=== PATIENT | female | born 1990 | race Caucasian/White ===

== ENCOUNTER 2017-05-22 18:56 | Emergency (ER) | payer MEDICAID ==
[2017-05-22 19:24] VITALS: BP 103/71
--- NOTE | 2017-05-22 20:06 | ER Document Report ---
HPI - HPI Pain Level: 5 Notes: Patient is a 26-year-old female who presents the ED complaining of right upper quadrant pain and pelvic pain 3 months with intermittent increases in her pain. Patient states that her pain is generally constant described as sharp. Patient is not sure if food worsens her symptoms. Patient states that she is still eating and drinking without any difficulties. Patient states that she has increased pelvic pain with intercourse as well without any vaginal discharge or bleeding. Her last menstrual period was at the end of April and was regular for her. Patient also admits to urinary frequency with voiding smaller amounts. No burning or hematuria. Patient states that she does have a history of ovarian cysts. Surgical history significant for 2 C-sections. Patient denies any drug allergies. Has a past medical history otherwise significant for epilepsy. Patient is seen regularly by a neurologist and her PCM is [facility]. Patient states that she has been seen by the women's clinic in the past for her 2 children as well. Patient denies any abortions or miscarriages. Denies any headache, fever, URI, sore throat, chest pain, palpitations, syncope, cough, shortness of breath, wheeze, dyspnea, nausea/ vomiting/diarrhea, back pain, loss of control of bowel or bladder, numbness/ tingling, saddle anesthesia, muscle paralysis/weakness, or rash. - ROS Notes: REVIEW OF SYSTEMS: CONSTITUTIONAL : Denies fever, chills, or sweats. Denies recent illness. EENT: Denies eye, ear, throat, or mouth pain or symptoms. Denies nasal or sinus congestion or discharge. Denies throat, tongue, or mouth swelling or difficulty swallowing. CARDIOVASCULAR: Denies chest pain. Denies palpitations or racing or irregular heart beat. Denies ankle edema. RESPIRATORY: Denies cough, cold, or chest congestion. Denies shortness of breath, difficulty breathing, or wheezing. GASTROINTESTINAL: see hpi GENITOURINARY: see hpi FEMALE GENITOURINARY: see hpi MUSCULOSKELETAL: Denies back or neck pain or stiffness. Denies joint pain or swelling. SKIN: Denies rash, lesions or sores. NEUROLOGICAL: Denies confusion or altered mental status. Denies passing out or loss of consciousness. Denies dizziness or lightheadedness. Denies headache. Denies weakness or paralysis or loss of use of either side. Denies problems with gait or speech. PSYCHIATRIC: Denies anxiety or stress. Denies depression, suicidal ideation, or homicidal ideation. ALL OTHER SYSTEMS REVIEWED AND NEGATIVE. Dictation was performed using [employer] voice recognition software - REPRODUCTIVE Reproductive: DENIES: : - DERM Skin Color: Normal, [employer] Past Medical History - Social History Smoking Status: Unknown if Ever Smoked Family History: Reviewed & Not Pertinent Neurological Medical History: Reports: Hx Migraine, Hx Seizures - SZ PRECAUTIONS IN PLACE Renal/ Medical History: Denies: Hx Peritoneal Dialysis Past Surgical History: Reports: Hx Section. Denies: Hx Hysterectomy - Immunizations Hx Diphtheria, Pertussis, Tetanus Vaccination: No - contraindicated-seizures Vertical Provider Document - CONSTITUTIONAL Agree With Documented VS: Yes Notes: PHYSICAL EXAMINATION: GENERAL: Well-appearing, well-nourished and in no acute distress. EYES: Pupils equal round and reactive to light, extraocular movements intact, conjunctiva are normal. ENT: Nares patent, oropharynx clear without exudates. Moist mucous membranes. No tonsillar hypertrophy or erythema. No sinus tenderness. NECK: Normal range of motion, supple without lymphadenopathy LUNGS: Breath sounds clear to auscultation bilaterally and equal. No wheezes rales or rhonchi. HEART: Regular rate and rhythm without murmurs ABDOMEN: Soft, nondistended abdomen. No guarding, no rebound. No masses appreciated. Normal bowel sounds present. CVA tenderness negative bilaterally. + tenderness to the lower pelvic area b/l and to the RUQ. Female : No inguinal adenopathy. External genitalia without erythema, lesions , or masses. Vaginal mucosa pink with white d/c in canal. Cervix parous, pink , and without discharge. Uterus is smooth. + left mild adnexal tenderness. Musculoskeletal: LE's b/l: FROM to passive/active. Strength 5+/5. Extremities: No cyanosis/clubbing/edema b/l. Peripheral pulses 2+. Capillary refill less than 3 seconds. NEUROLOGICAL: Cranial nerves grossly intact. Normal speech, normal gait. Normal sensory, motor exams PSYCH: Normal mood, normal affect. SKIN: Warm, Dry, normal turgor, no rashes or lesions noted. - INFECTION CONTROL TRAVEL OUTSIDE OF THE [place] IN LAST 30 DAYS: No - RESPIRATORY O2 Sat by Pulse Oximetry: 99 Course - Re-evaluation Re-evalutation: 05/22/17 23:04 Patient is an afebrile, well-hydrated, 26-year-old female who presents the ED with a left ovarian cyst and bacterial vaginosis based on H&P today. Vitals are stable. PE otherwise unremarkable at this time. Patient is tolerating p.o. intake. CBC, CMP, lipase were unremarkable. Urinalysis and urine were unremarkable. Galo/chlam neg. Right upper quadrant ultrasound was unremarkable. Transvaginal ultrasound revealed the ovarian cyst. Pelvic exam found a bacterial vaginosis. 1L NS, Toradol 30 mg given IV today along with Zofran 4 mg. I will send her home with a prescription for Flagyl and Zofran to take as directed. Advised recheck with the women's clinic/[facility]. Recheck with your PCM this week as well. Return to the ED with any worsening/ concerning symptoms otherwise as reviewed in discharge. Patient is in agreement. Low suspicion/risk for acute appendicitis, bowel obstruction, acute cholecystitis, acute cholangitis, perforated diverticulitis, incarcerated hernia , pancreatitis, perforated ulcer, peritonitis, sepsis, pelvic inflammatory disease, ectopic , tubo-ovarian abscess, ovarian torsion, or other systemic emergent condition at this time. Patient is aware that her condition can change from initial presentation and she needs to monitor symptoms closely and seek medical attention if any acute changes. - Vital Signs Vital signs: Temp Pulse Resp BP Pulse Ox 97.8 F 79 16 103/71 99 05/22/17 19:24 05/22/17 19:24 05/22/17 19:24 05/22/17 19:24 05/22/17 19:24 - Laboratory Result Diagrams: 05/22/17 19:56 05/22/17 19:56 Procedures - Pelvic Exam Pelvic exam Time completed: 21:00 - approx Cultures obtained: No Wet prep obtained: Yes Herpes culture obtained: No Bimanual exam performed: Yes - neg Witnessed by: female pct Discharge - Discharge Clinical Impression: Bacterial vaginosis Ovarian cyst Qualifiers: Laterality: left Qualified Code(s): N83.202 - Unspecified ovarian cyst, left side Condition: Stable Disposition: HOME, SELF-CARE Instructions: Abdominal Pain ([facility]), Observation for Appendicitis ([facility]), Vaginosis, Bacterial ([facility]), Ovarian Cyst ([facility]), Metronidazole ([facility]), Antinausea Medication ([facility]) Additional Instructions: Maintain adequate fluid and food intake Take medications as directed/needed Monitor symptoms for any acute changes Tylenol/ibuprofen as needed Warm and cool packs may help Recheck with the women's clinic/[facility] this week Recheck with your PCM this week as well Return to the ED with any worsening symptoms and/or development of fever, headache, chest pain, palpitations, syncope, shortness of breath, trouble breathing, worsening abdominal pain, n/v/d, blood in stool/urine, or any other worsening symptoms that are concerning to you. Prescriptions: Metronidazole [Flagyl] 500 mg PO BID #14 tablet Ondansetron [Zofran Odt 4 mg Tablet] 1 - 2 tab PO Q4H PRN #15 tab.rapdis PRN Reason: For Nausea/Vomiting Referrals: JOSE DAVID WHITE MD [Primary Care Provider] - Follow up as needed [facility]Provider Group] - 05/24/17
[2017-05-22] MEDS ORDERED: ONDANSETRON HCL INJ/PF 4 MG/2 ML SDV IV ONE (20:08)
[2017-05-22 20:10] LABS: ABSOLUTE EOSINOPHILS # (AUTO) 0.1 10^3/uL (0.0-0.6); ABSOLUTE LYMPHOCYTES (AUTO) 3.3 10^3/uL (0.5-4.7); ABSOLUTE MONOCYTES (AUTO) 0.4 10^3/uL (0.1-1.4); ABSOLUTE NEUT (AUTO) 3.4 10^3/uL (1.7-8.2); BASOPHILS % (AUTO) 0.6 % (0-2); EOSINOPHILS % (AUTO) 1.3 % (0-6); HEMATOCRIT 37.8 % (36.0-47.0); HEMOGLOBIN 12.7 g/dL (12.0-15.5); HGB HCT DIFFERENCE 0.3; LYMPHOCYTES % (AUTO) 45.8 % (13-45); MEAN CORPUSCULAR HEMOGLOBIN 30.9 pg (27.0-33.4); MEAN CORPUSCULAR HGB CONC 33.7 g/dL (32.0-36.0); MEAN CORPUSCULAR VOLUME 92 fl (80-97); MONOCYTES % (AUTO) 5.6 % (3-13); RED BLOOD COUNT 4.13 10^6/uL (3.72-5.28); RED CELL DISTRIBUTION WIDTH 13.8 % (11.5-14.0); SEGMENTED NEUTROPHILS % (AUTO) 46.7 % (42-78); WHITE BLOOD COUNT 7.2 10^3/uL (4.0-10.5)
[2017-05-22 20:12] LABS: APPEARANCE,URINE CLEAR; BILIRUBIN,URINE NEGATIVE (NEGATIVE); GLUCOSE, URINE NEGATIVE (NEGATIVE); KETONES,URINE NEGATIVE (NEGATIVE); LEUKOCYTE ESTERASE,URINE NEGATIVE (NEGATIVE); NITRITE,URINE NEGATIVE (NEGATIVE); PROTEIN,URINE NEGATIVE (NEGATIVE); URINE SPECIFIC GRAVITY 1.003; UROBILINOGEN,URINE NEGATIVE mg/dL (<2.0)
[2017-05-22 20:20] LABS: ALANINE AMINOTRANSFERASE 18 U/L (9-52); ALBUMIN 4.7 g/dL (3.5-5.0); ALKALINE PHOSPHATASE 46 U/L (38-126); ANION GAP 10 (5-19); ASPARTATE AMINO TRANSFERASE 17 U/L (14-36); BILIRUBIN,DIRECT 0.4 mg/dL (0.0-0.4); BILIRUBIN,TOTAL 0.5 mg/dL (0.2-1.3); BLOOD UREA NITROGEN 9 mg/dL (7-20); CALCIUM 9.8 mg/dL (8.4-10.2); CARBON DIOXIDE 29 mmol/L (22-30); CHLORIDE 98 mmol/L (98-107); GLUCOSE 79 mg/dL (75-110); LIPASE 112.2 U/L (23-300); POTASSIUM 4.1 mmol/L (3.6-5.0); SODIUM 137.2 mmol/L (137-145); TOTAL PROTEIN 7.9 g/dL (6.3-8.2)
--- NOTE | 2017-05-22 22:33 | RADIOLOGY REPORT (SQ) ---
EXAM DESCRIPTION: U/S NON OB PEL TV W/DOPPLER COMPLETED DATE/TIME: 05/22/2017 10:24 pm REASON FOR STUDY: RUQ and b/l Lower quadrant COMPARISON: None. TECHNIQUE: Dynamic and static grayscale images acquired of the pelvis via transvaginal approach and recorded on PACS. Additional selected color Doppler and spectral images recorded. LIMITATIONS: None. FINDINGS: UTERUS: Contour normal. No mass. ENDOMETRIAL STRIPE: No focal or generalized thickening. No masses. CERVIX: No nabothian cysts. RIGHT OVARY: No abnormal masses. RIGHT OVARY DOPPLER: Normal arterial vascular flow without evidence for torsion. LEFT OVARY: Small left ovarian cyst is identified measuring 3.0 x 1.8 x 1.8 cm LEFT OVARY DOPPLER: Normal arterial vascular flow without evidence for torsion. FREE FLUID: None noted. OTHER: No other significant finding. MEASUREMENTS: UTERUS: 11.0 x 4.5 x 6.0 cm ENDOMETRIAL STRIPE: 4.9 mm RIGHT OVARY: 3.2 x 2.8 x 1.7 cm LEFT OVARY: 2.1 x 4.2 x 2.4 cm IMPRESSION: Small left ovarian cyst. No other significant findings TECHNICAL DOCUMENTATION: JOB ID: [id number]- All Rights Reserved
--- NOTE | 2017-05-22 22:34 | RADIOLOGY REPORT (SQ) ---
EXAM DESCRIPTION: U/S ABDOMEN LTD W/DOPPLER COMPLETED DATE/TIME: 05/22/2017 10:24 pm REASON FOR STUDY: RUQ and b/l Lower quadrant COMPARISON: None. TECHNIQUE: Dynamic and static grayscale images acquired of the abdomen and recorded on PACS. Additio nal selected color Doppler and spectral images recorded. LIMITATIONS: None. FINDINGS: PANCREAS: No masses. No peripancreatic edema or fluid collections. LIVER: Echotexture is coarse with increased echogenicity consistent with fatty infiltration. LIVER VASCULATURE: Normal directional flow of the main portal vein and hepatic veins. GALLBLADDER: No stones. Normal wall thickness. No pericholecystic fluid. ULTRASOUND-DETECTED MORALES'S SIGN: Negative. INTRAHEPATIC DUCTS AND COMMON DUCT: CBD and intrahepatic ducts normal caliber. No filling defects. INFERIOR VENA CAVA: Normal flow. AORTA: No aneurysm. RIGHT KIDNEY: Normal size. Normal echogenicity. No solid or suspicious masses. No hydronephrosis. No calcifications. PERITONEAL AND RIGHT PLEURAL SPACE: No ascites or effusions. OTHER: No other significant finding. IMPRESSION: FATTY INFILTRATION OF THE LIVER. OTHERWISE NORMAL RIGHT UPPER QUADRANT ULTRASOUND. TECHNICAL DOCUMENTATION: JOB ID: [id number] [employer]- All Rights Reserved
[2017-05-22 22:37] LABS: CHLAM PCR NOT DETECTED (NOT DETECT)
[2017-05-22] MEDS ORDERED: KETOROLAC TROMETHAMINE INJ/PF 30 MG/1 ML SDV IV ONE (23:01)
[2017-05-23] MEDS ORDERED: IBUPROFEN 600 MG TABLET PO ONE (00:53)
[2017-05-23] MEDS ORDERED: ACETAMINOPHEN 325 MG TABLET PO ONE (00:53)
== END 2017-05-23 01:45 | disposition home or self-care (01) ==
LOC: ER 18:56
DX: N76.0 Acute vaginitis (principal); B96.89 Other specified bacterial agents as the cause of diseases classified elsewhere; N83.202 Unspecified ovarian cyst, left side; R10.11 Right upper quadrant pain; R10.2 Pelvic and perineal pain; R35.0 Frequency of micturition
CPT/HCPCS: 99284; 96374; 96375; 36415; 87210; 83690; 85025; 81025; 80053; 81001; 87491; 87591; 76705; 76830; 93976; J1885; J2405

== ENCOUNTER 2018-05-05 21:23 | Emergency (ER) | payer MEDICAID ==
[2018-05-05] MEDS ORDERED: LIDOCAINE 1%/EPINEPHRINE INJ 20 ML VIAL INJ ONE (22:48)
--- NOTE | 2018-05-05 23:05 | ER Document Report ---
ED General - General Chief Complaint: Skin Problem Stated Complaint: LEG PAIN Time Seen by Provider: 05/05/18 22:45 Notes: Patient is a 27-year-old female presents with complaint of abscess on her right thigh. She says she has never had abscesses before. Patient has multiple track garcia over her body as well as some bruising consistent with possible skin popping. Patient says that she is a former IV drug user but no longer uses IV drugs. She says all her track garcia are from a while ago. She denies any fevers. No vomiting. No diarrhea. No other complaints at this time. TRAVEL OUTSIDE OF THE [place] IN LAST 30 DAYS: No - Related Data Allergies/Adverse Reactions: No Known Allergies Allergy (Verified 08/07/13 19:24) Past Medical History - Social History Smoking Status: Unknown if Ever Smoked Frequency of alcohol use: None Lives with: Other - former heroin Family History: Reviewed & Not Pertinent Neurological Medical History: Reports: Hx Migraine, Hx Seizures - SZ PRECAUTIONS IN PLACE Renal/ Medical History: Denies: Hx Peritoneal Dialysis Past Surgical History: Reports: Hx Section. Denies: Hx Hysterectomy - Immunizations Hx Diphtheria, Pertussis, Tetanus Vaccination: No - contraindicated-seizures Review of Systems - Review of Systems Notes: My Normal Review Basic REVIEW OF SYSTEMS: CONSTITUTIONAL : Denies fever, chills, or sweats. Denies recent illness. GASTROINTESTINAL: Denies abdominal pain. Denies nausea, vomiting, or diarrhea. GENITOURINARY: Denies difficulty urinating, painful urination, burning, frequency, or blood in urine. MUSCULOSKELETAL: Denies neck or back pain or joint pain or swelling. SKIN: Abscess over right anterior thigh. NEUROLOGICAL: Denies sensory or motor loss. ALL OTHER SYSTEMS REVIEWED AND NEGATIVE. Physical Exam - Vital signs Vitals: Temp Pulse Resp BP Pulse Ox 98.3 F 97 16 128/81 H 100 05/05/18 21:38 05/05/18 21:38 05/05/18 21:38 05/05/18 21:38 05/05/18 21:38 - Notes Notes: General Appearance: Well nourished, alert, cooperative, no acute distress, no obvious discomfort. Vitals: reviewed, See vital signs table. Head: no swelling or tenderness to the head Eyes: PERRL, EOMI, Conjuctiva clear Extremities: strength 5/5 in all extremities, good pulses in all extremities, patient has a similar abscess as well as a 2 similar abscess. The right-sided shoulder on anterior thigh. Approximately 4 cm of surrounding erythema. Patient has multiple bruises on her extremities as well as track garcia consistent with IV drug abuse. Skin: warm, dry, appropriate color, no rash Neuro: speech clear, oriented x 3, normal affect, responds appropriately to questions. Course - Re-evaluation Re-evalutation: 05/06/18 00:09 Both abscesses were incised and drained and packed with iodoform gauze. I talked to patient length being that she does have some track garcia. Her and her boyfriend both said are old. 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 Patient and boyfriend both continue adamantly denies any IV drug abuse. I do not see any fresh track garcia therefore I think that she is most likely telemetry. I do not see any bruising on the thigh around the area where the abscesses. She never asked for any type of opiate pain medications. I gave the patient dose doxycycline. I informed her to keep the dressing on for 24 hours. After that to remove and place new dressing on. Packing to be removed in 48 hours. I strongly encouraged her return to ER immediately if she has fevers, spreading redness or swelling, or she feels that she is worsening in any way. Patient agrees with plan will be discharged home. Dictation of this chart was performed using voice recognition software; therefore, there may be some unintended grammatical errors. - Vital Signs Vital signs: Temp Pulse Resp BP Pulse Ox 98.2 F 91 16 108/66 100 05/05/18 23:52 05/05/18 23:52 05/05/18 23:52 05/05/18 23:52 05/05/18 23:52 Procedures - Incision and Drainage Right Thigh Type: Multiple Anesthetic type: 1% Lidocaine w/epi Blade size: 11 I&D procedure: Shurclens applied Incision Method: Incision made by scalpel Amount/type of drainage: 4mls of purulent drainage Notes: 08/04/18 00:07 Both abscesses were anesthetized with lidocaine with epi. They both incised. Purulent drainage was expressed from both abscesses. Loculations were broken up with the tweezers. Both abscesses were flushed with saline and then packed with iodoform gauze and covered with nonstick Xeroform dressings. Patient tolerated procedure well. No complications. Discharge - Discharge Clinical Impression: Abscess Condition: Good Disposition: HOME, SELF-CARE Additional Instructions: ABSCESS: You have an abscess (boil). This a pus-forming infection, usually due to staph. Some boils may be left to drain on their own, but most require lancing. From the time the tender lump first appears, it may be three or four days before the abscess is ready to brayden. Local heat and rest help at this stage of treatment. An antibiotic may prevent spread of the infection. Once the abscess is opened, packing may be placed into it. This is done so pus is not sealed inside by premature closure of the cavity. The packing will be removed at your follow-up visit or you may be advised to remove it yourself at home. Sometimes this packing must be replaced a few times during healing. The wound will heal with surprisingly little scar. Depending on the size and location of an abscess, healing can take one to four weeks. You may shower and wash the area around the incision site two or three times a day. Antibiotics may be prescribed, but are usually not necessary after an abscess has been drained. If you develop fever, chills, worsening pain, or increasing swelling in the area, call the doctor or return immediately. POST INCISION AND DRAINAGE: You have had an incision made to allow drainage of an abscess. The incision must remain open so that pus and debris can drain from the wound. If the abscess cavity is large, packing is placed. This keeps the tissues from collapsing and trapping pus inside, while the body shrinks the cavity. The packing may need to be replaced every day or two. The physician will instruct you on the packing. Keep a bulky dressing over the area. Replace it if it becomes saturated with blood or pus. Do not disturb the packing (if present). You may shower and cleanse the area with gentle soap and warm water two or three times a day. Local warmth may be soothing, and may promote faster healing. Return if you develop high fever or chills, or if you note spreading redness, increasing swelling, or increasing tenderness. DOXYCYCLINE: Doxycycline (Vibramycin, Doryx) is an antibiotic of the tetracycline family. This type of drug is useful for infections of the respiratory tract and genital tract, and is sometimes used for intestinal infections. Unlike most tetracyclines, doxycycline can be taken with food. It is longer acting, and (usually) less prone to side effects than regular tetracycline. Tetracycline antibiotics can stain immature teeth and SHOULD NOT BE TAKEN BY CHILDREN, NURSING MOTHERS, OR WOMEN. Tetracyclines can make you more prone to sunburn. Abdominal cramping, nausea, and diarrhea are occasional side effects. Women may experience vaginal yeast infections. Call the doctor at once if you develop hives, itching, shortness of breath , or lightheadedness. FOLLOW-UP CARE: Most simple abscesses will not require a follow up visit. If you had packing placed in the abscess, remove it as instructed by the physician. If you have been referred to a physician for follow-up care, call the physicians office for an appointment as you were instructed or within the next two days. If you experience worsening or a significant change in your symptoms, return to the Emergency Department at any time for re-evaluation. Please remove the dressing after [address] a new dressing. Remove the packing after 48 hours. Return to the ER for packing removal if you feel in any way uncomfortable doing this at home. Please return to the ER immediately if you have spreading redness, fevers, increasing swelling, or feel that you infection is worsening in any way. Doxycycline will make your skin more sensitive to the sun so please make sure you keep your skin covered or wear sunscreen whenever out in the sun. Prescriptions: Doxycycline Hyclate 100 mg PO BID #14 capsule Forms: Return to Work Referrals: JOSE DAVID WHITE MD [NO LOCAL MD] - Follow up in 3-5 days
[2018-05-05 23:53] VITALS: BP 108/66
[2018-05-05] MEDS ORDERED: DOXYCYCLINE HYCLATE 100 MG TABLET PO ONE (23:57)
== END 2018-05-06 00:03 | disposition home or self-care (01) ==
LOC: ER 21:23
PROC: 0H9HXZZ Drainage of Right Upper Leg Skin, External Approach (ICD-10-PCS; principal; 2018-05-05)
DX: L02.415 Cutaneous abscess of right lower limb (principal)
CPT/HCPCS: 99283; 10061; A6266; J3490 ×2

== ENCOUNTER 2018-06-29 21:50 | Inpatient (IN) | payer MEDICAID ==
--- NOTE | 2018-06-29 22:35 | ER Document Report ---
ED Medical Screen (RME) - General Chief Complaint: Abscess Stated Complaint: SKIN INFECTION Time Seen by Provider: 06/29/18 22:33 Mode of Arrival: Ambulatory Information source: Patient Notes: Patient is a 28-year-old female who presents to the emergency department with complaint of "boil". Patient reports while she was injecting meth she missed of the vein in both her left thigh as well as her left lateral neck. Exam: Erythematous area with induration located to left lateral neck Erythematous area with induration noted to left thigh I have greeted and performed a rapid initial assessment of this patient. A comprehensive ED assessment and evaluation of the patient, analysis of test results and completion of the medical decision making process will be conducted by additional ED providers. Dictation of this chart was performed using voice recognition software; therefore, there may be some unintended grammatical errors. TRAVEL OUTSIDE OF THE [place] IN LAST 30 DAYS: No - Related Data Allergies/Adverse Reactions: No Known Allergies Allergy (Verified 08/07/13 19:24) Past Medical History Neurological Medical History: Reports: Hx Migraine, Hx Seizures - SZ PRECAUTIONS IN PLACE Renal/ Medical History: Denies: Hx Peritoneal Dialysis Past Surgical History: Reports: Hx Section. Denies: Hx Hysterectomy - Immunizations Hx Diphtheria, Pertussis, Tetanus Vaccination: No - contraindicated-seizures Physical Exam - Vital signs Vitals: Temp Pulse Resp BP Pulse Ox 99.4 F 116 H 18 124/78 100 06/29/18 21:59 06/29/18 21:59 06/29/18 21:59 06/29/18 21:59 06/29/18 21:59 Course - Vital Signs Vital signs: Temp Pulse Resp BP Pulse Ox 99.4 F 116 H 18 124/78 100 06/29/18 21:59 06/29/18 21:59 06/29/18 21:59 06/29/18 21:59 06/29/18 21:59
--- NOTE | 2018-06-29 23:27 | ER Document Report ---
ED General - General Chief Complaint: Abscess Stated Complaint: SKIN INFECTION Time Seen by Provider: 06/29/18 22:33 Mode of Arrival: Ambulatory Notes: 28-year-old female, active injection drug use with meth presents with right- sided neck pain and swelling, for 1 day, worsening, moderate. No trouble swallowing or breathing. Pain is worse with moving the neck. She attempted to inject meth into her neck pain 2 days ago, or about 1 day prior to the pain, and missed. Also has an injection site on her leg she is worried about. She denies fevers and chills. Denies prior blood-borne infections. Uses clean needles. TRAVEL OUTSIDE OF THE [place] IN LAST 30 DAYS: No - Related Data Allergies/Adverse Reactions: No Known Allergies Allergy (Verified 08/07/13 19:24) Past Medical History - General Information source: Patient - Social History Smoking Status: Current Every Day Smoker Drug Abuse: Methamphetamine Family History: Reviewed & Not Pertinent Neurological Medical History: Reports: Hx Migraine, Hx Seizures - SZ PRECAUTIONS IN PLACE Renal/ Medical History: Denies: Hx Peritoneal Dialysis Past Surgical History: Reports: Hx Section. Denies: Hx Hysterectomy - Immunizations Hx Diphtheria, Pertussis, Tetanus Vaccination: No - contraindicated-seizures Review of Systems - Review of Systems Notes: REVIEW OF SYSTEMS GEN: Denies fever, chills, weight loss ENT: Denies sore throat, nasal discharge, ear pain EYES: Denies blurry vision, eye pain, discharge CV: Denies chest pain, palpitations, edema RESP: Denies cough, shortness of breath, wheezing GI: Denies abdominal pain, nausea, vomiting, diarrhea MSK: Denies joint pain/swelling, edema, SKIN: Swelling and redness of neck and leg LYMPH: Denies swollen glands/lymph nodes NEURO: Denies headache, focal weakness or numbness, dizziness PSYCH: Denies depression, suicidal or homicidal ideation PHYSICAL EXAMINATION General: No acute distress, well-nourished Head: Atraumatic, normocephalic ENT: Mouth normal, oropharynx moist, no exudates or tonsillar enlargement Eyes: Conjunctiva normal, pupils equal, lids normal Neck: No JVD, supple, no guarding. 2 x 2 centimeter area of erythema and tenderness without fluctuance or crepitus, mobile, shallow cutaneous tissues of the proximal right neck just above the clavicle CVS: Normal rate, regular rhythm, no murmurs Resp: No resp distress, equal and normal breath sounds bilaterally GI: Nondistended, soft, no tenderness to palpation, no rebound or guarding Ext: No deformities, no edema, normal range of motion in upper and lower ext Back: No CVA or midline TTP Skin: There is an area approximately 30 x 25 cm on the right inner thigh surrounding a necrotic fluctuant region is highly suggestive of abscess and cellulitis Lymphatic: No lymphadeopathy noted Neuro: Awake, alert. Face symmetric. GCS 15. Physical Exam - Vital signs Vitals: Temp Pulse Resp BP Pulse Ox 99.4 F 116 H 18 124/78 100 06/29/18 21:59 06/29/18 21:59 06/29/18 21:59 06/29/18 21:59 06/29/18 21:59 Course - Re-evaluation Re-evalutation: 06/29/18 23:42 Patient presents with 2 injection drug use related s to his consultations: Small area of cellulitis and superficial thrombus vulvitis in the right neck which I do not believe extends into the internal jugular vein or carotid artery based on history and exam. Also do not believe that this reflects a deep space or spreading neck infection requiring imaging at this point. Her head and neck exam is otherwise normal she can range her neck normally is speaking normally. Also she has a large cellulitis on the right anterior thigh associated with evolving abscess. Both of these can be treated with IV antibiotics. We will get blood cultures and labs. Unit require imaging at this point. 06/30/18 00:13 Ultrasound does not show deep space infection of the neck. There is a superficial thrombus phlebitis present in the right neck. This stays above the fascia with minimal surrounding cellulitis on ultrasound. Right leg shows cellulitis with small abscess cavity. This will be drained. White count elevated. Antibiotics were given. Tetanus is updated. Given Ativan for anxiety and seizures order nighttime Depakote. Discussed with Mateus Fields for admission. - Vital Signs Vital signs: Temp Pulse Resp BP Pulse Ox 99.4 F 116 H 18 124/78 100 06/29/18 21:59 06/29/18 21:59 06/29/18 21:59 06/29/18 21:59 06/29/18 21:59 - Laboratory Result Diagrams: 06/29/18 23:40 06/29/18 23:40 Laboratory results interpreted by me: 06/29/18 06/29/18 23:40 23:40 WBC 13.5 H Hgb 10.4 L Hct 31.8 L MCV 72 L MCH 23.3 L RDW 15.5 H Absolute Neutrophils 10.3 H Sodium 135.5 L Chloride 94 L Glucose 70 L Procedures - Incision and Drainage Right Proximal Leg Time completed: 00:50 Type: Complex, Single Anesthetic type: 1% Lidocaine w/epi mL's of anesthetic: 5 Blade size: 11 I&D procedure: Betadine prep applied, Sterile dressing applied, Other - Cut segment of 4 x 4 gauze Incision Method: Incision made by scalpel Amount/type of drainage: 3 cc pus and blood Notes: 06/30/18 00:59 Loculations broken up with hemostats - Ultrasound/Bedside Ultrasound/Bedside Time completed: 22:45 Ultrasound: Other - Soft tissue ultrasound right leg. Cellulitis with abscess presents. Discharge - Discharge Clinical Impression: Cellulitis and abscess of right lower extremity Condition: Fair Disposition: ADMITTED INPATIENT Admitting Provider: Hospitalist Unit Admitted: Telemetry
[2018-06-29] MEDS ORDERED: NORMAL SALINE 1000 ML 1,000 ML IV ONE (23:41)
[2018-06-29] MEDS ORDERED: VANCOMYCIN HCL INJ 1000 MG VIAL IV ONE (23:41)
[2018-06-29] MEDS ORDERED: LORAZEPAM INJ 2 MG/1 ML VIAL IV ONE (23:41)
[2018-06-29] MEDS ORDERED: LIDOCAINE 1%/EPINEPHRINE INJ 20 ML VIAL INJ ONE (23:54)
[2018-06-29 23:55] LABS: ABSOLUTE MONOCYTES (AUTO) 1.1 10^3/uL (0.1-1.4); ABSOLUTE NEUT (AUTO) 10.3 10^3/uL (1.7-8.2); BASOPHILS % (AUTO) 0.3 % (0-2); EOSINOPHILS % (AUTO) 0.3 % (0-6); HEMATOCRIT 31.8 % (36.0-47.0); HEMOGLOBIN 10.4 g/dL (12.0-15.5); LYMPHOCYTES % (AUTO) 15.1 % (13-45); MEAN CORPUSCULAR HEMOGLOBIN 23.3 pg (27.0-33.4); MEAN CORPUSCULAR HGB CONC 32.6 g/dL (32.0-36.0); MEAN CORPUSCULAR VOLUME 72 fl (80-97); MONOCYTES % (AUTO) 8.1 % (3-13); PLATELET COUNT 395 10^3/uL (150-450); RED BLOOD COUNT 4.45 10^6/uL (3.72-5.28); RED CELL DISTRIBUTION WIDTH 15.5 % (11.5-14.0); SEGMENTED NEUTROPHILS % (AUTO) 76.2 % (42-78); TOTAL CELLS COUNTED % (AUTO) 100 %; WHITE BLOOD COUNT 13.5 10^3/uL (4.0-10.5)
[2018-06-30 00:08] LABS: ANION GAP 12 (5-19); BLOOD UREA NITROGEN 9 mg/dL (7-20); CALCIUM 9.5 mg/dL (8.4-10.2); CARBON DIOXIDE 30 mmol/L (22-30); CHLORIDE 94 mmol/L (98-107); GLUCOSE 70 mg/dL (75-110); POTASSIUM 4.1 mmol/L (3.6-5.0); SODIUM 135.5 mmol/L (137-145)
[2018-06-30] MEDS ORDERED: DIVALPROEX SODIUM 250 MG TAB.SR.24H PO ONE ×2 (00:14→01:00)
[2018-06-30] MEDS ORDERED: MAG HYDROX/AL HYDROX/SIMETH SUSP 30 ML UDCUP PO PRN (00:16)
[2018-06-30] MEDS ORDERED: HYDRALAZINE HCL INJ/PF 20 MG/1 ML SDV IV PRN (00:16)
[2018-06-30] MEDS ORDERED: ACETAMINOPHEN 325 MG TABLET PO PRN (00:16)
[2018-06-30] MEDS ORDERED: KETOROLAC TROMETHAMINE INJ/PF 30 MG/1 ML SDV IV PRN (00:16)
[2018-06-30] MEDS ORDERED: MAGNESIUM HYDROXIDE SUSP 30 ML UDCUP PO PRN (00:16)
[2018-06-30 00:30] LABS: ABSOLUTE RETICS # 0.049 10^6/uL (0.028-0.122)
[2018-06-30] MEDS ORDERED: NORMAL SALINE 1000 ML 1,000 ML IV SCH ×2 (00:30→08:30)
[2018-06-30 00:46] LABS: URINE BARBITURATES SCREEN NEGATIVE; URINE BENZODIAZEPINES SCREEN NEGATIVE; URINE COCAINE SCREEN NEGATIVE; URINE MARIJUANA (THC) SCREEN NEGATIVE; URINE METHADONE SCREEN NEGATIVE; URINE PHENCYCLIDINE SCREEN NEGATIVE
[2018-06-30] MEDS ORDERED: OXYCODONE-ACETAMINOPHEN 5-325 MG TABLET PO ONE (00:46)
[2018-06-30] MEDS ORDERED: TRAZODONE HCL 50 MG TABLET PO ONE (01:00)
[2018-06-30 01:48] LABS: IRON(TIBC) < 10.1 ug/dL (37-170)
[2018-06-30] MEDS ORDERED: NORMAL SALINE 1000 ML 1,000 ML IV ONE (05:27)
[2018-06-30] MEDS ORDERED: VANCOMYCIN HCL 0 MG in DEXTROSE 5%-WATER 250 ML IV NR (05:30)
--- NOTE | 2018-06-30 05:39 | PDOC H&P ---
History of Present Illness Admission Date/PCP: 06/30/18 00:16 Patient complains of: Right neck pain History of Present Illness: KINA GOMEZ is a 28 year old female with past medical history of seizure disorder and tobacco. She presents with 48 hours of 1 cm swelling and pain to her anterior right neck and 2.5 cm abscess of the anterior aspect of the right thigh. Patient admits methamphetamine IV drug abuse. Denies fever, palpitations, difficulty with speech or breathing. In the emergency room ultrasound reveals a localized swelling to the neck and thigh receiving I&D by emergency department provider. She denies recent antibiotics, placed on IV vancomycin and was referred to the hospitalist for admission. Past Medical History Neurological Medical History: Reports: Migraine, Seizures - SZ PRECAUTIONS IN PLACE Psychiatric Medical History: Reports: Substance Abuse, Tobacco Dependency Past Surgical History Past Surgical History: Reports: Section Denies: Hysterectomy Social History Information Source: Patient Smoking Status: Current Some Day Smoker Last Time Smoked: 06/29/2018 Hx Recreational Drug Use: Yes Drugs: Other - Advance Directive Resuscitation Status: Full Code Family History Family History: Hypertension Parental Family History Reviewed: Yes Children Family History Reviewed: Yes Sibling(s) Family History Reviewed.: Yes Medication/Allergy Home Medications: Butalb/Acetaminophen/Caffeine [Fioricet (50-325-40 mg) Tablet] 1 tab PO BID PRN 08/07/13 Divalproex Sodium [Depakote] 250 mg PO TID 08/07/13 Oxycodone HCl/Acetaminophen [Percocet 5-325 mg Tablet] 1 tab PO TID PRN Promethazine HCl [Phenergan 25 mg Tablet] 25 mg PO TID PRN 08/07/13 Fluconazole [Diflucan] 150 mg PO ONCE PRN #1 tablet 08/08/13 Ondansetron [Zofran Odt 4 mg Tablet] 1 - 2 tab PO Q4H #10 tab.rapdis 08/08/13 Oxycodone HCl/Acetaminophen [Percocet 5-325 mg Tablet] 1 - 2 tab PO ASDIR PRN # 15 tablet 08/08/13 Metronidazole [Flagyl] 500 mg PO BID #14 tablet 05/22/17 Ondansetron [Zofran Odt 4 mg Tablet] 1 - 2 tab PO Q4H PRN #15 tab.rapdis Doxycycline Hyclate 100 mg PO BID #14 capsule 05/05/18 Allergies/Adverse Reactions: No Known Allergies Allergy (Verified 08/07/13 19:24) Review of Systems Constitutional: ABSENT: chills, fever(s), headache(s), weight gain, weight loss Eyes: ABSENT: visual disturbances Ears: ABSENT: hearing changes Cardiovascular: ABSENT: chest pain, dyspnea on exertion, edema, orthropnea, palpitations Respiratory: ABSENT: cough, hemoptysis Gastrointestinal: ABSENT: abdominal pain, constipation, diarrhea, hematemesis, hematochezia, nausea, vomiting Genitourinary: ABSENT: dysuria, hematuria Musculoskeletal: ABSENT: joint swelling Integumentary: ABSENT: rash, wounds Neurological: ABSENT: abnormal gait, abnormal speech, confusion, dizziness, focal weakness, syncope Psychiatric: ABSENT: anxiety, depression, homidical ideation, suicidal ideation Endocrine: ABSENT: cold intolerance, heat intolerance, polydipsia, polyuria Hematologic/Lymphatic: ABSENT: easy bleeding, easy bruising Physical Exam Vital Signs: Temp Pulse Resp BP Pulse Ox 101.2 F H 121 H 17 93/57 L 98 06/30/18 04:32 06/30/18 04:44 06/30/18 04:32 06/30/18 04:32 06/30/18 04:32 Intake & Output 06/28/18 06/29/18 06/30/18 11:59 11:59 11:59 Weight 55.7 kg General appearance: PRESENT: cooperative, disheveled, mild distress, thin Head exam: PRESENT: atraumatic, normocephalic Eye exam: PRESENT: conjunctiva pink, EOMI, PERRLA. ABSENT: scleral icterus Ear exam: PRESENT: normal external ear exam Mouth exam: PRESENT: moist, tongue midline Teeth exam: PRESENT: poor dentation Throat exam: ABSENT: post pharyngeal erythema, tonsillar erythema Neck exam: PRESENT: full ROM, tenderness. ABSENT: JVD, lymphadenopathy, thyromegaly, tracheal deviation Adult Head Front/Back Image: 1 - 1 cm indurated swelling without drainage Respiratory exam: PRESENT: clear to auscultation willie. ABSENT: rales, rhonchi, wheezes Cardiovascular exam: PRESENT: RRR. ABSENT: diastolic murmur, gallop, rubs, systolic murmur Pulses: PRESENT: normal dorsalis pedis pul Vascular exam: PRESENT: normal capillary refill GI/Abdominal exam: PRESENT: normal bowel sounds, soft. ABSENT: distended, guarding, mass, organolmegaly, rebound, tenderness Rectal exam: PRESENT: deferred Extremities exam: PRESENT: full ROM, tenderness. ABSENT: calf tenderness, clubbing, pedal edema Musculoskeletal exam: PRESENT: tenderness - 2 cm abscess with purulent drainage anterior right thigh Neurological exam: PRESENT: alert, awake, oriented to person, oriented to place , oriented to time, oriented to situation, CN II-XII grossly intact. ABSENT: motor sensory deficit Psychiatric exam: PRESENT: appropriate affect, normal mood. ABSENT: homicidal ideation, suicidal ideation Skin exam: PRESENT: dry, intact, warm. ABSENT: cyanosis, rash Assessment & Plan - Diagnosis (1) IV drug abuse Is this a current diagnosis for this admission?: Yes Plan: Follow-up blood culture. Low threshold for echocardiogram and evaluation of endocarditis. (2) Neck abscess Is this a current diagnosis for this admission?: Yes Plan: Low threshold for soft tissue neck CT if not significantly improved. Follow-up culture continue IV vancomycin and Rocephin (3) Cellulitis and abscess of right lower extremity Is this a current diagnosis for this admission?: Yes Plan: Cellulitis Will obtain blood and wound culture repeat CBC, continue empiric antibiotic coverage for community-acquired MRSA and symptomatic management. Consider surgical consultation if not significantly improved with follow-up evaluation. - Time Time Spent: 50 to 70 Minutes
[2018-06-30] MEDS: HEPARIN SOD (PORCINE) 5,000 UNIT/ML 1 ML SYRINGE SUBCUT SCH ×2 (05:41→14:30)
[2018-06-30] MEDS ORDERED: CEFTRIAXONE 1 GM/D5W RTU 1 GM/50 ML RTUPB IV ONE (06:00)
[2018-06-30] MEDS: NORMAL SALINE 1000 ML 1,000 ML IV PRN ×2 (08:59→14:32)
[2018-06-30] MEDS: DIVALPROEX SODIUM 250 MG TAB.SR.24H PO SCH ×2 (09:02→14:30)
[2018-06-30] MEDS: DOCUSATE SODIUM 100 MG CAPSULE PO SCH ×2 (09:02→09:11)
[2018-06-30] MEDS ORDERED: VANCOMYCIN HCL 1,000 MG in DEXTROSE 5%-WATER 250 ML IV SCH (10:00)
[2018-06-30] MEDS ORDERED: CEFTRIAXONE SODIUM 1,000 MG in DEXTROSE 5%-WATER 50 ML IV SCH (10:00)
[2018-06-30] MEDS ORDERED: HYDROCODONE/ACETAMINOPHEN 5-325 MG TABLET PO PRN (15:07)
[2018-06-30] MEDS ORDERED: NORMAL SALINE 1000 ML 1,000 ML IV PRN (15:08)
[2018-06-30 16:52] VITALS: BP 97/56
[2018-06-30] MEDS ORDERED: TRAZODONE HCL 50 MG TABLET PO SCH (22:00)
[2018-07-01] MEDS ORDERED: CEFTRIAXONE 1 GM/D5W RTU 1 GM/50 ML RTUPB IV SCH (08:00)
--- NOTE | 2018-07-04 17:00 | PDOC DISCHARGE SUMMARY ---
General - Admit/Disc Date/PCP Admission Date/Primary Care Provider: 06/30/18 00:16 Discharge Date: 06/30/18 - Discharge Diagnosis (1) Cellulitis and abscess of right lower extremity Is this a current diagnosis for this admission?: Yes Summary: The patient underwent I&D of the abscess to her Right thigh by the Emergency Department provider. She was admitted to the medical floor and empirically placed on IV Rocephin and Vancomycin. A surgical consultation was ordered. Prior to evaluation by the Surgeon, the patient eloped. Blood cultures remain negative at 4 days. (2) Neck abscess Is this a current diagnosis for this admission?: Yes Summary: Bedside ultrasound by the Emergency Department provider revealed a superficial thrombus phlebitis. The patient was admitted to the medical floor, placed on empiric antibiotics, and Surgical consultation was requested. The patient eloped prior to Surgical evaluation. (3) IV drug abuse Is this a current diagnosis for this admission?: Yes Summary: The patient endorsed IV drug use. UDS was positive for opiates and amphetamines. Fortunately, blood cultures remain negative at 4 days. - Additional Information Resuscitation Status: Full Code Home Medications: No Home Medications 06/30/18 History of Present Illness History of Present Illness: Per H&P by Dr. Fields: KINA GOMEZ is a 28 year old female with past medical history of seizure disorder and tobacco. She presents with 48 hours of 1 cm swelling and pain to her anterior right neck and 2.5 cm abscess of the anterior aspect of the right thigh. Patient admits methamphetamine IV drug abuse. Denies fever, palpitations, difficulty with speech or breathing. In the emergency room ultrasound reveals a localized swelling to the neck and thigh receiving I&D by emergency department provider. She denies recent antibiotics, placed on IV vancomycin and was referred to the hospitalist for admission. Hospital Course Hospital Course: The patient was seen and admitted by the Mechanical System Technician. The patient was admitted to the medical floor. She was empirically placed on IV Rocephine and Vancomycin. A surgical consultation was requested and the patient was placed in npo status pending Surgery's evaluation. Nursing called in the afternoon to report that the patient had eloped (patient, significant other, and all belongings were gone). They were concerned that the patient left with IV intact. Nursing was asked to notify the Nursing Laboratory Engineer and to call the patient and request that she return so that the IV could be removed. Pt eloped AGAINST MEDICAL ADVISE. Physical Exam Vital Signs: Temp Pulse Resp BP Pulse Ox 98.1 F 82 12 97/56 L 100 06/30/18 14:43 06/30/18 14:43 06/30/18 14:43 06/30/18 14:43 06/30/18 14:43 Additional comments: Physical exam was not personally completed. The patient eloped within the first 24 hours, and prior to my seeing the patient; please reference the H&P for physical exam. Qualifiers - * PATIENT BEING DISCHARGED WITH ANY OF THE FOLLOWING DIAGNOSIS: No Plan Discharge Plan: The patient eloped AGAINST MEDICAL ADVICE. Time Spent: Less than 30 Minutes
== END 2018-06-30 16:35 | disposition left against medical advice (07) | DRG 580 ==
LOC: ER 21:50 → EH 06-30 00:16 → 4S 06-30 01:30
PROVIDERS: ADMIT Internal Medicine; ATTEND Internal Medicine
PROC: 0J9N0ZZ Drainage of Right Lower Leg Subcutaneous Tissue and Fascia, Open Approach (ICD-10-PCS; principal; 2018-06-30)
DX: L03.115 Cellulitis of right lower limb (principal); L02.11 Cutaneous abscess of neck; L02.415 Cutaneous abscess of right lower limb; F11.10 Opioid abuse, uncomplicated; I80.8 Phlebitis and thrombophlebitis of other sites; G40.909 Epilepsy, unspecified, not intractable, without status epilepticus; F17.200 Nicotine dependence, unspecified, uncomplicated; G43.909 Migraine, unspecified, not intractable, without status migrainosus; Z82.49 Family history of ischemic heart disease and other diseases of the circulatory system
CPT/HCPCS: 36415; 80048; 80307; 82607; 82728; 82746; 83540; 83550; 85025; 85045; 87040; 96374; 99285; J0696; J1644; J1885; J2060; J3370; J3490; J7060

== ENCOUNTER 2018-08-29 19:03 | Emergency (ER) | payer MEDICAID ==
--- NOTE | 2018-08-29 22:23 | ER Document Report ---
ED Medical Screen (RME) - General Chief Complaint: Leg Pain Stated Complaint: LEG PAIN Time Seen by Provider: 08/29/18 22:15 Mode of Arrival: Wheelchair Information source: Patient Notes: 28-year-old female presented to ED for complaint of abscesses to the left leg x2 very large and painful. She states she has had them for about 3-4 days ago. She states she saw a doctor in [place] 2 days ago and they started on Septra. She noticed to have gotten much worse over the last couple days. These abscesses started from drug relapse where she injected herself with meth. Patient is alert and oriented afebrile rest respirations regular and unlabored at this time. I have greeted and performed a rapid initial assessment of this patient. A comprehensive ED assessment and evaluation of the patient, analysis of test results and completion of medical decision making process will be conducted by an additional ED providers. TRAVEL OUTSIDE OF THE [place] IN LAST 30 DAYS: No - Related Data Allergies/Adverse Reactions: No Known Allergies Allergy (Verified 08/07/13 19:24) Past Medical History - Social History Drug Abuse: Methamphetamine Neurological Medical History: Reports: Hx Migraine, Hx Seizures - SZ PRECAUTIONS IN PLACE Renal/ Medical History: Denies: Hx Peritoneal Dialysis Past Surgical History: Reports: Hx Section. Denies: Hx Hysterectomy - Immunizations Hx Diphtheria, Pertussis, Tetanus Vaccination: No - contraindicated-seizures Physical Exam - Vital signs Vitals: Temp Pulse Resp BP Pulse Ox 98.5 F 114 H 16 123/75 96 08/29/18 19:24 08/29/18 19:24 08/29/18 19:24 08/29/18 19:24 08/29/18 19:24 Course - Vital Signs Vital signs: Temp Pulse Resp BP Pulse Ox 98.5 F 114 H 16 123/75 96 08/29/18 19:24 08/29/18 19:24 08/29/18 19:24 08/29/18 19:24 08/29/18 19:24
[2018-08-29 23:24] LABS: APPEARANCE,URINE SLIGHTLY-CLOUDY; BILIRUBIN,URINE NEGATIVE (NEGATIVE); COLOR,URINE YELLOW; GLUCOSE, URINE NEGATIVE (NEGATIVE); KETONES,URINE NEGATIVE (NEGATIVE); LEUKOCYTE ESTERASE,URINE TRACE (NEGATIVE); NITRITE,URINE NEGATIVE (NEGATIVE); PROTEIN,URINE NEGATIVE (NEGATIVE); URINE SPECIFIC GRAVITY 1.012; UROBILINOGEN,URINE NEGATIVE mg/dL (<2.0)
[2018-08-29] MEDS ORDERED: VANCOMYCIN HCL INJ 1000 MG VIAL IV ONE (23:31)
[2018-08-29] MEDS ORDERED: HYDROMORPHONE HCL INJ/PF 2 MG/ML AMPULE IV ONE (23:31)
[2018-08-29] MEDS ORDERED: CEFTRIAXONE INJ 1000 MG VIAL IV ONE (23:31)
--- NOTE | 2018-08-29 23:35 | ER Document Report ---
ED General - General Chief Complaint: Leg Pain Stated Complaint: LEG PAIN Time Seen by Provider: 08/29/18 22:15 Mode of Arrival: Wheelchair Notes: Patient is a 28 old female presents with complaint of abscesses on her leg. She is got one on her left thigh and one on her left lower leg. She says this occurred after she skin popped and injected meth. She said she had a relapse and she has long history of drug addiction. She went to a hospital in [place] 2 days ago. Placed on Bactrim. She is now developed abscesses that are very painful and therefore is come to the ER. Only past medical history is seizures for which she is on Depakote. She admits that she does not always take her Depakote. She denies any seizures today. No medical allergies. No fevers. No other complaints at this time. TRAVEL OUTSIDE OF THE [place] IN LAST 30 DAYS: No - Related Data Allergies/Adverse Reactions: No Known Allergies Allergy (Verified 08/07/13 19:24) Past Medical History - General Information source: Patient - Social History Smoking Status: Current Every Day Smoker Frequency of alcohol use: None Drug Abuse: Methamphetamine Family History: Hypertension Patient has suicidal ideation: No Patient has homicidal ideation: No Neurological Medical History: Reports: Hx Migraine, Hx Seizures - SZ PRECAUTIONS IN PLACE Renal/ Medical History: Denies: Hx Peritoneal Dialysis Past Surgical History: Reports: Hx Section. Denies: Hx Hysterectomy - Immunizations Hx Diphtheria, Pertussis, Tetanus Vaccination: No - contraindicated-seizures Review of Systems - Review of Systems Notes: My Normal Review Basic REVIEW OF SYSTEMS: CONSTITUTIONAL : Denies fever, chills, or sweats. Left leg Infection MUSCULOSKELETAL: Abscesses to left lower leg. SKIN: abscess and cellulitis of left lower leg. NEUROLOGICAL: Denies sensory or motor loss. ALL OTHER SYSTEMS REVIEWED AND NEGATIVE. Physical Exam - Vital signs Vitals: Temp Pulse Resp BP Pulse Ox 98.5 F 114 H 16 123/75 96 08/29/18 19:24 08/29/18 19:24 08/29/18 19:24 08/29/18 19:24 08/29/18 19:24 - Notes Notes: General Appearance: Well nourished, alert, cooperative, no acute distress, moderate obvious discomfort. On exam Vitals: reviewed, See vital signs table. Eyes: PERRL, EOMI, Conjuctiva clear Extremities: Good pulses in distal left extremity. Patient has a approximately 4 similar abscess over left lower leg with localized cellulitis. Patient then has a approximately 4 cm abscess over the left thigh. Has approximately additional 3 cm of surrounding cellulitis. Skin: warm, dry, appropriate color, no rash Neuro: speech clear, oriented x 3, normal affect, responds appropriately to questions. Course - Re-evaluation Re-evalutation: 08/30/18 03:19 Patient continues to be resting comfortably. She is now sleeping because during the abscess I&D patient had severe pain anxiety and was hyperventilating and hard to keep still. I gave her 2 mg of Ativan IM with the first abscess. She continued to be hard to keep still and therefore give her 3 mg of Ativan IM with the second abscess which helped her relax. She is now relaxing resting. We will continue keeping a monitor and watch her. Once patient is awake and alert and feeling better than we will discharge her home. I did not do an actual sedation of the patient as we can I get IV access and if I was to give IM ketamine the patient likely would not tolerate this will become more agitated being that she was so anxious with the procedure in the beginning. Once patient is more awake and alert and ambulate without difficulty she will be discharged home. Patient is not on any supplemental oxygen. Oxygen saturation has remained normal. He is currently 97% on room air. 08/30/18 06:03 Patient still sleeping soundly. We will continue with the patient rest until she is awake and alert and able to be discharged home. - Vital Signs Vital signs: Temp Pulse Resp BP Pulse Ox 98.1 F 79 17 115/85 99 08/30/18 20:09 08/30/18 20:09 08/30/18 20:09 08/30/18 20:09 08/30/18 20:09 - Laboratory Result Diagrams: 08/29/18 23:39 08/29/18 23:39 Laboratory results interpreted by me: 08/29/18 08/29/18 08/29/18 23:03 23:39 23:39 WBC 15.3 H Hgb 9.9 L Hct 30.1 L MCV 69 L MCH 22.7 L RDW 16.5 H Absolute Neutrophils 11.7 H Sodium 134.0 L Chloride 96 L Alkaline Phosphatase 131 H Total Protein 8.9 H Ur Leukocyte Esterase TRACE H Procedures - Incision and Drainage Left Leg Type: Simple Anesthetic type: 1% Lidocaine w/epi mL's of anesthetic: 2 Blade size: 11 I&D procedure: Betadine prep applied Incision Method: Incision made by scalpel Amount/type of drainage: 8mls of purulent drainage Notes: 08/30/18 03:22 After abscess is incised and drained I place iodoform packing in the wound. Patient given 2mg of Ativan IM during procedure for anxiolysis. Xeroform gauze placed over wound with clean dressing. 08/30/18 03:25 left thigh Type: Simple Blade size: 11 I&D procedure: Betadine prep applied Incision Method: Incision made by scalpel Amount/type of drainage: 5mls of purulent drainage Notes: 08/30/18 03:24 Patient given 3mg of Ativan IM for anxiolysis. wound packed with iodoform packing after incision and drainage. Xeroform gauze placed over wound with clean dressing. Discharge - Discharge Clinical Impression: Abscess Condition: Good Disposition: HOME, SELF-CARE Instructions: Oral Narcotic Medication ([facility]) Additional Instructions: Please return to the ER in 2 days for reevaluation of your abscesses and packing removal. Continue to take the Bactrim as well as the Doxycyline. please avoid any recreation drug use and all self injecting of any substance. Continued self injecting will lead to worsening infection, loss of limb, and possibly loss of life.Please return to the ER immediately if you develop fevers , spreading redness, or feel that you are worsening in any way. Prescriptions: Doxycycline Hyclate 100 mg PO BID #14 capsule
[2018-08-29 23:37] LABS: URINE BARBITURATES SCREEN NEGATIVE; URINE BENZODIAZEPINES SCREEN NEGATIVE; URINE COCAINE SCREEN NEGATIVE; URINE METHADONE SCREEN NEGATIVE; URINE PHENCYCLIDINE SCREEN NEGATIVE
[2018-08-30 00:02] LABS: ABSOLUTE BASOPHILS # (AUTO) 0.1 10^3/uL (0.0-0.2); ABSOLUTE EOSINOPHILS # (AUTO) 0.1 10^3/uL (0.0-0.6); ABSOLUTE LYMPHOCYTES (AUTO) 2.5 10^3/uL (0.5-4.7); ABSOLUTE NEUT (AUTO) 11.7 10^3/uL (1.7-8.2); BASOPHILS % (AUTO) 0.6 % (0-2); EOSINOPHILS % (AUTO) 0.4 % (0-6); HEMATOCRIT 30.1 % (36.0-47.0); HEMOGLOBIN 9.9 g/dL (12.0-15.5); LYMPHOCYTES % (AUTO) 16.2 % (13-45); MEAN CORPUSCULAR HEMOGLOBIN 22.7 pg (27.0-33.4); MEAN CORPUSCULAR HGB CONC 32.8 g/dL (32.0-36.0); MEAN CORPUSCULAR VOLUME 69 fl (80-97); MONOCYTES % (AUTO) 6.3 % (3-13); PLATELET COUNT 443 10^3/uL (150-450); RED BLOOD COUNT 4.36 10^6/uL (3.72-5.28); RED CELL DISTRIBUTION WIDTH 16.5 % (11.5-14.0); SEGMENTED NEUTROPHILS % (AUTO) 76.5 % (42-78); TOTAL CELLS COUNTED % (AUTO) 100 %; WHITE BLOOD COUNT 15.3 10^3/uL (4.0-10.5)
[2018-08-30 00:08] LABS: ALANINE AMINOTRANSFERASE 17 U/L (9-52); ALBUMIN 4.5 g/dL (3.5-5.0); ALKALINE PHOSPHATASE 131 U/L (38-126); ANION GAP 16 (5-19); ASPARTATE AMINO TRANSFERASE 27 U/L (14-36); BILIRUBIN,DIRECT 0.3 mg/dL (0.0-0.4); BILIRUBIN,TOTAL 0.6 mg/dL (0.2-1.3); BLOOD UREA NITROGEN 10 mg/dL (7-20); CALCIUM 9.8 mg/dL (8.4-10.2); CARBON DIOXIDE 22 mmol/L (22-30); CHLORIDE 96 mmol/L (98-107); GLUCOSE 91 mg/dL (75-110); POTASSIUM 4.4 mmol/L (3.6-5.0); TOTAL PROTEIN 8.9 g/dL (6.3-8.2)
[2018-08-30 00:17] LABS: URINE MARIJUANA (THC) SCREEN UNCONFIRMED POSITIVE
[2018-08-30] MEDS ORDERED: HYDROMORPHONE HCL INJ/PF 2 MG/ML AMPULE IM ONE (00:25)
[2018-08-30] MEDS ORDERED: LIDOCAINE 1% INJ-PF (10 MG/ML) 30 ML SDV INFIL ONE (00:25)
[2018-08-30] MEDS ORDERED: CEFTRIAXONE INJ 1000 MG VIAL IM ONE (00:25)
[2018-08-30] MEDS ORDERED: DOXYCYCLINE HYCLATE 100 MG TABLET PO ONE (00:28)
[2018-08-30] MEDS ORDERED: LIDOCAINE 1%/EPINEPHRINE INJ 20 ML VIAL ONE (01:21)
[2018-08-30] MEDS ORDERED: LORAZEPAM INJ 2 MG/1 ML VIAL ONE ×2 (01:29→01:39)
[2018-08-30] MEDS ORDERED: LORAZEPAM INJ 2 MG/1 ML VIAL IM ONE ×2 (01:50→02:33)
[2018-08-30] MEDS ORDERED: HYDROCODONE/ACETAMINOPHEN 5-325 MG (6 TAB/ER DISP) PO PRN (02:33)
[2018-08-30] MEDS ORDERED: LIDOCAINE 1%/EPINEPHRINE INJ 20 ML VIAL INJ ONE (02:35)
--- NOTE | 2018-08-30 02:45 | RADIOLOGY REPORT (SQ) ---
EXAM DESCRIPTION: XR FEMUR 2 VIEWS COMPLETED DATE/TME: 08/29/2018 23:31 CLINICAL HISTORY: 28 years, Female, foreign body COMPARISON: None. NUMBER OF VIEWS: 2 TECHNIQUE: 2 views left femur LIMITATIONS: None. FINDINGS: Negative for fracture or dislocation. No soft tissue gas. Joint spaces are preserved IMPRESSION: Negative exam copyright 2010 [employer]- All Rights Reserved
--- NOTE | 2018-08-30 02:46 | RADIOLOGY REPORT (SQ) ---
EXAM DESCRIPTION: XR TIBIA FIBULA 2 VIEWS COMPLETED DATE/TME: 08/29/2018 23:32 CLINICAL HISTORY: 28 years, Female, foreign body COMPARISON: None. NUMBER OF VIEWS: 2 TECHNIQUE: 2 view left tibia fibula LIMITATIONS: None. FINDINGS: Negative for fracture or dislocation. No soft tissue gas. Joint spaces are preserved IMPRESSION: Negative exam copyright 2010 [employer]- All Rights Reserved
[2018-08-30 20:10] VITALS: BP 115/85
== END 2018-08-30 20:10 | disposition home or self-care (01) ==
LOC: ER 19:03
DX: L02.416 Cutaneous abscess of left lower limb (principal); M79.605 Pain in left leg; F17.200 Nicotine dependence, unspecified, uncomplicated
CPT/HCPCS: 99284; 96372; 96374; 36415; 87040; 87070; 87205; 85025; 87075; 87077; 80053; 81001; 80307; 73552; 73590; 10060; A6266; J3490 ×3; J1170; J2060; J0696

== ENCOUNTER 2018-11-29 22:53 | Emergency (ER) | payer OTHER, MEDICAID ==
[2018-11-29 23:07] VITALS: BP 112/83
--- NOTE | 2018-11-30 00:23 | ER Document Report ---
ED General - General Chief Complaint: Other Stated Complaint: WITHDRAWAL SYMPTOMS Time Seen by Provider: 11/30/18 00:09 Notes: Patient is a 28-year-old female that comes to the emergency department for chief complaint of possible opiate withdrawals. Patient uses heroin, states that last use was earlier today, she denies any current symptoms. She states she is possibly with a positive home test, she would be approximately 4 weeks gestation based on her last menstrual cycle, she has had 2 prior pregnancies. She denies abdominal pain, vaginal bleeding, nausea, vomiting, shakes, sweats, or any other symptoms. Patient does report a history of seizures and she states she electively stopped her Depakote. Patient is here with [facility] law enforcement and was arrested earlier in the day. Sent here by triage nurse per law enforcement. TRAVEL OUTSIDE OF THE [place] IN LAST 30 DAYS: No - Related Data Allergies/Adverse Reactions: No Known Allergies Allergy (Verified 08/07/13 19:24) Past Medical History - General Information source: Patient - Social History Smoking Status: Never Smoker Frequency of alcohol use: Occasional Drug Abuse: Heroin Lives with: Other - incarcerated Family History: Hypertension Neurological Medical History: Reports: Hx Migraine, Hx Seizures - SZ PRECAUTIONS IN PLACE Renal/ Medical History: Denies: Hx Peritoneal Dialysis Past Surgical History: Reports: Hx Section. Denies: Hx Hysterectomy - Immunizations Hx Diphtheria, Pertussis, Tetanus Vaccination: No - contraindicated-seizures Review of Systems - Review of Systems Constitutional: No symptoms reported EENT: No symptoms reported Cardiovascular: No symptoms reported Respiratory: No symptoms reported Gastrointestinal: No symptoms reported Genitourinary: No symptoms reported Female Genitourinary: No symptoms reported Musculoskeletal: No symptoms reported Skin: No symptoms reported Hematologic/Lymphatic: No symptoms reported Neurological/Psychological: No symptoms reported Physical Exam - Vital signs Vitals: Temp Pulse Resp BP Pulse Ox 98.4 F 87 14 112/83 100 11/29/18 23:05 11/29/18 23:05 11/29/18 23:05 11/29/18 23:05 11/29/18 23:05 - Notes Notes: GENERAL: Sleeping but easily aroused and then becomes very awake and conversational. HEAD: Normocephalic, atraumatic. EYES: Pupils equal, round, and reactive to light. Extraocular movements intact. ENT: Oral mucosa moist, tongue midline. Oropharynx unremarkable. Airway patent. Nares patent, no nasal septal hematoma, TM's intact. NECK: Full range of motion. Supple. Trachea midline. LUNGS: Clear to auscultation bilaterally, no wheezes, rales, or rhonchi. No respiratory distress. HEART: Regular rate and rhythm. No murmur ABDOMEN: Soft, non-tender. Non-distended. Bowel sounds present in all 4 quadrants. GENITOURINARY: Deferred EXTREMITIES: Moves all 4 extremities spontaneously. No edema, normal radial and dorsalis pedis pulses bilaterally. No cyanosis. BACK: no cervical, thoracic, lumbar midline tenderness. No saddle anesthesia, normal distal neurovascular exam. NEUROLOGICAL: Alert and oriented x3. Normal speech. [cranial nerves II through XII grossly intact]. PSYCH: Normal affect, normal mood. Pleasant. SKIN: Warm, dry, normal turgor. Old healed wounds and track garcia, no erythema, induration, fluctuance, abnormal heat suggesting current skin infection. Course - Re-evaluation Re-evalutation: Patient sleeping and easily aroused. Physical examination is unremarkable other than chronic scarring and healing skin areas with no current signs of infection. Unremarkable vital vital signs without tachycardia, hypertension. Patient is not diaphoretic or shaky. She denies nausea at this time. Patient does report to me that she was in [facility] previously and she did have opiate withdrawals which she did just toughen through. I did discuss different treatment options for potential withdrawal symptoms including gabapentin, clonidine, nausea medication. Patient is , this was confirmed, clonidine and gabapentin are not recommended in . I did offer nausea medication, she accepted. Discussed with Dr. Atwood. No additional r ecommendations at this time. Patient will be discharged back to incarceration status with return precautions which I did discuss with patient. Patient states understanding and agreement with plan. - Vital Signs Vital signs: Temp Pulse Resp BP Pulse Ox 98.4 F 87 14 112/83 100 11/29/18 23:05 11/29/18 23:05 11/29/18 23:05 11/29/18 23:05 11/29/18 23:05 - Laboratory Laboratory results interpreted by me: 11/30/18 00:42 Urine HCG, Qual POSITIVE H Discharge - Discharge Clinical Impression: Opiate dependence Qualifiers: Substance use status: uncomplicated Qualified Code(s): F11.20 - Opioid dependence, uncomplicated Qualifiers: Weeks of gestation: less than 8 weeks Qualified Code(s): Z3A.01 - Less than 8 weeks gestation of Condition: Stable Disposition: HOME, SELF-CARE Additional Instructions: You are . You have been provided with Reglan to take if needed for nausea/vomiting, you can take Tylenol and diphenhydramine for symptoms of withdrawal if these develop. No signs of withdrawal at this time. Return to the emergency department for any concerning symptoms including uncontrolled vomiting, fever, severe abdominal pain, vaginal bleeding, or any other concerning or worsening symptoms. Prescriptions: Metoclopramide HCl [Reglan] 5 mg PO ASDIR PRN #30 tablet PRN Reason:
== END 2018-11-30 02:05 | disposition home or self-care (01) ==
LOC: ER 22:53
DX: O99.321 Drug use complicating pregnancy, first trimester (principal); F11.20 Opioid dependence, uncomplicated; Z3A.01 Less than 8 weeks gestation of pregnancy
CPT/HCPCS: 81025; 99284

== ENCOUNTER 2019-10-26 09:16 | Emergency (ER) | payer MEDICAID ==
--- NOTE | 2019-10-26 09:43 | ER Document Report ---
ED General - General Chief Complaint: Possible Overdose Stated Complaint: POSSIBLE SEPSIS Time Seen by Provider: 10/26/19 09:40 Notes: 29-year-old woman history of a seizure disorder and noncompliance with medications. Presents this morning with a history of having used heroin and found poorly responsive. Was not clear whether the patient has had a seizure or whether the symptoms are related to her IV drug abuse. In the emergency departm ent shortly after arrival the patient had a episode of tonic-clonic seizure-like activity. I was called to the room and arrived and found the patient to be post ictal with a exaggerated respiratory effort and no tonic-clonic activity. TRAVEL OUTSIDE OF THE [place] IN LAST 30 DAYS: No - Related Data Allergies/Adverse Reactions: No Known Allergies Allergy (Verified 10/26/19 12:08) Past Medical History - Social History Smoking Status: Current Every Day Smoker Family History: Hypertension Patient has suicidal ideation: No Patient has homicidal ideation: No Neurological Medical History: Reports: Hx Migraine, Hx Seizures - SZ PRECAUTIONS IN PLACE Renal/ Medical History: Denies: Hx Peritoneal Dialysis Past Surgical History: Reports: Hx Section. Denies: Hx Hysterectomy - Immunizations Hx Diphtheria, Pertussis, Tetanus Vaccination: No - contraindicated-seizures Review of Systems - Review of Systems Notes: Constitutional: Negative for fever. HENT: Negative for sore throat. Eyes: Negative for visual changes. Cardiovascular: Negative for chest pain. Respiratory: Negative for shortness of breath. Gastrointestinal: Negative for abdominal pain, vomiting or diarrhea. Genitourinary: Negative for dysuria. Musculoskeletal: Negative for back pain. Skin: Negative for rash. Neurological: + Seizure 10 point ROS negative except as marked above and in HPI. Fold offers offers Physical Exam - Vital signs Vitals: Pulse Ox 99 10/26/19 09:18 - Notes Notes: PHYSICAL EXAMINATION: Physical Exam: General: Well-nourished well-developed woman in no acute distress HEENT: NC/AT, pupils equal round and reactive to light, MM moist,nares clear, Neck: supple, no adenopathy, no masses. Lungs: clear, no wheezing, no rales no rhonchi CVS: Regular rate and rhythm no murmur gallop or rub Abdomen: Soft active nontender, no masses, no hepatosplenomegaly Ext: No edema clubbing or cyanosis. Neuro: Alert and responsive, moving all 4 extremities on command, cranial nerves intact. Skin: Multiple needle tracks on both upper and lower extremities as well as the anterior neck + left anterior distal thigh with a 4 cm circular area of induration and erythema, site of a drug injection approximately 2 days ago. PSYCH: Normal mood, normal affect. Course - Re-evaluation Re-evalutation: 10/26/19 15:26 29-year-old woman known history of seizure disorder and noncompliance with medications. Apparently she has not taken Depakote for many months. She has been using heroin and has injected as recently as this morning. She endorses a no when asked whether she would like to detox and apparently has no desire to take seizure medications. 10/26/19 15:35 Patient is given Depakote ER 500 mg in the emergency department and a prescription is written for Depakote 500 mg daily. She is encouraged to follow- up with her primary care doctor. - Vital Signs Vital signs: Temp Pulse Resp BP Pulse Ox 10 L 110/56 L 100 10/26/19 12:01 10/26/19 12:00 10/26/19 12:01 - Laboratory Result Diagrams: 10/26/19 10:30 10/26/19 10:30 Laboratory results interpreted by me: 10/26/19 10/26/19 10/26/19 10:30 10:30 12:00 WBC 12.3 H Hgb 10.9 L Hct 35.9 L MCH 24.3 L MCHC 30.3 L RDW 15.4 H Lymph % (Auto) 12.5 L Absolute Neuts (auto) 10.0 H Seg Neutrophils % 81.0 H Carbon Dioxide 10 L* Anion Gap 26 H Glucose 116 H AST 74 H Creatine Kinase 229 H Total Protein 8.5 H Urine Blood SMALL H Urine Nitrite POSITIVE H - EKG Interpretation by Sd EKG shows normal: Sinus rhythm - Rate 68, no acute ST or T wave abnormalities noted. Discharge - Discharge Clinical Impression: Seizure, Seizure disorder, IV drug user, Heroin use, Cellulitis of left thigh Condition: Good Disposition: HOME, SELF-CARE Instructions: Seizure, Known Epileptic ([facility]), Cellulitis ([facility]) Additional Instructions: Today you had a seizure. It is very important that you do take the Depakote extended release as prescribed. Follow-up with your primary care doctor or neurologist. Please return to the ED immediately if you have multiple seizures close together, develop a severe headache, weakness, numbness, difficulty speaking, have a seizure in which you do not return to normal within 1 hour of the seizure, or have any other symptoms that are concerning to you. Area of cellulitis on the left thigh, use a warm compress to the area, take the antibiotics as prescribed follow-up with your primary care doctor or return to [facility] emergency department for further evaluation if you have concerns or other difficulties. Prescriptions: Sulfamethoxazole/Trimethoprim [Bactrim Ds Tablet] 1 tab PO BID #28 tablet Divalproex Sodium [Depakote ER 500 mg Tab.sr] 500 mg PO Q12 #30 tab.sr.24h
[2019-10-26] MEDS ORDERED: LORAZEPAM INJ 2 MG/1 ML VIAL IM ONE (10:00)
[2019-10-26 10:57] LABS: ABSOLUTE LYMPHOCYTES (AUTO) 1.5 10^3/uL (0.5-4.7); ABSOLUTE MONOCYTES (AUTO) 0.7 10^3/uL (0.1-1.4); BASOPHILS % (AUTO) 0.4 % (0-2); EOSINOPHILS % (AUTO) 0.1 % (0-6); HEMATOCRIT 35.9 % (36.0-47.0); HEMOGLOBIN 10.9 g/dL (12.0-15.5); LYMPHOCYTES % (AUTO) 12.5 % (13-45); MEAN CORPUSCULAR HEMOGLOBIN 24.3 pg (27.0-33.4); MEAN CORPUSCULAR HGB CONC 30.3 g/dL (32.0-36.0); MEAN CORPUSCULAR VOLUME 80 fl (80-97); PLATELET COUNT 365 10^3/uL (150-450); RED BLOOD COUNT 4.48 10^6/uL (3.72-5.28); RED CELL DISTRIBUTION WIDTH 15.4 % (11.5-14.0); TOTAL CELLS COUNTED % (AUTO) 100 %; WHITE BLOOD COUNT 12.3 10^3/uL (4.0-10.5)
[2019-10-26 11:16] LABS: ALBUMIN 4.6 g/dL (3.5-5.0); ALKALINE PHOSPHATASE 121 U/L (38-126); ASPARTATE AMINO TRANSFERASE 74 U/L (14-36); BILIRUBIN,DIRECT 0.4 mg/dL (0.0-0.4); BILIRUBIN,TOTAL 0.5 mg/dL (0.2-1.3); BLOOD UREA NITROGEN 12 mg/dL (7-20); CALCIUM 9.5 mg/dL (8.4-10.2); CREATINE KINASE 229 U/L (30-135); GLUCOSE 116 mg/dL (75-110); POTASSIUM 4.3 mmol/L (3.6-5.0); TOTAL PROTEIN 8.5 g/dL (6.3-8.2)
--- NOTE | 2019-10-26 11:19 | EKG REPORT ---
SEVERITY:- NORMAL ECG - SINUS RHYTHM : Confirmed by: Gregor Olvera MD 26-Oct-2019 11:18:09
[2019-10-26 11:34] LABS: CHLORIDE 102 mmol/L (98-107)
[2019-10-26 11:42] LABS: ANION GAP 26 (5-19)
[2019-10-26 11:43] LABS: CARBON DIOXIDE 10 mmol/L (22-30)
[2019-10-26 12:27] LABS: APPEARANCE,URINE SLIGHTLY-CLOUDY; BILIRUBIN,URINE NEGATIVE (NEGATIVE); COLOR,URINE YELLOW; GLUCOSE, URINE NEGATIVE (NEGATIVE); KETONES,URINE NEGATIVE (NEGATIVE); LEUKOCYTE ESTERASE,URINE NEGATIVE (NEGATIVE); NITRITE,URINE POSITIVE (NEGATIVE); PROTEIN,URINE NEGATIVE (NEGATIVE); URINE SPECIFIC GRAVITY 1.012; UROBILINOGEN,URINE NEGATIVE mg/dL (<2.0)
[2019-10-26 12:39] LABS: URINE BARBITURATES SCREEN NEGATIVE; URINE BENZODIAZEPINES SCREEN NEGATIVE; URINE COCAINE SCREEN NEGATIVE; URINE MARIJUANA (THC) SCREEN NEGATIVE; URINE METHADONE SCREEN NEGATIVE; URINE PHENCYCLIDINE SCREEN NEGATIVE
[2019-10-26] MEDS ORDERED: DIVALPROEX SODIUM 500 MG TAB.SR.24H PO ONE (15:31)
[2019-10-26] MEDS ORDERED: SULFAMETHOXAZOLE/TRIMETHOPRIM 800-160 MG TABLET PO ONE (16:15)
[2019-10-26 16:42] VITALS: BP 115/69
== END 2019-10-26 19:52 | disposition home or self-care (01) ==
LOC: ER 09:16
DX: G40.909 Epilepsy, unspecified, not intractable, without status epilepticus (principal); F11.10 Opioid abuse, uncomplicated; L03.116 Cellulitis of left lower limb; Z91.14 Patient's other noncompliance with medication regimen; F17.200 Nicotine dependence, unspecified, uncomplicated
CPT/HCPCS: 93005; 99285; 96372; 36415; 82962; 82550; 85025; 80053; 81001; 80307; 93010; J2060; J3490 ×2

== ENCOUNTER 2019-10-29 20:13 | Emergency (ER) | payer MEDICAID ==
[2019-10-29] MEDS ORDERED: LIDOCAINE 1% INJ-PF (10 MG/ML) 30 ML SDV INJ ONE (22:46)
[2019-10-29] MEDS ORDERED: VANCOMYCIN HCL INJ 1000 MG VIAL IV ONE (22:48)
--- NOTE | 2019-10-29 22:50 | ER Document Report ---
ED Medical Screen (RME) - General Chief Complaint: Abscess Stated Complaint: LEFT LEG INJURY Time Seen by Provider: 10/29/19 22:43 TRAVEL OUTSIDE OF THE [place] IN LAST 30 DAYS: No - HPI Notes: 10/29/19 22:48 29-year-old female to the emergency department with complaints of swelling, redness, pain to the left leg just above the knee joint for the past 3 to 4 days. She has been using IV drugs and injecting into the site. She denies any fevers or chills. She states it hurts when she extends the knee but she can fully move the knee. She states that it started to drain some clear fluid but nothing else. She states this never happened to her before. I performed a brief medical screening exam on patient determined she will need further evaluation and management by main side provider. I have placed initial orders to help expedite her care. - Related Data Allergies/Adverse Reactions: No Known Allergies Allergy (Verified 10/26/19 12:08) Past Medical History - Social History Frequency of alcohol use: None Drug Abuse: Other Neurological Medical History: Reports: Hx Migraine, Hx Seizures - SZ PRECAUTIONS IN PLACE Renal/ Medical History: Denies: Hx Peritoneal Dialysis Past Surgical History: Reports: Hx Section. Denies: Hx Hysterectomy - Immunizations Hx Diphtheria, Pertussis, Tetanus Vaccination: No - contraindicated-seizures Physical Exam - Vital signs Vitals: Temp Pulse Resp BP Pulse Ox 98.4 F 97 16 127/85 H 100 10/29/19 20:31 10/29/19 20:31 10/29/19 20:31 10/29/19 20:31 10/29/19 20:31 Course - Vital Signs Vital signs: Temp Pulse Resp BP Pulse Ox 98.4 F 97 16 127/85 H 100 10/29/19 20:31 10/29/19 20:31 10/29/19 20:31 10/29/19 20:31 10/29/19 20:31
[2019-10-29 23:49] LABS: ALBUMIN 4.4 g/dL (3.5-5.0); ALKALINE PHOSPHATASE 122 U/L (38-126); ANION GAP 13 (5-19); ASPARTATE AMINO TRANSFERASE 53 U/L (14-36); BILIRUBIN,DIRECT 0.3 mg/dL (0.0-0.4); BILIRUBIN,TOTAL 0.4 mg/dL (0.2-1.3); BLOOD UREA NITROGEN 9 mg/dL (7-20); CARBON DIOXIDE 27 mmol/L (22-30); CHLORIDE 99 mmol/L (98-107); GLUCOSE 105 mg/dL (75-110); POTASSIUM 4.4 mmol/L (3.6-5.0); TOTAL PROTEIN 8.6 g/dL (6.3-8.2)
[2019-10-30 00:56] LABS: ABSOLUTE BASOPHILS # (AUTO) 0.1 10^3/uL (0.0-0.2); ABSOLUTE EOSINOPHILS # (AUTO) 0.1 10^3/uL (0.0-0.6); ABSOLUTE LYMPHOCYTES (AUTO) 2.5 10^3/uL (0.5-4.7); ABSOLUTE NEUT (AUTO) 8.8 10^3/uL (1.7-8.2); BASOPHILS % (AUTO) 0.4 % (0-2); EOSINOPHILS % (AUTO) 0.9 % (0-6); HEMATOCRIT 34.1 % (36.0-47.0); HEMOGLOBIN 11.1 g/dL (12.0-15.5); LYMPHOCYTES % (AUTO) 19.9 % (13-45); MEAN CORPUSCULAR HEMOGLOBIN 23.9 pg (27.0-33.4); MEAN CORPUSCULAR HGB CONC 32.5 g/dL (32.0-36.0); MONOCYTES % (AUTO) 8.4 % (3-13); PLATELET COUNT 378 10^3/uL (150-450); RED BLOOD COUNT 4.64 10^6/uL (3.72-5.28); RED CELL DISTRIBUTION WIDTH 15.3 % (11.5-14.0); SEGMENTED NEUTROPHILS % (AUTO) 70.4 % (42-78); TOTAL CELLS COUNTED % (AUTO) 100 %; WHITE BLOOD COUNT 12.5 10^3/uL (4.0-10.5)
[2019-10-30 01:08] LABS: MEAN CORPUSCULAR VOLUME 74 fl (80-97)
[2019-10-30] MEDS ORDERED: LIDOCAINE 4% TRANSPARENT DRESSING 5 GM KIT TP ONE (01:21)
[2019-10-30] MEDS ORDERED: CEFTRIAXONE INJ 1000 MG VIAL IM ONE (01:29)
[2019-10-30] MEDS ORDERED: CLINDAMYCIN PHOSPHATE INJ 300 MG/2 ML SDV IM ONE (01:30)
--- NOTE | 2019-10-30 02:46 | ER Document Report ---
ED Skin Rash/Insect Bite/Abscs - General Chief Complaint: Abscess Stated Complaint: LEFT LEG PAIN Time Seen by Provider: 10/29/19 22:43 Mode of Arrival: Ambulatory Information source: Patient Notes: Patient is an IV drug abuser and she was injecting her left thigh leg with IV methamphetamine. States she missed the vein and extravasated injection into soft tissue. A few days later she notes swelling erythema swelling pain and an abscess formation above the knee on the left thigh TRAVEL OUTSIDE OF THE [place] IN LAST 30 DAYS: No - HPI Patient complains to provider of: Tender/swollen area Onset: Other - A few days ago Onset/Duration: Gradual Severity: Severe Skin Character: Abscess, Drainage, Erythema, Swelling, Tenderness Skin Temperature: Warm Other exposure: Other - Patient cause abscess formation in her left thigh due to IV drug use and accidentally extravasating the injection into her soft tissue. Exacerbated by: Movement, Walking Relieved by: Other - No relief measures known Similar symptoms previously: Yes Recently seen / treated by doctor: No - Related Data Allergies/Adverse Reactions: No Known Allergies Allergy (Verified 10/26/19 12:08) Past Medical History - General Information source: Patient - Social History Smoking Status: Current Every Day Smoker Frequency of alcohol use: None Drug Abuse: Heroin, Methamphetamine Lives with: Family Family History: Hypertension Patient has suicidal ideation: No Patient has homicidal ideation: No EENT Medical History: Reports: Other - Wears reading glasses Neurological Medical History: Reports: Hx Migraine, Hx Seizures - SZ PRECAUTIONS IN PLACE Renal/ Medical History: Denies: Hx Peritoneal Dialysis Skin Medical History: Reports Hx Cellulitis Past Surgical History: Reports: Hx Section. Denies: Hx Hysterectomy - Immunizations Hx Diphtheria, Pertussis, Tetanus Vaccination: No - contraindicated-seizures Review of Systems - Review of Systems Constitutional: Chills EENT: No symptoms reported Cardiovascular: No symptoms reported Respiratory: No symptoms reported Gastrointestinal: No symptoms reported Genitourinary: No symptoms reported Female Genitourinary: No symptoms reported Musculoskeletal: No symptoms reported Skin: Other - Cellulitis and abscess Hematologic/Lymphatic: No symptoms reported Neurological/Psychological: Seizure -: Yes All other systems reviewed and negative Physical Exam - Vital signs Vitals: Temp Pulse Resp BP Pulse Ox 98.4 F 97 16 127/85 H 100 10/29/19 20:31 10/29/19 20:31 10/29/19 20:31 10/29/19 20:31 10/29/19 20:31 Interpretation: Normal - Skin Skin Temperature: Warm Skin Moisture: Dry Skin Color: Normal Notes: Left lower thigh anterior with an abscess 8 x 7 cm around red and swollen with drainage sinus tracts of yellow pus. Malodorous. Course - Vital Signs Vital signs: Temp Pulse Resp BP Pulse Ox 98.4 F 97 16 127/85 H 100 10/29/19 20:31 10/29/19 20:31 10/29/19 20:31 10/29/19 20:31 10/29/19 20:31 - Laboratory Result Diagrams: 10/30/19 00:42 10/29/19 23:17 Laboratory results interpreted by me: 10/29/19 10/29/19 10/30/19 23:17 23:17 00:42 WBC 12.5 H Hgb 11.1 L Hct 34.1 L MCV 74 L D MCH 23.9 L RDW 15.3 H Absolute Neuts (auto) 8.8 H Lactic Acid 2.2 H AST 53 H Total Protein 8.6 H Procedures - Incision and Drainage Left Thigh Type: Complex, Single Anesthetic type: 1% Lidocaine mL's of anesthetic: 10 Blade size: 11 I&D procedure: Betadine prep applied, Iodoform packing placed Incision Method: Incision made by scalpel Amount/type of drainage: 35 ml of purulent drainage Notes: 10/30/19 02:52 Irrigated wound site with 40 mL's of saline. Then packed wound with half-inch iodoform gauze. Then taped in place. Dressing applied 10/30/19 02:53 Patient tolerated procedure well. Discharge - Discharge Clinical Impression: Abscess, Cellulitis, Intravenous drug abuse Condition: Stable Disposition: HOME, SELF-CARE Instructions: Post Incision and Drainage, Abscess ([facility]), Trimethoprim-Sulfa ([facility]) Additional Instructions: Narcotic Abuse You have been given a prescription for pain control. This medication is a narcotic. It's best taken with food, as nausea can result if taken on an empty stomach. Don't operate machinery or drive within six hours of taking this medication. Do not combine this medicine with alcohol, or with any medication which can cause sedation (such as cold tablets or sleeping pills) unless you get permission from the physician. Narcotics tend to cause constipation. If possible, drink plenty of fluids and eat a diet high in fiber and fruits. Please be aware that prescription narcotics also have the potential for abuse. People become addicted to these medications because of the general sense of wellbeing that they induce. This feeling along with a significant reduction in tension, anxiety, and aggression provides a stimulating seductive quality to these drugs. Once your pain is under control, we encourage you to discard your unused narcotics.Cellulitis You have an infection of your skin and underlying soft tissues called cellulitis. This is due to bacteria, which can enter through any break in the skin, or even through an irritated hair follicle. Untreated, cellulitis will usually worsen. Antibiotics are required. Usually, warm packs or warm soaks, and elevation of the infected area are recommended. You should start getting better within 24 to 36 hours. Most infections respond quickly to the right medication. Follow-up care is important, however, to check for abscess (boil) formation, unsuspected foreign body, or resistant infection. If you develop fever, chills, or if the area of infection is becoming rapidly more swollen or painful, call the doctor at once. Abscess You have an abscess (boil). This a pus-forming infection, usually due to staph. Some boils may be left to drain on their own, but most require lancing. From the time the tender lump first appears, it may be three or four days before the abscess is ready to brayden. Local heat and rest help at this stage of treatment. An antibiotic may prevent spread of the infection. Once the abscess is opened, packing may be placed into it. This is done so pus is not sealed inside by premature closure of the cavity. The packing will be removed at your follow-up visit or you may be advised to remove it yourself at home. Sometimes this packing must be replaced a few times during healing. The wound will heal with surprisingly little scar. Depending on the size and location of an abscess, healing can take one to four weeks. You may shower and wash the area around the incision site two or three times a day. Antibiotics may be prescribed, but are usually not necessary after an abscess has been drained. If you develop fever, chilling, worsening pain, or increasing swelling in the area, call the doctor or return immediately. Packing removal in 2 days. Prescriptions: Sulfamethoxazole/Trimethoprim [Bactrim Ds Tablet] 2 tab PO BID #28 tablet Clindamycin HCl 300 mg PO TID #30 capsule Ibuprofen [Ibu] 600 mg PO TID PRN 10 Days #30 tablet PRN Reason: pain
[2019-10-30 03:06] VITALS: BP 132/81
== END 2019-10-30 03:05 | disposition home or self-care (01) ==
LOC: ER 20:13
DX: L02.416 Cutaneous abscess of left lower limb (principal); L03.116 Cellulitis of left lower limb; F15.10 Other stimulant abuse, uncomplicated; R68.83 Chills (without fever); F17.200 Nicotine dependence, unspecified, uncomplicated
CPT/HCPCS: 99283; 96372; 36415; 87040; 87070; 87205; 83605; 87075; 85025; 87077; 80053; 10061; A6266; J3490 ×3; J0696

== ENCOUNTER 2019-11-04 05:41 | Emergency (ER) | payer MEDICAID ==
[2019-11-04 06:14] VITALS: BP 153/79
== END 2019-11-04 07:00 | disposition left against medical advice (07) ==
LOC: ER 05:41
DX: Z53.21 Procedure and treatment not carried out due to patient leaving prior to being seen by health care provider (principal)

== ENCOUNTER 2020-02-21 06:43 | Inpatient (IN) | payer MEDICAID ==
[2020-02-21] MEDS ORDERED: NORMAL SALINE 1000 ML 1,000 ML IV ONE (08:00)
[2020-02-21] MEDS ORDERED: KETOROLAC TROMETHAMINE INJ/PF 30 MG/1 ML SDV IV ONE ×2 (08:00→12:07)
[2020-02-21] MEDS ORDERED: ONDANSETRON HCL INJ/PF 4 MG/2 ML SDV IV ONE (08:01)
--- NOTE | 2020-02-21 08:34 | ER Document Report ---
Entered by ROBERTA BRUNSON SCRIBE 02/21/20 0757 Acting as scribe for:EFREN CAIN MD ED GI/ - General Chief Complaint: Abdominal Pain Stated Complaint: VOMITING,FEVER Time Seen by Provider: 02/21/20 07:31 Mode of Arrival: Ambulatory Information source: Patient Notes: This 29 year old female with a long history of IV drug abuse presents to the emergency department today with complaints of right lower quadrant abdominal pain. Patient states that she usually injects into a vein in her right lower quadrant and two days ago she "missed the vein" and has had pain ever since. Patient complains of associated nausea, vomiting, cough, pain with breathing, and a headache as well. Patient mentions that her last normal menstrual period as on 01/03. Patient states she normally is regular so this is not normal. Patient states she does not think she is because she "hasn't had sex recently". Patient has been on subutex for quite some time and when reviewing the external pharamacy database it appears that the last time the patient filled a prescription for subutex was 12/04/19. The patient reports that she has continued to fill prescriptions for subutex despite the database not showing it. TRAVEL OUTSIDE OF THE [place] IN LAST 30 DAYS: No - Related Data Allergies/Adverse Reactions: No Known Allergies Allergy (Verified 10/26/19 12:08) Past Medical History - General Information source: Patient - Social History Smoking Status: Current Every Day Smoker Cigarette use (# per day): Yes - 1/2 ppd Chew tobacco use (# tins/day): No Frequency of alcohol use: None Drug Abuse: Methamphetamine - IV Lives with: Family Family History: Reviewed & Not Pertinent, Hypertension Patient has homicidal ideation: No Neurological Medical History: Reports: Hx Migraine, Hx Seizures - SZ PRECAUTIONS IN PLACE Skin Medical History: Reports Hx Cellulitis Past Surgical History: Reports: Hx Section - Immunizations Hx Diphtheria, Pertussis, Tetanus Vaccination: No - contraindicated-seizures Review of Systems - Review of Systems Constitutional: No symptoms reported EENT: No symptoms reported Cardiovascular: No symptoms reported Respiratory: See HPI, Cough, Hurts to breathe Gastrointestinal: See HPI, Abdominal pain, Nausea, Vomiting Genitourinary: No symptoms reported Female Genitourinary: Last menstrual period - 01/03 Musculoskeletal: No symptoms reported Skin: No symptoms reported Hematologic/Lymphatic: No symptoms reported Neurological/Psychological: See HPI, Headaches -: Yes All other systems reviewed and negative Physical Exam - Vital signs Vitals: Temp 98.8 F 02/21/20 06:43 Interpretation: Tachycardic, Febrile - Notes Notes: Physical Exam: General: Alert, appears uncomfortable. HEENT: Normocephalic. Atraumatic. PERRL. Extraocular movements intact. Oropharynx clear. Neck: Supple. Non-tender. Respiratory: No respiratory distress. Clear and equal breath sounds bilaterally. Cardiovascular: Regular rate and rhythm. Abdominal: Right lower quadrant tenderness to palpation, tenderness over McBurney's point. Hypoactive bowel sounds. No distension. Back: No gross abnormalities. Extremities: Moves all four extremities. Upper extremities: Normal inspection. Normal ROM. Lower extremities: Normal inspection. No edema. Normal ROM. Neurological: Normal cognition. AAOx4. Normal speech. Psychological: Normal affect. Normal Mood. Skin: Hot to the touch. There are multiple scarred over areas on hands and ACs bilaterally consistent with history of IV drug abuse. There are small scabbed areas over several parts of the body including the perineal and suprapubic regions. None of these areas appear to be abscessed. - Genitourinary External exam: Normal Speculum exam: Normal, Cervix closed, Vaginal discharge - White vaginal discharge. No cervical irritations or erosions. Vaginal bleeding: None Bimanuel exam: Normal Course - Re-evaluation Re-evalutation: 02/21/20 12:[address] scan was not helpful, I went back and reevaluated the patient. At this time she is complaining about the pain on her right lower abdomen going all the way up under the ribs and into the chest. I did a pelvic exam which did not seem to show a source for her discomfort or fever. Repeating the abdominal exam she is now very tender in the right upper quadrant, continues to be nontender over the area of the methamphetamine injections, and is not tender over the ribs. She reports that the right upper quadrant area is more painful when she breathes in. 02/21/20 14:23 Repeat vital signs shows the patient now has a temperature 100.9, pulse of 114. The CT scan suggests a minimal infiltrate on the right posterior diaphragm. Physical exam shows the patient to be very tender in the right upper quadrant and some in the right lower quadrant. Pelvic exam shows no bimanual tenderness and no cervical erosions or irritation or friability. Wet prep suggest a bacterial vaginosis. The patient does have a leukocytosis with a shift. Gallbladder ultrasound showed a small amount of sludge but no pericholecystic fluid, no gallbladder wall thickening, and no Phelan sign. The differential should include endocarditis due to her IV drug abuse, and right basilar infiltrate. I cannot explain the abdominal pain she is experiencing unless she pulled some muscles when she was vomiting. - Vital Signs Vital signs: Temp Pulse Resp BP Pulse Ox 100.9 F H 114 H 20 100/56 L 99 02/21/20 13:32 02/21/20 13:32 02/21/20 13:32 02/21/20 13:32 02/21/20 13:32 - Laboratory Result Diagrams: 02/21/20 08:46 02/21/20 08:46 Laboratory results interpreted by me: 02/21/20 02/21/20 02/21/20 08:46 08:46 08:46 WBC 16.2 H Hgb 10.8 L Hct 32.7 L MCV 70 L MCH 23.2 L RDW 16.7 H Seg Neuts % (Manual) 91 H Band Neutrophils % 2 L Lymphocytes % (Manual) 3 L Abs Neuts (Manual) 15.1 H VBG pH Sodium 131.8 L Chloride 92 L Glucose 118 H Alkaline Phosphatase 166 H Creatine Kinase 27 L Total Protein 8.4 H Lipase Urine Protein 30 H Urine Blood SMALL H 02/21/20 02/21/20 08:46 08:46 WBC Hgb Hct MCV MCH RDW Seg Neuts % (Manual) Band Neutrophils % Lymphocytes % (Manual) Abs Neuts (Manual) VBG pH 7.43 H Sodium Chloride Glucose Alkaline Phosphatase Creatine Kinase Total Protein Lipase 22.0 L Urine Protein Urine Blood - Diagnostic Test Radiology reviewed: Image reviewed, Reports reviewed - CT scan of the abdomen pelvis with IV and oral contrast does not show acute findings in the abdomen or pelvis. There is a faint indistinct airspace disease in the right lower lobe which may be due to infection or inflammation. Gallbladder ultrasound shows minimal sludge in the gallbladder otherwise normal right upper quadrant abdominal ultrasound. - Consults Delma Demarco NP Time consulted: 14:18 Consulted provider: will come to ER Discharge - Discharge Clinical Impression: Right upper quadrant abdominal pain, Methamphetamine abuse, IV drug abuse, Tachycardia, Bacterial vaginitis Pneumonia Qualifiers: Pneumonia type: due to unspecified organism Laterality: right Lung location: lower lobe of lung Qualified Code(s): J18.9 - Pneumonia, unspecified organism Fever Qualifiers: Fever type: unspecified Qualified Code(s): R50.9 - Fever, unspecified Leukocytosis Qualifiers: Leukocytosis type: bandemia Qualified Code(s): D72.825 - Bandemia Opioid dependence Qualifiers: Substance use status: uncomplicated Qualified Code(s): F11.20 - Opioid dependence, uncomplicated Condition: Stable Disposition: ADMITTED INPATIENT Admitting Provider: Isha (Hospitalist) - Delma Demarco writing admitting orders Unit Admitted: Telemetry I personally performed the services described in the documentation, reviewed and edited the documentation which was dictated to the scribe in my presence, and it accurately records my words and actions.
[2020-02-21 09:10] LABS: VENOUS BLOOD BASE EXCESS 2.6 mmol/L; VENOUS BLOOD HCO3 27.3 mmol/L (20-32); VENOUS BLOOD PCO2 42.4 mmHg (35-63); VENOUS BLOOD PH 7.43 (7.30-7.42)
[2020-02-21 09:12] LABS: APPEARANCE,URINE SLIGHTLY-CLOUDY; BILIRUBIN,URINE NEGATIVE (NEGATIVE); COLOR,URINE YELLOW; GLUCOSE, URINE NEGATIVE (NEGATIVE); KETONES,URINE NEGATIVE (NEGATIVE); LEUKOCYTE ESTERASE,URINE NEGATIVE (NEGATIVE); NITRITE,URINE NEGATIVE (NEGATIVE); PROTEIN,URINE 30 mg/dL (NEGATIVE); URINE SPECIFIC GRAVITY 1.012; UROBILINOGEN,URINE NEGATIVE mg/dL (<2.0)
[2020-02-21 09:20] LABS: HEMATOCRIT 32.7 % (36.0-47.0); HEMOGLOBIN 10.8 g/dL (12.0-15.5); MEAN CORPUSCULAR HEMOGLOBIN 23.2 pg (27.0-33.4); MEAN CORPUSCULAR VOLUME 70 fl (80-97); PLATELET COUNT 311 10^3/uL (150-450); RED BLOOD COUNT 4.64 10^6/uL (3.72-5.28); RED CELL DISTRIBUTION WIDTH 16.7 % (11.5-14.0); WHITE BLOOD COUNT 16.2 10^3/uL (4.0-10.5)
[2020-02-21 09:28] LABS: URINE BARBITURATES SCREEN NEGATIVE; URINE BENZODIAZEPINES SCREEN NEGATIVE; URINE COCAINE SCREEN NEGATIVE; URINE MARIJUANA (THC) SCREEN NEGATIVE; URINE METHADONE SCREEN NEGATIVE; URINE PHENCYCLIDINE SCREEN NEGATIVE
[2020-02-21 09:30] LABS: URINE AMPHETAMINES SCREEN UNCONFIRMED POSITIVE
[2020-02-21 09:34] LABS: ALBUMIN 4.1 g/dL (3.5-5.0); ALKALINE PHOSPHATASE 166 U/L (38-126); ANION GAP 14 (5-19); ASPARTATE AMINO TRANSFERASE 24 U/L (14-36); BILIRUBIN,DIRECT 0.4 mg/dL (0.0-0.4); BILIRUBIN,TOTAL 1.2 mg/dL (0.2-1.3); BLOOD UREA NITROGEN 14 mg/dL (7-20); CALCIUM 9.6 mg/dL (8.4-10.2); CARBON DIOXIDE 26 mmol/L (22-30); CHLORIDE 92 mmol/L (98-107); CREATINE KINASE 27 U/L (30-135); GLUCOSE 118 mg/dL (75-110); POTASSIUM 4.2 mmol/L (3.6-5.0); TOTAL PROTEIN 8.4 g/dL (6.3-8.2)
[2020-02-21 09:43] LABS: ABSOLUTE LYMPHOCYTES# (MANUAL) 0.5 10^3/uL (0.5-4.7); ABSOLUTE MONOCYTES # (MANUAL) 0.6 10^3/uL (0.1-1.4); ANISOCYTOSIS 1+; BAND NEUTROPHILS % (MANUAL) 2 % (3-5); BASOPHILS % (MANUAL) 0 % (0-2); EOSINOPHILS % (MANUAL) 0 % (0-6); HYPOCHROMASIA SLIGHT; LYMPHOCYTES % (MANUAL) 3 % (13-45); MONOCYTES % (MANUAL) 4 % (3-13); POLYCHROMASIA SLIGHT; SEGMENTED NEUTROPHILS % (MAN) 91 % (42-78); TOTAL CELLS COUNTED 100
[2020-02-21 09:44] LABS: PLATELET CLUMPS PRESENT; PLATELET COMMENT ADEQUATE; TEAR DROP CELLS SLIGHT
--- NOTE | 2020-02-21 11:20 | RADIOLOGY REPORT (SQ) ---
EXAM DESCRIPTION: CT ABD/PELVIS WITH IV ORAL IMAGES COMPLETED DATE/TIME: 02/21/2020 11:04 am REASON FOR STUDY: RLQ abd pain COMPARISON: 08/08/2013. TECHNIQUE: CT scan of the abdomen and pelvis performed using helical scanning technique with dynamic intravenous contrast injection. No oral contrast. Images reviewed with lung, soft tissue, and bone windows. Reconstructed coronal and sagittal MPR images reviewed. Delayed images for evaluation of the urinary system also acquired. All images stored on PACS. All CT scanners at this facility use dose modulation, iterative reconstruction, and/or weight based d osing when appropriate to reduce radiation dose to as low as reasonably achievable (ALARA). [facility]: Dose Right [facility]: CareDose [facility]: Dose Right [facility]: Teradose 4D [facility]: GetO2 CONTRAST TYPE AND DOSE: contrast/concentration: Isovue 350.00 mg/ml; Total Contrast Delivered: 70.0 ml; Total Saline Delivered: 65.0 ml RENAL FUNCTION: BUN 14 creatinine 0.79. RADIATION DOSE: CT Rad equipment meets quality standard of care and radiation dose reduction techniq ues were employed. CTDIvol: 7.9 - 8.9 mGy. DLP: 948 mGy-cm.. LIMITATIONS: None. FINDINGS: LOWER CHEST: There are a few faint indistinct parenchymal densities in the right lower lob e. LIVER: Normal size. No masses. No dilated ducts. SPLEEN: Normal size. No focal lesions. PANCREAS: No masses. No significant calcifications. No adjacent inflammation or peripancreatic fluid collections. Pancreatic duct not dilated. GALLBLADDER: No identified stones by CT criteria. No inflammatory changes to suggest cholecystitis. ADRENAL GLANDS: No significant masses or asymmetry. RIGHT KIDNEY AND URETER: No solid masses. No significant calcifications. No hydronephrosis or hyd roureter. LEFT KIDNEY AND URETER: No solid masses. No significant calcifications. No hydronephrosis or hydr oureter. AORTA AND VESSELS: No aneurysm. No dissection. Renal arteries, SMA, celiac without stenosis. RETROPERITONEUM: No retroperitoneal adenopathy, hemorrhage or masses. BOWEL AND PERITONEAL CAVITY: No masses or inflammatory changes. No free fluid or peritoneal masses. APPENDIX: Normal. Incidentally noted is the orientation of the appendix which extends from the cecum in a cephalad direction and the tip of the appendix is in the right upper quadrant adjacent to the l iver and gallbladder. PELVIS: No mass. No free fluid. Normal bladder. ABDOMINAL WALL: No masses. No hernias. BONES: No significant or acute findings. OTHER: No other significant finding. IMPRESSION: 1. NO SIGNIFICANT OR ACUTE FINDING IN THE ABDOMEN OR PELVIS ON CT SCAN WITH IV CONTRAST. NORMAL APPE NDIX. 2. FAINT INDISTINCT AIRSPACE DISEASE IN THE RIGHT LOWER LOBE, NONSPECIFIC, WHICH MAY BE DUE TO INFECT ION OR INFLAMMATION. TECHNICAL DOCUMENTATION: JOB ID: [id number] Quality ID # [id number]: Final reports with documentation of one or more dose reduction techniques (e.g., Au tomated exposure control, adjustment of the mA and/or kV according to patient size, use of iterative reconstruction technique) 2010 [employer]- All Rights Reserved Reading location - IP/workstation name: [email or web address]
[2020-02-21] MEDS ORDERED: CEFTRIAXONE 1 GM/D5W RTU 1 GM/50 ML RTUPB IV ONE (11:41)
[2020-02-21] MEDS ORDERED: FENTANYL CITRATE INJ/PF 100 MCG/2 ML AMPUL IV ONE ×2 (11:42→12:07)
[2020-02-21 12:15] LABS: BACTERIA (WET MOUNT) 4+ BACTERIA SEEN; EPITHELIALS (WET MOUNT) 3+ EPITHELIALS SEEN; RBCS (WET MOUNT) NO RBCS SEEN; T.VAGINALIS (WET MOUNT) NO TRICHOMONAS SEEN; WBCS (WET MOUNT) 3+ WBCS SEEN; YEAST (WET MOUNT) NO YEAST SEEN
--- NOTE | 2020-02-21 13:02 | RADIOLOGY REPORT (SQ) ---
EXAM DESCRIPTION: U/S ABDOMEN LIMITED W/O DOP IMAGES COMPLETED DATE/TIME: 02/21/2020 12:48 pm REASON FOR STUDY: RUQ abd pain COMPARISON: None. TECHNIQUE: Dynamic and static grayscale images acquired of the abdomen and recorded on PACS. Additio nal selected color Doppler and spectral images recorded. LIMITATIONS: None. FINDINGS: PANCREAS: No masses. Visualized pancreatic duct normal caliber. LIVER: No masses. Echotexture normal. LIVER VASCULATURE: Normal directional flow of the main portal vein and hepatic veins. GALLBLADDER: No stones. Possible minimal sludge. Normal wall thickness. No pericholecystic fluid. ULTRASOUND-DETECTED MORALES'S SIGN: Negative. INTRAHEPATIC DUCTS AND COMMON DUCT: CBD and intrahepatic ducts normal caliber. No filling defects. INFERIOR VENA CAVA: Normal flow. AORTA: No aneurysm. RIGHT KIDNEY: Normal size. Normal echogenicity. No solid or suspicious masses. No hydronephrosis. No calcifications. PERITONEAL AND RIGHT PLEURAL SPACE: No ascites or effusions. OTHER: No other significant findings. IMPRESSION: POSSIBLE MINIMAL SLUDGE IN THE GALLBLADDER. OTHERWISE NORMAL RIGHT UPPER QUADRANT ULTRA SOUND. TECHNICAL DOCUMENTATION: JOB ID: [id number] 2010 [employer]- All Rights Reserved Reading location - IP/workstation name: [email or web address]
[2020-02-21 13:44] LABS: CHLAM PCR NOT DETECTED (NOT DETECT)
[2020-02-21] MEDS ORDERED: DEXTROSE 5%-LACTATED RINGERS 1,000 ML IV ONE (14:28)
--- NOTE | 2020-02-21 14:32 | RADIOLOGY REPORT (SQ) ---
EXAM DESCRIPTION: CHEST SINGLE VIEW IMAGES COMPLETED DATE/TIME: 02/21/2020 2:20 pm REASON FOR STUDY: Fever,leukocytosis,R basilar infiltrate on abd CT COMPARISON: CT abdomen and pelvis done earlier in the day Chest x-ray dated 04/11/2013. EXAM PARAMETERS: NUMBER OF VIEWS: One view. TECHNIQUE: Single frontal radiographic view of the chest acquired. RADIATION DOSE: NA LIMITATIONS: None. FINDINGS: LUNGS AND PLEURA: No opacities, masses or pneumothorax. No pleural effusion. MEDIASTINUM AND HILAR STRUCTURES: No masses. Contour normal. HEART AND VASCULAR STRUCTURES: Heart normal in size. Normal vasculature. BONES: No acute findings. HARDWARE: None in the chest. OTHER: No other significant finding. IMPRESSION: NO ACUTE RADIOGRAPHIC FINDING IN THE CHEST. THE FAINT DENSITIES IN THE RIGHT LUNG BASE SEEN ON CT ARE NOT APPARENT ON THE X-RAY. TECHNICAL DOCUMENTATION: JOB ID: [id number] 2010 [employer]- All Rights Reserved Reading location - IP/workstation name: [email or web address]
[2020-02-21] MEDS ORDERED: MAGNESIUM HYDROXIDE SUSP 30 ML UDCUP PO PRN (15:02)
[2020-02-21] MEDS ORDERED: MAG HYDROX/AL HYDROX/SIMETH SUSP 30 ML UDCUP PO PRN (15:02)
[2020-02-21] MEDS ORDERED: ONDANSETRON HCL INJ/PF 4 MG/2 ML SDV IV PRN (15:02)
[2020-02-21] MEDS ORDERED: PROMETHAZINE HCL INJ 25 MG/1 ML VIAL IV PRN (15:02)
[2020-02-21] MEDS ORDERED: HYDROCODONE/ACETAMINOPHEN 5-325 MG TABLET PO PRN (15:10)
[2020-02-21] MEDS ORDERED: VANCOMYCIN HCL 0 MG in DEXTROSE 5%-WATER 250 ML IV NR (15:45)
--- NOTE | 2020-02-21 15:48 | PDOC H&P ---
History of Present Illness Admission Date/PCP: 02/21/20 14:43 Patient complains of: generalized pain, fever History of Present Illness: KINA GOMEZ is a 29 year old female with a past medical history of polysubstance IV drug abuse and tobacco abuse with continuous use who presents to the emergency department with a complaint of generalized pain, subjective f ever, nausea and vomiting. She reports abdominal discomfort began 2 days ago; primary to the right lower quadrant, and has gradually migrated upwards. She now has right upper quadrant pain "right under my ribs" that is worsened with movements, deep breath, cough. Pain is worsened with palpation; palpation to the right lower quadrant cause referred right upper quadrant discomfort. She does admit to IV amphetamine use 2 days ago. Reports that she abruptly stopped Suboxone 2 weeks ago; does not know what her daily dose was. Evaluation in the emergency department revealedf ever (100.9) tachycardia (HR 125), hypotension (100/56) leukocytosis (WBC is 16.2, 91 segs, 2 bands), baseline anemia (hgb 10.8), hyponatremia( Na 131), mildly elevated alk phos (166), negative troponin, negative lipase, negative serum hCG, negative urinalysis, negative COVID. CRP elevated to 376. CXR unremarkable. RUQ U/s shows galbladder sludge, otherwise nml. ABD/Pelvic CT indistinct airspace disease to right lower lobe, but no acute findings to the abdomen or pelvis. She is provided IV fluid boluses, IV Rocephin, and referred to the hospital service for admission management of the above-stated complaints and findings. Past Medical History Cardiac Medical History: Reports: None Pulmonary Medical History: Reports: None EENT Medical History: Reports: None Neurological Medical History: Reports: Migraine, Seizures Endocrine Medical History: Reports: None Renal/ Medical History: Reports: None Malignancy Medical History: Reports: None GI Medical History: Reports: None Musculoskeltal Medical History: Reports: None Skin Medical History: Reports: None Psychiatric Medical History: Reports: Substance Abuse, Tobacco Dependency Traumatic Medical History: Reports: None Hematology: Reports: Anemia Infectious Medical History: Reports: None Past Surgical History Past Surgical History: Reports: Section Denies: Hysterectomy Social History Information Source: Patient Lives with: Family Smoking Status: Current Every Day Smoker Cigarettes Packs Per Day: 0.5 Electronic Cigarette use?: No Frequency of Alcohol Use: None Hx Recreational Drug Use: Yes Drugs: Other - amphetamines - Advance Directive Resuscitation Status: Full Code Surrogate healthcare decision maker:: The patient's mother, January. Family History Family History: Reviewed & Not Pertinent, Hypertension Parental Family History Reviewed: Yes Children Family History Reviewed: Yes Sibling(s) Family History Reviewed.: Yes Medication/Allergy Home Medications: Doxycycline Hyclate 100 mg PO BID #14 capsule 08/30/18 Metoclopramide HCl [Reglan] 5 mg PO ASDIR PRN #30 tablet 11/30/18 Divalproex Sodium [Depakote ER 500 mg Tab.sr] 500 mg PO Q12 #30 tab.sr.24h 10/26/19 Sulfamethoxazole/Trimethoprim [Bactrim Ds Tablet] 1 tab PO BID #28 tablet 10/26/19 Sulfamethoxazole/Trimethoprim [Bactrim Ds Tablet] 2 tab PO BID #28 tablet 10/26/19 Clindamycin HCl 300 mg PO TID #30 capsule 10/30/19 Ibuprofen [Ibu] 600 mg PO TID PRN 10 Days #30 tablet 10/30/19 Sulfamethoxazole/Trimethoprim [Bactrim Ds Tablet] 2 tab PO BID #28 tablet 10/30/19 Allergies/Adverse Reactions: No Known Allergies Allergy (Verified 10/26/19 12:08) Review of Systems Constitutional: PRESENT: anorexia, chills, fatigue, fever(s). ABSENT: headache (s), weight gain, weight loss Eyes: ABSENT: visual disturbances Ears: ABSENT: hearing changes Cardiovascular: PRESENT: chest pain. ABSENT: dyspnea on exertion, edema, orthropnea, palpitations Respiratory: ABSENT: cough, hemoptysis Gastrointestinal: PRESENT: abdominal pain, nausea, vomiting. ABSENT: constipation, diarrhea, hematemesis, hematochezia Genitourinary: ABSENT: dysuria, hematuria Musculoskeletal: ABSENT: joint swelling Integumentary: ABSENT: rash, wounds Neurological: ABSENT: abnormal gait, abnormal speech, confusion, dizziness, focal weakness, syncope Psychiatric: ABSENT: anxiety, depression, homidical ideation, suicidal ideation Endocrine: ABSENT: cold intolerance, heat intolerance, polydipsia, polyuria Hematologic/Lymphatic: ABSENT: easy bleeding, easy bruising Physical Exam Vital Signs: Temp Pulse Resp BP Pulse Ox 100.9 F H 114 H 20 100/56 L 99 02/21/20 13:32 02/21/20 13:32 02/21/20 13:32 02/21/20 13:32 02/21/20 13:32 Intake & Output 02/20/20 02/21/20 02/22/20 06:59 06:59 06:59 Intake Total 1050 Balance 1050 Weight 61.235 kg General appearance: PRESENT: disheveled, mild distress, thin, well-developed Head exam: PRESENT: atraumatic, normocephalic Eye exam: PRESENT: conjunctiva pink, EOMI, PERRLA. ABSENT: scleral icterus Ear exam: PRESENT: normal external ear exam Mouth exam: PRESENT: dry mucosa, tongue midline Teeth exam: PRESENT: dental caries, poor dentation Neck exam: ABSENT: carotid bruit, JVD, lymphadenopathy, thyromegaly Respiratory exam: PRESENT: clear to auscultation willie, decreased breath sounds - bibasilar; poor inspiratory effort, symmetrical, unlabored. ABSENT: rales, rhonchi, wheezes Cardiovascular exam: PRESENT: RRR, +S1, +S2, tachycardia. ABSENT: diastolic murmur, rubs, systolic murmur Pulses: PRESENT: normal dorsalis pedis pul Vascular exam: PRESENT: normal capillary refill GI/Abdominal exam: PRESENT: normal bowel sounds, soft, tenderness - RLQ/RUQ. ABSENT: distended, guarding, mass, organolmegaly, rebound Rectal exam: PRESENT: deferred Extremities exam: PRESENT: full ROM. ABSENT: calf tenderness, clubbing, pedal edema Neurological exam: PRESENT: alert, awake, oriented to person, oriented to place, oriented to time, oriented to situation, CN II-XII grossly intact. ABSENT: motor sensory deficit Psychiatric exam: PRESENT: appropriate affect, normal mood. ABSENT: homicidal ideation, suicidal ideation Skin exam: PRESENT: dry, intact, warm. ABSENT: cyanosis, rash Results Laboratory Results: 02/21/20 08:46 02/21/20 08:46 02/21/20 02/21/20 02/21/20 08:46 08:46 08:46 WBC 16.2 H RBC 4.64 Hgb 10.8 L Hct 32.7 L MCV 70 L MCH 23.2 L MCHC 33.0 RDW 16.7 H Plt Count 311 Seg Neutrophils % Not Reportable VBG pH VBG pCO2 VBG HCO3 VBG Base Excess Sodium 131.8 L Potassium 4.2 Chloride 92 L Carbon Dioxide 26 Anion Gap 14 BUN 14 Creatinine 0.79 Est GFR ( Amer) > 60 Glucose 118 H Calcium 9.6 Magnesium 1.9 Total Bilirubin 1.2 AST 24 Alkaline Phosphatase 166 H C-Reactive Protein Total Protein 8.4 H Albumin 4.1 Lipase Serum HCG, Qual NEGATIVE Urine Color Urine Appearance Urine pH Ur Specific [place] Urine Protein Urine Glucose (UA) Urine Ketones Urine Blood Urine Nitrite Ur Leukocyte Esterase Urine WBC (Auto) Urine RBC (Auto) 02/21/20 02/21/20 02/21/20 08:46 08:46 08:46 WBC RBC Hgb Hct MCV MCH MCHC RDW Plt Count Seg Neutrophils % VBG pH 7.43 H VBG pCO2 42.4 VBG HCO3 27.3 VBG Base Excess 2.6 Sodium Potassium Chloride Carbon Dioxide Anion Gap BUN Creatinine Est GFR ( Amer) Glucose Calcium Magnesium Total Bilirubin AST Alkaline Phosphatase C-Reactive Protein Total Protein Albumin Lipase 22.0 L Serum HCG, Qual Urine Color YELLOW Urine Appearance SLIGHTLY-CLOUDY Urine pH 5.0 Ur Specific [place] 1.012 Urine Protein 30 H Urine Glucose (UA) NEGATIVE Urine Ketones NEGATIVE Urine Blood SMALL H Urine Nitrite NEGATIVE Ur Leukocyte Esterase NEGATIVE Urine WBC (Auto) 9 Urine RBC (Auto) 1 02/21/20 08:46 WBC RBC Hgb Hct MCV MCH MCHC RDW Plt Count Seg Neutrophils % VBG pH VBG pCO2 VBG HCO3 VBG Base Excess Sodium Potassium Chloride Carbon Dioxide Anion Gap BUN Creatinine Est GFR ( Amer) Glucose Calcium Magnesium Total Bilirubin AST Alkaline Phosphatase C-Reactive Protein 376.6 H Total Protein Albumin Lipase Serum HCG, Qual Urine Color Urine Appearance Urine pH Ur Specific [place] Urine Protein Urine Glucose (UA) Urine Ketones Urine Blood Urine Nitrite Ur Leukocyte Esterase Urine WBC (Auto) Urine RBC (Auto) 02/21/20 02/21/20 08:46 08:46 Creatine Kinase 27 L Troponin I < 0.012 Impressions: Abdomen/Pelvis CT 02/21/20 08:01 IMPRESSION: 1. NO SIGNIFICANT OR ACUTE FINDING IN THE ABDOMEN OR PELVIS ON CT SCAN WITH IV CONTRAST. NORMAL APPENDIX. 2. FAINT INDISTINCT AIRSPACE DISEASE IN THE RIGHT LOWER LOBE, NONSPECIFIC, WHICH MAY BE DUE TO INFECTION OR INFLAMMATION. Abdomen Ultrasound 02/21/20 12:07 IMPRESSION: POSSIBLE MINIMAL SLUDGE IN THE GALLBLADDER. OTHERWISE NORMAL RIGHT UPPER QUADRANT ULTRASOUND. Chest X-Ray 02/21/20 13:21 IMPRESSION: NO ACUTE RADIOGRAPHIC FINDING IN THE CHEST. THE FAINT DENSITIES IN THE RIGHT LUNG BASE SEEN ON CT ARE NOT APPARENT ON THE X-RAY. Assessment and Plan - Diagnosis (1) SIRS (systemic inflammatory response syndrome) Is this a current diagnosis for this admission?: Yes Plan: Unclear etiology. Concern for endocarditis with septic emboli. Patient presents with fever, tachycardia, leukocytosis, and elevated CRP. Urinalysis negative. Abdominal imagining questions RLL atypical consolidation; otherwise benign exams. CXR negative. Blood and Urine cultures pending. Lactic aid and d-dimer pending. Patient is admitted to the medical floor on continuous cardiac telemetry. Will empirically treat with IV vancomycin and Zosyn; adjust antibiotics as cultures result. We will obtain contrasted chest CT tomorrow; cannot have exam done today as she is already received IV contrast during her abdominal scan. We will obtain echocardiogram. Will provide generous IV fluids. Supplemental oxygen as needed maintain saturations greater than 89%. As needed nebulizer treatments. Antiemetics and analgesics as needed. Incentive spirometer to bedside. (2) Fever Qualifiers: Fever type: unspecified Qualified Code(s): R50.9 - Fever, unspecified Is this a current diagnosis for this admission?: Yes Plan: Evaluation and management as above. Antipyretics as needed. (3) Leukocytosis Qualifiers: Leukocytosis type: unspecified Qualified Code(s): D72.829 - Elevated white blood cell count, unspecified Is this a current diagnosis for this admission?: Yes Plan: Leukocytosis 16.8 Cultures and antibiotics as above. Follow-up CBC. (4) Right upper quadrant abdominal pain Is this a current diagnosis for this admission?: Yes Plan: Unclear etiology. UDS shows minimal sludge in the gallbladder and otherwise normal exam. CT ABD/Pelvis notable for RLL lung consolidation, normal abd/pelvis. Analgesics and antiemetics as needed. Remaining evaluation as above. (5) IV drug abuse Is this a current diagnosis for this admission?: Yes Plan: Patient admits to recent amphetamine use. UDS positive for Opiates and amphetamines. Urine was collected prior to receiving narcotic medications by the ED nurse/provider. Supportive care. Discharge planning consulted. - Time Time Spent with patient: 35 or more minutes Medications reviewed and adjusted accordingly: Yes Anticipated discharge: Home - Inpatient Certification Based on my medical assessment, after consideration of the patient's comorbidities, presenting symptoms, or acuity I expect that the services needed warrant INPATIENT care.: Yes I certify that my determination is in accordance with my understanding of Medicare's requirements for reasonable and necessary INPATIENT services [42 CFR 412.3e].: Yes Medical Necessity: Need For IV Fluids, Need For Continuous Telemetry Monitoring, Need for IV Antibiotics, Risk of Diagnosis Which Will Require Inpatient Eval/Care/Monitoring
[2020-02-21] MEDS: HYDROCODONE/ACETAMINOPHEN 5-325 MG TABLET PO PRN ×2 (15:51→19:58)
[2020-02-21] MEDS ORDERED: AZITHROMYCIN 500 MG in DEXTROSE 5%-WATER 250 ML IV SCH (18:00)
[2020-02-21] MEDS: NORMAL SALINE 1000 ML 1,000 ML IV PRN (18:21)
[2020-02-21] MEDS: PIPERACILLIN SODIUM/TAZOBACTAM 3.375 GM in NORMAL SALINE 100 ML IV SCH (18:21)
[2020-02-21] MEDS: KETOROLAC TROMETHAMINE INJ/PF 30 MG/1 ML SDV IV PRN (18:38)
--- NOTE | 2020-02-21 20:54 | EKG REPORT ---
SEVERITY:- OTHERWISE NORMAL ECG - SINUS TACHYCARDIA : Confirmed by: Chantell Chávez MD 21-Feb-2020 20:53:38
[2020-02-21] MEDS: HEPARIN SOD (PORCINE) 5,000 UNIT/ML 1 ML VIAL SUBCUT SCH (22:29)
[2020-02-21] MEDS: FAMOTIDINE 20 MG TABLET PO SCH (22:30)
[2020-02-21] MEDS: VANCOMYCIN HCL 750 MG in DEXTROSE 5%-WATER 250 ML IV SCH (22:30)
[2020-02-22] MEDS: PIPERACILLIN SODIUM/TAZOBACTAM 3.375 GM in NORMAL SALINE 100 ML IV SCH ×3 (00:05→11:52)
[2020-02-22] MEDS: HYDROCODONE/ACETAMINOPHEN 5-325 MG TABLET PO PRN ×3 (01:31→09:48)
[2020-02-22] MEDS: HEPARIN SOD (PORCINE) 5,000 UNIT/ML 1 ML VIAL SUBCUT SCH ×2 (05:47→14:00)
[2020-02-22] MEDS: NORMAL SALINE 1000 ML 1,000 ML IV PRN ×2 (05:51→20:15)
[2020-02-22 08:00] LABS: ALKALINE PHOSPHATASE 152 U/L (38-126); ANION GAP 14 (5-19); ASPARTATE AMINO TRANSFERASE 20 U/L (14-36); BILIRUBIN,DIRECT 0.6 mg/dL (0.0-0.4); BILIRUBIN,TOTAL 1.1 mg/dL (0.2-1.3); BLOOD UREA NITROGEN 16 mg/dL (7-20); CALCIUM 8.3 mg/dL (8.4-10.2); CARBON DIOXIDE 20 mmol/L (22-30); CHLORIDE 98 mmol/L (98-107); GLUCOSE 101 mg/dL (75-110); POTASSIUM 3.5 mmol/L (3.6-5.0); TOTAL PROTEIN 6.3 g/dL (6.3-8.2)
[2020-02-22 08:01] LABS: ABSOLUTE LYMPHOCYTES (AUTO) 0.7 10^3/uL (0.5-4.7); ABSOLUTE MONOCYTES (AUTO) 0.6 10^3/uL (0.1-1.4); ABSOLUTE NEUT (AUTO) 11.5 10^3/uL (1.7-8.2); BASOPHILS % (AUTO) 0.2 % (0-2); EOSINOPHILS % (AUTO) 0.2 % (0-6); HEMATOCRIT 26.6 % (36.0-47.0); HEMOGLOBIN 8.8 g/dL (12.0-15.5); LYMPHOCYTES % (AUTO) 5.2 % (13-45); MEAN CORPUSCULAR HEMOGLOBIN 22.8 pg (27.0-33.4); MEAN CORPUSCULAR VOLUME 69 fl (80-97); MONOCYTES % (AUTO) 4.6 % (3-13); PLATELET COUNT 269 10^3/uL (150-450); RED BLOOD COUNT 3.86 10^6/uL (3.72-5.28); RED CELL DISTRIBUTION WIDTH 16.6 % (11.5-14.0); SEGMENTED NEUTROPHILS % (AUTO) 89.8 % (42-78); TOTAL CELLS COUNTED % (AUTO) 100 %; WHITE BLOOD COUNT 12.8 10^3/uL (4.0-10.5)
[2020-02-22] MEDS: DOCUSATE SODIUM 100 MG CAPSULE PO SCH (09:48)
[2020-02-22] MEDS: FAMOTIDINE 20 MG TABLET PO SCH ×2 (09:48→22:10)
[2020-02-22] MEDS: VANCOMYCIN HCL 750 MG in DEXTROSE 5%-WATER 250 ML IV SCH (09:49)
[2020-02-22] MEDS ORDERED: CEFTRIAXONE 1 GM/D5W RTU 1 GM/50 ML RTUPB IV SCH (12:00)
[2020-02-22] MEDS: KETOROLAC TROMETHAMINE INJ/PF 30 MG/1 ML SDV IV PRN (13:13)
[2020-02-22] MEDS: OXYCODONE-ACETAMINOPHEN 5-325 MG TABLET PO PRN ×2 (13:58→20:16)
--- NOTE | 2020-02-22 17:18 | RADIOLOGY REPORT (SQ) ---
EXAM DESCRIPTION: CTA CHEST IMAGES COMPLETED DATE/TIME: 02/22/2020 4:54 pm REASON FOR STUDY: Bacteremia, IVDU, ?septic emboli COMPARISON: None. TECHNIQUE: CT scan of the chest performed using helical scanning technique with dynamic intravenous contrast injection. Images reviewed with lung, soft tissue and bone windows. Reconstructed coronal and sagittal MPR images reviewed. Additional 3 dimensional post-processing performed to develop Maximal Intensity Projection images (AL P). All images stored on PACS. All CT scanners at this facility use dose modulation, iterative reconstruction, and/or weight based d osing when appropriate to reduce radiation dose to as low as reasonably achievable (ALARA). [facility]: Dose Right [facility]: CareDose [facility]: Dose Right [facility]: Teradose 4D [facility]: [employer] CONTRAST TYPE AND DOSE: contrast/concentration: Isovue 350.00 mg/ml; Total Contrast Delivered: 50.0 ml; Total Saline Delivered: 76.0 ml Contrast bolus adequate for pulmonary arteries and aorta. RENAL FUNCTION: BUN 16 creatinine 0.63 RADIATION DOSE: CT Rad equipment meets quality standard of care and radiation dose reduction techniq ues were employed. CTDIvol: 13.2 - 14.3 mGy. DLP: 521 mGy-cm. . LIMITATIONS: None. FINDINGS: LUNGS AND PLEURA: There is ground-glass opacification in the right base. There is the korin earance of a cavitary nodule measuring 35 mm in the right base. This may just represent airspace par tially enclosed by consolidation or atelectasis. AORTA AND GREAT VESSELS: No aneurysm. No dissection. HEART: No pericardial effusion. No significant coronary artery calcifications. PULMONARY ARTERIES: Limited emboli in the right lower lobe pulmonary arteries. HILAR AND MEDIASTINAL STRUCTURES: Mild right hilar adenopathy. Mild subcarinal adenopathy. HARDWARE: None in the chest. UPPER ABDOMEN: No significant findings. Limited exam. THYROID AND OTHER SOFT TISSUES: No masses. No adenopathy. BONES: No acute or significant finding. 3D MIPS: Confirm above findings. OTHER: No other significant finding. IMPRESSION: 1. Right lower lobe pulmonary emboli. 2. Possible small right pulmonary infarct in the right base posteriorly. 3. Ground-glass opacification in the right base may represent chronic interstitial changes or atypic al infectious/inflammatory process. 4. Mild adenopathy. COMMENT: Quality ID # [id number]: Final reports with documentation of one or more dose reduction techniques (e.g., Automated exposure control, adjustment of the mA and/or kV according to patient size, use of iterative reconstruction technique) TECHNICAL DOCUMENTATION: JOB ID: [id number] 2010 [email or web address]- All Rights Reserved Reading location - IP/workstation name: [email or web address]
[2020-02-22] MEDS: CEFTRIAXONE 2 GM/D5W RTU 2 GM/50 ML RTUPB IV SCH (17:30)
[2020-02-22] MEDS ORDERED: ZOLPIDEM TARTRATE 5 MG TABLET PO PRN (17:37)
--- NOTE | 2020-02-22 17:57 | PDOC PROGRESS REPORT ---
Subjective Progress Note for:: 02/22/20 Subjective:: KINA GOMEZ is a 29 year old female with a past medical history of polysubstance IV drug abuse and tobacco abuse with continuous use who was admitted 02/21/20 for SIRS and found to have pulmonary embolus with likely right- sided septic emboli. Concerning for endocarditis. Patient was seen on morning rounds. She was found resting in bed, comfortably, on room air. She reports that she is feeling much better today and asks to advance her diet. She denies further abdominal discomfort, nausea or vomiting. She does report right lateral and posterior chest wall pain with inspiration and movement. She does note that her pain is decreased from yesterday, although, states that it remains uncontrolled and asks to have her medications adjusted. She further denies fever, chills, headache, dizziness, dyspnea, cough. No other questions or concerns at this time. No concerns per nursing. Reason For Visit: SIRS Physical Exam Vital Signs: Temp Pulse Resp BP Pulse Ox 98.8 F 82 20 91/51 L 97 02/22/20 17:03 02/22/20 17:03 02/22/20 17:03 02/22/20 17:03 02/22/20 17:03 Intake & Output 02/21/20 02/22/20 02/23/20 06:59 06:59 06:59 Intake Total 2500 450 Balance 2500 450 Weight 61.235 kg 57.2 kg General appearance: PRESENT: no acute distress, cooperative, disheveled, well- developed, well-nourished Head exam: PRESENT: atraumatic, normocephalic Eye exam: PRESENT: conjunctiva pink, EOMI, PERRLA. ABSENT: scleral icterus Mouth exam: PRESENT: moist, tongue midline Teeth exam: PRESENT: dental caries, poor dentation Respiratory exam: PRESENT: clear to auscultation willie, decreased breath sounds - Bibasilar, symmetrical, unlabored. ABSENT: rales, rhonchi, wheezes Cardiovascular exam: PRESENT: RRR, +S1, +S2. ABSENT: diastolic murmur, rubs, systolic murmur Pulses: PRESENT: normal dorsalis pedis pul Vascular exam: PRESENT: normal capillary refill GI/Abdominal exam: PRESENT: normal bowel sounds, soft. ABSENT: distended, guarding, mass, organolmegaly, rebound, tenderness Rectal exam: PRESENT: deferred Extremities exam: PRESENT: full ROM. ABSENT: calf tenderness, clubbing, pedal edema Musculoskeletal exam: PRESENT: ambulatory Neurological exam: PRESENT: alert, awake, oriented to person, oriented to place, oriented to time, oriented to situation, CN II-XII grossly intact. ABSENT: motor sensory deficit Psychiatric exam: PRESENT: appropriate affect, normal mood. ABSENT: homicidal ideation, suicidal ideation Skin exam: PRESENT: dry, intact, warm. ABSENT: cyanosis, rash Results Laboratory Results: 02/22/20 07:33 02/22/20 07:33 02/21/20 02/22/20 02/22/20 18:31 07:33 07:33 WBC 12.8 H RBC 3.86 Hgb 8.8 L Hct 26.6 L MCV 69 L MCH 22.8 L MCHC 33.0 RDW 16.6 H Plt Count 269 Seg Neutrophils % 89.8 H Sodium 131.8 L Potassium 3.5 L Chloride 98 Carbon Dioxide 20 L Anion Gap 14 BUN 16 Creatinine 0.63 Est GFR ( Amer) > 60 Glucose 101 Lactic Acid 2.4 H Calcium 8.3 L Total Bilirubin 1.1 AST 20 Alkaline Phosphatase 152 H Total Protein 6.3 Albumin 3.0 L 02/22/20 09:29 WBC RBC Hgb Hct MCV MCH MCHC RDW Plt Count Seg Neutrophils % Sodium Potassium Chloride Carbon Dioxide Anion Gap BUN Creatinine Est GFR ( Amer) Glucose Lactic Acid 0.9 Calcium Total Bilirubin AST Alkaline Phosphatase Total Protein Albumin 02/21/20 08:46 Blood Blood Culture (PCR) - Final Strep Pyogenes (Grp A) 02/21/20 11:33 Blood Blood Culture (PCR) - Final Strep Pyogenes (Grp A) 02/21/20 02/21/20 02/21/20 08:46 08:46 18:31 Creatine Kinase 27 L Troponin I < 0.012 < 0.012 02/22/20 00:35 Creatine Kinase Troponin I < 0.012 Impressions: Abdomen/Pelvis CT 02/21/20 08:01 IMPRESSION: 1. NO SIGNIFICANT OR ACUTE FINDING IN THE ABDOMEN OR PELVIS ON CT SCAN WITH IV CONTRAST. NORMAL APPENDIX. 2. FAINT INDISTINCT AIRSPACE DISEASE IN THE RIGHT LOWER LOBE, NONSPECIFIC, WHICH MAY BE DUE TO INFECTION OR INFLAMMATION. Abdomen Ultrasound 02/21/20 12:07 IMPRESSION: POSSIBLE MINIMAL SLUDGE IN THE GALLBLADDER. OTHERWISE NORMAL RIGHT UPPER QUADRANT ULTRASOUND. Chest X-Ray 02/21/20 13:21 IMPRESSION: NO ACUTE RADIOGRAPHIC FINDING IN THE CHEST. THE FAINT DENSITIES IN THE RIGHT LUNG BASE SEEN ON CT ARE NOT APPARENT ON THE X-RAY. Chest/Abdomen CTA 02/22/20 00:00 IMPRESSION: 1. Right lower lobe pulmonary emboli. 2. Possible small right pulmonary infarct in the right base posteriorly. 3. Ground-glass opacification in the right base may represent chronic interstitial changes or atypical infectious/inflammatory process. 4. Mild adenopathy. Assessment and Plan - Diagnosis (1) Bacteremia Is this a current diagnosis for this admission?: Yes Plan: Blood cultures show strep pyogenes (Group A) Urine cultures show gram-negative rods. Repeat blood cultures (02/22/2020) pending. Lactic aid improved and d-dimer elevated Patient is admitted to the medical floor on continuous cardiac telemetry. She was empirically started on IV vancomycin and Zosyn; adjusted to IV Ceftriaxone 2 gm daily per ID recommendations. Continue gentle IV fluids. Infectious Disease consulted. (2) Pulmonary embolus and infarction Is this a current diagnosis for this admission?: Yes Plan: Start on heparin drip. Supplemental oxygen as needed maintain saturations greater than 89%. As needed nebulizer treatments. Antiemetics and analgesics as needed. Incentive spirometer to bedside. (3) Endocarditis Qualifiers: Endocarditis type: infective Infective endocarditis organism: bacterial Qualified Code(s): I33.0 - Acute and subacute infective endocarditis Is this a current diagnosis for this admission?: Yes Plan: Strong suspicion for infected endocarditis secondary to IV drug use, bacteremia, pulmonary embolus with infarct, and septic emboli. Echocardiogram pending. Cultures and antibiotics as above. (4) Septic embolism Is this a current diagnosis for this admission?: Yes Plan: Noted on CTA Chest. Cultures and antibiotics as above. (5) SIRS (systemic inflammatory response syndrome) Is this a current diagnosis for this admission?: Yes Plan: Secondary to pulmonary embolus, and likely septic emboli related to endocarditis. Patient presented with fever, tachycardia, leukocytosis, and elevated CRP. Urinalysis negative. Abdominal imagining questions RLL atypical consolidation; otherwise benign exams. CXR negative. CT demonstrates right lower lobe pulmonary emboli, possible small right pulmonary infarct to the right base posteriorly, groundglass opacification in the right base representing chronic interstitial change or atypical infectious/inflammatory process, mild adenopathy. Evaluation and management as above. (6) Fever Qualifiers: Fever type: unspecified Qualified Code(s): R50.9 - Fever, unspecified Is this a current diagnosis for this admission?: Yes Plan: Evaluation and management as above. Antipyretics as needed. (7) Leukocytosis Qualifiers: Leukocytosis type: unspecified Qualified Code(s): D72.829 - Elevated white blood cell count, unspecified Is this a current diagnosis for this admission?: Yes Plan: Leukocytosis 16.8 Cultures and antibiotics as above. Follow-up CBC. (8) Right upper quadrant abdominal pain Is this a current diagnosis for this admission?: Yes Plan: Resolved. UDS shows minimal sludge in the gallbladder and otherwise normal exam. CT ABD/Pelvis notable for RLL lung consolidation, normal abd/pelvis. Analgesics and antiemetics as needed. Advance to regular diet; tolerating well. Remaining evaluation as above. (9) IV drug abuse Is this a current diagnosis for this admission?: Yes Plan: Patient admits to recent amphetamine use. UDS positive for Opiates and amphetamines. Urine was collected prior to receiving narcotic medications by the ED nurse/provider. Supportive care. Discharge planning consulted. - Time Time Spent with patient: 25-34 minutes Medications reviewed and adjusted accordingly: Yes - Inpatient Certification Based on my medical assessment, after consideration of the patient's comorbidities, presenting symptoms, or acuity I expect that the services needed warrant INPATIENT care.: Yes I certify that my determination is in accordance with my understanding of Medicare's requirements for reasonable and necessary INPATIENT services [42 CFR 412.3e].: Yes Medical Necessity: Need For IV Fluids, Need For Continuous Telemetry Monitoring, Need for IV Antibiotics
--- NOTE | 2020-02-22 18:18 | Progress Note ---
Provider Note Provider Note: [facility] ID Telephone Advice Consultation: Chart reviewed. Patient is a 29-year-old woman with active IVDU who presented to the hospital with RUQ abdominal pain and fever. She was evaluated in the ED and found septic with fever, tachycardia, leukocytosis, hypotension. Her blood cultures are positive for GAS both sets. She had a CT scan of abdomen and pelvis that was suspicious for RLL airspace disease. US of the RUQ not impressive for GB pathology to explain her pain. She had a CTA of chest that demonstrated right lower lobe septic emboli and groundglass opacities. She has been started on vancomycin and zosyn. Urine culture with a GNR but she was asymptomatic, not complaining of dysuria and CT scan not suggestive of urinary tract infectious process/changes. ID consulted for recommendations. PMH: IVDU PSH: Allergies: No Known Allergies Allergy (Verified 10/26/19 12:08) Medications: No Home Medications 02/21/20 Vital Signs: Temp Pulse Resp BP Pulse Ox 98.8 F 82 20 91/51 L 97 02/22/20 17:03 02/22/20 17:03 02/22/20 17:03 02/22/20 17:03 02/22/20 17:03 Intake & Output 02/21/20 02/22/20 02/23/20 06:59 06:59 06:59 Intake Total 2500 450 Balance 2500 450 Weight 61.235 kg 57.2 kg Weight/Height Weight 57.2 kg Height 5 ft 2 in Laboratories: 02/22/20 07:33 02/22/20 07:33 MCV 69 fl (80-97) L 02/22/20 07:33 MCH 22.8 pg (27.0-33.4) L 02/22/20 07:33 MCHC 33.0 g/dL (32.0-36.0) 02/22/20 07:33 RDW 16.6 % (11.5-14.0) H 02/22/20 07:33 Seg Neutrophils % 89.8 % (42-78) H 02/22/20 07:33 VBG pH 7.43 (7.30-7.42) H 02/21/20 08:46 VBG pCO2 42.4 mmHg (35-63) 02/21/20 08:46 VBG HCO3 27.3 mmol/L (20-32) 02/21/20 08:46 VBG Base Excess 2.6 mmol/L 02/21/20 08:46 Chloride 98 mmol/L (98-107) 02/22/20 07:33 Carbon Dioxide 20 mmol/L (22-30) L 02/22/20 07:33 Anion Gap 14 (5-19) 02/22/20 07:33 Est GFR ( Amer) > 60 (>60) 02/22/20 07:33 Glucose 101 mg/dL (75-110) 02/22/20 07:33 Lactic Acid 0.9 mmol/L (0.7-2.1) 02/22/20 09:29 Calcium 8.3 mg/dL (8.4-10.2) L 02/22/20 07:33 Magnesium 1.9 mg/dL (1.6-2.3) 02/21/20 08:46 Total Bilirubin 1.1 mg/dL (0.2-1.3) 02/22/20 07:33 AST 20 U/L (14-36) 02/22/20 07:33 Alkaline Phosphatase 152 U/L (38-126) H 02/22/20 07:33 C-Reactive Protein 376.6 mg/L (<10.0) H 02/21/20 08:46 Total Protein 6.3 g/dL (6.3-8.2) 02/22/20 07:33 Albumin 3.0 g/dL (3.5-5.0) L 02/22/20 07:33 Lipase 22.0 U/L (23-300) L 02/21/20 08:46 Serum HCG, Qual NEGATIVE (NEGATIVE) 02/21/20 08:46 Urine Color YELLOW 02/21/20 08:46 Urine Appearance SLIGHTLY-CLOUDY 02/21/20 08:46 Urine pH 5.0 (5.0-9.0) 02/21/20 08:46 Ur Specific [place] 1.012 02/21/20 08:46 Urine Protein 30 mg/dL (NEGATIVE) H 02/21/20 08:46 Urine Glucose (UA) NEGATIVE mg/dL (NEGATIVE) 02/21/20 08:46 Urine Ketones NEGATIVE mg/dL (NEGATIVE) 02/21/20 08:46 Urine Blood SMALL (NEGATIVE) H 02/21/20 08:46 Urine Nitrite NEGATIVE (NEGATIVE) 02/21/20 08:46 Ur Leukocyte Esterase NEGATIVE (NEGATIVE) 02/21/20 08:46 Urine WBC (Auto) 9 /HPF 02/21/20 08:46 Urine RBC (Auto) 1 /HPF 02/21/20 08:46 02/21/20 08:46 Blood Blood Culture (PCR) - Final Strep Pyogenes (Grp A) 02/21/20 11:33 Blood Blood Culture (PCR) - Final Strep Pyogenes (Grp A) 02/21/20 02/21/20 02/21/20 08:46 08:46 18:31 Creatine Kinase 27 L Troponin I < 0.012 < 0.012 02/22/20 00:35 Creatine Kinase Troponin I < 0.012 Microbiology: Blood cultures: 02/20 GAS 02/21 In process Urine culture: 02/20 GNR Radiology: Abdomen/Pelvis CT 02/21/20 08:01 IMPRESSION: 1. NO SIGNIFICANT OR ACUTE FINDING IN THE ABDOMEN OR PELVIS ON CT SCAN WITH IV CONTRAST. NORMAL APPENDIX. 2. FAINT INDISTINCT AIRSPACE DISEASE IN THE RIGHT LOWER LOBE, NONSPECIFIC, WHICH MAY BE DUE TO INFECTION OR INFLAMMATION. Abdomen Ultrasound 02/21/20 12:07 IMPRESSION: POSSIBLE MINIMAL SLUDGE IN THE GALLBLADDER. OTHERWISE NORMAL RIGHT UPPER QUADRANT ULTRASOUND. Chest X-Ray 02/21/20 13:21 IMPRESSION: NO ACUTE RADIOGRAPHIC FINDING IN THE CHEST. THE FAINT DENSITIES IN THE RIGHT LUNG BASE SEEN ON CT ARE NOT APPARENT ON THE X-RAY. Chest/Abdomen CTA 02/22/20 00:00 IMPRESSION: 1. Right lower lobe pulmonary emboli. 2. Possible small right pulmonary infarct in the right base posteriorly. 3. Ground-glass opacification in the right base may represent chronic inte rstitial changes or atypical infectious/inflammatory process. 4. Mild adenopathy. Assessment and Recommendations: Patient evaluated due to GAS bacteremia with septic pulmonary emboli in the setting of active intravenous drug use. There are no skin changes to suggest a necrotizing skin infection, but this was likely introduced trough drug injection. There is evidence of septic pulmonary emboli, therefore there is high suspicion for endocarditis. TTE was done, awaiting report. Ceftriaxone 2g IV daily is adequate. She will likely need 4-6 weeks of IV antibiotics. New blood cultures are in process. Assess for any potential metastatic infection. Please call if updates or questions. Gypsy Vences MD [facility], [facility] ID [phone]
[2020-02-22] MEDS: HYDROMORPHONE HCL INJ/PF 2 MG/ML AMPULE SUBCUT PRN ×2 (18:23→22:09)
[2020-02-22] MEDS: HEPARIN SOD (PORCINE) 1,000 UNIT/ML 10 ML VIAL IV ONE ×2 (18:35→18:57)
[2020-02-22] MEDS: HEPARIN SODIUM,PORCINE/D5W 25,000 UNIT/250 ML RTUINJ IV PRN (19:00)
[2020-02-22 19:14] LABS: ABSOLUTE BASOPHILS # (AUTO) 0.1 10^3/uL (0.0-0.2); ABSOLUTE EOSINOPHILS # (AUTO) 0.1 10^3/uL (0.0-0.6); ABSOLUTE LYMPHOCYTES (AUTO) 1.1 10^3/uL (0.5-4.7); ABSOLUTE MONOCYTES (AUTO) 0.8 10^3/uL (0.1-1.4); ABSOLUTE NEUT (AUTO) 8.9 10^3/uL (1.7-8.2); BASOPHILS % (AUTO) 0.6 % (0-2); EOSINOPHILS % (AUTO) 0.8 % (0-6); HEMATOCRIT 25.2 % (36.0-47.0); HEMOGLOBIN 8.3 g/dL (12.0-15.5); LYMPHOCYTES % (AUTO) 10.4 % (13-45); MEAN CORPUSCULAR HEMOGLOBIN 22.8 pg (27.0-33.4); MEAN CORPUSCULAR HGB CONC 32.9 g/dL (32.0-36.0); MEAN CORPUSCULAR VOLUME 70 fl (80-97); PLATELET COUNT 268 10^3/uL (150-450); RED BLOOD COUNT 3.63 10^6/uL (3.72-5.28); RED CELL DISTRIBUTION WIDTH 16.9 % (11.5-14.0); SEGMENTED NEUTROPHILS % (AUTO) 81.2 % (42-78); TOTAL CELLS COUNTED % (AUTO) 100 %
[2020-02-22 19:23] LABS: INTERNATIONAL RATION (INR) 1.16; PROTHROMBIN TIME 14.9 SEC (11.4-15.4)
--- NOTE | 2020-02-22 20:18 | XCELERA REPORT ---
[address] [address] Transthoracic Echocardiogram Report Name: KINA GOMEZ Age: 29 yrs Gender: Female : 1990 Patient Status: Inpatient Patient Location: [address] [place] [address] Study Date: 02/21/2020 05:24 PM Height: 62 in Weight: 135 lb BSA: 1.6 m2 Procedure: A complete two-dimensional transthoracic echocardiogram was performed (2D, M-mode, spectral and color flow Doppler). The study was technically adequate with some images being suboptimal in quality. Reason For Study: SIRS, IVDU, ?Endocarditis Ordering Physician: JANIA COPE Performed By: Gaviota Heath Interpretation Summary Difficult study for interpretation with suboptimal views. The patient is tachycardic during the study. The left ventricle is grossly normal size. The left ventricle is hyperdynamic. The Ejection Fraction estimate is 55-60%. Doppler measurements suggest normal left ventricular diastolic function. The left ventricular wall motion is normal. There is no thrombus. Trace MR. Valvular structures were poorly visualized therefore no accurate assessent for the presence of valvular vegetations can be made. Consider transesophageal echocardiography if clinically indicated particularly if positive blood cultures with orgaminsms known to cause endocarditis and no know source of infection is identified, persistent fevers not responding to antibiotics, neruological changes consistent with embolic events and/or clinical deterioration. MMode/2D Measurements & Calculations RVDd: 3.3 cm LVIDd: 4.3 cm FS: 40.1 % Ao root diam: 2.5 cm IVSd: 0.89 cm LVIDs: 2.6 cm EDV(Teich): 84.6 ml Ao root area: 4.8 cm2 LVPWd: 1.0 cm ESV(Teich): 24.5 ml LA dimension: 2.4 cm EF(Teich): 71.1 % Doppler Measurements & Calculations MV E max nicole: MV P1/2t max nicole: Ao V2 max: LV V1 max P.3 cm/sec 109.2 cm/sec 161.1 cm/sec 7.5 mmHg MV A max nicole: MV P1/2t: 66.1 msec Ao max PG: LV V1 max: 62.7 cm/sec MVA(P1/2t): 3.3 cm2 10.4 mmHg 137.2 cm/sec MV E/A: 1.5 MV dec slope: 483.6 cm/sec2 MV dec time: 0.26 sec PA V2 max: MV P1/2t-pr_phl: 87.4 cm/sec 66.1 msec PA max P.1 mmHg Left Ventricle The left ventricle is grossly normal size. The patient is tachycardic during the study. The left ventricle is hyperdynamic. The Ejection Fraction estimate is 55-60%. Doppler measurements suggest normal left ventricular diastolic function. The left ventricular wall motion is normal. There is no thrombus. Right Ventricle The right ventricle is normal in size, thickness and function. The right ventricular systolic function is normal. Atria The right atrium is normal. The left atrial size is normal. The interatrial septum is intact with no evidence for an atrial septal defect. Mitral Valve The mitral valve is not well visualized. There is no evidence of mitral valve prolapse. Cannot accurately assess for vegetations given the patient's tachycardia and poor visualization of the valve. There is no mitral valve stenosis. There is a trace amount of mitral regurgitation. Aortic Valve The aortic valve is not well visualized secondary to technical limitations. Cannot accurately assess for vegetations given the patient's tachycardia and poor visualization of the valve. There is no aortic valve stenosis. No aortic regurgitation is present. Tricuspid Valve The tricuspid valve is not well visualized, but is grossly normal. There is no tricuspid valve prolapse. Cannot accurately assess for vegetations given the patient's tachycardia and poor visualization of the valve. There is no tricuspid stenosis. No tricuspid regurgitation. Pulmonic Valve The pulmonic valve is not well seen, but is grossly normal. Cannot accurately assess for vegetations given the patient's tachycardia and poor visualization of the valve. There is no pulmonic valvular stenosis. There is no pulmonic valvular regurgitation. Great Vessels The inferior vena cava appeared normal. Effusions There is no pericardial effusion. There is no pleural effusion. : JANIA COPE Antonio
[2020-02-22] MEDS ORDERED: ENOXAPARIN SODIUM INJ 60 MG/0.6 ML DISP.SYRIN SUBCUT SCH (22:00)
[2020-02-23] MEDS: OXYCODONE-ACETAMINOPHEN 5-325 MG TABLET PO PRN ×3 (00:13→20:06)
[2020-02-23] MEDS: HEPARIN SODIUM,PORCINE/D5W 25,000 UNIT/250 ML RTUINJ IV PRN ×3 (01:00→16:33)
[2020-02-23] MEDS: HEPARIN SOD (PORCINE) 1,000 UNIT/ML 10 ML VIAL IV PRN ×2 (02:35→07:41)
[2020-02-23] MEDS: HYDROMORPHONE HCL INJ/PF 2 MG/ML AMPULE SUBCUT PRN ×2 (02:36→07:42)
[2020-02-23] MEDS: NORMAL SALINE 1000 ML 1,000 ML IV PRN ×2 (04:18→16:31)
[2020-02-23 04:24] LABS: APPEARANCE,URINE CLEAR; BILIRUBIN,URINE NEGATIVE (NEGATIVE); COLOR,URINE YELLOW; GLUCOSE, URINE NEGATIVE (NEGATIVE); KETONES,URINE NEGATIVE (NEGATIVE); LEUKOCYTE ESTERASE,URINE NEGATIVE (NEGATIVE); NITRITE,URINE NEGATIVE (NEGATIVE); PROTEIN,URINE NEGATIVE (NEGATIVE)
[2020-02-23] MEDS ORDERED: HALOPERIDOL LACTATE INJ 5 MG/1 ML VIAL ONE (05:03)
[2020-02-23] MEDS ORDERED: HALOPERIDOL LACTATE INJ 5 MG/1 ML VIAL IV ONE (05:15)
[2020-02-23 07:06] LABS: HEMATOCRIT 25.2 % (36.0-47.0); HEMOGLOBIN 8.2 g/dL (12.0-15.5); MEAN CORPUSCULAR HEMOGLOBIN 22.7 pg (27.0-33.4); MEAN CORPUSCULAR HGB CONC 32.7 g/dL (32.0-36.0); MEAN CORPUSCULAR VOLUME 70 fl (80-97); PLATELET COUNT 296 10^3/uL (150-450); RED BLOOD COUNT 3.62 10^6/uL (3.72-5.28); RED CELL DISTRIBUTION WIDTH 16.5 % (11.5-14.0); WHITE BLOOD COUNT 9.8 10^3/uL (4.0-10.5)
[2020-02-23 07:26] LABS: ANION GAP 9 (5-19); BLOOD UREA NITROGEN 12 mg/dL (7-20); CALCIUM 7.9 mg/dL (8.4-10.2); CARBON DIOXIDE 21 mmol/L (22-30); CHLORIDE 100 mmol/L (98-107); GLUCOSE 101 mg/dL (75-110); POTASSIUM 3.3 mmol/L (3.6-5.0)
[2020-02-23] MEDS: HYDROMORPHONE HCL INJ/PF 2 MG/ML AMPULE IV PRN ×4 (10:38→22:35)
[2020-02-23] MEDS: DOCUSATE SODIUM 100 MG CAPSULE PO SCH (10:38)
[2020-02-23] MEDS: LIDOCAINE 5% (700 MG) TRANSDERMAL ADH..PATCH TP SCH (10:38)
[2020-02-23] MEDS: FAMOTIDINE 20 MG TABLET PO SCH ×2 (10:38→22:35)
[2020-02-23] MEDS: ACETAMINOPHEN 325 MG TABLET PO PRN (11:17)
--- NOTE | 2020-02-23 15:17 | PDOC PROGRESS REPORT ---
Subjective Progress Note for:: 02/23/20 Subjective:: KINA GOMEZ is a 29 year old female with a past medical history of polysubstance IV drug abuse and tobacco abuse with continuous use who was admitted 02/21/20 for SIRS and found to have pulmonary embolus with likely right- sided septic emboli. Concerning for endocarditis. Patient was seen on morning rounds. She was found resting in bed, on room air. She reports continued right lateral and posterior chest wall pain with inspiration and movement. She states that it remains uncontrolled and asks to have her medications adjusted. States she was unable to sleep due to pain. She is tearful and appears to be in discomfort. She further denies headache, dizziness, dyspnea, cough, abd pain, nausea and vomiting. No other questions or concerns at this time. No concerns per nursing. Reason For Visit: SIRS Physical Exam Vital Signs: Temp Pulse Resp BP Pulse Ox 98.5 F 97 17 106/65 95 02/23/20 12:43 02/23/20 11:14 02/23/20 11:14 02/23/20 11:14 02/23/20 11:14 Intake & Output 02/22/20 02/23/20 02/24/20 06:59 06:59 06:59 Intake Total 2500 2962 194 Balance 2500 2962 194 Weight 57.2 kg 57.5 kg General appearance: PRESENT: no acute distress, cooperative, disheveled, mild distress - from pain, well-developed, well-nourished Head exam: PRESENT: atraumatic, normocephalic Eye exam: PRESENT: conjunctiva pink, EOMI, PERRLA. ABSENT: scleral icterus Mouth exam: PRESENT: moist, tongue midline Teeth exam: PRESENT: dental caries, poor dentation Respiratory exam: PRESENT: clear to auscultation willie, decreased breath sounds - Bibasilar; likely related to shallow respirations, symmetrical, unlabored. ABSENT: rales, rhonchi, wheezes Cardiovascular exam: PRESENT: RRR. ABSENT: diastolic murmur, rubs, systolic murmur Pulses: PRESENT: normal dorsalis pedis pul Vascular exam: PRESENT: normal capillary refill GI/Abdominal exam: PRESENT: normal bowel sounds, soft. ABSENT: distended, guarding, mass, organolmegaly, rebound, tenderness Rectal exam: PRESENT: deferred Extremities exam: PRESENT: full ROM. ABSENT: calf tenderness, clubbing, pedal edema Musculoskeletal exam: PRESENT: ambulatory Neurological exam: PRESENT: alert, awake, oriented to person, oriented to place, oriented to time, oriented to situation, CN II-XII grossly intact. ABSENT: motor sensory deficit Psychiatric exam: PRESENT: anxious, appropriate affect, normal mood. ABSENT: homicidal ideation, suicidal ideation Skin exam: PRESENT: dry, intact, warm. ABSENT: cyanosis, rash Results Laboratory Results: 02/23/20 06:55 02/23/20 06:55 02/22/20 02/23/20 02/23/20 19:03 02:47 06:55 WBC 11.0 H 9.8 RBC 3.63 L 3.62 L Hgb 8.3 L 8.2 L Hct 25.2 L 25.2 L MCV 70 L 70 L MCH 22.8 L 22.7 L MCHC 32.9 32.7 RDW 16.9 H 16.5 H Plt Count 268 296 Seg Neutrophils % 81.2 H Sodium Potassium Chloride Carbon Dioxide Anion Gap BUN Creatinine Est GFR ( Amer) Glucose Calcium Urine Color YELLOW Urine Appearance CLEAR Urine pH 6.0 Ur Specific [place] 1.010 Urine Protein NEGATIVE Urine Glucose (UA) NEGATIVE Urine Ketones NEGATIVE Urine Blood NEGATIVE Urine Nitrite NEGATIVE Ur Leukocyte Esterase NEGATIVE Urine WBC (Auto) 2 Urine RBC (Auto) 0 02/23/20 06:55 WBC RBC Hgb Hct MCV MCH MCHC RDW Plt Count Seg Neutrophils % Sodium 130.0 L Potassium 3.3 L Chloride 100 Carbon Dioxide 21 L Anion Gap 9 BUN 12 Creatinine 0.58 Est GFR ( Amer) > 60 Glucose 101 Calcium 7.9 L Urine Color Urine Appearance Urine pH Ur Specific [place] Urine Protein Urine Glucose (UA) Urine Ketones Urine Blood Urine Nitrite Ur Leukocyte Esterase Urine WBC (Auto) Urine RBC (Auto) 02/21/20 08:46 Blood Blood Culture (PCR) - Final Strep Pyogenes (Grp A) 02/21/20 11:33 Blood Blood Culture (PCR) - Final Strep Pyogenes (Grp A) 02/21/20 08:46 Clean Catch Midstream Urine Culture - Final Escherichia Coli 02/21/20 02/21/20 02/21/20 08:46 08:46 18:31 Creatine Kinase 27 L Troponin I < 0.012 < 0.012 02/22/20 00:35 Creatine Kinase Troponin I < 0.012 Impressions: Abdomen/Pelvis CT 02/21/20 08:01 IMPRESSION: 1. NO SIGNIFICANT OR ACUTE FINDING IN THE ABDOMEN OR PELVIS ON CT SCAN WITH IV CONTRAST. NORMAL APPENDIX. 2. FAINT INDISTINCT AIRSPACE DISEASE IN THE RIGHT LOWER LOBE, NONSPECIFIC, WHICH MAY BE DUE TO INFECTION OR INFLAMMATION. Abdomen Ultrasound 02/21/20 12:07 IMPRESSION: POSSIBLE MINIMAL SLUDGE IN THE GALLBLADDER. OTHERWISE NORMAL RIGHT UPPER QUADRANT ULTRASOUND. Chest X-Ray 02/21/20 13:21 IMPRESSION: NO ACUTE RADIOGRAPHIC FINDING IN THE CHEST. THE FAINT DENSITIES IN THE RIGHT LUNG BASE SEEN ON CT ARE NOT APPARENT ON THE X-RAY. Chest/Abdomen CTA 02/22/20 00:00 IMPRESSION: 1. Right lower lobe pulmonary emboli. 2. Possible small right pulmonary infarct in the right base posteriorly. 3. Ground-glass opacification in the right base may represent chronic interstitial changes or atypical infectious/inflammatory process. 4. Mild adenopathy. Assessment and Plan - Diagnosis (1) Bacteremia Is this a current diagnosis for this admission?: Yes Plan: Blood cultures show strep pyogenes (Group A) Urine cultures show e. coli Repeat blood cultures (02/22/2020) NGTD Lactic aid improved and d-dimer elevated Patient is admitted to the medical floor on continuous cardiac telemetry. She was empirically started on IV vancomycin and Zosyn; adjusted to IV Ceftriaxone 2 gm daily per ID recommendations. IV Rocephin day #2 Continue gentle IV fluids. Infectious Disease consulted. (2) Pulmonary embolus and infarction Is this a current diagnosis for this admission?: Yes Plan: Continue on heparin drip. Supplemental oxygen as needed maintain saturations greater than 89%. As needed nebulizer treatments. Antiemetics and analgesics as needed. Incentive spirometer to bedside. (3) Endocarditis Qualifiers: Endocarditis type: infective Infective endocarditis organism: bacterial Qualified Code(s): I33.0 - Acute and subacute infective endocarditis Is this a current diagnosis for this admission?: Yes Plan: Strong suspicion for infected endocarditis secondary to IV drug use, bacteremia, pulmonary embolus with infarct, and septic emboli. Echocardiogram was poor quality study. Have requested RYAN Cultures and antibiotics as above. (4) Septic embolism Is this a current diagnosis for this admission?: Yes Plan: Noted on CTA Chest. Cultures and antibiotics as above. (5) SIRS (systemic inflammatory response syndrome) Is this a current diagnosis for this admission?: Yes Plan: Secondary to pulmonary embolus, and likely septic emboli related to endocarditis. Patient presented with fever, tachycardia, leukocytosis, and elevated CRP. Urinalysis negative. Abdominal imagining questions RLL atypical consolidation; otherwise benign exams. CXR negative. CT demonstrates right lower lobe pulmonary emboli, possible small right pu lmonary infarct to the right base posteriorly, groundglass opacification in the right base representing chronic interstitial change or atypical infectious/inflammatory process, mild adenopathy. Evaluation and management as above. (6) Fever Qualifiers: Fever type: unspecified Qualified Code(s): R50.9 - Fever, unspecified Is this a current diagnosis for this admission?: Yes Plan: Tmax 102/24 hrs Evaluation and management as above. Antipyretics as needed. (7) Leukocytosis Qualifiers: Leukocytosis type: unspecified Qualified Code(s): D72.829 - Elevated white blood cell count, unspecified Is this a current diagnosis for this admission?: Yes Plan: Leukocytosis 16.2-> 12.8-> 11-> 9.8 Cultures and antibiotics as above. Follow-up CBC. (8) Right upper quadrant abdominal pain Is this a current diagnosis for this admission?: Yes Plan: Resolved. UDS shows minimal sludge in the gallbladder and otherwise normal exam. CT ABD/Pelvis notable for RLL lung consolidation, normal abd/pelvis. Analgesics and antiemetics as needed. Advance to regular diet; tolerating well. Remaining evaluation as above. (9) IV drug abuse Is this a current diagnosis for this admission?: Yes Plan: Patient admits to recent amphetamine use. UDS positive for Opiates and amphetamines. Urine was collected prior to receiving narcotic medications by the ED nurse/provider. Supportive care. Discharge planning consulted. - Time Time Spent with patient: 35 or more minutes Medications reviewed and adjusted accordingly: Yes
[2020-02-23] MEDS: CEFTRIAXONE 2 GM/D5W RTU 2 GM/50 ML RTUPB IV SCH (18:46)
[2020-02-24] MEDS: OXYCODONE-ACETAMINOPHEN 5-325 MG TABLET PO PRN ×6 (00:09→21:30)
[2020-02-24] MEDS: HYDROMORPHONE HCL INJ/PF 2 MG/ML AMPULE IV PRN ×7 (02:15→23:57)
[2020-02-24 05:47] LABS: HEMATOCRIT 24.1 % (36.0-47.0); MEAN CORPUSCULAR HGB CONC 33.4 g/dL (32.0-36.0); MEAN CORPUSCULAR VOLUME 69 fl (80-97); RED CELL DISTRIBUTION WIDTH 17.3 % (11.5-14.0); WHITE BLOOD COUNT 8.7 10^3/uL (4.0-10.5)
[2020-02-24 06:17] LABS: PLATELET COUNT 313 10^3/uL (150-450)
[2020-02-24 06:24] LABS: ANION GAP 9 (5-19); BLOOD UREA NITROGEN 6 mg/dL (7-20); CALCIUM 8.2 mg/dL (8.4-10.2); CARBON DIOXIDE 24 mmol/L (22-30); CHLORIDE 102 mmol/L (98-107); GLUCOSE 104 mg/dL (75-110); POTASSIUM 3.1 mmol/L (3.6-5.0)
[2020-02-24] MEDS: HEPARIN SOD (PORCINE) 1,000 UNIT/ML 10 ML VIAL IV PRN (06:24)
[2020-02-24] MEDS: NORMAL SALINE 1000 ML 1,000 ML IV PRN ×2 (06:25→19:57)
[2020-02-24] MEDS: HEPARIN SODIUM,PORCINE/D5W 25,000 UNIT/250 ML RTUINJ IV PRN ×2 (06:26→08:27)
[2020-02-24] MEDS ORDERED: POTASSIUM CHLORIDE 10 MEQ TABLET.ER PO ONE (08:30)
[2020-02-24] MEDS: DOCUSATE SODIUM 100 MG CAPSULE PO SCH (10:05)
[2020-02-24] MEDS: FAMOTIDINE 20 MG TABLET PO SCH ×2 (10:06→21:28)
[2020-02-24] MEDS: LIDOCAINE 5% (700 MG) TRANSDERMAL ADH..PATCH TP SCH (10:08)
--- NOTE | 2020-02-24 14:07 | PDOC PROGRESS REPORT ---
Subjective Progress Note for:: 02/24/20 Subjective:: KINA GOMEZ is a 29 year old female with a past medical history of polysubstance IV drug abuse and tobacco abuse with continuous use who was admitted 02/21/20 for SIRS and found to have pulmonary embolus with likely right- sided septic emboli. Concerning for endocarditis. Patient was seen on morning rounds. She was found resting in bed, on room air. She reports continued right lateral and posterior chest wall pain with inspiration and movement. She states that pain is improved today; however, does call me back later to ask for more frequent dilaudid. She further denies headache, dizziness, dyspnea, cough, abd pain, nausea and vomiting. No other questions or concerns at this time. No concerns per nursing. Reason For Visit: SIRS Physical Exam Vital Signs: Temp Pulse Resp BP Pulse Ox 98.6 F 80 16 104/61 98 02/24/20 11:17 02/24/20 11:17 02/24/20 11:17 02/24/20 11:17 02/24/20 11:17 Intake & Output 02/23/20 02/24/20 02/25/20 06:59 06:59 06:59 Intake Total 2962 4687 125 Balance 2962 4687 125 Weight 57.5 kg 62.8 kg General appearance: PRESENT: no acute distress, cooperative, well-developed, w ell-nourished Head exam: PRESENT: atraumatic, normocephalic Eye exam: PRESENT: conjunctiva pink, EOMI, PERRLA. ABSENT: scleral icterus Mouth exam: PRESENT: moist, tongue midline Respiratory exam: PRESENT: rhonchi - right lower laurent, symmetrical, unlabored. ABSENT: rales, wheezes Cardiovascular exam: PRESENT: RRR. ABSENT: diastolic murmur, rubs, systolic murmur Pulses: PRESENT: normal dorsalis pedis pul Vascular exam: PRESENT: normal capillary refill Extremities exam: PRESENT: full ROM. ABSENT: calf tenderness, clubbing, pedal edema Neurological exam: PRESENT: alert, awake, oriented to person, oriented to place, oriented to time, oriented to situation, CN II-XII grossly intact. ABSENT: motor sensory deficit Psychiatric exam: PRESENT: appropriate affect, normal mood. ABSENT: homicidal ideation, suicidal ideation Skin exam: PRESENT: dry, intact, warm, other - scatter small wounds/abrasions and excoriation. ABSENT: cyanosis, rash Results Laboratory Results: 02/24/20 04:49 02/24/20 04:49 02/24/20 02/24/20 04:49 04:49 WBC 8.7 RBC 3.50 L Hgb 8.0 L Hct 24.1 L MCV 69 L MCH 23.0 L MCHC 33.4 RDW 17.3 H Plt Count 313 Sodium 135.3 L Potassium 3.1 L Chloride 102 Carbon Dioxide 24 Anion Gap 9 BUN 6 L Creatinine 0.49 L Est GFR ( Amer) > 60 Glucose 104 Calcium 8.2 L 02/21/20 08:46 Blood Blood Culture (PCR) - Final Strep Pyogenes (Grp A) 02/21/20 08:46 Blood Blood Culture - Final Group A Beta Streptococcus 02/21/20 11:33 Blood Blood Culture (PCR) - Final Strep Pyogenes (Grp A) 02/21/20 11:33 Blood Blood Culture - Final Group A Beta Streptococcus 02/21/20 02/21/20 02/21/20 08:46 08:46 18:31 Creatine Kinase 27 L Troponin I < 0.012 < 0.012 02/22/20 00:35 Creatine Kinase Troponin I < 0.012 Impressions: Abdomen/Pelvis CT 02/21/20 08:01 IMPRESSION: 1. NO SIGNIFICANT OR ACUTE FINDING IN THE ABDOMEN OR PELVIS ON CT SCAN WITH IV CONTRAST. NORMAL APPENDIX. 2. FAINT INDISTINCT AIRSPACE DISEASE IN THE RIGHT LOWER LOBE, NONSPECIFIC, WHICH MAY BE DUE TO INFECTION OR INFLAMMATION. Abdomen Ultrasound 02/21/20 12:07 IMPRESSION: POSSIBLE MINIMAL SLUDGE IN THE GALLBLADDER. OTHERWISE NORMAL RIGHT UPPER QUADRANT ULTRASOUND. Chest X-Ray 02/21/20 13:21 IMPRESSION: NO ACUTE RADIOGRAPHIC FINDING IN THE CHEST. THE FAINT DENSITIES IN THE RIGHT LUNG BASE SEEN ON CT ARE NOT APPARENT ON THE X-RAY. Chest/Abdomen CTA 02/22/20 00:00 IMPRESSION: 1. Right lower lobe pulmonary emboli. 2. Possible small right pulmonary infarct in the right base posteriorly. 3. Ground-glass opacification in the right base may represent chronic interstitial changes or atypical infectious/inflammatory process. 4. Mild adenopathy. Assessment and Plan - Diagnosis (1) Bacteremia Is this a current diagnosis for this admission?: Yes Plan: Blood cultures show strep pyogenes (Group A) Urine cultures show e. coli Repeat blood cultures (02/22/2020) NGTD Lactic aid improved and d-dimer elevated Patient is admitted to the medical floor on continuous cardiac telemetry. She was empirically started on IV vancomycin and Zosyn; adjusted to IV Ceftriaxone 2 gm daily per ID recommendations. IV Rocephin Day #3 Continue gentle IV fluids. Infectious Disease consulted. (2) Pulmonary embolus and infarction Is this a current diagnosis for this admission?: Yes Plan: Continue on heparin drip. Supplemental oxygen as needed maintain saturations greater than 89%. As needed nebulizer treatments. Antiemetics and analgesics as needed. Incentive spirometer to bedside. (3) Endocarditis Qualifiers: Endocarditis type: infective Infective endocarditis organism: bacterial Qualified Code(s): I33.0 - Acute and subacute infective endocarditis Is this a current diagnosis for this admission?: Yes Plan: Strong suspicion for infected endocarditis secondary to IV drug use, bacteremia, pulmonary embolus with infarct, and septic emboli. Echocardiogram was poor quality study. Have requested RYAN Cultures and antibiotics as above. (4) Septic embolism Is this a current diagnosis for this admission?: Yes Plan: Noted on CTA Chest. Cultures and antibiotics as above. (5) SIRS (systemic inflammatory response syndrome) Is this a current diagnosis for this admission?: Yes Plan: Secondary to pulmonary embolus, and likely septic emboli related to endocarditis. Patient presented with fever, tachycardia, leukocytosis, and elevated CRP. Urinalysis negative. Abdominal imagining questions RLL atypical consolidation; otherwise benign exams. CXR negative. CT demonstrates right lower lobe pulmonary emboli, possible small right pulmonary infarct to the right base posteriorly, groundglass opacification in the right base representing chronic interstitial change or atypical infectious/inflammatory process, mild adenopathy. Evaluation and management as above. (6) Fever Qualifiers: Fever type: unspecified Qualified Code(s): R50.9 - Fever, unspecified Is this a current diagnosis for this admission?: Yes Plan: Tmax 102.9/24 hrs Evaluation and management as above. Antipyretics as needed. (7) Leukocytosis Qualifiers: Leukocytosis type: unspecified Qualified Code(s): D72.829 - Elevated white blood cell count, unspecified Is this a current diagnosis for this admission?: Yes Plan: Leukocytosis 16.2-> 12.8-> 11-> 9.8 Cultures and antibiotics as above. Follow-up CBC. (8) Right upper quadrant abdominal pain Is this a current diagnosis for this admission?: Yes Plan: Resolved. UDS shows minimal sludge in the gallbladder and otherwise normal exam. CT ABD/Pelvis notable for RLL lung consolidation, normal abd/pelvis. Analgesics and antiemetics as needed. Advance to regular diet; tolerating well. Remaining evaluation as above. (9) IV drug abuse Is this a current diagnosis for this admission?: Yes Plan: Patient admits to recent amphetamine use. UDS positive for Opiates and amphetamines. Urine was collected prior to receiving narcotic medications by the ED nurse/provider. Supportive care. Discharge planning consulted. - Time Time Spent with patient: 25-34 minutes Medications reviewed and adjusted accordingly: Yes
[2020-02-24] MEDS: CEFTRIAXONE 2 GM/D5W RTU 2 GM/50 ML RTUPB IV SCH (17:12)
[2020-02-25] MEDS: HEPARIN SODIUM,PORCINE/D5W 25,000 UNIT/250 ML RTUINJ IV PRN ×2 (01:00→17:10)
[2020-02-25] MEDS: OXYCODONE-ACETAMINOPHEN 5-325 MG TABLET PO PRN ×4 (01:39→18:48)
[2020-02-25] MEDS: HYDROMORPHONE HCL INJ/PF 2 MG/ML AMPULE IV PRN ×5 (03:57→21:31)
[2020-02-25 07:45] LABS: ANION GAP 8 (5-19); BLOOD UREA NITROGEN 3 mg/dL (7-20); CALCIUM 8.2 mg/dL (8.4-10.2); CARBON DIOXIDE 24 mmol/L (22-30); CHLORIDE 100 mmol/L (98-107); GLUCOSE 94 mg/dL (75-110); POTASSIUM 3.4 mmol/L (3.6-5.0)
[2020-02-25] MEDS: LIDOCAINE 5% (700 MG) TRANSDERMAL ADH..PATCH TP SCH (09:35)
[2020-02-25] MEDS: FAMOTIDINE 20 MG TABLET PO SCH ×2 (09:36→21:30)
[2020-02-25] MEDS: DOCUSATE SODIUM 100 MG CAPSULE PO SCH (09:36)
[2020-02-25 14:58] LABS: APPEARANCE,URINE CLEAR; BILIRUBIN,URINE NEGATIVE (NEGATIVE); COLOR,URINE STRAW; GLUCOSE, URINE NEGATIVE (NEGATIVE); KETONES,URINE NEGATIVE (NEGATIVE); LEUKOCYTE ESTERASE,URINE NEGATIVE (NEGATIVE); NITRITE,URINE NEGATIVE (NEGATIVE); PROTEIN,URINE NEGATIVE (NEGATIVE); URINE SPECIFIC GRAVITY 1.003; UROBILINOGEN,URINE NEGATIVE mg/dL (<2.0)
--- NOTE | 2020-02-25 16:16 | PDOC PROGRESS REPORT ---
Subjective Progress Note for:: 02/25/20 Subjective:: KINA GOMEZ is a 29 year old female with a past medical history of polysubstance IV drug abuse and tobacco abuse with continuous use who was admitted 02/21/20 for SIRS and found to have pulmonary embolus with likely right- sided septic emboli. Concerning for endocarditis. Patient was seen on morning rounds. She was found resting in bed, on room air. She reports continued right lateral and posterior chest wall pain with inspiration and movement. She states that pain is improved today. She is concerned about possible abscesses to her right thigh where she routinely injects; notes two tender areas erythema and edema. Reports difficulty sleeping; asks for sleep aid. She further denies headache, dizziness, dyspnea, cough, abd pain, nausea and vomiting. No other questions or concerns at this time. No concerns per nursing. Reason For Visit: SIRS Physical Exam Vital Signs: Temp Pulse Resp BP Pulse Ox 98.4 F 73 16 104/69 99 02/25/20 11:41 02/25/20 14:00 02/25/20 11:41 02/25/20 11:41 02/25/20 11:41 Intake & Output 02/24/20 02/25/20 02/26/20 06:59 06:59 06:59 Intake Total 4687 4134 674 Balance 4687 4134 674 Weight 62.8 kg 64.1 kg General appearance: PRESENT: no acute distress, cooperative, well-developed, well-nourished Head exam: PRESENT: atraumatic, normocephalic Eye exam: PRESENT: conjunctiva pink, EOMI, PERRLA. ABSENT: scleral icterus Mouth exam: PRESENT: moist, tongue midline Teeth exam: PRESENT: dental caries, poor dentation Respiratory exam: PRESENT: clear to auscultation willie, symmetrical, unlabored. ABSENT: rales, rhonchi, wheezes Cardiovascular exam: PRESENT: RRR, +S1, +S2. ABSENT: diastolic murmur, rubs, systolic murmur Pulses: PRESENT: normal dorsalis pedis pul Vascular exam: PRESENT: normal capillary refill Rectal exam: PRESENT: deferred Extremities exam: PRESENT: full ROM. ABSENT: calf tenderness, clubbing, pedal edema Musculoskeletal exam: PRESENT: ambulatory Neurological exam: PRESENT: alert, awake, oriented to person, oriented to place, oriented to time, oriented to situation, CN II-XII grossly intact. ABSENT: motor sensory deficit Psychiatric exam: PRESENT: appropriate affect, normal mood. ABSENT: homicidal ideation, suicidal ideation Skin exam: PRESENT: dry, warm, other - scatter small wounds/abrasions and excoriation. Two areas of erythema w/ hard induration to right medial thigh.. ABSENT: cyanosis, rash Results Laboratory Results: 02/24/20 04:49 02/25/20 07:13 02/25/20 02/25/20 07:13 14:30 Sodium 132.3 L Potassium 3.4 L Chloride 100 Carbon Dioxide 24 Anion Gap 8 BUN 3 L Creatinine 0.45 L Est GFR ( Amer) > 60 Glucose 94 Calcium 8.2 L Urine Color STRAW Urine Appearance CLEAR Urine pH 8.0 Ur Specific [place] 1.003 Urine Protein NEGATIVE Urine Glucose (UA) NEGATIVE Urine Ketones NEGATIVE Urine Blood NEGATIVE Urine Nitrite NEGATIVE Ur Leukocyte Esterase NEGATIVE Urine WBC (Auto) 0 Urine RBC (Auto) 0 02/21/20 02/21/20 02/21/20 08:46 08:46 18:31 Creatine Kinase 27 L Troponin I < 0.012 < 0.012 02/22/20 00:35 Creatine Kinase Troponin I < 0.012 Impressions: Abdomen/Pelvis CT 02/21/20 08:01 IMPRESSION: 1. NO SIGNIFICANT OR ACUTE FINDING IN THE ABDOMEN OR PELVIS ON CT SCAN WITH IV CONTRAST. NORMAL APPENDIX. 2. FAINT INDISTINCT AIRSPACE DISEASE IN THE RIGHT LOWER LOBE, NONSPECIFIC, WHICH MAY BE DUE TO INFECTION OR INFLAMMATION. Abdomen Ultrasound 02/21/20 12:07 IMPRESSION: POSSIBLE MINIMAL SLUDGE IN THE GALLBLADDER. OTHERWISE NORMAL RIGHT UPPER QUADRANT ULTRASOUND. Chest X-Ray 02/21/20 13:21 IMPRESSION: NO ACUTE RADIOGRAPHIC FINDING IN THE CHEST. THE FAINT DENSITIES IN THE RIGHT LUNG BASE SEEN ON CT ARE NOT APPARENT ON THE X-RAY. Chest/Abdomen CTA 02/22/20 00:00 IMPRESSION: 1. Right lower lobe pulmonary emboli. 2. Possible small right pulmonary infarct in the right base posteriorly. 3. Ground-glass opacification in the right base may represent chronic interstitial changes or atypical infectious/inflammatory process. 4. Mild adenopathy. Assessment and Plan - Diagnosis (1) Bacteremia Is this a current diagnosis for this admission?: Yes Plan: Blood cultures show strep pyogenes (Group A) Urine cultures show e. coli Repeat blood cultures (02/22/2020) NGTD Lactic aid improved and d-dimer elevated PICC ordered. Patient is admitted to the medical floor on continuous cardiac telemetry. She was empirically started on IV vancomycin and Zosyn; adjusted to IV Ceftriaxone 2 gm daily per ID recommendations. IV Rocephin Day #4 Infectious Disease consulted. (2) Pulmonary embolus and infarction Is this a current diagnosis for this admission?: Yes Plan: Continue on heparin drip until PICC placed; may consider transitioning to oral DOAC at that time. Supplemental oxygen as needed maintain saturations greater than 89%. As needed nebulizer treatments. Antiemetics and analgesics as needed. Incentive spirometer to bedside. (3) Endocarditis Qualifiers: Endocarditis type: infective Infective endocarditis organism: bacterial Qualified Code(s): I33.0 - Acute and subacute infective endocarditis Is this a current diagnosis for this admission?: Yes Plan: Strong suspicion for infected endocarditis secondary to IV drug use, bacteremia, pulmonary embolus with infarct, and septic emboli. Echocardiogram was poor quality study. Have requested RYAN Cultures and antibiotics as above. (4) Septic embolism Is this a current diagnosis for this admission?: Yes Plan: Noted on CTA Chest. Cultures and antibiotics as above. (5) SIRS (systemic inflammatory response syndrome) Is this a current diagnosis for this admission?: Yes Plan: Secondary to pulmonary embolus, and likely septic emboli related to endocarditis. Patient presented with fever, tachycardia, leukocytosis, and elevated CRP. Urinalysis negative. Abdominal imagining questions RLL atypical consolidation; otherwise benign exams. CXR negative. CT demonstrates right lower lobe pulmonary emboli, possible small right pulmon virgilio infarct to the right base posteriorly, groundglass opacification in the right base representing chronic interstitial change or atypical infectious/inflammatory process, mild adenopathy. Evaluation and management as above. (6) Fever Qualifiers: Fever type: unspecified Qualified Code(s): R50.9 - Fever, unspecified Is this a current diagnosis for this admission?: Yes Plan: Tmax 102.9/24 hrs Evaluation and management as above. Antipyretics as needed. (7) Leukocytosis Qualifiers: Leukocytosis type: unspecified Qualified Code(s): D72.829 - Elevated white blood cell count, unspecified Is this a current diagnosis for this admission?: Yes Plan: Leukocytosis 16.2-> 12.8-> 11-> 9.8 Cultures and antibiotics as above. Follow-up CBC. (8) Right upper quadrant abdominal pain Is this a current diagnosis for this admission?: Yes Plan: Resolved. UDS shows minimal sludge in the gallbladder and otherwise normal exam. CT ABD/Pelvis notable for RLL lung consolidation, normal abd/pelvis. Analgesics and antiemetics as needed. Advance to regular diet; tolerating well. Remaining evaluation as above. (9) IV drug abuse Is this a current diagnosis for this admission?: Yes Plan: Patient admits to recent amphetamine use. UDS positive for Opiates and amphetamines. Urine was collected prior to receiving narcotic medications by the ED nurse/provider. Supportive care. Discharge planning consulted. - Time Time Spent with patient: 25-34 minutes Medications reviewed and adjusted accordingly: Yes
[2020-02-25] MEDS: CEFTRIAXONE 2 GM/D5W RTU 2 GM/50 ML RTUPB IV SCH (17:11)
--- NOTE | 2020-02-25 19:26 | RADIOLOGY REPORT (SQ) ---
EXAM DESCRIPTION: U/S EXTREMITY NONVASCULAR LTD IMAGES COMPLETED DATE/TIME: 02/25/2020 6:56 pm REASON FOR STUDY: Rt medial thigh; abscess formation? COMPARISON: None. TECHNIQUE: Dynamic and static grayscale images acquired of the localized site of clinical concern an d recorded on PACS. Additional selected color Doppler and spectral images recorded. SITE OF CONCERN: Medial right thigh LIMITATIONS: None. FINDINGS: No abscess is seen in the area of concern. Soft tissue edema is noted. Thrombus is prese nt in the greater saphenous vein from above the knee to the saphenous femoral junction. IMPRESSION: No abscess. There is thrombus in the saphenous vein to the saphenous femoral junction. TECHNICAL DOCUMENTATION: JOB ID: [id number] 2010 [employer]- All Rights Reserved Reading location - IP/workstation name: [email or web address]
[2020-02-25] MEDS: MELATONIN 3 MG TABLET PO SCH (21:30)
[2020-02-26] MEDS: HYDROMORPHONE HCL INJ/PF 2 MG/ML AMPULE IV PRN ×3 (02:12→11:03)
[2020-02-26] MEDS: OXYCODONE-ACETAMINOPHEN 5-325 MG TABLET PO PRN ×5 (04:48→16:42)
[2020-02-26 06:38] LABS: HEMATOCRIT 21.8 % (36.0-47.0); MEAN CORPUSCULAR HEMOGLOBIN 23.1 pg (27.0-33.4); MEAN CORPUSCULAR VOLUME 68 fl (80-97); PLATELET COUNT 406 10^3/uL (150-450); RED CELL DISTRIBUTION WIDTH 17.1 % (11.5-14.0); WHITE BLOOD COUNT 9.6 10^3/uL (4.0-10.5)
[2020-02-26 06:42] LABS: HEMOGLOBIN 7.4 g/dL (12.0-15.5)
[2020-02-26] MEDS: HEPARIN SODIUM,PORCINE/D5W 25,000 UNIT/250 ML RTUINJ IV PRN (08:18)
[2020-02-26 08:49] LABS: ANION GAP 7 (5-19); BLOOD UREA NITROGEN 3 mg/dL (7-20); CALCIUM 8.3 mg/dL (8.4-10.2); CARBON DIOXIDE 28 mmol/L (22-30); CHLORIDE 100 mmol/L (98-107); GLUCOSE 98 mg/dL (75-110); POTASSIUM 3.6 mmol/L (3.6-5.0)
[2020-02-26] MEDS: DOCUSATE SODIUM 100 MG CAPSULE PO SCH (09:06)
[2020-02-26] MEDS: FAMOTIDINE 20 MG TABLET PO SCH ×2 (09:06→21:14)
[2020-02-26] MEDS: LIDOCAINE 5% (700 MG) TRANSDERMAL ADH..PATCH TP SCH (09:06)
--- NOTE | 2020-02-26 11:34 | PDOC PROGRESS REPORT ---
Subjective Progress Note for:: 02/26/20 Reason For Visit: SIRS 02/26/2020 Admitted on 02/21/2020 for bacteremia, PE, endocarditis, IV drug use, septic emboli, SIRS, fever, leukocytosis, abdominal pain Physical Exam Vital Signs: Temp Pulse Resp BP Pulse Ox 98.6 F 58 L 16 99/64 L 96 02/26/20 08:26 02/26/20 08:26 02/26/20 08:26 02/26/20 08:26 02/26/20 08:26 Intake & Output 02/25/20 02/26/20 02/27/20 06:59 06:59 06:59 Intake Total 4134 974 234 Output Total 450 Balance 4134 524 234 Weight 64.1 kg 62.5 kg General appearance: PRESENT: no acute distress Respiratory exam: PRESENT: clear to auscultation willie. ABSENT: rales, rhonchi, wheezes Cardiovascular exam: PRESENT: RRR. ABSENT: diastolic murmur, rubs, systolic murmur Neurological exam: PRESENT: alert, awake, oriented to person, oriented to place, oriented to time, oriented to situation, CN II-XII grossly intact. ABSENT: motor sensory deficit Psychiatric exam: PRESENT: anxious Results Laboratory Results: 02/26/20 06:04 02/26/20 07:29 02/25/20 02/26/20 02/26/20 14:30 06:04 06:04 WBC 9.6 RBC 3.20 L Hgb 7.4 L Hct 21.8 L MCV 68 L MCH 23.1 L MCHC 34.0 RDW 17.1 H Plt Count 406 Sodium Cancelled Potassium Cancelled Chloride Cancelled Carbon Dioxide Cancelled Anion Gap Cancelled BUN Cancelled Creatinine Cancelled Est GFR ( Amer) Cancelled Est GFR (Non-Af Amer) Cancelled Glucose Cancelled Calcium Cancelled Urine Color STRAW Urine Appearance CLEAR Urine pH 8.0 Ur Specific [place] 1.003 Urine Protein NEGATIVE Urine Glucose (UA) NEGATIVE Urine Ketones NEGATIVE Urine Blood NEGATIVE Urine Nitrite NEGATIVE Ur Leukocyte Esterase NEGATIVE Urine WBC (Auto) 0 Urine RBC (Auto) 0 02/26/20 07:29 WBC RBC Hgb Hct MCV MCH MCHC RDW Plt Count Sodium 135.3 L Potassium 3.6 Chloride 100 Carbon Dioxide 28 Anion Gap 7 BUN 3 L Creatinine 0.46 L Est GFR ( Amer) > 60 Est GFR (Non-Af Amer) Glucose 98 Calcium 8.3 L Urine Color Urine Appearance Urine pH Ur Specific [place] Urine Protein Urine Glucose (UA) Urine Ketones Urine Blood Urine Nitrite Ur Leukocyte Esterase Urine WBC (Auto) Urine RBC (Auto) 02/21/20 02/21/20 02/21/20 08:46 08:46 18:31 Creatine Kinase 27 L Troponin I < 0.012 < 0.012 02/22/20 00:35 Creatine Kinase Troponin I < 0.012 Impressions: Abdomen/Pelvis CT 02/21/20 08:01 IMPRESSION: 1. NO SIGNIFICANT OR ACUTE FINDING IN THE ABDOMEN OR PELVIS ON CT SCAN WITH IV CONTRAST. NORMAL APPENDIX. 2. FAINT INDISTINCT AIRSPACE DISEASE IN THE RIGHT LOWER LOBE, NONSPECIFIC, WHICH MAY BE DUE TO INFECTION OR INFLAMMATION. Abdomen Ultrasound 02/21/20 12:07 IMPRESSION: POSSIBLE MINIMAL SLUDGE IN THE GALLBLADDER. OTHERWISE NORMAL RIGHT UPPER QUADRANT ULTRASOUND. Chest X-Ray 02/21/20 13:21 IMPRESSION: NO ACUTE RADIOGRAPHIC FINDING IN THE CHEST. THE FAINT DENSITIES IN THE RIGHT LUNG BASE SEEN ON CT ARE NOT APPARENT ON THE X-RAY. Chest/Abdomen CTA 02/22/20 00:00 IMPRESSION: 1. Right lower lobe pulmonary emboli. 2. Possible small right pulmonary infarct in the right base posteriorly. 3. Ground-glass opacification in the right base may represent chronic interstitial changes or atypical infectious/inflammatory process. 4. Mild adenopathy. Extremity Ultrasound 02/25/20 00:00 IMPRESSION: No abscess. There is thrombus in the saphenous vein to the saphenous femoral junction. Assessment and Plan - Diagnosis (1) Endocarditis Qualifiers: Endocarditis type: infective Infective endocarditis organism: bacterial Chronicity: acute Qualified Code(s): I33.0 - Acute and subacute infective endocarditis Is this a current diagnosis for this admission?: Yes (2) Fever Qualifiers: Fever type: unspecified Qualified Code(s): R50.9 - Fever, unspecified Is this a current diagnosis for this admission?: Yes (3) IV drug abuse Is this a current diagnosis for this admission?: Yes (4) Leukocytosis Qualifiers: Leukocytosis type: unspecified Qualified Code(s): D72.829 - Elevated white blood cell count, unspecified Is this a current diagnosis for this admission?: Yes (5) Methamphetamine abuse Is this a current diagnosis for this admission?: Yes (6) Opioid dependence Qualifiers: Substance use status: uncomplicated Qualified Code(s): F11.20 - Opioid dependence, uncomplicated Is this a current diagnosis for this admission?: Yes (7) Pulmonary embolus and infarction Is this a current diagnosis for this admission?: Yes (8) Right upper quadrant abdominal pain Is this a current diagnosis for this admission?: Yes (9) SIRS (systemic inflammatory response syndrome) Is this a current diagnosis for this admission?: Yes (10) Septic embolism Is this a current diagnosis for this admission?: Yes - Plan Summary Summary: 02/26/2020 Patient was admitted on 02/21/2024 generalized pain fever nausea and vomiting. There is a question of right lower lobe atypical consolidation patient is currently on IV Rocephin 2 g for the next 4 to 6 weeks per recommendations of infectious disease. Patient is also on IV heparin. She will need a PICC line placed Patient has a positive urine culture growing E. coli blood culture growing strep group A. She also had 3+ bacteria in the vaginal swab Vital signs are stable temperature 98.6 , patient's last fever was 3 days ago 102.9 since then has been afebrile Blood pressure 99/64 O2 sat 96% on room air. White count when she came in was 16,200 today is 9.6 ,hemoglobin is drifted down from 10.8 down to 7.4 PTT is 78 electrolytes are okay With a nurse present today I talked to the patient about discontinuing her IV Dilaudid. she tells me that she has had multiple years worth of illegal drugs including heroin and Percocet. Told her since she is going to be here for the next 4 to 6 weeks with PICC line that I would not prescribe Dilaudid. I have no problem giving Percocet every 4 hours as needed I am also going to add a muscle relaxant and a medicine for anxiety/depression. Patient has had a echocardiogram which was a poor quality study and a RYAN has been requested Admission patient's PCR COVID was negative Hopefully patient will be able to have her pain controlled by the above recommendations if she fails then I will consult pain management. - Time Time Spent with patient: 25-34 minutes
[2020-02-26] MEDS: BUSPIRONE HCL 10 MG TABLET PO SCH ×2 (12:10→21:14)
[2020-02-26] MEDS: METHOCARBAMOL 750 MG TABLET PO PRN ×2 (12:10→18:37)
--- NOTE | 2020-02-26 15:14 | RADIOLOGY REPORT (SQ) ---
EXAM DESCRIPTION: PICC INSERTION IMAGES COMPLETED DATE/TIME: 02/26/2020 2:15 pm REASON FOR STUDY: long term care administrator abx; difficulty PIV/phlebotomy COMPARISON: None. FLUOROSCOPY TIME: 5 seconds of fluoroscopy was used. 1 images saved to PACS. TECHNIQUE: Fluoroscopic and ultrasound guided PICC placement. LIMITATIONS: None. PROCEDURE: After written consent and assessment were obtained, the patient was brought into the fluo roscopy room and placed supine on the table. Ultrasound evaluation of potential access sites were per formed. After successfully identifying a patent right basilic vein, the right arm was prepped and petra ped in a sterile fashion along with the ultrasound probe. The entry site was anesthetized with 1% lid ocaine. A 21 gauge 7 cm needle was advanced through the skin and into the basilic vein under live ult rasound guidance. An ultrasound image was saved to PACS confirming access site. A .018 guide wire w as then inserted through the needle and into the venous system. The needle was then removed and an 11 blade scalpel was used to make a 1cm skin incision. A 5 fr peel-away sheath was advanced over the w armen and into the venous system. A measurement was then made using the existing wire and live fluorosc opic guidance. The wire was then removed and trimmed. The PICC was advanced through the peel-away she ath and into the venous system. The peel-away sheath was removed and the catheter was adhered to the patients arm with a stat lock. The catheter was then aspirated and flushed and a sterile bandage was placed over the access site. A fluoroscopic spot image was saved to PACS confirming the catheter tip within the superior vena cava. IMPRESSION: SUCCESSFUL PLACEMENT OF A 5 FR DUAL LUMEN 32 CM PICC IN THE RIGHT BASILIC VEIN. COMMENT: Patient medication list reviewed: Yes- Quality ID# [id number]:Eligible professional attests to doc umenting in the medical record they obtained, updated, or reviewed the patient's current medications. . Quality ID 145: Final reports for procedures using fluoroscopy that document radiation exposure caitlin sd, or exposure time and number of fluorographic images (if radiation exposure indices are not avail able) Quality ID #76: The patient was prepped and draped using maximum sterile barrier technique including cap, mask, sterile gown, sterile gloves, a large sterile sheet, hand hygiene, and 2% Chlorhexidine fo r cutaneous antisepsis. When ultrasound is used, sterile ultrasound techniques are followed requiring sterile gel and sterile probes. TECHNICAL DOCUMENTATION: JOB ID: [id number] 2010 [employer]- All Rights Reserved rev-02/17 Reading location - IP/workstation name: [id number]
[2020-02-26] MEDS: CEFTRIAXONE 2 GM/D5W RTU 2 GM/50 ML RTUPB IV SCH (17:00)
[2020-02-26] MEDS ORDERED: HYDROMORPHONE HCL INJ/PF 2 MG/ML AMPULE IV PRN (17:40)
[2020-02-26] MEDS: ACETAMINOPHEN 325 MG TABLET PO PRN (18:37)
[2020-02-26] MEDS: MELATONIN 3 MG TABLET PO SCH (21:14)
[2020-02-26] MEDS: NORMAL SALINE 10 ML SDV (SCHEDULED) IV SCH (21:16)
[2020-02-27] MEDS: OXYCODONE-ACETAMINOPHEN 5-325 MG TABLET PO PRN ×5 (00:51→22:59)
[2020-02-27] MEDS: HEPARIN SODIUM,PORCINE/D5W 25,000 UNIT/250 ML RTUINJ IV PRN ×2 (00:56→15:30)
[2020-02-27] MEDS: NORMAL SALINE 10 ML SDV (AFTER EACH USE) IV PRN (05:08)
[2020-02-27 05:32] LABS: APPEARANCE,URINE CLEAR; BILIRUBIN,URINE NEGATIVE (NEGATIVE); COLOR,URINE YELLOW; GLUCOSE, URINE NEGATIVE (NEGATIVE); KETONES,URINE NEGATIVE (NEGATIVE); LEUKOCYTE ESTERASE,URINE NEGATIVE (NEGATIVE); NITRITE,URINE NEGATIVE (NEGATIVE); PROTEIN,URINE NEGATIVE (NEGATIVE); URINE SPECIFIC GRAVITY 1.008; UROBILINOGEN,URINE NEGATIVE mg/dL (<2.0)
[2020-02-27] MEDS: HEPARIN SOD (PORCINE) 1,000 UNIT/ML 10 ML VIAL IV PRN (06:56)
[2020-02-27] MEDS: FAMOTIDINE 20 MG TABLET PO SCH ×2 (09:31→22:58)
[2020-02-27] MEDS: BUSPIRONE HCL 10 MG TABLET PO SCH ×2 (09:31→22:58)
[2020-02-27] MEDS: DOCUSATE SODIUM 100 MG CAPSULE PO SCH (09:31)
[2020-02-27] MEDS: NORMAL SALINE 10 ML SDV (SCHEDULED) IV SCH ×2 (09:32→23:00)
[2020-02-27] MEDS: LIDOCAINE 5% (700 MG) TRANSDERMAL ADH..PATCH TP SCH (09:33)
--- NOTE | 2020-02-27 14:42 | PDOC PROGRESS REPORT ---
Subjective Progress Note for:: 02/27/20 Reason For Visit: SIRS 02/27/2020 bacteremia, pulmonary embolism, endocarditis, IV drug use, septic emboli, Sirs, fever, leukocytosis, abdominal pain Physical Exam Vital Signs: Temp Pulse Resp BP Pulse Ox 98.7 F 72 17 107/73 99 02/27/20 11:22 02/27/20 11:22 02/27/20 11:22 02/27/20 11:22 02/27/20 11:22 Intake & Output 02/26/20 02/27/20 02/28/20 06:59 06:59 06:59 Intake Total 974 2195 214 Output Total 450 Balance 524 2195 214 Weight 62.5 kg 62.4 kg General appearance: PRESENT: other - Patient is agitated and upset with me for discussing her illegal drug use and tolerance of narcotics Patient states that the pain medication is not working Respiratory exam: PRESENT: clear to auscultation willie. ABSENT: rales, rhonchi, wheezes Cardiovascular exam: PRESENT: RRR. ABSENT: diastolic murmur, rubs, systolic murmur Neurological exam: PRESENT: alert, awake, oriented to person, oriented to place, oriented to time, oriented to situation, CN II-XII grossly intact. ABSENT: motor sensory deficit Psychiatric exam: PRESENT: agitated Results Laboratory Results: 02/26/20 06:04 02/26/20 07:29 02/27/20 05:05 Urine Color YELLOW Urine Appearance CLEAR Urine pH 8.0 Ur Specific [place] 1.008 Urine Protein NEGATIVE Urine Glucose (UA) NEGATIVE Urine Ketones NEGATIVE Urine Blood NEGATIVE Urine Nitrite NEGATIVE Ur Leukocyte Esterase NEGATIVE Urine WBC (Auto) 1 02/22/20 10:41 Blood Blood Culture - Final NO GROWTH IN 5 DAYS 02/22/20 09:29 Blood Blood Culture - Final NO GROWTH IN 5 DAYS 02/21/20 02/21/20 02/21/20 08:46 08:46 18:31 Creatine Kinase 27 L Troponin I < 0.012 < 0.012 02/22/20 00:35 Creatine Kinase Troponin I < 0.012 Impressions: Abdomen/Pelvis CT 02/21/20 08:01 IMPRESSION: 1. NO SIGNIFICANT OR ACUTE FINDING IN THE ABDOMEN OR PELVIS ON CT SCAN WITH IV CONTRAST. NORMAL APPENDIX. 2. FAINT INDISTINCT AIRSPACE DISEASE IN THE RIGHT LOWER LOBE, NONSPECIFIC, WHICH MAY BE DUE TO INFECTION OR INFLAMMATION. Abdomen Ultrasound 02/21/20 12:07 IMPRESSION: POSSIBLE MINIMAL SLUDGE IN THE GALLBLADDER. OTHERWISE NORMAL RIGHT UPPER QUADRANT ULTRASOUND. Chest X-Ray 02/21/20 13:21 IMPRESSION: NO ACUTE RADIOGRAPHIC FINDING IN THE CHEST. THE FAINT DENSITIES IN THE RIGHT LUNG BASE SEEN ON CT ARE NOT APPARENT ON THE X-RAY. Chest/Abdomen CTA 02/22/20 00:00 IMPRESSION: 1. Right lower lobe pulmonary emboli. 2. Possible small right pulmonary infarct in the right base posteriorly. 3. Ground-glass opacification in the right base may represent chronic interstitial changes or atypical infectious/inflammatory process. 4. Mild adenopathy. Extremity Ultrasound 02/25/20 00:00 IMPRESSION: No abscess. There is thrombus in the saphenous vein to the saphenous femoral junction. PICC Line Insertion 02/26/20 00:00 IMPRESSION: SUCCESSFUL PLACEMENT OF A 5 FR DUAL LUMEN 32 CM PICC IN THE RIGHT BASILIC VEIN. Assessment and Plan - Diagnosis (1) Endocarditis Qualifiers: Endocarditis type: infective Infective endocarditis organism: bacterial Chronicity: acute Qualified Code(s): I33.0 - Acute and subacute infective endocarditis Is this a current diagnosis for this admission?: Yes (2) Fever Qualifiers: Fever type: unspecified Qualified Code(s): R50.9 - Fever, unspecified Is this a current diagnosis for this admission?: Yes (3) IV drug abuse Is this a current diagnosis for this admission?: Yes (4) Leukocytosis Qualifiers: Leukocytosis type: unspecified Qualified Code(s): D72.829 - Elevated white blood cell count, unspecified Is this a current diagnosis for this admission?: Yes (5) Methamphetamine abuse Is this a current diagnosis for this admission?: Yes (6) Opioid dependence Qualifiers: Substance use status: uncomplicated Qualified Code(s): F11.20 - Opioid dependence, uncomplicated Is this a current diagnosis for this admission?: Yes (7) Pulmonary embolus and infarction Is this a current diagnosis for this admission?: Yes (8) Right upper quadrant abdominal pain Is this a current diagnosis for this admission?: Yes (9) SIRS (systemic inflammatory response syndrome) Is this a current diagnosis for this admission?: Yes (10) Septic embolism Is this a current diagnosis for this admission?: Yes - Plan Summary Summary: 02/26/2020 Patient was admitted on 02/21/2024 generalized pain fever nausea and vomiting. There is a question of right lower lobe atypical consolidation patient is currently on IV Rocephin 2 g for the next 4 to 6 weeks per recommendations of infectious disease. Patient is also on IV heparin. She will need a PICC line placed Patient has a positive urine culture growing E. coli blood culture growing strep group A. She also had 3+ bacteria in the vaginal swab Vital signs are stable temperature 98.6 , patient's last fever was 3 days ago 102.9 since then has been afebrile Blood pressure 99/64 O2 sat 96% on room air. White count when she came in was 16,200 today is 9.6 ,hemoglobin is drifted down from 10.8 down to 7.4 PTT is 78 electrolytes are okay With a nurse present today I talked to the patient about discontinuing her IV Dilaudid. she tells me that she has had multiple years worth of illegal drugs including heroin and Percocet. Told her since she is going to be here for the next 4 to 6 weeks with PICC line that I would not prescribe Dilaudid. I have no problem giving Percocet every 4 hours as needed I am also going to add a muscle relaxant and a medicine for anxiety/depression. Patient has had a echocardiogram which was a poor quality study and a RYAN has been requested Admission patient's PCR COVID was negative Hopefully patient will be able to have her pain controlled by the above recommendations if she fails then I will consult pain management. 02/27/2020 Patient's current nurse and I have discussed the situation in great detail Temperature 97.2 pulse 71 blood pressure 104/73 O2 sat 100% on room air CBC is normal electrolytes are normal urinalysis is negative PTT is down to 40, Cultures are growing out group A strep urine cultures are positive for E. coli. Most recent blood cultures in the last 96 hours were all negative Security has informed nursing staff that patient has been trying to "smuggle" illegal substances into the hospital to satisfy her drug abuse Security has actually seen text messages of the patient asking friends to bring in drugs to her. Also there is some question as to whether or not there is an active investigation by the local police concerning illegal substances. I spoke to the mother and she is concerned that the patient is going to violate her parole. Patient is upset with me saying that I am being judgmental concerning her pain and that she would like another provider. I informed patient that I am the only provider that will be taking care of her during her hospitalization while I am on schedule. I have informed patient that she can sign out AMA although I did not advise that medically. Patient tells me that for many years she was taking a Percocet 15 mg 150 tablets daily she is also been on IV heroin in the past. I am more than happy and wi lling to treat her pain, treat her anxiety, however I have also told her that I am confident I will not be able to satisfy her pain relief completely. I am going to consult pain management for an outside opinion and their recommendations concerning management of her pain. Rocephin day 5, patient will need a total of 6 weeks of IV antibiotics - Time Time Spent with patient: 35 or more minutes
[2020-02-27] MEDS: CEFTRIAXONE 2 GM/D5W RTU 2 GM/50 ML RTUPB IV SCH (17:11)
--- NOTE | 2020-02-27 20:16 | PDOC CONSULTATION ---
Consultation Consult Date: 02/27/20 Attending physician:: AMANDA DIETRICH JR Provider Consulted: SATURNINO WOOD - Dr. Tonja Houston Supervising Consult reason:: Pain Management History of Present Illness Admission Date/PCP: 02/21/20 14:43 History of Present Illness: KINA GOMEZ is a 29 year old female Past Medical History Cardiac Medical History: Reports: None Pulmonary Medical History: Reports: None EENT Medical History: Reports: None Neurological Medical History: Reports: Migraine, Seizures Endocrine Medical History: Reports: None Renal/ Medical History: Reports: None Malignancy Medical History: Reports: None GI Medical History: Reports: None Musculoskeltal Medical History: Reports: None Skin Medical History: Reports: None Psychiatric Medical History: Reports: Substance Abuse, Tobacco Dependency Traumatic Medical History: Reports: None Hematology: Reports: Anemia Infectious Medical History: Reports: None Past Surgical History Past Surgical History: Reports: Section Denies: Hysterectomy Social History Lives with: Family Smoking Status: Current Every Day Smoker Cigarettes Packs Per Day: 0.5 Electronic Cigarette use?: No Frequency of Alcohol Use: None Hx Recreational Drug Use: Yes Drugs: Methadone - Advance Directive Resuscitation Status: Full Code Family History Family History: Reviewed & Not Pertinent, Hypertension Medication/Allergy Home Medications: No Home Medications 02/21/20 Allergies/Adverse Reactions: No Known Allergies Allergy (Verified 10/26/19 12:08) Review of Systems Gastrointestinal: PRESENT: abdominal pain Physical Exam Vital Signs: Temp Pulse Resp BP Pulse Ox 98.9 F 73 16 113/68 100 02/27/20 15:37 02/27/20 15:37 02/27/20 15:37 02/27/20 15:37 02/27/20 15:37 Intake & Output 02/26/20 02/27/20 02/28/20 06:59 06:59 06:59 Intake Total 974 2195 1597 Output Total 450 Balance 524 2195 1597 Weight 62.5 kg 62.4 kg Results Laboratory Results: 02/26/20 06:04 02/26/20 07:29 02/27/20 05:05 Urine Color YELLOW Urine Appearance CLEAR Urine pH 8.0 Ur Specific [place] 1.008 Urine Protein NEGATIVE Urine Glucose (UA) NEGATIVE Urine Ketones NEGATIVE Urine Blood NEGATIVE Urine Nitrite NEGATIVE Ur Leukocyte Esterase NEGATIVE Urine WBC (Auto) 1 02/22/20 10:41 Blood Blood Culture - Final NO GROWTH IN 5 DAYS 02/22/20 09:29 Blood Blood Culture - Final NO GROWTH IN 5 DAYS 02/21/20 02/21/20 02/21/20 08:46 08:46 18:31 Creatine Kinase 27 L Troponin I < 0.012 < 0.012 02/22/20 00:35 Creatine Kinase Troponin I < 0.012 Impressions: Abdomen/Pelvis CT 02/21/20 08:01 IMPRESSION: 1. NO SIGNIFICANT OR ACUTE FINDING IN THE ABDOMEN OR PELVIS ON CT SCAN WITH IV CONTRAST. NORMAL APPENDIX. 2. FAINT INDISTINCT AIRSPACE DISEASE IN THE RIGHT LOWER LOBE, NONSPECIFIC, WHICH MAY BE DUE TO INFECTION OR INFLAMMATION. Abdomen Ultrasound 02/21/20 12:07 IMPRESSION: POSSIBLE MINIMAL SLUDGE IN THE GALLBLADDER. OTHERWISE NORMAL RIGHT UPPER QUADRANT ULTRASOUND. Chest X-Ray 02/21/20 13:21 IMPRESSION: NO ACUTE RADIOGRAPHIC FINDING IN THE CHEST. THE FAINT DENSITIES IN THE RIGHT LUNG BASE SEEN ON CT ARE NOT APPARENT ON THE X-RAY. Chest/Abdomen CTA 02/22/20 00:00 IMPRESSION: 1. Right lower lobe pulmonary emboli. 2. Possible small right pulmonary infarct in the right base posteriorly. 3. Ground-glass opacification in the right base may represent chronic interstitial changes or atypical infectious/inflammatory process. 4. Mild adenopathy. Extremity Ultrasound 02/25/20 00:00 IMPRESSION: No abscess. There is thrombus in the saphenous vein to the saphenous femoral junction. PICC Line Insertion 02/26/20 00:00 IMPRESSION: SUCCESSFUL PLACEMENT OF A 5 FR DUAL LUMEN 32 CM PICC IN THE RIGHT BASILIC VEIN. Assessment & Plan - Diagnosis (1) Right upper quadrant abdominal pain Is this a current diagnosis for this admission?: Yes Plan: Begin Buprenorphine 8mg SL TID for pain. Discontinue IV Dilaudid as well as wean from Percocet as laid out in pain management consult. - Time Time Spent: 30 to 50 Minutes Anticipated discharge: Home Within: Other - 4 to 6 weeks - Inpatient Certification Based on my medical assessment, after consideration of the patient's comorbidities, presenting symptoms, or acuity I expect that the services needed warrant INPATIENT care.: Yes I certify that my determination is in accordance with my understanding of Medicare's requirements for reasonable and necessary INPATIENT services [42 CFR 412.3e].: Yes Medical Necessity: Need for Pain Control - Plan Summary Plan Summary: Reviewed and discussed case with Dr. Tonja Houston and DAVE Mcdonough
[2020-02-27] MEDS: BUPRENORPHINE HCL 2 MG SUBLINGUAL TABLET SL SCH (20:39)
[2020-02-27] MEDS: MELATONIN 3 MG TABLET PO SCH (22:58)
[2020-02-28] MEDS: HEPARIN SODIUM,PORCINE/D5W 25,000 UNIT/250 ML RTUINJ IV PRN ×2 (04:50→19:04)
[2020-02-28] MEDS: OXYCODONE-ACETAMINOPHEN 5-325 MG TABLET PO PRN ×2 (05:27→18:48)
[2020-02-28] MEDS: FAMOTIDINE 20 MG TABLET PO SCH ×2 (09:00→21:10)
[2020-02-28] MEDS: LIDOCAINE 5% (700 MG) TRANSDERMAL ADH..PATCH TP SCH (09:00)
[2020-02-28] MEDS: DOCUSATE SODIUM 100 MG CAPSULE PO SCH (09:00)
[2020-02-28] MEDS: BUSPIRONE HCL 10 MG TABLET PO SCH ×2 (09:00→21:10)
[2020-02-28] MEDS: BUPRENORPHINE HCL 2 MG SUBLINGUAL TABLET SL SCH ×3 (09:00→17:35)
[2020-02-28] MEDS: NORMAL SALINE 10 ML SDV (SCHEDULED) IV SCH ×2 (09:01→21:10)
--- NOTE | 2020-02-28 13:07 | PDOC PROGRESS REPORT ---
Subjective Progress Note for:: 02/28/20 Reason For Visit: SIRS 02/28/2020 IV drug use, bacteremia, PE, endocarditis, septic emboli, Sirs, fever, leukocytosis, abdominal pain Physical Exam Vital Signs: Temp Pulse Resp BP Pulse Ox 98.7 F 71 16 106/73 100 02/28/20 11:13 02/28/20 11:13 02/28/20 11:13 02/28/20 11:13 02/28/20 11:13 Intake & Output 02/27/20 02/28/20 02/29/20 06:59 06:59 06:59 Intake Total 2195 3508 120 Balance 2195 3508 120 Weight 62.4 kg 59.8 kg General appearance: PRESENT: mild distress Respiratory exam: PRESENT: clear to auscultation willie. ABSENT: rales, rhonchi, wheezes Cardiovascular exam: PRESENT: RRR. ABSENT: diastolic murmur, rubs, systolic murmur Extremities exam: PRESENT: tenderness, other - Thrombus formation from the right knee to the right inguinal region over the saphenous vein No redness no warmth to touch no significant edema Neurological exam: PRESENT: alert, awake, oriented to person, oriented to place, oriented to time, oriented to situation, CN II-XII grossly intact. ABSENT: motor sensory deficit Psychiatric exam: PRESENT: depressed Results Laboratory Results: 02/26/20 06:04 02/26/20 07:29 02/22/20 10:41 Blood Blood Culture - Final NO GROWTH IN 5 DAYS 02/22/20 09:29 Blood Blood Culture - Final NO GROWTH IN 5 DAYS 02/21/20 02/21/20 02/21/20 08:46 08:46 18:31 Creatine Kinase 27 L Troponin I < 0.012 < 0.012 02/22/20 00:35 Creatine Kinase Troponin I < 0.012 Impressions: Abdomen/Pelvis CT 02/21/20 08:01 IMPRESSION: 1. NO SIGNIFICANT OR ACUTE FINDING IN THE ABDOMEN OR PELVIS ON CT SCAN WITH IV CONTRAST. NORMAL APPENDIX. 2. FAINT INDISTINCT AIRSPACE DISEASE IN THE RIGHT LOWER LOBE, NONSPECIFIC, WHICH MAY BE DUE TO INFECTION OR INFLAMMATION. Abdomen Ultrasound 02/21/20 12:07 IMPRESSION: POSSIBLE MINIMAL SLUDGE IN THE GALLBLADDER. OTHERWISE NORMAL RIGHT UPPER QUADRANT ULTRASOUND. Chest X-Ray 02/21/20 13:21 IMPRESSION: NO ACUTE RADIOGRAPHIC FINDING IN THE CHEST. THE FAINT DENSITIES IN THE RIGHT LUNG BASE SEEN ON CT ARE NOT APPARENT ON THE X-RAY. Chest/Abdomen CTA 02/22/20 00:00 IMPRESSION: 1. Right lower lobe pulmonary emboli. 2. Possible small right pulmonary infarct in the right base posteriorly. 3. Ground-glass opacification in the right base may represent chronic interstitial changes or atypical infectious/inflammatory process. 4. Mild adenopathy. Extremity Ultrasound 02/25/20 00:00 IMPRESSION: No abscess. There is thrombus in the saphenous vein to the saphenous femoral junction. PICC Line Insertion 02/26/20 00:00 IMPRESSION: SUCCESSFUL PLACEMENT OF A 5 FR DUAL LUMEN 32 CM PICC IN THE RIGHT BASILIC VEIN. Assessment and Plan - Diagnosis (1) Endocarditis Qualifiers: Endocarditis type: infective Infective endocarditis organism: bacterial Chronicity: acute Qualified Code(s): I33.0 - Acute and subacute infective endocarditis Is this a current diagnosis for this admission?: Yes (2) Fever Qualifiers: Fever type: unspecified Qualified Code(s): R50.9 - Fever, unspecified Is this a current diagnosis for this admission?: Yes (3) IV drug abuse Is this a current diagnosis for this admission?: Yes (4) Leukocytosis Qualifiers: Leukocytosis type: unspecified Qualified Code(s): D72.829 - Elevated white blood cell count, unspecified Is this a current diagnosis for this admission?: Yes (5) Methamphetamine abuse Is this a current diagnosis for this admission?: Yes (6) Opioid dependence Qualifiers: Substance use status: uncomplicated Qualified Code(s): F11.20 - Opioid dependence, uncomplicated Is this a current diagnosis for this admission?: Yes (7) Pulmonary embolus and infarction Is this a current diagnosis for this admission?: Yes (8) Right upper quadrant abdominal pain Is this a current diagnosis for this admission?: Yes (9) SIRS (systemic inflammatory response syndrome) Is this a current diagnosis for this admission?: Yes (10) Septic embolism Is this a current diagnosis for this admission?: Yes - Plan Summary Summary: 02/26/2020 Patient was admitted on 02/21/2024 generalized pain fever nausea and vomiting. There is a question of right lower lobe atypical consolidation patient is currently on IV Rocephin 2 g for the next 4 to 6 weeks per recommendations of infectious disease. Patient is also on IV heparin. She will need a PICC line placed Patient has a positive urine culture growing E. coli blood culture growing strep group A. She also had 3+ bacteria in the vaginal swab Vital signs are stable temperature 98.6 , patient's last fever was 3 days ago 102.9 since then has been afebrile Blood pressure 99/64 O2 sat 96% on room air. White count when she came in was 16,200 today is 9.6 ,hemoglobin is drifted down from 10.8 down to 7.4 PTT is 78 electrolytes are okay With a nurse present today I talked to the patient about discontinuing her IV Di laudid. she tells me that she has had multiple years worth of illegal drugs including heroin and Percocet. Told her since she is going to be here for the next 4 to 6 weeks with PICC line that I would not prescribe Dilaudid. I have no problem giving Percocet every 4 hours as needed I am also going to add a muscle relaxant and a medicine for anxiety/depression. Patient has had a echocardiogram which was a poor quality study and a RYAN has been requested Admission patient's PCR COVID was negative Hopefully patient will be able to have her pain controlled by the above recommendations if she fails then I will consult pain management. 02/27/2020 Patient's current nurse and I have discussed the situation in great detail Temperature 97.2 pulse 71 blood pressure 104/73 O2 sat 100% on room air CBC is normal electrolytes are normal urinalysis is negative PTT is down to 40, Cultures are growing out group A strep urine cultures are positive for E. coli. Most recent blood cultures in the last 96 hours were all negative Security has informed nursing staff that patient has been trying to "smuggle" illegal substances into the hospital to satisfy her drug abuse Security has actually seen text messages of the patient asking friends to bring in drugs to her. Also there is some question as to whether or not there is an active investigation by the local police concerning illegal substances. I spoke to the mother and she is concerned that the patient is going to violate her parole. Patient is upset with me saying that I am being judgmental concerning her pain and that she would like another provider. I informed patient that I am the only provider that will be taking care of her during her hospitalization while I am on schedule. I have informed patient that she can sign out AMA although I did not advise that medically. Patient tells me that for many years she was taking a Percocet 15 mg 150 tablets daily she is also been on IV heroin in the past. I am more than happy and will ing to treat her pain, treat her anxiety, however I have also told her that I am confident I will not be able to satisfy her pain relief completely. I am going to consult pain management for an outside opinion and their recommendations concerning management of her pain. Rocephin day 5, patient will need a total of 6 weeks of IV antibiotics 02/28/2020 Appreciate pain management suggestions and will follow concerning medications Pressure 98 6 and later 98 7 pulse is 71 blood pressure 103/67 O2 sat 98 to 100% on room air Labs appear grossly stable, PTT is back up into the 80s and 90s Currently on IV Rocephin and both blood and urine appear to be sensitive to this. Day #7. We will try to get at least 4 weeks of IV antibiotics however 6 would be better We will order physical therapy to see patient and help ambulate and try to condition patient. sHe is up and out of bed to the bathroom. Continue to search items brought from outside for illegal drugs. Nursing and I have discussed patient care .
--- NOTE | 2020-02-28 16:06 | Progress Note ---
Provider Note Provider Note: 02/28/2020 1600 hrs. Today I was notified by patient's nurse that the hospital has made a decision to not allow this patient to have any outside deliveries of any type. I discussed this with risk-management and they were aware of this decision and in agreement.
[2020-02-28] MEDS: CEFTRIAXONE 2 GM/D5W RTU 2 GM/50 ML RTUPB IV SCH (17:35)
[2020-02-28] MEDS: BUTALB/ACETAMINOPHEN/CAFFEINE 1 TAB EACH PO PRN (19:32)
[2020-02-28] MEDS: MELATONIN 3 MG TABLET PO SCH (21:10)
[2020-02-29] MEDS: ACETAMINOPHEN 325 MG TABLET PO PRN (02:52)
[2020-02-29] MEDS: METHOCARBAMOL 750 MG TABLET PO PRN ×2 (02:52→18:12)
[2020-02-29 03:18] LABS: APPEARANCE,URINE CLEAR; BILIRUBIN,URINE NEGATIVE (NEGATIVE); COLOR,URINE YELLOW; GLUCOSE, URINE NEGATIVE (NEGATIVE); KETONES,URINE NEGATIVE (NEGATIVE); LEUKOCYTE ESTERASE,URINE NEGATIVE (NEGATIVE); NITRITE,URINE NEGATIVE (NEGATIVE); PROTEIN,URINE NEGATIVE (NEGATIVE); URINE SPECIFIC GRAVITY 1.009; UROBILINOGEN,URINE NEGATIVE mg/dL (<2.0)
[2020-02-29] MEDS: ALBUTEROL SULFATE 0.083% NEB 2.5 MG/3 ML AMPUL NEB PRN ×2 (04:17→18:52)
[2020-02-29] MEDS: OXYCODONE-ACETAMINOPHEN 5-325 MG TABLET PO PRN ×2 (05:56→18:12)
[2020-02-29 06:04] LABS: HEMATOCRIT 23.5 % (36.0-47.0); MEAN CORPUSCULAR HGB CONC 32.8 g/dL (32.0-36.0); MEAN CORPUSCULAR VOLUME 70 fl (80-97); PLATELET COUNT 482 10^3/uL (150-450); RED BLOOD COUNT 3.36 10^6/uL (3.72-5.28); RED CELL DISTRIBUTION WIDTH 17.2 % (11.5-14.0); WHITE BLOOD COUNT 10.1 10^3/uL (4.0-10.5)
[2020-02-29 06:24] LABS: ANION GAP 9 (5-19); BLOOD UREA NITROGEN 5 mg/dL (7-20); CALCIUM 8.8 mg/dL (8.4-10.2); CARBON DIOXIDE 24 mmol/L (22-30); CHLORIDE 100 mmol/L (98-107); GLUCOSE 101 mg/dL (75-110); POTASSIUM 4.5 mmol/L (3.6-5.0)
[2020-02-29 06:25] LABS: ABSOLUTE LYMPHOCYTES# (MANUAL) 2.6 10^3/uL (0.5-4.7); ABSOLUTE MONOCYTES # (MANUAL) 0.3 10^3/uL (0.1-1.4); BAND NEUTROPHILS % (MANUAL) 3 % (3-5); BASOPHILS % (MANUAL) 0 % (0-2); EOSINOPHILS % (MANUAL) 1 % (0-6); LYMPHOCYTES % (MANUAL) 26 % (13-45); METAMYELOCYTES % (MANUAL) 1 % (0-1); MONOCYTES % (MANUAL) 3 % (3-13); SEGMENTED NEUTROPHILS % (MAN) 66 % (42-78); TOTAL CELLS COUNTED 100
[2020-02-29 06:27] LABS: ANISOCYTOSIS 2+; PLATELET COMMENT INCREASED; POLYCHROMASIA 1+; TOXIC GRANULATION 1+
[2020-02-29 06:29] LABS: HEMOGLOBIN 7.7 g/dL (12.0-15.5)
[2020-02-29 06:35] LABS: C-REACTIVE PROTEIN 137.2 mg/L (<10.0)
[2020-02-29 07:15] LABS: ERYTHROCYTE SEDIMENTATION RATE 112 mm/hr (0-20)
--- NOTE | 2020-02-29 09:19 | PDOC PROGRESS REPORT ---
Subjective Progress Note for:: 02/29/20 Reason For Visit: SIRS 02/29/2020 Bacteremia, IV drug use, pulmonary embolism, endocarditis, septic emboli, SIRS, fever, leukocytosis, abdominal pain Physical Exam Vital Signs: Temp Pulse Resp BP Pulse Ox 97.9 F 72 12 111/69 97 02/29/20 08:00 02/29/20 08:00 02/29/20 08:00 02/29/20 08:00 02/29/20 08:00 Intake & Output 02/28/20 02/29/20 03/01/20 06:59 06:59 06:59 Intake Total 3508 1613 Output Total 500 Balance 3508 1113 Weight 59.8 kg 61.3 kg General appearance: PRESENT: no acute distress Respiratory exam: PRESENT: clear to auscultation wlilie. ABSENT: rales, rhonchi, wheezes Cardiovascular exam: PRESENT: RRR. ABSENT: diastolic murmur, rubs, systolic murmur Neurological exam: PRESENT: alert, awake, oriented to person, oriented to place, oriented to time, oriented to situation, CN II-XII grossly intact. ABSENT: motor sensory deficit Psychiatric exam: PRESENT: agitated, anxious, unusual affect Results Laboratory Results: 02/29/20 04:59 02/29/20 04:59 02/29/20 02/29/20 02/29/20 02:54 04:59 04:59 WBC 10.1 RBC 3.36 L Hgb 7.7 L Hct 23.5 L MCV 70 L MCH 23.0 L MCHC 32.8 RDW 17.2 H Plt Count 482 H Seg Neutrophils % Not Reportable Sodium 133.4 L Potassium 4.5 Chloride 100 Carbon Dioxide 24 Anion Gap 9 BUN 5 L Creatinine 0.49 L Est GFR ( Amer) > 60 Glucose 101 Calcium 8.8 C-Reactive Protein 137.2 H Urine Color YELLOW Urine Appearance CLEAR Urine pH 7.0 Ur Specific [place] 1.009 Urine Protein NEGATIVE Urine Glucose (UA) NEGATIVE Urine Ketones NEGATIVE Urine Blood NEGATIVE Urine Nitrite NEGATIVE Ur Leukocyte Esterase NEGATIVE Urine WBC (Auto) 1 Urine RBC (Auto) 0 02/21/20 02/21/20 02/21/20 08:46 08:46 18:31 Creatine Kinase 27 L Troponin I < 0.012 < 0.012 02/22/20 00:35 Creatine Kinase Troponin I < 0.012 Impressions: Abdomen/Pelvis CT 02/21/20 08:01 IMPRESSION: 1. NO SIGNIFICANT OR ACUTE FINDING IN THE ABDOMEN OR PELVIS ON CT SCAN WITH IV CONTRAST. NORMAL APPENDIX. 2. FAINT INDISTINCT AIRSPACE DISEASE IN THE RIGHT LOWER LOBE, NONSPECIFIC, WHICH MAY BE DUE TO INFECTION OR INFLAMMATION. Abdomen Ultrasound 02/21/20 12:07 IMPRESSION: POSSIBLE MINIMAL SLUDGE IN THE GALLBLADDER. OTHERWISE NORMAL RIGHT UPPER QUADRANT ULTRASOUND. Chest X-Ray 02/21/20 13:21 IMPRESSION: NO ACUTE RADIOGRAPHIC FINDING IN THE CHEST. THE FAINT DENSITIES IN THE RIGHT LUNG BASE SEEN ON CT ARE NOT APPARENT ON THE X-RAY. Chest/Abdomen CTA 02/22/20 00:00 IMPRESSION: 1. Right lower lobe pulmonary emboli. 2. Possible small right pulmonary infarct in the right base posteriorly. 3. Ground-glass opacification in the right base may represent chronic interstitial changes or atypical infectious/inflammatory process. 4. Mild adenopathy. Extremity Ultrasound 02/25/20 00:00 IMPRESSION: No abscess. There is thrombus in the saphenous vein to the saphenous femoral junction. PICC Line Insertion 02/26/20 00:00 IMPRESSION: SUCCESSFUL PLACEMENT OF A 5 FR DUAL LUMEN 32 CM PICC IN THE RIGHT BASILIC VEIN. Assessment and Plan - Diagnosis (1) Endocarditis Qualifiers: Endocarditis type: infective Infective endocarditis organism: bacterial Chronicity: acute Qualified Code(s): I33.0 - Acute and subacute infective endocarditis Is this a current diagnosis for this admission?: Yes (2) Fever Qualifiers: Fever type: unspecified Qualified Code(s): R50.9 - Fever, unspecified Is this a current diagnosis for this admission?: Yes (3) IV drug abuse Is this a current diagnosis for this admission?: Yes (4) Leukocytosis Qualifiers: Leukocytosis type: unspecified Qualified Code(s): D72.829 - Elevated white blood cell count, unspecified Is this a current diagnosis for this admission?: Yes (5) Methamphetamine abuse Is this a current diagnosis for this admission?: Yes (6) Opioid dependence Qualifiers: Substance use status: uncomplicated Qualified Code(s): F11.20 - Opioid dependence, uncomplicated Is this a current diagnosis for this admission?: Yes (7) Pulmonary embolus and infarction Is this a current diagnosis for this admission?: Yes (8) Right upper quadrant abdominal pain Is this a current diagnosis for this admission?: Yes (9) SIRS (systemic inflammatory response syndrome) Is this a current diagnosis for this admission?: Yes (10) Septic embolism Is this a current diagnosis for this admission?: Yes - Plan Summary Summary: 02/26/2020 Patient was admitted on 02/21/2024 generalized pain fever nausea and vomiting. There is a question of right lower lobe atypical consolidation patient is cur rently on IV Rocephin 2 g for the next 4 to 6 weeks per recommendations of infectious disease. Patient is also on IV heparin. She will need a PICC line placed Patient has a positive urine culture growing E. coli blood culture growing strep group A. She also had 3+ bacteria in the vaginal swab Vital signs are stable temperature 98.6 , patient's last fever was 3 days ago 102.9 since then has been afebrile Blood pressure 99/64 O2 sat 96% on room air. White count when she came in was 16,200 today is 9.6 ,hemoglobin is drifted down from 10.8 down to 7.4 PTT is 78 electrolytes are okay With a nurse present today I talked to the patient about discontinuing her IV Dilaudid. she tells me that she has had multiple years worth of illegal drugs including heroin and Percocet. Told her since she is going to be here for the next 4 to 6 weeks with PICC line that I would not prescribe Dilaudid. I have no problem giving Percocet every 4 hours as needed I am also going to add a muscle relaxant and a medicine for anxiety/depression. Patient has had a echocardiogram which was a poor quality study and a RYAN has been requested Admission patient's PCR COVID was negative Hopefully patient will be able to have her pain controlled by the above recommendations if she fails then I will consult pain management. 02/27/2020 Patient's current nurse and I have discussed the situation in great detail Temperature 97.2 pulse 71 blood pressure 104/73 O2 sat 100% on room air CBC is normal electrolytes are normal urinalysis is negative PTT is down to 40, Cultures are growing out group A strep urine cultures are positive for E. coli. Most recent blood cultures in the last 96 hours were all negative Security has informed nursing staff that patient has been trying to "smuggle" illegal substances into the hospital to satisfy her drug abuse Security has actually seen text messages of the patient asking friends to bring in drugs to her. Also there is some question as to whether or not there is an a ctive investigation by the local police concerning illegal substances. I spoke to the mother and she is concerned that the patient is going to violate her parole. Patient is upset with me saying that I am being judgmental concerning her pain and that she would like another provider. I informed patient that I am the only provider that will be taking care of her during her hospitalization while I am on schedule. I have informed patient that she can sign out AMA although I did not advise that medically. Patient tells me that for many years she was taking a Percocet 15 mg 150 tablets daily she is also been on IV heroin in the past. I am more than happy and willing to treat her pain, treat her anxiety, however I have also told her that I am confident I will not be able to satisfy her pain relief completely. I am going to consult pain management for an outside opinion and their recomme ndations concerning management of her pain. Rocephin day 5, patient will need a total of 6 weeks of IV antibiotics 02/28/2020 Appreciate pain management suggestions and will follow concerning medications Pressure 98 6 and later 98 7 pulse is 71 blood pressure 103/67 O2 sat 98 to 100% on room air Labs appear grossly stable, PTT is back up into the 80s and 90s Currently on IV Rocephin and both blood and urine appear to be sensitive to this. Day #7. We will try to get at least 4 weeks of IV antibiotics however 6 would be better We will order physical therapy to see patient and help ambulate and try to condition patient. sHe is up and out of bed to the bathroom. Continue to search items brought from outside for illegal drugs. Nursing and I have discussed patient care 02/29/2020 Prior to my visit this morning the nursing jewel supervisor had been in the room to answer the patient's questions concerning no outside deliveries The patient's nurse and I went into the room to discuss this further as well as evaluate her Patient does not understand why she cannot have outside deliveries. She states she is willing to have her IM search before there brought into her she says that "she is hungry" and desires food to be brought to her. Patient was told that we will contact the advocacy nurse who will discuss the situation with her. Patient was told that this decision was made by administration because they were aware of certain text messages that she had sent to other individuals to bring in illegal substances to her. Patient denied doing this. Temperature 98.7 pulse 76-89 blood pressure 110/50 oxygen saturation 97% on room air White blood cell count 10,100 CRP on admission was 376 today is down to 137 sed rate today is 112 Most recent set of blood cultures were negative that were drawn on the . I am repeating blood cultures today Day 8 of IV Rocephin. EOT 04/04/2020 . - Time Time Spent with patient: 35 or more minutes
--- NOTE | 2020-02-29 09:49 | Progress Note ---
Provider Note Provider Note: [facility] ID Telephone Advice Follow Up: Chart reviewed for follow up. Patient is a 29-year-old woman with active IVDU who presented to the hospital with RUQ abdominal pain and fever. She was evaluated in the ED and found septic with fever, tachycardia, leukocytosis, hypotension. Her blood cultures are positive for GAS both sets. She had a CT scan of abdomen and pelvis that was suspicious for RLL airspace disease. US of the RUQ not impressive for GB pathology to explain her pain. She had a CTA of chest that demonstrated right lower lobe septic emboli and groundglass opacities. She had a TTE that was of poor quality, no vegetations seen. She continued with pain in her right thigh, an US confirmed a thrombus in the saphenous vein. There have been concerns about obtaining illegal drugs while in the hospital. Her urine culture grew E coli, but she was asymptomatic. ALlergies: No Known Allergies Allergy (Verified 10/26/19 12:08) Medications: No Home Medications 02/21/20 Vital Signs: Temp Pulse Resp BP Pulse Ox 97.9 F 72 12 111/69 97 02/29/20 08:00 02/29/20 08:00 02/29/20 08:00 02/29/20 08:00 02/29/20 08:00 Intake & Output 02/28/20 02/29/20 03/01/20 06:59 06:59 06:59 Intake Total 3508 1613 Output Total 500 Balance 3508 1113 Weight 59.8 kg 61.3 kg Weight/Height Weight 61.3 kg Height 5 ft 2 in Laboratories: 02/29/20 04:59 02/29/20 04:59 MCV 70 fl (80-97) L 02/29/20 04:59 MCH 23.0 pg (27.0-33.4) L 02/29/20 04:59 MCHC 32.8 g/dL (32.0-36.0) 02/29/20 04:59 RDW 17.2 % (11.5-14.0) H 02/29/20 04:59 Seg Neutrophils % Not Reportable 02/29/20 04:59 VBG pH 7.43 (7.30-7.42) H 02/21/20 08:46 VBG pCO2 42.4 mmHg (35-63) 02/21/20 08:46 VBG HCO3 27.3 mmol/L (20-32) 02/21/20 08:46 VBG Base Excess 2.6 mmol/L 02/21/20 08:46 Chloride 100 mmol/L (98-107) 02/29/20 04:59 Carbon Dioxide 24 mmol/L (22-30) 02/29/20 04:59 Anion Gap 9 (5-19) 02/29/20 04:59 Est GFR ( Amer) > 60 (>60) 02/29/20 04:59 Est GFR (Non-Af Amer) Cancelled 02/26/20 06:04 Glucose 101 mg/dL (75-110) 02/29/20 04:59 Lactic Acid 0.9 mmol/L (0.7-2.1) 02/22/20 09:29 Calcium 8.8 mg/dL (8.4-10.2) 02/29/20 04:59 Magnesium 1.9 mg/dL (1.6-2.3) 02/21/20 08:46 Total Bilirubin 1.1 mg/dL (0.2-1.3) 02/22/20 07:33 AST 20 U/L (14-36) 02/22/20 07:33 Alkaline Phosphatase 152 U/L (38-126) H 02/22/20 07:33 C-Reactive Protein 137.2 mg/L (<10.0) H 02/29/20 04:59 Total Protein 6.3 g/dL (6.3-8.2) 02/22/20 07:33 Albumin 3.0 g/dL (3.5-5.0) L 02/22/20 07:33 Lipase 22.0 U/L (23-300) L 02/21/20 08:46 Serum HCG, Qual NEGATIVE (NEGATIVE) 02/21/20 08:46 Urine Color YELLOW 02/29/20 02:54 Urine Appearance CLEAR 02/29/20 02:54 Urine pH 7.0 (5.0-9.0) 02/29/20 02:54 Ur Specific [place] 1.009 02/29/20 02:54 Urine Protein NEGATIVE mg/dL (NEGATIVE) 02/29/20 02:54 Urine Glucose (UA) NEGATIVE mg/dL (NEGATIVE) 02/29/20 02:54 Urine Ketones NEGATIVE mg/dL (NEGATIVE) 02/29/20 02:54 Urine Blood NEGATIVE (NEGATIVE) 02/29/20 02:54 Urine Nitrite NEGATIVE (NEGATIVE) 02/29/20 02:54 Ur Leukocyte Esterase NEGATIVE (NEGATIVE) 02/29/20 02:54 Urine WBC (Auto) 1 /HPF 02/29/20 02:54 Urine RBC (Auto) 0 /HPF 02/29/20 02:54 02/21/20 02/21/20 02/21/20 08:46 08:46 18:31 Creatine Kinase 27 L Troponin I < 0.012 < 0.012 02/22/20 00:35 Creatine Kinase Troponin I < 0.012 Microbiology: Blood cultures: 02/20 GAS 02/21 Negative Urine culture: 02/20 E coli Radiology: Abdomen/Pelvis CT 02/21/20 08:01 IMPRESSION: 1. NO SIGNIFICANT OR ACUTE FINDING IN THE ABDOMEN OR PELVIS ON CT SCAN WITH IV CONTRAST. NORMAL APPENDIX. 2. FAINT INDISTINCT AIRSPACE DISEASE IN THE RIGHT LOWER LOBE, NONSPECIFIC, WHICH MAY BE DUE TO INFECTION OR INFLAMMATION. Abdomen Ultrasound 02/21/20 12:07 IMPRESSION: POSSIBLE MINIMAL SLUDGE IN THE GALLBLADDER. OTHERWISE NORMAL RIGHT UPPER QUADRANT ULTRASOUND. Chest X-Ray 02/21/20 13:21 IMPRESSION: NO ACUTE RADIOGRAPHIC FINDING IN THE CHEST. THE FAINT DENSITIES IN THE RIGHT LUNG BASE SEEN ON CT ARE NOT APPARENT ON THE X-RAY. Chest/Abdomen CTA 02/22/20 00:00 IMPRESSION: 1. Right lower lobe pulmonary emboli. 2. Possible small right pulmonary infarct in the right base posteriorly. 3. Ground-glass opacification in the right base may represent chronic int erstitial changes or atypical infectious/inflammatory process. 4. Mild adenopathy. Extremity Ultrasound 02/25/20 00:00 IMPRESSION: No abscess. There is thrombus in the saphenous vein to the saphenous femoral junction. PICC Line Insertion 02/26/20 00:00 IMPRESSION: SUCCESSFUL PLACEMENT OF A 5 FR DUAL LUMEN 32 CM PICC IN THE RIGHT BASILIC VEIN. Assessment and Recommendations: Patient evaluated due to GAS bacteremia with septic pulmonary emboli and likely septic thrombophlebitis of the saphenous vein. She has apparently been receivin g packages with illegal drugs while in the hospital. Her blood cultures cleared. TTE was difficult therefore can not rule out endocarditis. Due to the complexity of this case, she will need a minimum of 4 weeks of therapy from negative blood cultures. She is not a candidate for home infusion. If RYAN is positive for endocarditis, she will need 6 weeks of therapy. Not clear if she will stay in the hospital for the entire course, but no good/safe oral options at this time. Please call if updates or questions. Gypsy Venecs MD [facility] ID [phone]
[2020-02-29] MEDS: BUSPIRONE HCL 10 MG TABLET PO SCH ×2 (09:55→21:02)
[2020-02-29] MEDS: LIDOCAINE 5% (700 MG) TRANSDERMAL ADH..PATCH TP SCH (09:55)
[2020-02-29] MEDS: FAMOTIDINE 20 MG TABLET PO SCH ×2 (09:55→21:02)
[2020-02-29] MEDS: BUPRENORPHINE HCL 2 MG SUBLINGUAL TABLET SL SCH ×3 (09:55→18:12)
[2020-02-29] MEDS: DOCUSATE SODIUM 100 MG CAPSULE PO SCH (09:55)
[2020-02-29] MEDS: NORMAL SALINE 10 ML SDV (SCHEDULED) IV SCH ×2 (09:57→21:02)
[2020-02-29] MEDS: HEPARIN SODIUM,PORCINE/D5W 25,000 UNIT/250 ML RTUINJ IV PRN (10:34)
[2020-02-29] MEDS: MELATONIN 3 MG TABLET PO SCH (21:01)
[2020-02-29] MEDS: DIPHENHYDRAMINE HCL 25 MG CAPSULE PO PRN (21:02)
[2020-03-01] MEDS: HEPARIN SODIUM,PORCINE/D5W 25,000 UNIT/250 ML RTUINJ IV PRN ×2 (00:25→15:25)
[2020-03-01] MEDS: BUTALB/ACETAMINOPHEN/CAFFEINE 1 TAB EACH PO PRN ×3 (00:29→11:12)
[2020-03-01] MEDS: METHOCARBAMOL 750 MG TABLET PO PRN ×3 (00:30→15:38)
[2020-03-01] MEDS: ACETAMINOPHEN 325 MG TABLET PO PRN ×2 (02:53→15:38)
[2020-03-01] MEDS: OXYCODONE-ACETAMINOPHEN 5-325 MG TABLET PO PRN ×2 (06:27→21:48)
[2020-03-01] MEDS: BUSPIRONE HCL 10 MG TABLET PO SCH ×2 (09:58→21:44)
[2020-03-01] MEDS: DOCUSATE SODIUM 100 MG CAPSULE PO SCH (09:58)
[2020-03-01] MEDS: FAMOTIDINE 20 MG TABLET PO SCH ×2 (09:58→21:44)
[2020-03-01] MEDS: LIDOCAINE 5% (700 MG) TRANSDERMAL ADH..PATCH TP SCH (09:59)
[2020-03-01] MEDS: BUPRENORPHINE HCL 2 MG SUBLINGUAL TABLET SL SCH ×3 (09:59→18:33)
[2020-03-01] MEDS: NORMAL SALINE 10 ML SDV (SCHEDULED) IV SCH ×2 (10:02→21:44)
--- NOTE | 2020-03-01 10:52 | PDOC PROGRESS REPORT ---
Subjective Progress Note for:: 03/01/20 Reason For Visit: SIRS 03/01/2020 Drug use, bacteremia, pulmonary embolism, endocarditis, septic emboli, SIRS, fever, leukocytosis, abdominal pain Physical Exam Vital Signs: Temp Pulse Resp BP Pulse Ox 98.4 F 74 16 94/62 L 97 03/01/20 08:03 03/01/20 08:03 03/01/20 08:03 03/01/20 08:03 03/01/20 08:03 Intake & Output 02/29/20 03/01/20 03/02/20 06:59 06:59 06:59 Intake Total 1613 1201 Output Total 500 Balance 1113 1201 Weight 61.3 kg 64 kg General appearance: PRESENT: no acute distress Respiratory exam: PRESENT: clear to auscultation willie. ABSENT: rales, rhonchi, wheezes Cardiovascular exam: PRESENT: RRR. ABSENT: diastolic murmur, rubs, systolic murmur Neurological exam: PRESENT: alert, awake, oriented to person, oriented to place, oriented to time, oriented to situation, CN II-XII grossly intact. ABSENT: motor sensory deficit Psychiatric exam: PRESENT: flat affect, unusual affect Results Laboratory Results: 02/29/20 04:59 02/29/20 04:59 02/21/20 02/21/20 02/21/20 08:46 08:46 18:31 Creatine Kinase 27 L Troponin I < 0.012 < 0.012 02/22/20 00:35 Creatine Kinase Troponin I < 0.012 Impressions: Abdomen/Pelvis CT 02/21/20 08:01 IMPRESSION: 1. NO SIGNIFICANT OR ACUTE FINDING IN THE ABDOMEN OR PELVIS ON CT SCAN WITH IV CONTRAST. NORMAL APPENDIX. 2. FAINT INDISTINCT AIRSPACE DISEASE IN THE RIGHT LOWER LOBE, NONSPECIFIC, WHICH MAY BE DUE TO INFECTION OR INFLAMMATION. Abdomen Ultrasound 02/21/20 12:07 IMPRESSION: POSSIBLE MINIMAL SLUDGE IN THE GALLBLADDER. OTHERWISE NORMAL RIGHT UPPER QUADRANT ULTRASOUND. Chest X-Ray 02/21/20 13:21 IMPRESSION: NO ACUTE RADIOGRAPHIC FINDING IN THE CHEST. THE FAINT DENSITIES IN THE RIGHT LUNG BASE SEEN ON CT ARE NOT APPARENT ON THE X-RAY. Chest/Abdomen CTA 02/22/20 00:00 IMPRESSION: 1. Right lower lobe pulmonary emboli. 2. Possible small right pulmonary infarct in the right base posteriorly. 3. Ground-glass opacification in the right base may represent chronic interstitial changes or atypical infectious/inflammatory process. 4. Mild adenopathy. Extremity Ultrasound 02/25/20 00:00 IMPRESSION: No abscess. There is thrombus in the saphenous vein to the saphe nous femoral junction. PICC Line Insertion 02/26/20 00:00 IMPRESSION: SUCCESSFUL PLACEMENT OF A 5 FR DUAL LUMEN 32 CM PICC IN THE RIGHT BASILIC VEIN. Assessment and Plan - Diagnosis (1) Endocarditis Qualifiers: Endocarditis type: infective Infective endocarditis organism: bacterial Chronicity: acute Qualified Code(s): I33.0 - Acute and subacute infective endocarditis Is this a current diagnosis for this admission?: Yes (2) Fever Qualifiers: Fever type: unspecified Qualified Code(s): R50.9 - Fever, unspecified Is this a current diagnosis for this admission?: Yes (3) IV drug abuse Is this a current diagnosis for this admission?: Yes (4) Leukocytosis Qualifiers: Leukocytosis type: unspecified Qualified Code(s): D72.829 - Elevated white blood cell count, unspecified Is this a current diagnosis for this admission?: Yes (5) Methamphetamine abuse Is this a current diagnosis for this admission?: Yes (6) Opioid dependence Qualifiers: Substance use status: uncomplicated Qualified Code(s): F11.20 - Opioid dep endence, uncomplicated Is this a current diagnosis for this admission?: Yes (7) Pulmonary embolus and infarction Is this a current diagnosis for this admission?: Yes (8) Right upper quadrant abdominal pain Is this a current diagnosis for this admission?: Yes (9) SIRS (systemic inflammatory response syndrome) Is this a current diagnosis for this admission?: Yes (10) Septic embolism Is this a current diagnosis for this admission?: Yes - Plan Summary Summary: 02/26/2020 Patient was admitted on 02/21/2024 generalized pain fever nausea and vomiting. There is a question of right lower lobe atypical consolidation patient is currently on IV Rocephin 2 g for the next 4 to 6 weeks per recommendations of infectious disease. Patient is also on IV heparin. She will need a PICC line placed Patient has a positive urine culture growing E. coli blood culture growing strep group A. She also had 3+ bacteria in the vaginal swab Vital signs are stable temperature 98.6 , patient's last fever was 3 days ago 102.9 since then has been afebrile Blood pressure 99/64 O2 sat 96% on room air. White count when she came in was 16,200 today is 9.6 ,hemoglobin is drifted down from 10.8 down to 7.4 PTT is 78 electrolytes are okay With a nurse present today I talked to the patient about discontinuing her IV Dilaudid. she tells me that she has had multiple years worth of illegal drugs including heroin and Percocet. Told her since she is going to be here for the next 4 to 6 weeks with PICC line that I would not prescribe Dilaudid. I have no problem giving Percocet every 4 hours as needed I am also going to add a muscle relaxant and a medicine for anxiety/depression. Patient has had a echocardiogram which was a poor quality study and a RYAN has been requested Admission patient's PCR COVID was negative Hopefully patient will be able to have her pain controlled by the above recommendations if she fails then I will consult pain management. 02/27/2020 Patient's current nurse and I have discussed the situation in great detail Temperature 97.2 pulse 71 blood pressure 104/73 O2 sat 100% on room air CBC is normal electrolytes are normal urinalysis is negative PTT is down to 40, Cultures are growing out group A strep urine cultures are positive for E. coli. Most recent blood cultures in the last 96 hours were all negative Security has informed nursing staff that patient has been trying to "smuggle" illegal substances into the hospital to satisfy her drug abuse Security has actually seen text messages of the patient asking friends to bring in drugs to her. Also there is some question as to whether or not there is an active investigation by the local police concerning illegal substances. I spoke to the mother and she is concerned that the patient is going to violate her parole. Patient is upset with me saying that I am being judgmental concerning her pain and that she would like another provider. I informed patient that I am the only provider that will be taking care of her during her hospitalization while I am on schedule. I have informed patient that she can sign out AMA although I did not advise that medically. Patient tells me that for many years she was taking a Percocet 15 mg 150 tablets daily she is also been on IV heroin in the past. I am more than happy and willing to treat her pain, treat her anxiety, however I have also told her that I am confident I will not be able to satisfy her pain relief completely. I am going to consult pain management for an outside opinion and their recommendations concerning management of her pain. Rocephin day 5, patient will need a total of 6 weeks of IV antibiotics 02/28/2020 Appreciate pain management suggestions and will follow concerning medications Pressure 98 6 and later 98 7 pulse is 71 blood pressure 103/67 O2 sat 98 to 100% on room air Labs appear grossly stable, PTT is back up into the 80s and 90s Currently on IV Rocephin and both blood and urine appear to be sensitive to this. Day #7. We will try to get at least 4 weeks of IV antibiotics however 6 would be better We will order physical therapy to see patient and help ambulate and try to condition patient. sHe is up and out of bed to the bathroom. Continue to search items brought from outside for illegal drugs. Nursing and I have discussed patient care 02/29/2020 Prior to my visit this morning the nursing supervisor beater room had been in the room to answer the patient's questions concerning no outside deliveries The patient's nurse and I went into the room to discuss this further as well as evaluate her Patient does not understand why she cannot have outside deliveries. She states she is willing to have her IM search before there brought into her she says that "she is hungry" and desires food to be brought to her. Patient was told that we will contact the advocacy nurse who will discuss the situation with her. Patient was told that this decision was made by administration because they were aware of certain text messages that she had sent to other individuals to bring in illegal substances to her. Patient denied doing this. Temperature 98.7 pulse 76-89 blood pressure 110/50 oxygen saturation 97% on room air White blood cell count 10,100 CRP on admission was 376 today is down to 137 sed rate today is 112 Most recent set of blood cultures were negative that were drawn on the . I am repeating blood cultures today Day 8 of IV Rocephin. EOT 04/04/2020 03/01/2020 Appreciate infectious disease note will order RYAN for Tuesday of next week, determine if patient needs minimum of 4 weeks IV antibiotics or 6 weeks if RYAN is positive I ordered a 2 view chest x-ray for today since patient is still complaining of some right-sided rib pain I am going to DC her Percocet tonight as recommended by pain management I have doubled her dose of Robaxin every 6 hours as needed Patient continues to be afebrile and hemodynamically stable I am only checking labs now every third day Day #9 of IV Rocephin I always have a nurse present with me when I am in the room with the patient . - Time Time Spent with patient: 35 or more minutes
--- NOTE | 2020-03-01 12:01 | RADIOLOGY REPORT (SQ) ---
EXAM DESCRIPTION: CHEST SINGLE VIEW IMAGES COMPLETED DATE/TIME: 03/01/2020 11:50 am REASON FOR STUDY: Right-sided rib pain, history of PE COMPARISON: Chest films 02/21/2020, 04/11/2013 EXAM PARAMETERS: NUMBER OF VIEWS: One view. TECHNIQUE: Single frontal radiographic view of the chest acquired. RADIATION DOSE: NA LIMITATIONS: None. FINDINGS: LUNGS AND PLEURA: Dense consolidation at the right lung base worrisome for pneumonia. Tra ce right pleural effusion. Left lung well inflated and clear. No left pleural effusion. No pneumothorax. MEDIASTINUM AND HILAR STRUCTURES: No masses. Contour normal. HEART AND VASCULAR STRUCTURES: Heart normal in size. Normal vasculature. BONES: No acute findings. HARDWARE: Right PICC line tip superior vena cava OTHER: No other significant finding. IMPRESSION: Dense consolidation at the right lung base worrisome for pneumonia. TECHNICAL DOCUMENTATION: JOB ID: [id number] 2010 [employer]- All Rights Reserved Reading location - IP/workstation name: [email or web address]
[2020-03-01] MEDS: ALBUTEROL SULFATE 0.083% NEB 2.5 MG/3 ML AMPUL NEB PRN ×2 (12:45→19:42)
--- NOTE | 2020-03-01 18:22 | RADIOLOGY REPORT (SQ) ---
EXAM DESCRIPTION: CTA CHEST IMAGES COMPLETED DATE/TIME: 03/01/2020 4:36 pm REASON FOR STUDY: Right lower lobe pneumonia versus infarct. COMPARISON: 02/22/2020. Chest radiograph same date. TECHNIQUE: CT scan of the chest performed using helical scanning technique with dynamic intravenous contrast injection. Images reviewed with lung, soft tissue and bone windows. Reconstructed coronal and sagittal MPR images reviewed. Additional 3 dimensional post-processing performed to develop Maximal Intensity Projection images ([place] P). All images stored on PACS. All CT scanners at this facility use dose modulation, iterative reconstruction, and/or weight based d osing when appropriate to reduce radiation dose to as low as reasonably achievable (ALARA). [facility]: Dose Right [facility]: CareDose [facility]: Dose Right [facility]: Teradose 4D [facility]: [employer] CONTRAST TYPE AND DOSE: contrast/concentration: Isovue 350.00 mg/ml; Total Contrast Delivered: 52.0 ml; Total Saline Delivered: 77.0 ml Contrast bolus adequate for pulmonary arteries and aorta. RENAL FUNCTION: GFR > 60. RADIATION DOSE: CT Rad equipment meets quality standard of care and radiation dose reduction techniq ues were employed. CTDIvol: 3.3 - 14.3 mGy. DLP: 490 mGy-cm. . LIMITATIONS: None. FINDINGS: LUNGS AND PLEURA: There is been interval development of a pleural effusion with loculated components on the right. Compressive atelectasis/consolidation at the right lower lobe. Loculated c omponent in the right fissure. Atelectasis at the left lung base. No suspicious pulmonary nodules. AORTA AND GREAT VESSELS: No aneurysm. No dissection. HEART: No pericardial effusion. No significant coronary artery calcifications. PULMONARY ARTERIES: There is a persistent pulmonary embolism in the right lower lobe segmental pulmon virgilio arteries, probably decreased since previous examination however difficult to evaluate due to atel ectasis/consolidation in this region now. HILAR AND MEDIASTINAL STRUCTURES: Right hilar and mediastinal lymphadenopathy is stable. HARDWARE: None in the chest. UPPER ABDOMEN: No significant findings. Limited exam. THYROID AND OTHER SOFT TISSUES: No masses. No adenopathy. BONES: No acute or significant finding. 3D MIPS: Confirm above findings. OTHER: No other significant finding. IMPRESSION: 1. Interval development of loculated right pleural effusion with compressive atelectasis and consolid ation in the right lower lobe. The previous area of consolidation and cavitary nodule are now obscur ed bike consolidation at the right lung base. 2. Persistent small right segmental pulmonary embolism, probably slightly smaller than on previous ex amination difficult to compare due to degree of consolidation. No new PE. COMMENT: Quality ID # [id number]: Final reports with documentation of one or more dose reduction techniques (e.g., Automated exposure control, adjustment of the mA and/or kV according to patient size, use of iterative reconstruction technique) TECHNICAL DOCUMENTATION: JOB ID: [id number] 2010 [employer]- All Rights Reserved Reading location - IP/workstation name: [email or web address]
[2020-03-01] MEDS: MELATONIN 3 MG TABLET PO SCH (21:44)
[2020-03-02] MEDS: ACETAMINOPHEN 325 MG TABLET PO PRN
[2020-03-02] MEDS: HEPARIN SODIUM,PORCINE/D5W 25,000 UNIT/250 ML RTUINJ IV PRN (06:44)
[2020-03-02] MEDS: METHOCARBAMOL 750 MG TABLET PO PRN ×4 (06:45→19:39)
[2020-03-02] MEDS: DOCUSATE SODIUM 100 MG CAPSULE PO SCH (09:56)
[2020-03-02] MEDS: BUSPIRONE HCL 10 MG TABLET PO SCH ×2 (09:56→21:22)
[2020-03-02] MEDS: FAMOTIDINE 20 MG TABLET PO SCH ×2 (09:56→21:22)
[2020-03-02] MEDS: BUPRENORPHINE HCL 2 MG SUBLINGUAL TABLET SL SCH ×3 (09:56→17:39)
[2020-03-02] MEDS: LIDOCAINE 5% (700 MG) TRANSDERMAL ADH..PATCH TP SCH (09:57)
[2020-03-02] MEDS: NORMAL SALINE 10 ML SDV (SCHEDULED) IV SCH ×2 (09:57→21:22)
--- NOTE | 2020-03-02 10:46 | PDOC PROGRESS REPORT ---
Subjective Progress Note for:: 03/02/20 Reason For Visit: SIRS 03/02/2020 Patient was admitted 02/21/2020 for IV drug use, bacteremia, pulmonary embolism, endocarditis, septic emboli, Sirs, fever, leukocytosis, abdominal pain Physical Exam Vital Signs: Temp Pulse Resp BP Pulse Ox 99.3 F 82 16 102/59 L 95 03/02/20 07:07 03/02/20 07:07 03/02/20 07:07 03/02/20 07:07 03/02/20 07:07 Intake & Output 03/01/20 03/02/20 03/03/20 06:59 06:59 06:59 Intake Total 1201 1760 Balance 1201 1760 Weight 64 kg 64 kg General appearance: PRESENT: no acute distress Respiratory exam: PRESENT: decreased breath sounds Cardiovascular exam: PRESENT: RRR. ABSENT: diastolic murmur, rubs, systolic murmur Neurological exam: PRESENT: alert, awake, oriented to person, oriented to place, oriented to time, oriented to situation, CN II-XII grossly intact. ABSENT: motor sensory deficit Psychiatric exam: PRESENT: depressed, flat affect Results Laboratory Results: 02/29/20 04:59 02/29/20 04:59 02/21/20 02/21/20 02/21/20 08:46 08:46 18:31 Creatine Kinase 27 L Troponin I < 0.012 < 0.012 02/22/20 00:35 Creatine Kinase Troponin I < 0.012 Impressions: Abdomen/Pelvis CT 02/21/20 08:01 IMPRESSION: 1. NO SIGNIFICANT OR ACUTE FINDING IN THE ABDOMEN OR PELVIS ON CT SCAN WITH IV CONTRAST. NORMAL APPENDIX. 2. FAINT INDISTINCT AIRSPACE DISEASE IN THE RIGHT LOWER LOBE, NONSPECIFIC, WHICH MAY BE DUE TO INFECTION OR INFLAMMATION. Abdomen Ultrasound 02/21/20 12:07 IMPRESSION: POSSIBLE MINIMAL SLUDGE IN THE GALLBLADDER. OTHERWISE NORMAL RIGHT UPPER QUADRANT ULTRASOUND. Extremity Ultrasound 02/25/20 00:00 IMPRESSION: No abscess. There is thrombus in the saphenous vein to the saphenous femoral junction. PICC Line Insertion 02/26/20 00:00 IMPRESSION: SUCCESSFUL PLACEMENT OF A 5 FR DUAL LUMEN 32 CM PICC IN THE RIGHT BASILIC VEIN. Chest X-Ray 03/01/20 00:00 IMPRESSION: Dense consolidation at the right lung base worrisome for pneumonia. Chest/Abdomen CTA 03/01/20 17:30 IMPRESSION: 1. Interval development of loculated right pleural effusion with compressive a telectasis and consolidation in the right lower lobe. The previous area of consolidation and cavitary nodule are now obscured bike consolidation at the right lung base. 2. Persistent small right segmental pulmonary embolism, probably slightly smaller than on previous examination difficult to compare due to degree of consolidation. No new PE. Assessment and Plan - Diagnosis (1) Endocarditis Qualifiers: Endocarditis type: infective Infective endocarditis organism: bacterial Chronicity: acute Qualified Code(s): I33.0 - Acute and subacute infective endocarditis Is this a current diagnosis for this admission?: Yes (2) Fever Qualifiers: Fever type: unspecified Qualified Code(s): R50.9 - Fever, unspecified Is this a current diagnosis for this admission?: Yes (3) IV drug abuse Is this a current diagnosis for this admission?: Yes (4) Leukocytosis Qualifiers: Leukocytosis type: unspecified Qualified Code(s): D72.829 - Elevated white blood cell count, unspecified Is this a current diagnosis for this admission?: Yes (5) Methamphetamine abuse Is this a current diagnosis for this admission?: Yes (6) Opioid dependence Qualifiers: Substance use status: uncomplicated Qualified Code(s): F11.20 - Opioid dependence, uncomplicated Is this a current diagnosis for this admission?: Yes (7) Pulmonary embolus and infarction Is this a current diagnosis for this admission?: Yes (8) Right upper quadrant abdominal pain Is this a current diagnosis for this admission?: Yes (9) SIRS (systemic inflammatory response syndrome) Is this a current diagnosis for this admission?: Yes (10) Septic embolism Is this a current diagnosis for this admission?: Yes - Plan Summary Summary: 02/26/2020 Patient was admitted on 02/21/2024 generalized pain fever nausea and vomiting. There is a question of right lower lobe atypical consolidation patient is currently on IV Rocephin 2 g for the next 4 to 6 weeks per recommendations of infectious disease. Patient is also on IV heparin. She will need a PICC line placed Patient has a positive urine culture growing E. coli blood culture growing strep group A. She also had 3+ bacteria in the vaginal swab Vital signs are stable temperature 98.6 , patient's last fever was 3 days ago 102.9 since then has been afebrile Blood pressure 99/64 O2 sat 96% on room air. White count when she came in was 16,200 today is 9.6 ,hemoglobin is drifted down from 10.8 down to 7.4 PTT is 78 electrolytes are okay With a nurse present today I talked to the patient about discontinuing her IV Dilaudid. she tells me that she has had multiple years worth of illegal drugs including heroin and Percocet. Told her since she is going to be here for the next 4 to 6 weeks with PICC line that I would not prescribe Dilaudid. I have no problem giving Percocet every 4 hours as needed I am also going to add a muscle relaxant and a medicine for anxiety/depression. Patient has had a echocardiogram which was a poor quality study and a RYAN has been requested Admission patient's PCR COVID was negative Hopefully patient will be able to have her pain controlled by the above recommendations if she fails then I will consult pain management. 02/27/2020 Patient's current nurse and I have discussed the situation in great detail Temperature 97.2 pulse 71 blood pressure 104/73 O2 sat 100% on room air CBC is normal electrolytes are normal urinalysis is negative PTT is down to 40, Cultures are growing out group A strep urine cultures are positive for E. coli. Most recent blood cultures in the last 96 hours were all negative Security has informed nursing staff that patient has been trying to "smuggle" illegal substances into the hospital to satisfy her drug abuse Security has actually seen text messages of the patient asking friends to bring in drugs to her. Also there is some question as to whether or not there is an active investigation by the local police concerning illegal substances. I spoke to the mother and she is concerned that the patient is going to violate her parole. Patient is upset with me saying that I am being judgmental concerning her pain and that she would like another provider. I informed patient that I am the only provider that will be taking care of her during her hospitalization while I am on schedule. I have informed patient that she can sign out AMA although I did not advise that medically. Patient tells me that for many years she was taking a Percocet 15 mg 150 tablets daily she is also been on IV heroin in the past. I am more than happy and w illing to treat her pain, treat her anxiety, however I have also told her that I am confident I will not be able to satisfy her pain relief completely. I am going to consult pain management for an outside opinion and their recommendations concerning management of her pain. Rocephin day 5, patient will need a total of 6 weeks of IV antibiotics 02/28/2020 Appreciate pain management suggestions and will follow concerning medications Pressure 98 6 and later 98 7 pulse is 71 blood pressure 103/67 O2 sat 98 to 100% on room air Labs appear grossly stable, PTT is back up into the 80s and 90s Currently on IV Rocephin and both blood and urine appear to be sensitive to this. Day #7. We will try to get at least 4 weeks of IV antibiotics however 6 would be better We will order physical therapy to see patient and help ambulate and try to condition patient. sHe is up and out of bed to the bathroom. Continue to search items brought from outside for illegal drugs. Nursing and I have discussed patient care 02/29/2020 Prior to my visit this morning the nursing supervisor estimator and drafter had been in the room to answer the patient's questions concerning no outside deliveries The patient's nurse and I went into the room to discuss this further as well as evaluate her Patient does not understand why she cannot have outside deliveries. She states she is willing to have her IM search before there brought into her she says that "she is hungry" and desires food to be brought to her. Patient was told that we will contact the advocacy nurse who will discuss the situation with her. Patient was told that this decision was made by administration because they were aware of certain text messages that she had sent to other individuals to bring in illegal substances to her. Patient denied doing this. Temperature 98.7 pulse 76-89 blood pressure 110/50 oxygen saturation 97% on room air White blood cell count 10,100 CRP on admission was 376 today is down to 137 sed rate today is 112 Most recent set of blood cultures were negative that were drawn on the . I am repeating blood cultures today Day 8 of IV Rocephin. EOT 04/04/2020 03/01/2020 Appreciate infectious disease note will order RYAN for Tuesday of next week, determine if patient needs minimum of 4 weeks IV antibiotics or 6 weeks if RYAN is positive I ordered a 2 view chest x-ray for today since patient is still complaining of some right-sided rib pain I am going to DC her Percocet tonight as recommended by pain management I have doubled her dose of Robaxin every 6 hours as needed Patient continues to be afebrile and hemodynamically stable I am only checking labs now every third day Day #9 of IV Rocephin I always have a nurse present with me when I am in the room with the patient 03/02/2020 CTA of chest done yesterday shows triple development of a loculated right pleural effusion with compressive atelectasis and consolidation in the right lower lobe. Persistent small right segmental pleural pulmonary embolism probably smaller than on previous exam. No new PE I have ordered ordered a consultation for interventional radiology to see if this patient could have a thoracentesis to help her hypoxia I have also repeated the order for a RYAN because this will determine whether we can get by with only 4 weeks of IV antibiotics or will need 6 Patient is comfortable sitting up in bed her vital signs are good her oxygen saturation actually is 96% on room air Patient had a slight fever last night around 1935 it was 100.1 White blood cell count remains stable I am going to repeat her labs tomorrow morning Date 10 of IV Rocephin. Patient did not mention her pain today or pain management . - Time Time Spent with patient: 25-34 minutes
[2020-03-02] MEDS: BUTALB/ACETAMINOPHEN/CAFFEINE 1 TAB EACH PO PRN ×2 (15:21→19:37)
[2020-03-02] MEDS: ALBUTEROL SULFATE 0.083% NEB 2.5 MG/3 ML AMPUL NEB PRN (16:24)
[2020-03-02] MEDS: MELATONIN 3 MG TABLET PO SCH (21:21)
[2020-03-02] MEDS: DIPHENHYDRAMINE HCL 25 MG CAPSULE PO PRN ×2 (21:22)
[2020-03-03] MEDS: BUTALB/ACETAMINOPHEN/CAFFEINE 1 TAB EACH PO PRN ×3 (01:19→20:27)
[2020-03-03] MEDS: METHOCARBAMOL 750 MG TABLET PO PRN ×2 (01:19→17:09)
[2020-03-03 07:17] LABS: HEMATOCRIT 22.4 % (36.0-47.0); MEAN CORPUSCULAR HEMOGLOBIN 22.9 pg (27.0-33.4); MEAN CORPUSCULAR HGB CONC 32.9 g/dL (32.0-36.0); MEAN CORPUSCULAR VOLUME 70 fl (80-97); PLATELET COUNT 665 10^3/uL (150-450); RED BLOOD COUNT 3.22 10^6/uL (3.72-5.28); RED CELL DISTRIBUTION WIDTH 17.4 % (11.5-14.0); WHITE BLOOD COUNT 7.9 10^3/uL (4.0-10.5)
[2020-03-03 07:19] LABS: HEMOGLOBIN 7.4 g/dL (12.0-15.5)
[2020-03-03 07:37] LABS: ALBUMIN 3.5 g/dL (3.5-5.0); ALKALINE PHOSPHATASE 249 U/L (38-126); ANION GAP 10 (5-19); ASPARTATE AMINO TRANSFERASE 17 U/L (14-36); BILIRUBIN,TOTAL 0.4 mg/dL (0.2-1.3); BLOOD UREA NITROGEN 6 mg/dL (7-20); CALCIUM 9.4 mg/dL (8.4-10.2); CARBON DIOXIDE 29 mmol/L (22-30); CHLORIDE 95 mmol/L (98-107); GLUCOSE 105 mg/dL (75-110)
[2020-03-03 07:51] LABS: ABSOLUTE LYMPHOCYTES# (MANUAL) 1.7 10^3/uL (0.5-4.7); ABSOLUTE MONOCYTES # (MANUAL) 0.9 10^3/uL (0.1-1.4); BASOPHILS % (MANUAL) 0 % (0-2); EOSINOPHILS % (MANUAL) 0 % (0-6); LYMPHOCYTES % (MANUAL) 22 % (13-45); METAMYELOCYTES % (MANUAL) 1 % (0-1); MONOCYTES % (MANUAL) 11 % (3-13); SEGMENTED NEUTROPHILS % (MAN) 66 % (42-78); TOTAL CELLS COUNTED 100
[2020-03-03 07:52] LABS: TOXIC GRANULATION 1+
[2020-03-03 07:53] LABS: ANISOCYTOSIS 1+; HYPOCHROMASIA 1+; PLATELET COMMENT INCREASED; POLYCHROMASIA SLIGHT
[2020-03-03 08:38] LABS: ERYTHROCYTE SEDIMENTATION RATE > 120 mm/hr (0-20)
--- NOTE | 2020-03-03 10:06 | RADIOLOGY REPORT (SQ) ---
EXAM DESCRIPTION: CHEST SINGLE VIEW IMAGES COMPLETED DATE/TIME: 03/03/2020 9:45 am REASON FOR STUDY: post thora COMPARISON: AP view of the chest from 03/01/2020. EXAM PARAMETERS: NUMBER OF VIEWS: One view. TECHNIQUE: An AP view of the chest was obtained. RADIATION DOSE: NA LIMITATIONS: None. FINDINGS: LUNGS AND PLEURA: Unchanged appearance of the inferior aspect of the right hemithorax. Th ere is no postprocedure pneumothorax. MEDIASTINUM AND HILAR STRUCTURES: Stable mediastinal and hilar contours. HEART AND VASCULAR STRUCTURES: The cardiac silhouette and pulmonary vasculature are within normal zee its. BONES: No acute findings. HARDWARE: The tip of the right upper extremity PICC projects within the SVC. OTHER: No other finding. IMPRESSION: No postprocedural pneumothorax. TECHNICAL DOCUMENTATION: JOB ID: [id number] 2010 [employer]- All Rights Reserved Reading location - IP/workstation name: [email or web address]
[2020-03-03 10:08] LABS: APPEARANCE,URINE CLEAR; BILIRUBIN,URINE NEGATIVE (NEGATIVE); COLOR,URINE STRAW; GLUCOSE, URINE NEGATIVE (NEGATIVE); KETONES,URINE NEGATIVE (NEGATIVE); LEUKOCYTE ESTERASE,URINE NEGATIVE (NEGATIVE); NITRITE,URINE NEGATIVE (NEGATIVE); PROTEIN,URINE NEGATIVE (NEGATIVE); URINE SPECIFIC GRAVITY 1.005; UROBILINOGEN,URINE NEGATIVE mg/dL (<2.0)
--- NOTE | 2020-03-03 10:29 | RADIOLOGY REPORT (SQ) ---
EXAM DESCRIPTION: U/S THORACENTESIS WITH IMAGING IMAGES COMPLETED DATE/TIME: 03/03/2020 10:14 am REASON FOR STUDY: loculated fluid compressive RLL COMPARISON: CT of the chest with contrast from 03/01/2020. RADIATION DOSE: None. LIMITATIONS: None. PROCEDURE: The procedure, risks, benefits, and alternatives were discussed with the patient and the patient's family who then gave written consent. The right chest wall was then marked utilizing sonog raphic guidance and a time-out was performed to document correct marking verification. The area around the selected percutaneous access site was then prepped and draped with 2% chlorhexidi ne utilizing standard sterile technique. After that, the selected access site was infiltrated with 5 ml of 1% lidocaine. A 6 Fr [id number] catheter was then introduced into the pleural space and the fluid was aspirated. After the fluid was aspirated, the catheter was removed and the entry site w as covered with a sterile bandage. No immediate complications were noted. Images acquired during the procedure were stored on PACS. The patient tolerated the procedure with local anesthesia. At the end of the procedure the patient's condition was unchanged from the preprocedural baseline. Documentation of [id number]-gi-ipox time the proceduralist spent monitoring the patient: 15 minutes. FINDINGS: ENTRY SITE: Posterior right chest. FLUID VOLUME: 35 mL. FLUID ANALYSIS: Straw-colored. OTHER: Fluid sent to the lab for testing. IMPRESSION: Successful ultrasound-guided right-sided thoracentesis. COMMENT: Patient medication list reviewed: Yes- Quality ID# [id number]:Eligible professional attests to doc umenting in the medical record they obtained, updated, or reviewed the patient's current medications. TECHNICAL DOCUMENTATION: JOB ID: [id number] 2010 [employer]- All Rights Reserved Reading location - IP/workstation name: [email or web address]
[2020-03-03] MEDS: LIDOCAINE 5% (700 MG) TRANSDERMAL ADH..PATCH TP SCH (10:48)
[2020-03-03] MEDS: FAMOTIDINE 20 MG TABLET PO SCH ×2 (10:49→22:14)
[2020-03-03] MEDS: BUSPIRONE HCL 10 MG TABLET PO SCH ×2 (10:49→22:14)
[2020-03-03] MEDS: NORMAL SALINE 10 ML SDV (SCHEDULED) IV SCH ×2 (10:49→22:15)
[2020-03-03] MEDS: DOCUSATE SODIUM 100 MG CAPSULE PO SCH (10:49)
[2020-03-03] MEDS: BUPRENORPHINE HCL 2 MG SUBLINGUAL TABLET SL SCH ×3 (10:49→17:09)
[2020-03-03] MEDS: HEPARIN SOD (PORCINE) 1,000 UNIT/ML 10 ML VIAL IV PRN (10:51)
[2020-03-03] MEDS: HEPARIN SODIUM,PORCINE/D5W 25,000 UNIT/250 ML RTUINJ IV PRN (11:00)
--- NOTE | 2020-03-03 13:02 | RADIOLOGY REPORT (SQ) ---
EXAM DESCRIPTION: CHEST SINGLE VIEW IMAGES COMPLETED DATE/TIME: 03/03/2020 11:49 am REASON FOR STUDY: 2 hour post thora COMPARISON: AP view of the chest from 03/03/2020 at 0944 hours. EXAM PARAMETERS: NUMBER OF VIEWS: One view. TECHNIQUE: An AP view of the chest was obtained. RADIATION DOSE: NA LIMITATIONS: None. FINDINGS: LUNGS AND PLEURA: Low inspiratory lung volumes that accentuate the pleural and parenchymal opacities in the inferior aspect of the right hemithorax. There is no postprocedure pneumothorax. MEDIASTINUM AND HILAR STRUCTURES: Stable mediastinal and hilar contours. HEART AND VASCULAR STRUCTURES: Stable cardiac silhouette. BONES: No acute findings. HARDWARE: The tip of the right upper extremity PICC projects within the SVC. OTHER: No other finding. IMPRESSION: No postprocedural pneumothorax. TECHNICAL DOCUMENTATION: JOB ID: [id number] 2010 [employer]- All Rights Reserved Reading location - IP/workstation name: [email or web address]
--- NOTE | 2020-03-03 14:25 | PDOC PROGRESS REPORT ---
Subjective Progress Note for:: 03/03/20 Reason For Visit: SIRS 03/03/2020 Bacteremia, endocarditis, fever, IV drug use, substance abuse, leukocytosis, septic embolism, Sirs, PE and infarction Physical Exam Vital Signs: Temp Pulse Resp BP Pulse Ox 99.3 F 87 16 103/68 99 03/03/20 11:15 03/03/20 11:15 03/03/20 11:15 03/03/20 11:15 03/03/20 11:15 Intake & Output 03/02/20 03/03/20 03/04/20 06:59 06:59 06:59 Intake Total 1760 3021 1722 Output Total 100 Balance 1760 3021 1622 Weight 64 kg 62.7 kg General appearance: PRESENT: no acute distress Respiratory exam: PRESENT: decreased breath sounds Cardiovascular exam: PRESENT: RRR. ABSENT: diastolic murmur, rubs, systolic murmur Neurological exam: PRESENT: alert, awake, oriented to person, oriented to place, oriented to time, oriented to situation, CN II-XII grossly intact. ABSENT: motor sensory deficit Psychiatric exam: PRESENT: depressed, flat affect Results Laboratory Results: 03/03/20 06:44 03/03/20 06:44 03/03/20 03/03/20 03/03/20 06:44 06:44 09:50 WBC 7.9 RBC 3.22 L Hgb 7.4 L Hct 22.4 L MCV 70 L MCH 22.9 L MCHC 32.9 RDW 17.4 H Plt Count 665 H Seg Neutrophils % Not Reportable Sodium 133.8 L Potassium 5.0 Chloride 95 L Carbon Dioxide 29 Anion Gap 10 BUN 6 L Creatinine 0.58 Est GFR ( Amer) > 60 Glucose 105 Calcium 9.4 Total Bilirubin 0.4 AST 17 Alkaline Phosphatase 249 H C-Reactive Protein 215.0 H Total Protein 8.0 Albumin 3.5 Urine Color STRAW Urine Appearance CLEAR Urine pH 7.0 Ur Specific Mar[place] 1.005 Urine Protein NEGATIVE Urine Glucose (UA) NEGATIVE Urine Ketones NEGATIVE Urine Blood NEGATIVE Urine Nitrite NEGATIVE Ur Leukocyte Esterase NEGATIVE Urine WBC (Auto) 0 Urine RBC (Auto) 0 02/21/20 02/21/20 02/21/20 08:46 08:46 18:31 Creatine Kinase 27 L Troponin I < 0.012 < 0.012 02/22/20 00:35 Creatine Kinase Troponin I < 0.012 Impressions: Abdomen/Pelvis CT 02/21/20 08:01 IMPRESSION: 1. NO SIGNIFICANT OR ACUTE FINDING IN THE ABDOMEN OR PELVIS ON CT SCAN WITH IV CONTRAST. NORMAL APPENDIX. 2. FAINT INDISTINCT AIRSPACE DISEASE IN THE RIGHT LOWER LOBE, NONSPECIFIC, WHICH MAY BE DUE TO INFECTION OR INFLAMMATION. Abdomen Ultrasound 02/21/20 12:07 IMPRESSION: POSSIBLE MINIMAL SLUDGE IN THE GALLBLADDER. OTHERWISE NORMAL RIGHT UPPER QUADRANT ULTRASOUND. Extremity Ultrasound 02/25/20 00:00 IMPRESSION: No abscess. There is thrombus in the saphenous vein to the saphenous femoral junction. PICC Line Insertion 02/26/20 00:00 IMPRESSION: SUCCESSFUL PLACEMENT OF A 5 FR DUAL LUMEN 32 CM PICC IN THE RIGHT BASILIC VEIN. Chest/Abdomen CTA 03/01/20 17:30 IMPRESSION: 1. Interval development of loculated right pleural effusion with compressive atelectasis and consolidation in the right lower lobe. The previous area of consolidation and cavitary nodule are now obscured bike consolidation at the right lung base. 2. Persistent small right segmental pulmonary embolism, probably slightly smaller than on previous examination difficult to compare due to degree of consolidation. No new PE. Thoracentesis Ultrasound 03/03/20 08:00 IMPRESSION: Successful ultrasound-guided right-sided thoracentesis. Chest X-Ray 03/03/20 11:40 IMPRESSION: No postprocedural pneumothorax. Assessment and Plan - Diagnosis (1) Endocarditis Qualifiers: Endocarditis type: infective Infective endocarditis organism: bacterial Chronicity: acute Qualified Code(s): I33.0 - Acute and subacute infective endocarditis Is this a current diagnosis for this admission?: Yes (2) Fever Qualifiers: Fever type: unspecified Qualified Code(s): R50.9 - Fever, unspecified Is this a current diagnosis for this admission?: Yes (3) IV drug abuse Is this a current diagnosis for this admission?: Yes (4) Leukocytosis Qualifiers: Leukocytosis type: unspecified Qualified Code(s): D72.829 - Elevated white blood cell count, unspecified Is this a current diagnosis for this admission?: Yes (5) Methamphetamine abuse Is this a current diagnosis for this admission?: Yes (6) Opioid dependence Qualifiers: Substance use status: uncomplicated Qualified Code(s): F11.20 - Opioid dependence, uncomplicated Is this a current diagnosis for this admission?: Yes (7) Pulmonary embolus and infarction Is this a current diagnosis for this admission?: Yes (8) Right upper quadrant abdominal pain Is this a current diagnosis for this admission?: Yes (9) SIRS (systemic inflammatory response syndrome) Is this a current diagnosis for this admission?: Yes (10) Septic embolism Is this a current diagnosis for this admission?: Yes - Plan Summary Summary: 02/26/2020 Patient was admitted on 02/21/2024 generalized pain fever nausea and vomiting. There is a question of right lower lobe atypical consolidation patient is currently on IV Rocephin 2 g for the next 4 to 6 weeks per recommendations of infectious disease. Patient is also on IV heparin. She will need a PICC line placed Patient has a positive urine culture growing E. coli blood culture growing strep group A. She also had 3+ bacteria in the vaginal swab Vital signs are stable temperature 98.6 , patient's last fever was 3 days ago 102.9 since then has been afebrile Blood pressure 99/64 O2 sat 96% on room air. White count when she came in was 16,200 today is 9.6 ,hemoglobin is drifted down from 10.8 down to 7.4 PTT is 78 electrolytes are okay With a nurse present today I talked to the patient about discontinuing her IV Dilaudid. she tells me that she has had multiple years worth of illegal drugs including heroin and Percocet. Told her since she is going to be here for the next 4 to 6 weeks with PICC line that I would not prescribe Dilaudid. I have no problem giving Percocet every 4 hours as needed I am also going to add a muscle relaxant and a medicine for anxiety/depression. Patient has had a echocardiogram which was a poor quality study and a RYAN has been requested Admission patient's PCR COVID was negative Hopefully patient will be able to have her pain controlled by the above recommendations if she fails then I will consult pain management. 02/27/2020 Patient's current nurse and I have discussed the situation in great detail Temperature 97.2 pulse 71 blood pressure 104/73 O2 sat 100% on room air CBC is normal electrolytes are normal urinalysis is negative PTT is down to 40, Cultures are growing out group A strep urine cultures are positive for E. coli. Most recent blood cultures in the last 96 hours were all negative Security has informed nursing staff that patient has been trying to "smuggle" illegal substances into the hospital to satisfy her drug abuse Security has actually seen text messages of the patient asking friends to bring in drugs to her. Also there is some question as to whether or not there is an active investigation by the local police concerning illegal substances. I spoke to the mother and she is concerned that the patient is going to violate her parole. Patient is upset with me saying that I am being judgmental concerning her pain and that she would like another provider. I informed patient that I am the only provider that will be taking care of her during her hospitalization while I am on schedule. I have informed patient that she can sign out AMA although I did not advise that medically. Patient tells me that for many years she was taking a Percocet 15 mg 150 tablets daily she is also been on IV heroin in the past. I am more than happy and willing to treat her pain, treat her anxiety, however I have also told her that I am confident I will not be able to satisfy her pain relief completely. I am going to consult pain management for an outside opinion and their recommendations concerning management of her pain. Rocephin day 5, patient will need a total of 6 weeks of IV antibiotics 02/28/2020 Appreciate pain management suggestions and will follow concerning medications Pressure 98 6 and later 98 7 pulse is 71 blood pressure 103/67 O2 sat 98 to 100% on room air Labs appear grossly stable, PTT is back up into the 80s and 90s Currently on IV Rocephin and both blood and urine appear to be sensitive to this. Day #7. We will try to get at least 4 weeks of IV antibiotics however 6 would be better We will order physical therapy to see patient and help ambulate and try to condition patient. sHe is up and out of bed to the bathroom. Continue to search items brought from outside for illegal drugs. Nursing and I have discussed patient care 02/29/2020 Prior to my visit this morning the nursing cloth shearing supervisor had been in the room to answer the patient's questions concerning no outside deliveries The patient's nurse and I went into the room to discuss this further as well as evaluate her Patient does not understand why she cannot have outside deliveries. She states she is willing to have her IM search before there brought into her she says that "she is hungry" and desires food to be brought to her. Patient was told that we will contact the advocacy nurse who will discuss the situation with her. Patient was told that this decision was made by administration because they were aware of certain text messages that she had sent to other individuals to bring in illegal substances to her. Patient denied doing this. Temperature 98.7 pulse 76-89 blood pressure 110/50 oxygen saturation 97% on room air White blood cell count 10,100 CRP on admission was 376 today is down to 137 sed rate today is 112 Most recent set of blood cultures were negative that were drawn on the . I am repeating blood cultures today Day 8 of IV Rocephin. EOT 04/04/2020 03/01/2020 Appreciate infectious disease note will order RYAN for Tuesday of next week, determine if patient needs minimum of 4 weeks IV antibiotics or 6 weeks if RYAN is positive I ordered a 2 view chest x-ray for today since patient is still complaining of some right-sided rib pain I am going to DC her Percocet tonight as recommended by pain management I have doubled her dose of Robaxin every 6 hours as needed Patient continues to be afebrile and hemodynamically stable I am only checking labs now every third day Day #9 of IV Rocephin I always have a nurse present with me when I am in the room with the patient 03/02/2020 CTA of chest done yesterday shows triple development of a loculated right pleural effusion with compressive atelectasis and consolidation in the right lower lobe. Persistent small right segmental pleural pulmonary embolism probably smaller than on previous exam. No new PE I have ordered ordered a consultation for interventional radiology to see if this patient could have a thoracentesis to help her hypoxia. Will need to hold heparin prior to procedure, based on IR policy. I have also repeated the order for a RYAN because this will determine whether we can get by with only 4 weeks of IV antibiotics or will need 6 Patient is comfortable sitting up in bed her vital signs are good her oxygen saturation actually is 96% on room air Patient had a slight fever last night around 1935 it was 100.1 White blood cell count remains stable I am going to repeat her labs tomorrow morning Date 10 of IV Rocephin. Patient did not mention her pain today or pain management 03/03/2020 Temperature this morning 99.7 On 02/29/2020 her temperature was 101.6 the following day on 03/01/2028 was 100.1, on 03/02/2020 it was 100.5 and it appears to be trending down Pulse 82, blood pressure 98/59, later this morning 103/68 White count remains normal 7.9 hemoglobin is stable 7.4, that are trending up [id number] Currently on heparin PTT this morning 116 Potassium this morning 5.0 going up C reactive protein going up 215 Sed rate remains elevated 120 She had a thoracentesis today on the right due to loculated fluid possible empyema. Pathology is pending RYAN has been scheduled again Day 11 of George. EOT either March 19, 2020 if a four-week course is needed or April 02 if a 6-week course is needed. If RYAN is negative she only needs 4 weeks Patient is not asking for pain medication . - Time Time Spent with patient: 25-34 minutes
[2020-03-03] MEDS: CEFTRIAXONE 2 GM/D5W RTU 2 GM/50 ML RTUPB IV SCH (17:12)
[2020-03-03] MEDS: MELATONIN 3 MG TABLET PO SCH (22:14)
[2020-03-04] MEDS: HEPARIN SODIUM,PORCINE/D5W 25,000 UNIT/250 ML RTUINJ IV PRN (02:41)
[2020-03-04] MEDS: METHOCARBAMOL 750 MG TABLET PO PRN ×3 (04:09→18:03)
[2020-03-04] MEDS: ALBUTEROL SULFATE 0.083% NEB 2.5 MG/3 ML AMPUL NEB PRN (08:43)
[2020-03-04] MEDS: CEFTRIAXONE 2 GM/D5W RTU 2 GM/50 ML RTUPB IV SCH (09:08)
[2020-03-04] MEDS: BUPRENORPHINE HCL 2 MG SUBLINGUAL TABLET SL SCH ×3 (09:08→17:23)
[2020-03-04] MEDS: BUSPIRONE HCL 10 MG TABLET PO SCH ×2 (09:08→21:31)
[2020-03-04] MEDS: BUTALB/ACETAMINOPHEN/CAFFEINE 1 TAB EACH PO PRN ×3 (09:08→20:57)
[2020-03-04] MEDS: DOCUSATE SODIUM 100 MG CAPSULE PO SCH (09:09)
[2020-03-04] MEDS: LIDOCAINE 5% (700 MG) TRANSDERMAL ADH..PATCH TP SCH (09:09)
[2020-03-04] MEDS: ACETAMINOPHEN 325 MG TABLET PO PRN ×2 (09:09→14:04)
[2020-03-04] MEDS: FAMOTIDINE 20 MG TABLET PO SCH ×2 (09:09→21:31)
[2020-03-04] MEDS: NORMAL SALINE 10 ML SDV (SCHEDULED) IV SCH ×2 (09:10→21:32)
[2020-03-04 09:19] LABS: FLUID COLOR DARK YELLOW; FLUID SOURCE LUNG; FLUID TYPE PLEURAL
[2020-03-04 09:20] LABS: FLUID APPEARANCE CLOUDY; FLUID VISCOSITY SLIGHTLY VISCOUS
--- NOTE | 2020-03-04 12:38 | PDOC PROGRESS REPORT ---
Subjective Progress Note for:: 03/04/20 Subjective:: Today, patient complains of back pain in her right lower back. Feels fatigued. The pain is pleuritic and limiting her from taking deep breaths. Otherwise not significantly dyspneic. Reason For Visit: SIRS Physical Exam Vital Signs: Temp Pulse Resp BP Pulse Ox 98.8 F 94 16 107/70 94 03/04/20 08:00 03/04/20 08:43 03/04/20 08:43 03/04/20 08:00 03/04/20 08:43 Intake & Output 03/03/20 03/04/20 03/05/20 06:59 06:59 06:59 Intake Total 3021 4222 50 Output Total 100 Balance 3021 4122 50 Weight 62.7 kg 58.2 kg General appearance: PRESENT: no acute distress, cooperative Neck exam: ABSENT: JVD Respiratory exam: PRESENT: chest wall tenderness, symmetrical, unlabored. ABSENT: accessory muscle use, retraction, tachypnea, wheezes Cardiovascular exam: PRESENT: +S1, +S2. ABSENT: diastolic murmur, systolic murmur, tachycardia GI/Abdominal exam: PRESENT: soft. ABSENT: rebound, rigid, tenderness Neurological exam: PRESENT: alert, awake, oriented to person, oriented to place, oriented to time Results Laboratory Results: 03/03/20 06:44 03/03/20 06:44 03/03/20 09:27 Fluid Type PLEURAL Fluid Source LUNG Fluid Color DARK YELLOW Fluid Appearance CLOUDY Fluid Viscosity SLIGHTLY VISCOUS Fluid WBC 2778 Fluid RBC 9388 02/21/20 02/21/20 02/21/20 08:46 08:46 18:31 Creatine Kinase 27 L Troponin I < 0.012 < 0.012 02/22/20 00:35 Creatine Kinase Troponin I < 0.012 Impressions: Abdomen/Pelvis CT 02/21/20 08:01 IMPRESSION: 1. NO SIGNIFICANT OR ACUTE FINDING IN THE ABDOMEN OR PELVIS ON CT SCAN WITH IV CONTRAST. NORMAL APPENDIX. 2. FAINT INDISTINCT AIRSPACE DISEASE IN THE RIGHT LOWER LOBE, NONSPECIFIC, WHICH MAY BE DUE TO INFECTION OR INFLAMMATION. Abdomen Ultrasound 02/21/20 12:07 IMPRESSION: POSSIBLE MINIMAL SLUDGE IN THE GALLBLADDER. OTHERWISE NORMAL RIGHT UPPER QUADRANT ULTRASOUND. Extremity Ultrasound 02/25/20 00:00 IMPRESSION: No abscess. There is thrombus in the saphenous vein to the saphenous femoral junction. PICC Line Insertion 02/26/20 00:00 IMPRESSION: SUCCESSFUL PLACEMENT OF A 5 FR DUAL LUMEN 32 CM PICC IN THE RIGHT BASILIC VEIN. Chest/Abdomen CTA 03/01/20 17:30 IMPRESSION: 1. Interval development of loculated right pleural effusion with compressive atelectasis and consolidation in the right lower lobe. The previous area of consolidation and cavitary nodule are now obscured bike consolidation at the right lung base. 2. Persistent small right segmental pulmonary embolism, probably slightly smaller than on previous examination difficult to compare due to degree of consolidation. No new PE. Thoracentesis Ultrasound 03/03/20 08:00 IMPRESSION: Successful ultrasound-guided right-sided thoracentesis. Chest X-Ray 03/03/20 11:40 IMPRESSION: No postprocedural pneumothorax. Assessment and Plan - Diagnosis (1) Bacteremia due to group B Streptococcus Is this a current diagnosis for this admission?: Yes Plan: Patient underwent evaluation with TTE which was suboptimal in quality and as a result RYAN is being pursued. Evaluated by infectious diseases is recommending treatment with 4 weeks of antibiotics IV in absence of vegetation on RYAN otherwise 6 weeks. Infective endocarditis is possible which strep pyogenes bacteremia, fever, possible septic embolism, and history of IVDU. Continue with ceftriaxone continue plans for RYAN. (2) Pleural effusion, right Is this a current diagnosis for this admission?: Yes Plan: Underwent right-sided thoracentesis. Fluid appearance described as slightly viscous dark yellow cloudy. WBC 2778, RBC 9388. Gram stain is negative and culture is negative thus far. Awaiting fluid glucose, total protein, LDH and pH. Possible etiology of effusion include uncomplicated parapneumonic or complicated parapneumonic/empyema or pulmonary embolism. However empyema is unlikely given negative Gram stain/culture and nonpurulent fluid (3) Pulmonary embolism Qualifiers: Pulmonary embolism type: other Chronicity: acute Acute cor pulmonale presence: without acute cor pulmonale Qualified Code(s): I26.99 - Other pulmonary embolism without acute cor pulmonale Is this a current diagnosis for this admission?: Yes Plan: CTA chest revealed small right lower lobe PE. Possible that this is septic embolism in light of current bacteremia but it could very well also be noninfectious especially given the absence of any pulmonary nodularities or cavitations on chest CT. Patient has been on heparin drip. We will discontinue heparin drip and placed on Eliquis. (4) Pneumonia Qualifiers: Pneumonia type: due to unspecified organism Laterality: right Lung location: lower lobe of lung Qualified Code(s): J18.9 - Pneumonia, unspecified organism Is this a current diagnosis for this admission?: Yes (5) IV drug abuse Is this a current diagnosis for this admission?: Yes Plan: Continue Subutex. Supportive care. - Time Time Spent with patient: Less than 15 minutes
[2020-03-04 14:52] LABS: LDH BODY FLUID 352 IU/L (.)
[2020-03-04] MEDS: APIXABAN 5 MG TABLET PO SCH (17:19)
[2020-03-04] MEDS: MELATONIN 3 MG TABLET PO SCH (21:30)
[2020-03-04] MEDS: DIPHENHYDRAMINE HCL 25 MG CAPSULE PO PRN (22:56)
[2020-03-05] MEDS ORDERED: GLUCAGON,HUMAN RECOMB 1 MG INJ SUBCUT PRN (04:55)
[2020-03-05] MEDS ORDERED: DEXTROSE 40% GEL 15 GM TUBE PO PRN ×2 (04:55)
[2020-03-05] MEDS ORDERED: DEXTROSE 50%-WATER 25 GM/50 ML DISP.SYRIN IV PRN ×2 (04:55)
[2020-03-05] MEDS: METHOCARBAMOL 750 MG TABLET PO PRN ×3 (05:20→21:18)
[2020-03-05] MEDS: BUTALB/ACETAMINOPHEN/CAFFEINE 1 TAB EACH PO PRN ×3 (05:21→21:18)
[2020-03-05] MEDS: DOCUSATE SODIUM 100 MG CAPSULE PO SCH (10:05)
[2020-03-05] MEDS: APIXABAN 5 MG TABLET PO SCH (10:05)
[2020-03-05] MEDS: BUSPIRONE HCL 10 MG TABLET PO SCH ×2 (10:06→21:19)
[2020-03-05] MEDS: BUPRENORPHINE HCL 2 MG SUBLINGUAL TABLET SL SCH ×3 (10:06→17:47)
[2020-03-05] MEDS: NORMAL SALINE 10 ML SDV (SCHEDULED) IV SCH ×2 (10:06→21:21)
[2020-03-05] MEDS: FAMOTIDINE 20 MG TABLET PO SCH ×2 (10:06→21:18)
[2020-03-05] MEDS: CEFTRIAXONE 2 GM/D5W RTU 2 GM/50 ML RTUPB IV SCH (10:06)
[2020-03-05] MEDS: NORMAL SALINE 10 ML SDV (AFTER EACH USE) IV PRN ×2 (10:52→12:56)
[2020-03-05] MEDS ORDERED: PROPOFOL INJ 200 MG/20 ML VIAL IV ONE (11:08)
[2020-03-05] MEDS ORDERED: LIDOCAINE 2% INJ-PF (20 MG/ML) 10 ML AMPUL ONE (11:08)
[2020-03-05] MEDS: LIDOCAINE 5% (700 MG) TRANSDERMAL ADH..PATCH TP SCH (12:55)
--- NOTE | 2020-03-05 15:20 | PDOC PROGRESS REPORT ---
Subjective Progress Note for:: 03/05/20 Subjective:: Patient still having some pleuritic back pain. Notably on her right side. She denies any nausea vomiting but still has sweats especially at nighttime. Her temperatures show improvement of her fever curve. Reason For Visit: SIRS Physical Exam Vital Signs: Temp Pulse Resp BP Pulse Ox 98.2 F 81 17 105/70 97 03/05/20 12:15 03/05/20 12:15 03/05/20 12:15 03/05/20 12:15 03/05/20 12:15 Intake & Output 03/04/20 03/05/20 03/06/20 06:59 06:59 06:59 Intake Total 4222 1805 50 Output Total 100 2800 Balance 4122 -995 50 Weight 58.2 kg 59.3 kg General appearance: PRESENT: no acute distress, cooperative Head exam: PRESENT: normocephalic Respiratory exam: PRESENT: unlabored. ABSENT: accessory muscle use, retraction Cardiovascular exam: PRESENT: +S1, +S2. ABSENT: tachycardia GI/Abdominal exam: PRESENT: soft. ABSENT: rebound, rigid, tenderness Extremities exam: ABSENT: pedal edema Musculoskeletal exam: PRESENT: ambulatory Neurological exam: PRESENT: alert, awake, oriented to person, oriented to place, oriented to time Psychiatric exam: ABSENT: agitated, anxious Focused psych exam: ABSENT: pressured speech Skin exam: ABSENT: jaundice Results Laboratory Results: 03/03/20 06:44 03/03/20 06:44 03/03/20 03/03/20 09:27 09:27 Fluid pH 7.2 Fluid Total Protein 5.9 02/29/20 09:15 Blood Blood Culture - Final NO GROWTH IN 5 DAYS 02/29/20 09:35 Blood Blood Culture - Final NO GROWTH IN 5 DAYS 02/21/20 02/21/20 02/21/20 08:46 08:46 18:31 Creatine Kinase 27 L Troponin I < 0.012 < 0.012 02/22/20 00:35 Creatine Kinase Troponin I < 0.012 Impressions: Abdomen/Pelvis CT 02/21/20 08:01 IMPRESSION: 1. NO SIGNIFICANT OR ACUTE FINDING IN THE ABDOMEN OR PELVIS ON CT SCAN WITH IV CONTRAST. NORMAL APPENDIX. 2. FAINT INDISTINCT AIRSPACE DISEASE IN THE RIGHT LOWER LOBE, NONSPECIFIC, WHICH MAY BE DUE TO INFECTION OR INFLAMMATION. Abdomen Ultrasound 02/21/20 12:07 IMPRESSION: POSSIBLE MINIMAL SLUDGE IN THE GALLBLADDER. OTHERWISE NORMAL RIGHT UPPER QUADRANT ULTRASOUND. Extremity Ultrasound 02/25/20 00:00 IMPRESSION: No abscess. There is thrombus in the saphenous vein to the saphenous femoral junction. PICC Line Insertion 02/26/20 00:00 IMPRESSION: SUCCESSFUL PLACEMENT OF A 5 FR DUAL LUMEN 32 CM PICC IN THE RIGHT BASILIC VEIN. Chest/Abdomen CTA 03/01/20 17:30 IMPRESSION: 1. Interval development of loculated right pleural effusion with compressive atelectasis and consolidation in the right lower lobe. The previous area of consolidation and cavitary nodule are now obscured bike consolidation at the right lung base. 2. Persistent small right segmental pulmonary embolism, probably slightly smaller than on previous examination difficult to compare due to degree of consolidation. No new PE. Thoracentesis Ultrasound 03/03/20 08:00 IMPRESSION: Successful ultrasound-guided right-sided thoracentesis. Chest X-Ray 03/03/20 11:40 IMPRESSION: No postprocedural pneumothorax. Assessment and Plan - Diagnosis (1) Streptococcal bacteremia Is this a current diagnosis for this admission?: Yes Plan: Evaluated by infectious diseases is recommending treatment with 4 weeks of antibiotics IV in absence of vegetation on RYAN otherwise 6 weeks. Patient underwent RYAN today which did not show any evidence of vegetations. As such, patient does not meet Sherman criteria for infective endocarditis. We will continue with treatment plan to complete 4 weeks of IV ceftriaxone. (2) Exudative pleural effusion Is this a current diagnosis for this admission?: Yes Plan: Patient's fluid analysis indicates Complicated parapneumonic right pleural effusion. Patient has high fluid LDH, high protein, low glucose and pH of 7.2. Gram stain/culture negative & fluid was nonpurulent ruling out empyema. Given complicated effusion, I will obtain CT scan of chest to evaluate for any remnant effusion as this may need to be drained via chest tube. Continue ceftriaxone. I will add Flagyl for anaerobic coverage. Fever curve does seem to have improved over the past 2 days. (3) Pulmonary embolism Qualifiers: Pulmonary embolism type: other Chronicity: acute Acute cor pulmonale presence: without acute cor pulmonale Qualified Code(s): I26.99 - Other pulmonary embolism without acute cor pulmonale Is this a current diagnosis for this admission?: Yes Plan: CTA chest revealed small right lower lobe PE. Possible that this is septic embolism in light of current bacteremia but it could very well also be noninfectious especially given the absence of any pulmonary nodularities or cavitations on chest CT. I will hold Eliquis dose this evening in case patient requires a chest tube tomorrow. (4) Pneumonia Qualifiers: Pneumonia type: due to unspecified organism Laterality: right Lung location: lower lobe of lung Qualified Code(s): J18.9 - Pneumonia, unspecified organism Is this a current diagnosis for this admission?: Yes Plan: Strep pyogenes isolated in blood culture. Continue ceftriaxone. (5) IV drug abuse Is this a current diagnosis for this admission?: Yes Plan: Continue Subutex. Supportive care. - Time Time Spent with patient: Less than 15 minutes
[2020-03-05] MEDS: ALBUTEROL SULFATE 0.083% NEB 2.5 MG/3 ML AMPUL NEB PRN (15:40)
--- NOTE | 2020-03-05 15:52 | XCELERA REPORT ---
Study ID: [id number] [id number] Transesophageal Echocardiogram Report Name: KINA GOMEZ Age: 29 yrs Gender: Female : 1990 Patient Status: Inpatient Patient Location: [address] [place], [place] [address]B Study Date: 03/05/2020 10:11 AM History: IVMARLA Aldridgetermia Height: 62 in Weight: 141 lb BSA: 1.6 m2 Reason For Study: bacteremia, r/o endocarditis Ordering Physician: AMANDA DIETRICH Performed By: Clarissa Townsend Interpretation Summary This degree of valvular regurgitation is within normal limits. There is no evidence of a mass or vegetation. This does not rule out endocarditis. Left ventricular systolic function is normal. Ejection Fraction = >55%. The right ventricle is normal in size and function. This degree of valvular regurgitation is within normal limits. There is no evidence of a mass or vegetation. This does not rule out endocarditis. There is no pericardial effusion. Procedure A complete two-dimensional transesophageal echocardiogram was performed (2D, spectral and color flow Doppler). Informed consent for Transesophageal Echocardiogram, and use of a contrast agent as needed, was obtained prior to the procedure. The patient was brought to the OR 3 in a fasting state. An intravenous line was placed. A topical anesthetic agent was used for oropharangeal anesthesia. A bite block was inserted. IV conscious sedation was administered using Per anesthesia. The patient's vital signs, including blood pressure, heart rate, pulse oximetry and cardiac rhythm were monitored thoughout the procedure. The transesophageal probe was passed without difficulty. The usual views were obtained; basal, mid-esophageal, transgastric and aortic views. The patient tolerated the procedure well without evidence of orophangeal or esophageal trauma. Subsequent to all the images being obtained the probe was removed with out trauma. Left Ventricle The left ventricle is grossly normal size. There is no thrombus. There is normal left ventricular wall thickness. Left ventricular systolic function is normal. Ejection Fraction = >55%. The left ventricular wall motion is normal. Right Ventricle The right ventricle is normal in size and function. Atria The interatrial septum is intact with no evidence for an atrial septal defect. The left atrial size is normal. No thrombus is detected in the left atrial appendage. Right atrial size is normal. Tramline catheter consistent with PICC/CVL. Mitral Valve The mitral valve is grossly normal. There is no evidence of mitral valve prolapse. There is no vegetation seen on the mitral valve. There is no mitral valve stenosis. There is trace mitral regurgitation. Tricuspid Valve The tricuspid valve is not well visualized, but is grossly normal. There is no tricuspid valve vegetation. There is no tricuspid stenosis. There is trace tricuspid regurgitation. Aortic Valve The aortic valve is trileaflet. The aortic valve opens well. There is no aortic valvular vegetation. No hemodynamically significant valvular aortic stenosis. No aortic regurgitation is present. Pulmonic Valve The pulmonic valve is not well seen, but is grossly normal. There is no vegetation on the pulmonic valve. Arteries The aortic root is normal size. Pericardium There is no pericardial effusion. : AMANDA DIETRICH Anil
[2020-03-05] MEDS: METRONIDAZOLE 500 MG/NS RTU 500 MG/100 ML RTUPB IV SCH ×2 (17:47→23:44)
[2020-03-05] MEDS: DIPHENHYDRAMINE HCL 25 MG CAPSULE PO PRN (21:21)
[2020-03-05] MEDS: MELATONIN 3 MG TABLET PO SCH (21:21)
--- NOTE | 2020-03-05 21:27 | RADIOLOGY REPORT (SQ) ---
EXAM DESCRIPTION: Unenhanced CT scan of the chest. CLINICAL HISTORY: 29 years Female; reval complicated parapneumonic effusion s/p thora TECHNIQUE: CT of the chest without intravenous contrast. All CT scans at this facility use dose modulation, iterative reconstruction, and/or weight based dosing when appropriate to reduce radiation dose to as low as reasonably achievable. COMPARISON: CT angiogram of the chest 03/01/2020 FINDINGS: Chest: Lungs: Loculated right pleural effusion is noted and there is now small punctate areas of air is seen within the pleural space. The overall size and appearance of the pleural effusion is not significantly changed. There is compressive opacification and volume loss in the right perihilar and lower lobe with air bronchograms. There is improved aeration with decrease infiltrate seen in the left lung base. Volume loss is present in the right chest with asymmetric elevation of the right hemidiaphragm. Mediastinum: Heart size is unchanged. There is a right-sided PICC line with the tip of the catheter at the RASVC junction. Small prevascular lymph nodes are again identified and unchanged. Bones: Osseous structures are unremarkable. Soft tissues are unremarkable. Upper Abdomen: The spleen is enlarged and measures 14.3 cm. The liver also appears enlarged. IMPRESSION: 1. Persistent and not significantly changed loculated right posterior pleural effusion. There is scattered collections of air now seen within the loculated pleural effusion. 2. Persistent parenchymal opacification in the right perihilar and lower lobe. Improved aeration in the left lung base. 3. Probable hepatomegaly. Splenomegaly is present.
[2020-03-05] MEDS: ACETAMINOPHEN 325 MG TABLET PO PRN (22:06)
[2020-03-06] MEDS: METRONIDAZOLE 500 MG/NS RTU 500 MG/100 ML RTUPB IV SCH ×4 (05:33→23:28)
[2020-03-06 05:55] LABS: ABSOLUTE BASOPHILS # (AUTO) 0.1 10^3/uL (0.0-0.2); ABSOLUTE EOSINOPHILS # (AUTO) 0.1 10^3/uL (0.0-0.6); ABSOLUTE LYMPHOCYTES (AUTO) 1.4 10^3/uL (0.5-4.7); ABSOLUTE MONOCYTES (AUTO) 0.6 10^3/uL (0.1-1.4); ABSOLUTE NEUT (AUTO) 3.9 10^3/uL (1.7-8.2); BASOPHILS % (AUTO) 1.4 % (0-2); HEMATOCRIT 21.9 % (36.0-47.0); INTERNATIONAL RATION (INR) 1.15; LYMPHOCYTES % (AUTO) 23.3 % (13-45); MEAN CORPUSCULAR HEMOGLOBIN 22.8 pg (27.0-33.4); MEAN CORPUSCULAR HGB CONC 33.1 g/dL (32.0-36.0); MEAN CORPUSCULAR VOLUME 69 fl (80-97); MONOCYTES % (AUTO) 10.4 % (3-13); PLATELET COUNT 815 10^3/uL (150-450); PROTHROMBIN TIME 14.8 SEC (11.4-15.4); RED BLOOD COUNT 3.19 10^6/uL (3.72-5.28); RED CELL DISTRIBUTION WIDTH 17.3 % (11.5-14.0); SEGMENTED NEUTROPHILS % (AUTO) 63.9 % (42-78); TOTAL CELLS COUNTED % (AUTO) 100 %; WHITE BLOOD COUNT 6.2 10^3/uL (4.0-10.5)
[2020-03-06 05:56] LABS: PARTIAL THROMBOPLASTIN TIME 51.1 SEC (23.5-35.8)
[2020-03-06 05:57] LABS: HEMOGLOBIN 7.3 g/dL (12.0-15.5)
[2020-03-06 06:14] LABS: ANION GAP 12 (5-19); BLOOD UREA NITROGEN 8 mg/dL (7-20); CALCIUM 9.6 mg/dL (8.4-10.2); CARBON DIOXIDE 27 mmol/L (22-30); CHLORIDE 96 mmol/L (98-107); GLUCOSE 100 mg/dL (75-110); POTASSIUM 4.9 mmol/L (3.6-5.0)
[2020-03-06] MEDS: FAMOTIDINE 20 MG TABLET PO SCH ×2 (09:30→21:18)
[2020-03-06] MEDS: CEFTRIAXONE 2 GM/D5W RTU 2 GM/50 ML RTUPB IV SCH (09:30)
[2020-03-06] MEDS: BUPRENORPHINE HCL 2 MG SUBLINGUAL TABLET SL SCH ×3 (09:30→17:39)
[2020-03-06] MEDS: DOCUSATE SODIUM 100 MG CAPSULE PO SCH (09:30)
[2020-03-06] MEDS: BUSPIRONE HCL 10 MG TABLET PO SCH ×2 (09:30→21:18)
[2020-03-06] MEDS: LIDOCAINE 5% (700 MG) TRANSDERMAL ADH..PATCH TP SCH (09:31)
[2020-03-06] MEDS: NORMAL SALINE 10 ML SDV (SCHEDULED) IV SCH ×2 (09:31→21:19)
--- NOTE | 2020-03-06 12:05 | PDOC CONSULTATION ---
Consultation Consult Date: 03/06/20 Attending physician:: NOLBERTO ARNOLD Provider Consulted: MAXX LIM Consult reason:: Parapneumonic effusion History of Present Illness Admission Date/PCP: 02/21/20 14:43 History of Present Illness: KINA GOMEZ is a 29 year old female with a history of substance abuse presents short of breath and anemic was found to have pneumonia and loculated right pleural effusion she is underwent a RYAN no evidence of vegetation could be found at that time her pleural effusion demonstrated a pH of 7.2 [address] well as a CT scan showing loculations consistent with a parapneumonic effusion ,hemoptysis, her PPD status is unknown, and hemoptysis history of chronic lung disease of the chart or adolescent no recent travel no anginal-like chest pain Past Medical History Cardiac Medical History: Reports: None Pulmonary Medical History: Reports: None EENT Medical History: Reports: None Neurological Medical History: Reports: Migraine, Seizures Endocrine Medical History: Reports: None Renal/ Medical History: Reports: None Malignancy Medical History: Reports: None GI Medical History: Reports: None Musculoskeltal Medical History: Reports: None Skin Medical History: Reports: None Psychiatric Medical History: Reports: Substance Abuse, Tobacco Dependency Traumatic Medical History: Reports: None Hematology: Reports: Anemia Infectious Medical History: Reports: None Past Surgical History Past Surgical History: Reports: Section Denies: Hysterectomy Social History Information Source: [facility] Records Lives with: Family Smoking Status: Current Every Day Smoker Cigarettes Packs Per Day: 0.5 Frequency of Alcohol Use: None Hx Recreational Drug Use: Yes Drugs: Methadone Hx Prescription Drug Abuse: No Do you have pets?: No Have you had any respiratory illnesses as a child?: No Have you been exposed to any sick contacts recently?: No Have you had any recent respiratory illnesses?: Yes Have you travelled outside of [place] in the past 12 months?: No - Advance Directive Resuscitation Status: Full Code Family History Family History: Hypertension Parental Family History Reviewed: Yes Children Family History Reviewed: Yes Sibling(s) Family History Reviewed.: Yes Medication/Allergy Home Medications: No Home Medications 02/21/20 Allergies/Adverse Reactions: No Known Allergies Allergy (Verified 10/26/19 12:08) Review of Systems All systems: reviewed and no additional remarkable complaints except as stated Physical Exam Vital Signs: Temp Pulse Resp BP Pulse Ox 98.5 F 85 14 104/69 98 06/04/20 07:25 03/06/20 08:12 03/06/20 08:12 03/06/20 07:25 03/06/20 08:12 Intake & Output 03/05/20 03/06/20 03/07/20 06:59 06:59 06:59 Intake Total 1805 2350 240 Output Total 2800 2000 Balance -995 350 240 Weight 59.3 kg 58.4 kg General appearance: PRESENT: no acute distress, disheveled, thin Head exam: PRESENT: atraumatic, normocephalic Eye exam: PRESENT: conjunctiva pale, EOMI. ABSENT: scleral icterus Mouth exam: PRESENT: dry mucosa, neck supple, tongue midline Neck exam: ABSENT: carotid bruit, full ROM, JVD, lymphadenopathy, meningismus, tenderness, thyromegaly, tracheal deviation, tracheostomy, other Respiratory exam: PRESENT: decreased breath sounds, prolonged expiratory phas, rales, rhonchi, unlabored. ABSENT: retraction, stridor, tachypnea Cardiovascular exam: PRESENT: RRR, +S1, +S2. ABSENT: tachycardia Pulses: PRESENT: normal radial pulses GI/Abdominal exam: PRESENT: soft. ABSENT: guarding, mass, rebound Extremities exam: ABSENT: calf tenderness, clubbing, pedal edema, tenderness Musculoskeletal exam: PRESENT: deformity, dislocation, full ROM Neurological exam: PRESENT: alert, awake Skin exam: PRESENT: dry, warm Results Laboratory Results: 03/06/20 05:35 03/06/20 05:35 03/03/20 03/03/20 03/06/20 09:27 09:27 05:35 WBC 6.2 RBC 3.19 L Hgb 7.3 L Hct 21.9 L MCV 69 L MCH 22.8 L MCHC 33.1 RDW 17.3 H Plt Count 815 H Seg Neutrophils % 63.9 Sodium Potassium Chloride Carbon Dioxide Anion Gap BUN Creatinine Est GFR ( Amer) Glucose Calcium Fluid pH 7.2 Fluid Total Protein 5.9 03/06/20 05:35 WBC RBC Hgb Hct MCV MCH MCHC RDW Plt Count Seg Neutrophils % Sodium 135.3 L Potassium 4.9 Chloride 96 L Carbon Dioxide 27 Anion Gap 12 BUN 8 Creatinine 0.62 Est GFR ( Amer) > 60 Glucose 100 Calcium 9.6 Fluid pH Fluid Total Protein 02/29/20 09:15 Blood Blood Culture - Final NO GROWTH IN 5 DAYS 02/29/20 09:35 Blood Blood Culture - Final NO GROWTH IN 5 DAYS 02/21/20 02/21/20 02/21/20 08:46 08:46 18:31 Creatine Kinase 27 L Troponin I < 0.012 < 0.012 02/22/20 00:35 Creatine Kinase Troponin I < 0.012 Impressions: Abdomen/Pelvis CT 02/21/20 08:01 IMPRESSION: 1. NO SIGNIFICANT OR ACUTE FINDING IN THE ABDOMEN OR PELVIS ON CT SCAN WITH IV CONTRAST. NORMAL APPENDIX. 2. FAINT INDISTINCT AIRSPACE DISEASE IN THE RIGHT LOWER LOBE, NONSPECIFIC, WHICH MAY BE DUE TO INFECTION OR INFLAMMATION. Abdomen Ultrasound 02/21/20 12:07 IMPRESSION: POSSIBLE MINIMAL SLUDGE IN THE GALLBLADDER. OTHERWISE NORMAL RIGHT UPPER QUADRANT ULTRASOUND. Extremity Ultrasound 02/25/20 00:00 IMPRESSION: No abscess. There is thrombus in the saphenous vein to the saphenous femoral junction. PICC Line Insertion 02/26/20 00:00 IMPRESSION: SUCCESSFUL PLACEMENT OF A 5 FR DUAL LUMEN 32 CM PICC IN THE RIGHT BASILIC VEIN. Chest/Abdomen CTA 03/01/20 17:30 IMPRESSION: 1. Interval development of loculated right pleural effusion with compressive atelectasis and consolidation in the right lower lobe. The previous area of consolidation and cavitary nodule are now obscured bike consolidation at the right lung base. 2. Persistent small right segmental pulmonary embolism, probably slightly smaller than on previous examination difficult to compare due to degree of consolidation. No new PE. Thoracentesis Ultrasound 03/03/20 08:00 IMPRESSION: Successful ultrasound-guided right-sided thoracentesis. Chest X-Ray 03/03/20 11:40 IMPRESSION: No postprocedural pneumothorax. Chest CT 03/05/20 00:00 IMPRESSION: 1. Persistent and not significantly changed loculated right posterior pleural effusion. There is scattered collections of air now seen within the loculated pleural effusion. 2. Persistent parenchymal opacification in the right perihilar and lower lobe. Improved aeration in the left lung base. 3. Probable hepatomegaly. Splenomegaly is present. Assessment & Plan - Diagnosis (1) Bacteremia due to group B Streptococcus Is this a current diagnosis for this admission?: Yes Plan: Relatively good response to antibiotics (2) Exudative pleural effusion Is this a current diagnosis for this admission?: Yes Plan: Though glucose suggest PPD should be checked for loculations suggest patient should at the very least have a chest tube and would benefit from VATS (3) IV drug abuse Is this a current diagnosis for this admission?: Yes Plan: Consider checking for HIV and syphilis (4) Anemia Qualifiers: Folate deficiency anemia type: dietary Is this a current diagnosis for this admission?: Yes Plan: hypochromic-microcytic retic count - Time Time Spent with patient: 55 min
[2020-03-06 13:35] LABS: ABSOLUTE RETICS # 0.054 10^6/uL (0.028-0.122); RETICULOCYTE COUNT (AUTO) 1.68 % (0.66-2.85)
--- NOTE | 2020-03-06 13:41 | RADIOLOGY REPORT (SQ) ---
EXAM DESCRIPTION: CHEST 3 VIEWS IMAGES COMPLETED DATE/TIME: 03/06/2020 1:10 pm REASON FOR STUDY: Effusion right chest COMPARISON: Chest CT previous day. NUMBER OF VIEWS: Three views. TECHNIQUE: AP and bilateral side down decubitus chest radiograph. LIMITATIONS: None. FINDINGS: Small right pleural effusion. No layering is identified. IMPRESSION: Loculated small right pleural effusion. TECHNICAL DOCUMENTATION: JOB ID: [id number] [employer]- All Rights Reserved Reading location - IP/workstation name: [email or web address]
[2020-03-06] MEDS: METHOCARBAMOL 750 MG TABLET PO PRN ×2 (13:47→21:18)
[2020-03-06] MEDS ORDERED: TUBERCULIN,PURIF.PROT.DERIV. 5 TU/0.1 ML TEST 1 ML VIAL ID ONE (14:00)
--- NOTE | 2020-03-06 15:20 | PDOC PROGRESS REPORT ---
Subjective Progress Note for:: 03/06/20 Subjective:: Patient is doing well. She denies any shortness of breath at this time. Still having back pain. Reason For Visit: SIRS Physical Exam Vital Signs: Temp Pulse Resp BP Pulse Ox 98.9 F 62 16 99/62 L 93 03/06/20 11:36 03/06/20 11:36 03/06/20 11:36 03/06/20 11:36 03/06/20 11:36 Intake & Output 03/05/20 03/06/20 03/07/20 06:59 06:59 06:59 Intake Total 1805 2350 240 Output Total 2800 2000 Balance -995 350 240 Weight 59.3 kg 58.4 kg General appearance: PRESENT: no acute distress, cooperative Neck exam: ABSENT: JVD Respiratory exam: PRESENT: crackles, unlabored. ABSENT: tachypnea, wheezes Cardiovascular exam: PRESENT: RRR, +S1, +S2. ABSENT: systolic murmur, tachycardia GI/Abdominal exam: PRESENT: soft. ABSENT: rebound, rigid, tenderness Neurological exam: PRESENT: alert, awake, oriented to person, oriented to place, oriented to time Results Laboratory Results: 03/06/20 05:35 03/06/20 05:35 03/06/20 03/06/20 03/06/20 05:35 05:35 05:35 WBC 6.2 RBC 3.19 L Hgb 7.3 L Hct 21.9 L MCV 69 L MCH 22.8 L MCHC 33.1 RDW 17.3 H Plt Count 815 H Seg Neutrophils % 63.9 Retic Count (auto) 1.68 Sodium 135.3 L Potassium 4.9 Chloride 96 L Carbon Dioxide 27 Anion Gap 12 BUN 8 Creatinine 0.62 Est GFR ( Amer) > 60 Glucose 100 Calcium 9.6 02/21/20 02/21/20 02/21/20 08:46 08:46 18:31 Creatine Kinase 27 L Troponin I < 0.012 < 0.012 02/22/20 00:35 Creatine Kinase Troponin I < 0.012 Impressions: Abdomen/Pelvis CT 02/21/20 08:01 IMPRESSION: 1. NO SIGNIFICANT OR ACUTE FINDING IN THE ABDOMEN OR PELVIS ON CT SCAN WITH IV CONTRAST. NORMAL APPENDIX. 2. FAINT INDISTINCT AIRSPACE DISEASE IN THE RIGHT LOWER LOBE, NONSPECIFIC, WHICH MAY BE DUE TO INFECTION OR INFLAMMATION. Abdomen Ultrasound 02/21/20 12:07 IMPRESSION: POSSIBLE MINIMAL SLUDGE IN THE GALLBLADDER. OTHERWISE NORMAL RIGHT UPPER QUADRANT ULTRASOUND. Extremity Ultrasound 02/25/20 00:00 IMPRESSION: No abscess. There is thrombus in the saphenous vein to the saphenous femoral junction. PICC Line Insertion 02/26/20 00:00 IMPRESSION: SUCCESSFUL PLACEMENT OF A 5 FR DUAL LUMEN 32 CM PICC IN THE RIGHT BASILIC VEIN. Chest/Abdomen CTA 03/01/20 17:30 IMPRESSION: 1. Interval development of loculated right pleural effusion with compressive atelectasis and consolidation in the right lower lobe. The previous area of consolidation and cavitary nodule are now obscured bike consolidation at the right lung base. 2. Persistent small right segmental pulmonary embolism, probably slightly smaller than on previous examination difficult to compare due to degree of cons olidation. No new PE. Thoracentesis Ultrasound 03/03/20 08:00 IMPRESSION: Successful ultrasound-guided right-sided thoracentesis. Chest X-Ray 03/03/20 11:40 IMPRESSION: No postprocedural pneumothorax. Chest CT 03/05/20 00:00 IMPRESSION: 1. Persistent and not significantly changed loculated right posterior pleural effusion. There is scattered collections of air now seen within the loculated pleural effusion. 2. Persistent parenchymal opacification in the right perihilar and lower lobe. Improved aeration in the left lung base. 3. Probable hepatomegaly. Splenomegaly is present. Apical Lordotic X-Ray 03/06/20 00:00 IMPRESSION: Loculated small right pleural effusion. Assessment and Plan - Diagnosis (1) Streptococcal bacteremia Is this a current diagnosis for this admission?: Yes Plan: Evaluated by infectious diseases is recommending treatment with 4 weeks of antibiotics IV in absence of vegetation on RYAN otherwise 6 weeks. Patient underwent RYAN which did not show any evidence of vegetations. As such, patient does not meet [place] criteria for infective endocarditis. We will continue with treatment plan to complete 4 weeks of IV ceftriaxone. End date 03/22/2020 (2) Exudative pleural effusion Is this a current diagnosis for this admission?: Yes Plan: Patient's fluid analysis indicates Complicated parapneumonic right pleural effusion. Patient has high fluid LDH, high protein, low glucose and pH of 7.2. Gram stain/culture negative & fluid was nonpurulent ruling out empyema. CT of the chest she still shows good amount of loculated effusion. I have consulted Exhaust And Muffler Repairer here as well as CT surgery at [facility] via telephone who reviewed the CT and CXR images. CT surgery recommends placement of chest tube only first and states that VATS is not needed at this point. I have discussed case with surgeon here who will place the chest tube. Continue ceftriaxone and Flagyl (3) Pulmonary embolism Qualifiers: Pulmonary embolism type: other Chronicity: acute Acute cor pulmonale presence: without acute cor pulmonale Qualified Code(s): I26.99 - Other pulmonary embolism without acute cor pulmonale Is this a current diagnosis for this admission?: Yes Plan: CTA chest revealed small right lower lobe PE. Possible that this is septic embolism in light of current bacteremia but it could very well also be noninfectious especially given the absence of any pulmonary nodularities or cavitations on chest CT. keep Eliquis on hold as chest tube will be placed today. (4) Pneumonia Qualifiers: Pneumonia type: due to unspecified organism Laterality: right Lung location: lower lobe of lung Qualified Code(s): J18.9 - Pneumonia, unspecified organism Is this a current diagnosis for this admission?: Yes Plan: Strep pyogenes isolated in blood culture. Continue ceftriaxone. (5) IV drug abuse Is this a current diagnosis for this admission?: Yes Plan: Continue Subutex. Supportive care. - Time Time Spent with patient: 15-24 minutes
[2020-03-06] MEDS ORDERED: LIDOCAINE 1% INJ-PF (10 MG/ML) 30 ML SDV ONE (15:30)
[2020-03-06] MEDS ORDERED: LIDOCAINE 1% INJ-PF (10 MG/ML) 30 ML SDV INJ PRN (15:38)
--- NOTE | 2020-03-06 17:14 | PDOC CONSULTATION ---
Consultation Consult Date: 03/06/20 Provider Consulted: MIGUEL ÁNGEL GOYAL Consult reason:: Multiloculated collection in the right lower lung field. History of Present Illness Admission Date/PCP: 02/21/20 14:43 History of Present Illness: KINA GOMEZ is a 29 year old female with history of substance abuse who was admitted on February 21, 2020 for fever and eventually noted pneumonia. She developed small amount of fluid in the right chest that was percutaneously drained under ultrasound guidance on 03/03/2020 by IR. Cultures were negative. She had another CT scan yesterday which showed increased multiloculated collection on the right lower base area. Surgery has been consulted for possible drainage. Patient did have dose of Eliquis yesterday. Since IR had difficult time draining the fluid 3 days ago and x-ray this time showed no layering of fluid on the right base of the lung on decubitus films, it appears that skin to be quite difficult to put a chest tube on the right place. Patient has been scheduled by IR for drainage of the fluid under CT guidance. Patient also had Eliquis yesterday. Past Medical History Cardiac Medical History: Reports: None Pulmonary Medical History: Reports: None EENT Medical History: Reports: None Neurological Medical History: Reports: Migraine, Seizures Endocrine Medical History: Reports: None Renal/ Medical History: Reports: None Malignancy Medical History: Reports: None GI Medical History: Reports: None Musculoskeltal Medical History: Reports: None Skin Medical History: Reports: None Psychiatric Medical History: Reports: Substance Abuse, Tobacco Dependency Traumatic Medical History: Reports: None Hematology: Reports: Anemia Infectious Medical History: Reports: None Past Surgical History Past Surgical History: Reports: Section Denies: Hysterectomy Social History Lives with: Family Smoking Status: Current Every Day Smoker Cigarettes Packs Per Day: 0.5 Electronic Cigarette use?: No Frequency of Alcohol Use: None Hx Recreational Drug Use: Yes Drugs: Methadone Hx Prescription Drug Abuse: No - Advance Directive Resuscitation Status: Full Code Family History Family History: Hypertension Parental Family History Reviewed: Yes Children Family History Reviewed: No Sibling(s) Family History Reviewed.: No Medication/Allergy Home Medications: No Home Medications 02/21/20 Allergies/Adverse Reactions: No Known Allergies Allergy (Verified 10/26/19 12:08) Physical Exam Vital Signs: Temp Pulse Resp BP Pulse Ox 99.4 F 81 18 95/64 L 97 03/06/20 15:20 03/06/20 15:20 03/06/20 15:20 03/06/20 15:20 03/06/20 15:20 Intake & Output 03/05/20 03/06/20 03/07/20 06:59 06:59 06:59 Intake Total 1805 2350 930 Output Total 2800 2000 400 Balance -995 350 530 Weight 59.3 kg 58.4 kg General appearance: PRESENT: no acute distress Eye exam: PRESENT: conjunctiva pink Neck exam: PRESENT: full ROM Respiratory exam: PRESENT: other - Decreased breath sounds right base Pulses: PRESENT: normal radial pulses Vascular exam: PRESENT: normal capillary refill GI/Abdominal exam: PRESENT: soft Extremities exam: PRESENT: full ROM Musculoskeletal exam: PRESENT: ambulatory Neurological exam: PRESENT: alert, oriented to person, oriented to place, oriented to time, oriented to situation Psychiatric exam: PRESENT: appropriate affect Skin exam: PRESENT: normal color, warm Results Laboratory Results: 03/06/20 05:35 03/06/20 05:35 03/06/20 03/06/20 03/06/20 05:35 05:35 05:35 WBC 6.2 RBC 3.19 L Hgb 7.3 L Hct 21.9 L MCV 69 L MCH 22.8 L MCHC 33.1 RDW 17.3 H Plt Count 815 H Seg Neutrophils % 63.9 Retic Count (auto) 1.68 Sodium 135.3 L Potassium 4.9 Chloride 96 L Carbon Dioxide 27 Anion Gap 12 BUN 8 Creatinine 0.62 Est GFR ( Amer) > 60 Glucose 100 Calcium 9.6 02/21/20 02/21/20 02/21/20 08:46 08:46 18:31 Creatine Kinase 27 L Troponin I < 0.012 < 0.012 02/22/20 00:35 Creatine Kinase Troponin I < 0.012 Impressions: Abdomen/Pelvis CT 02/21/20 08:01 IMPRESSION: 1. NO SIGNIFICANT OR ACUTE FINDING IN THE ABDOMEN OR PELVIS ON CT SCAN WITH IV CONTRAST. NORMAL APPENDIX. 2. FAINT INDISTINCT AIRSPACE DISEASE IN THE RIGHT LOWER LOBE, NONSPECIFIC, WHICH MAY BE DUE TO INFECTION OR INFLAMMATION. Abdomen Ultrasound 02/21/20 12:07 IMPRESSION: POSSIBLE MINIMAL SLUDGE IN THE GALLBLADDER. OTHERWISE NORMAL RIGHT UPPER QUADRANT ULTRASOUND. Extremity Ultrasound 02/25/20 00:00 IMPRESSION: No abscess. There is thrombus in the saphenous vein to the saphenous femoral junction. PICC Line Insertion 02/26/20 00:00 IMPRESSION: SUCCESSFUL PLACEMENT OF A 5 FR DUAL LUMEN 32 CM PICC IN THE RIGHT BASILIC VEIN. Chest/Abdomen CTA 03/01/20 17:30 IMPRESSION: 1. Interval development of loculated right pleural effusion with compressive atelectasis and consolidation in the right lower lobe. The previous area of consolidation and cavitary nodule are now obscured bike consolidation at the right lung base. 2. Persistent small right segmental pulmonary embolism, probably slightly smaller than on previous examination difficult to compare due to degree of consolidation. No new PE. Thoracentesis Ultrasound 03/03/20 08:00 IMPRESSION: Successful ultrasound-guided right-sided thoracentesis. Chest X-Ray 03/03/20 11:40 IMPRESSION: No postprocedural pneumothorax. Chest CT 03/05/20 00:00 IMPRESSION: 1. Persistent and not significantly changed loculated right posterior pleural effusion. There is scattered collections of air now seen within the loculated pleural effusion. 2. Persistent parenchymal opacification in the right perihilar and lower lobe. Improved aeration in the left lung base. 3. Probable hepatomegaly. Splenomegaly is present. Apical Lordotic X-Ray 03/06/20 00:00 IMPRESSION: Loculated small right pleural effusion. Assessment & Plan - Diagnosis (1) Bacteremia due to group B Streptococcus Is this a current diagnosis for this admission?: Yes (2) Exudative pleural effusion Is this a current diagnosis for this admission?: Yes (3) Pneumonia Qualifiers: Pneumonia type: due to unspecified organism Laterality: right Lung location: lower lobe of lung Qualified Code(s): J18.9 - Pneumonia, unspecified organism Is this a current diagnosis for this admission?: Yes - Time Time Spent: 30 to 50 Minutes - Inpatient Certification Medical Necessity: Need for IV Antibiotics, Need for Surgery - Plan Summary Plan Summary: 29-year-old female known IV drug abuser and had recent amphetamine use, stopped her Suboxone 2 weeks ago, noted to have fever and hypotension eventually noted to have pneumonia and later right pleural effusion. Effusion percutaneously drained and specimen sent for C&S which showed no growth. Meantime she had blood cultures positive for strep and strep being. CT scan of the chest showed multiloculated fluid in the right lower chest with some air collection. Surgery was consulted for chest tube placement and requested transfer to then possible VATS procedure. Shaye claimed that they will just put a chest tube for now. Transfer was held and since patient already scheduled for drainage of the right effusion and there CAT scan guidance tomorrow. Patient did have a dose of Eliquis yesterday. Patient also had an x-ray today which showed no layering of fluid on the right lower lung area on decubitus films and therefore might be difficult to drain with a chest tube since its appears to be more posterior. I would like IR to drain the right chest effusion tomorrow under CT guidance. If there is any problems or questions we will be available. Meantime will sign off.
[2020-03-06] MEDS: BUTALB/ACETAMINOPHEN/CAFFEINE 1 TAB EACH PO PRN (17:39)
[2020-03-06] MEDS: ALBUTEROL SULFATE 0.083% NEB 2.5 MG/3 ML AMPUL NEB PRN (19:51)
[2020-03-06] MEDS: DIPHENHYDRAMINE HCL 25 MG CAPSULE PO PRN (21:18)
[2020-03-06] MEDS: MELATONIN 3 MG TABLET PO SCH (21:18)
[2020-03-06] MEDS: PHARMACY COMMUNICATION ORDER MC SCH (21:19)
[2020-03-07 05:04] LABS: HEMATOCRIT 21.5 % (36.0-47.0); MEAN CORPUSCULAR HGB CONC 33.4 g/dL (32.0-36.0); MEAN CORPUSCULAR VOLUME 69 fl (80-97); PLATELET COUNT 845 10^3/uL (150-450); RED BLOOD COUNT 3.12 10^6/uL (3.72-5.28); RED CELL DISTRIBUTION WIDTH 17.2 % (11.5-14.0); WHITE BLOOD COUNT 5.8 10^3/uL (4.0-10.5)
[2020-03-07 05:06] LABS: HEMOGLOBIN 7.2 g/dL (12.0-15.5)
[2020-03-07 05:22] LABS: ANION GAP 11 (5-19); BLOOD UREA NITROGEN 9 mg/dL (7-20); CALCIUM 9.6 mg/dL (8.4-10.2); CARBON DIOXIDE 26 mmol/L (22-30); CHLORIDE 97 mmol/L (98-107); GLUCOSE 104 mg/dL (75-110); IRON(TIBC) 21.1 ug/dL (37-170); POTASSIUM 5.1 mmol/L (3.6-5.0)
[2020-03-07] MEDS: METRONIDAZOLE 500 MG/NS RTU 500 MG/100 ML RTUPB IV SCH ×3 (06:24→17:28)
[2020-03-07 06:28] LABS: FOLATE 3.51 ng/mL (>2.76)
[2020-03-07 07:09] LABS: PROTHROMBIN TIME 15.3 SEC (11.4-15.4)
[2020-03-07] MEDS: CEFTRIAXONE 2 GM/D5W RTU 2 GM/50 ML RTUPB IV SCH (09:17)
[2020-03-07] MEDS: BUPRENORPHINE HCL 2 MG SUBLINGUAL TABLET SL SCH ×3 (09:18→17:27)
[2020-03-07] MEDS: BUSPIRONE HCL 10 MG TABLET PO SCH ×2 (10:14→21:20)
[2020-03-07] MEDS ORDERED: MIDAZOLAM 2 MG/2 ML INJ ONE (11:25)
[2020-03-07] MEDS: FAMOTIDINE 20 MG TABLET PO SCH ×2 (12:36→21:20)
[2020-03-07] MEDS: FERROUS SULFATE 325 MG TABLET PO SCH (12:36)
[2020-03-07] MEDS: DOCUSATE SODIUM 100 MG CAPSULE PO SCH (12:36)
[2020-03-07] MEDS: LIDOCAINE 5% (700 MG) TRANSDERMAL ADH..PATCH TP SCH (12:37)
[2020-03-07] MEDS: NORMAL SALINE 10 ML SDV (SCHEDULED) IV SCH ×2 (12:37→21:21)
[2020-03-07] MEDS: MORPHINE SULFATE 10 MG/ML INJ IV PRN ×2 (12:52→18:56)
--- NOTE | 2020-03-07 13:15 | RADIOLOGY REPORT (SQ) ---
EXAM DESCRIPTION: CT INSERTION OF CHEST TUBE IMAGES COMPLETED DATE/TIME: 03/07/2020 12:17 pm REASON FOR STUDY: PARAPNEUMONIC EFFUSION COMPARISON: CT of the chest without contrast from 03/05/2020. FLUORO TIME: 8 seconds. 137 images submitted to PACS. LIMITATIONS: None. PROCEDURE: The procedure, risks, benefits, and alternatives were discussed with the patient in the p reprocedural area, and all questions were answered. Informed consent was obtained verbally and in wri ting. The patient was then brought to the CT suite, positioned in the left lateral decubitus position on th e CT gurney, and a time-out was performed. After that, axial images of the chest were obtained for t argeting of the pleural fluid in the posterior aspect of the right hemithorax. Based on review of e axial images an appropriate access site was selected on the skin. The area around the selected access site was then prepped and draped with 2% chlorhexidine utilizing standard sterile technique. After that, the access site was infiltrated with 1% lidocaine and an inc ision was made perpendicular to the skin surface with a #11 blade. An 18 gauge access needle was then advanced through the skin incision and into the fluid-filled pleural space utilizing CT fluoroscopic guidance. Next the needle was exchanged over a 0.038 inch guidewire for a 10 Swazi dilator, which w as used to dilate the percutaneous track. The dilator was then removed and a 10 Swazi all-purpose dr bernardo catheter was advanced over the guidewire into the fluid-filled pleural space. After that, the guidewire and inner dilator of the catheter were removed and the catheter was formed within the fluid -filled pleural space. Proper position of catheter was then confirmed with repeat axial images of the chest. After that, the catheter was locked in position, secured in place with a StayFix device and a ttached to a Pleur-evac. The patient tolerated the procedure well without immediate complication. At the end of the procedure the patient's condition was unchanged from the preprocedural baseline. IV conscious sedation was administered at the direction of the performing physician by a radha henriquez. 2 milligrams of Versed and 0 micrograms of fentanyl were administered. Physiologic monitoring w as provided before, during, and after sedation. The total sedation time was 30 minutes. Documentation of rirc-os-tgog time the proceduralist spent monitoring the patient: 20 minutes. IMPRESSION: Successful CT-guided placement of a 10 Swazi chest tube into the fluid-filled right ple ural space. COMMENT: Patient medication list reviewed: Yes- Quality ID# [id number]:Eligible professional attests to doc umenting in the medical record they obtained, updated, or reviewed the patient's current medications. Quality ID #76: The patient was prepped and draped using maximum sterile barrier technique including cap, mask, sterile gown, sterile gloves, a large sterile sheet, hand hygiene, and 2% Chlorhexidine fo r cutaneous antisepsis. When ultrasound is used, sterile ultrasound techniques are followed requiring sterile gel and sterile probes. Quality ID 145: Final reports for procedures using fluoroscopy that document radiation exposure caitlin sd, or exposure time and number of fluorographic images (if radiation exposure indices are not avail able) Quality ID# [id number]: Final reports with documentation of one or more dose reduction techniques (e.g., Aut omated exposure control, adjustment of the mA and/or kV according to patient size, use of iterative r econstruction technique) TECHNICAL DOCUMENTATION: JOB ID: [id number] 2010 [employer]- All Rights Reserved rev-01/18 Reading location - IP/workstation name: [email or web address]
[2020-03-07] MEDS: ACETAMINOPHEN 325 MG TABLET PO PRN (13:56)
--- NOTE | 2020-03-07 15:05 | PDOC PROGRESS REPORT ---
Subjective Progress Note for:: 03/07/20 Subjective:: Patient was doing well on account of this morning. She denied any shortness of breath at a time. Still having some back pain. Denies any nausea or vomiting. She went for chest tube placement today. Reason For Visit: SIRS Physical Exam Vital Signs: Temp Pulse Resp BP Pulse Ox 97.9 F 91 21 H 109/68 100 03/07/20 12:30 03/07/20 12:30 03/07/20 12:30 03/07/20 12:30 03/07/20 12:30 Intake & Output 03/06/20 03/07/20 03/08/20 06:59 06:59 06:59 Intake Total 2350 1400 200 Output Total 2000 800 Balance 350 600 200 Weight 58.4 kg 58.4 kg General appearance: PRESENT: no acute distress, cooperative Neck exam: ABSENT: JVD Respiratory exam: PRESENT: symmetrical, unlabored. ABSENT: tachypnea, wheezes Cardiovascular exam: PRESENT: RRR, +S1, +S2. ABSENT: tachycardia GI/Abdominal exam: PRESENT: soft. ABSENT: rebound, rigid, tenderness Extremities exam: ABSENT: pedal edema Neurological exam: PRESENT: alert, awake, oriented to person, oriented to place, oriented to time Focused psych exam: ABSENT: pressured speech Skin exam: ABSENT: jaundice Results Laboratory Results: 03/07/20 04:18 03/07/20 04:18 03/07/20 03/07/20 03/07/20 04:18 04:18 04:18 WBC 5.8 RBC 3.12 L Hgb 7.2 L Hct 21.5 L MCV 69 L MCH 23.0 L MCHC 33.4 RDW 17.2 H Plt Count 845 H Sodium 134.0 L Potassium 5.1 H Chloride 97 L Carbon Dioxide 26 Anion Gap 11 BUN 9 Creatinine 0.60 Est GFR ( Amer) > 60 Glucose 104 Calcium 9.6 Magnesium 2.2 Iron 21.1 L TIBC 295 % Saturation 7 Transferrin 224.34 Ferritin 64.20 Vitamin B12 683.0 Folate 3.51 03/03/20 09:27 Thoracic Fluid Gram Stain - Final 03/03/20 09:27 Thoracic Fluid Body Fluid Culture - Final NO AEROBIC OR ANAEROBIC ORGANISMS RECOVERED 02/21/20 02/21/20 02/21/20 08:46 08:46 18:31 Creatine Kinase 27 L Troponin I < 0.012 < 0.012 02/22/20 00:35 Creatine Kinase Troponin I < 0.012 Impressions: Abdomen/Pelvis CT 02/21/20 08:01 IMPRESSION: 1. NO SIGNIFICANT OR ACUTE FINDING IN THE ABDOMEN OR PELVIS ON CT SCAN WITH IV CONTRAST. NORMAL APPENDIX. 2. FAINT INDISTINCT AIRSPACE DISEASE IN THE RIGHT LOWER LOBE, NONSPECIFIC, WHICH MAY BE DUE TO INFECTION OR INFLAMMATION. Abdomen Ultrasound 02/21/20 12:07 IMPRESSION: POSSIBLE MINIMAL SLUDGE IN THE GALLBLADDER. OTHERWISE NORMAL RIGHT UPPER QUADRANT ULTRASOUND. Extremity Ultrasound 02/25/20 00:00 IMPRESSION: No abscess. There is thrombus in the saphenous vein to the saphenous femoral junction. PICC Line Insertion 02/26/20 00:00 IMPRESSION: SUCCESSFUL PLACEMENT OF A 5 FR DUAL LUMEN 32 CM PICC IN THE RIGHT BASILIC VEIN. Chest/Abdomen CTA 03/01/20 17:30 IMPRESSION: 1. Interval development of loculated right pleural effusion with compressive atelectasis and consolidation in the right lower lobe. The previous area of consolidation and cavitary nodule are now obscured bike consolidation at the right lung base. 2. Persistent small right segmental pulmonary embolism, probably slightly smaller than on previous examination difficult to compare due to degree of consolidation. No new PE. Thoracentesis Ultrasound 03/03/20 08:00 IMPRESSION: Successful ultrasound-guided right-sided thoracentesis. Chest X-Ray 03/03/20 11:40 IMPRESSION: No postprocedural pneumothorax. Chest CT 03/05/20 00:00 IMPRESSION: 1. Persistent and not significantly changed loculated right posterior pleural effusion. There is scattered collections of air now seen within the loculated pleural effusion. 2. Persistent parenchymal opacification in the right perihilar and lower lobe. Improved aeration in the left lung base. 3. Probable hepatomegaly. Splenomegaly is present. Apical Lordotic X-Ray 03/06/20 00:00 IMPRESSION: Loculated small right pleural effusion. Chest Tube Insertion 03/07/20 00:00 IMPRESSION: Successful CT-guided placement of a 10 Ivorian chest tube into the fluid-filled right pleural space. Assessment and Plan - Diagnosis (1) Streptococcal bacteremia Is this a current diagnosis for this admission?: Yes Plan: Evaluated by infectious diseases who recommends 4 weeks of antibiotics IV in absence of vegetation on RYAN otherwise 6 weeks. Patient underwent RYAN which did not show any evidence of vegetations. As such, patient does not meet [place] criteria for infective endocarditis. We will continue with treatment plan to complete 4 weeks of IV ceftriaxone. End date 03/22/2020 (2) Exudative pleural effusion Is this a current diagnosis for this admission?: Yes Plan: Patient's fluid analysis indicates Complicated parapneumonic right pleural effusion. Patient has high fluid LDH, high protein, low glucose and pH of 7.2. Gram stain/culture negative & fluid was nonpurulent ruling out empyema. CT of the chest 03/05/2020 still showed good amount of loculated effusion. I consulted Public Health Clinical Nurse Specialist here as well as CT surgery at [facility] via telephone who reviewed the CT and CXR images who recommend chest tube. CT surgery recommends placement of chest tube only first and states that VATS is not needed at this point. IR placed 10 Ivorian chest tube today connected to Pleur-evac and currently on suction as some air was introduced during the procedure. Will monitor output closely over the next 48 hours. Pain control. (3) Pulmonary embolism Qualifiers: Pulmonary embolism type: other Chronicity: acute Acute cor pulmonale presence: without acute cor pulmonale Qualified Code(s): I26.99 - Other pulmonary embolism without acute cor pulmonale Is this a current diagnosis for this admission?: Yes Plan: CTA chest revealed small right lower lobe PE. Possible that this is septic embolism in light of current bacteremia but it could very well also be noninfectious especially given the absence of any pulmonary nodularities or cavitations on chest CT. However discontinue Eliquis. Chest tube has been placed today. Will start on heparin drip tomorrow. (4) Pneumonia Qualifiers: Pneumonia type: due to unspecified organism Laterality: right Lung location: lower lobe of lung Qualified Code(s): J18.9 - Pneumonia, unspecified organism Is this a current diagnosis for this admission?: Yes Plan: Strep pyogenes isolated in blood culture. Continue ceftriaxone. (5) IV drug abuse Is this a current diagnosis for this admission?: Yes Plan: Continue Subutex. Supportive care. - Time Time Spent with patient: Less than 15 minutes
[2020-03-07] MEDS ORDERED: LIDOCAINE 4% CREAM 5 GM TUBE TP ONE (18:00)
[2020-03-07] MEDS: METHOCARBAMOL 750 MG TABLET PO PRN (21:20)
[2020-03-07] MEDS: BUTALB/ACETAMINOPHEN/CAFFEINE 1 TAB EACH PO PRN (21:20)
[2020-03-07] MEDS: PHARMACY COMMUNICATION ORDER MC SCH (21:21)
[2020-03-07] MEDS: DIPHENHYDRAMINE HCL 25 MG CAPSULE PO PRN (21:21)
[2020-03-07] MEDS: MELATONIN 3 MG TABLET PO SCH (21:21)
[2020-03-08] MEDS: MORPHINE SULFATE 10 MG/ML INJ IV PRN ×2 (00:47→06:50)
[2020-03-08] MEDS: METRONIDAZOLE 500 MG/NS RTU 500 MG/100 ML RTUPB IV SCH ×4 (00:47→17:57)
[2020-03-08] MEDS: METHOCARBAMOL 750 MG TABLET PO PRN ×3 (04:25→19:19)
[2020-03-08] MEDS: BUTALB/ACETAMINOPHEN/CAFFEINE 1 TAB EACH PO PRN ×4 (04:25→21:54)
[2020-03-08 04:47] LABS: HEMATOCRIT 22.2 % (36.0-47.0); MEAN CORPUSCULAR HEMOGLOBIN 22.5 pg (27.0-33.4); MEAN CORPUSCULAR HGB CONC 32.9 g/dL (32.0-36.0); MEAN CORPUSCULAR VOLUME 69 fl (80-97); PLATELET COUNT 885 10^3/uL (150-450); RED BLOOD COUNT 3.24 10^6/uL (3.72-5.28); RED CELL DISTRIBUTION WIDTH 17.4 % (11.5-14.0); WHITE BLOOD COUNT 7.1 10^3/uL (4.0-10.5)
[2020-03-08 04:48] LABS: HEMOGLOBIN 7.3 g/dL (12.0-15.5)
[2020-03-08 05:01] LABS: ANION GAP 10 (5-19); BLOOD UREA NITROGEN 10 mg/dL (7-20); CALCIUM 9.5 mg/dL (8.4-10.2); CARBON DIOXIDE 26 mmol/L (22-30); CHLORIDE 96 mmol/L (98-107); GLUCOSE 117 mg/dL (75-110); POTASSIUM 4.8 mmol/L (3.6-5.0)
[2020-03-08] MEDS: CEFTRIAXONE 2 GM/D5W RTU 2 GM/50 ML RTUPB IV SCH (09:28)
[2020-03-08] MEDS: BUPRENORPHINE HCL 2 MG SUBLINGUAL TABLET SL SCH ×3 (09:29→17:58)
[2020-03-08] MEDS: FAMOTIDINE 20 MG TABLET PO SCH ×2 (09:29→21:54)
[2020-03-08] MEDS: BUSPIRONE HCL 10 MG TABLET PO SCH ×2 (09:29→21:54)
[2020-03-08] MEDS: DOCUSATE SODIUM 100 MG CAPSULE PO SCH (09:29)
[2020-03-08] MEDS: FERROUS SULFATE 325 MG TABLET PO SCH (09:29)
[2020-03-08] MEDS: LIDOCAINE 5% (700 MG) TRANSDERMAL ADH..PATCH TP SCH (09:30)
[2020-03-08] MEDS: NORMAL SALINE 10 ML SDV (SCHEDULED) IV SCH ×2 (09:31→21:55)
[2020-03-08] MEDS: HYDROMORPHONE HCL INJ/PF 2 MG/ML AMPULE IV PRN ×4 (10:25→20:45)
--- NOTE | 2020-03-08 10:32 | RADIOLOGY REPORT (SQ) ---
EXAM DESCRIPTION: CHEST 2 VIEWS IMAGES COMPLETED DATE/TIME: 03/08/2020 8:27 am REASON FOR STUDY: s/p chest tube. loculated effusion COMPARISON: 03/06/2020 NUMBER OF VIEWS: Two view TECHNIQUE: Frontal and lateral radiographic images of the chest acquired. LIMITATIONS: None. FINDINGS: LUNGS AND PLEURA: Minimal change. No pneumothorax. MEDIASTINUM AND HILAR STRUCTURES: Stable heart size and mediastinal structures. HEART AND VASCULAR STRUCTURES: Stable appearance. SUPPORT DEVICES: Placement of right pleural drainage catheter inferiorly. Unchanged position of PICC line. BONES: No acute findings. OTHER: No other significant finding. IMPRESSION: No pneumothorax. TECHNICAL DOCUMENTATION: JOB ID: [id number] 2010 [employer]- All Rights Reserved Reading location - IP/workstation name: [email or web address]
--- NOTE | 2020-03-08 12:31 | PDOC PROGRESS REPORT ---
Subjective Progress Note for:: 03/08/20 Subjective:: Patient complains of significant pain at the site of the chest tube. Denies any fever chills. Denies any shortness of breath. Reason For Visit: SIRS Physical Exam Vital Signs: Temp Pulse Resp BP Pulse Ox 98.6 F 89 16 107/71 95 03/08/20 07:57 03/08/20 07:57 03/08/20 07:57 03/08/20 07:57 03/08/20 07:57 Intake & Output 03/07/20 03/08/20 03/09/20 06:59 06:59 06:59 Intake Total 1400 1040 100 Output Total 800 43 Balance 600 997 100 Weight 58.4 kg 58.7 kg General appearance: PRESENT: no acute distress, cooperative Neck exam: ABSENT: JVD Respiratory exam: PRESENT: clear to auscultation willie, unlabored, other - chest tube in place in right thorax. ABSENT: tachypnea, wheezes Cardiovascular exam: PRESENT: RRR, +S1, +S2. ABSENT: tachycardia GI/Abdominal exam: PRESENT: soft. ABSENT: rebound, rigid, tenderness Neurological exam: PRESENT: alert, awake, oriented to person, oriented to place, oriented to time Results Laboratory Results: 03/08/20 04:26 03/08/20 04:26 03/08/20 03/08/20 04:26 04:26 WBC 7.1 RBC 3.24 L Hgb 7.3 L Hct 22.2 L MCV 69 L MCH 22.5 L MCHC 32.9 RDW 17.4 H Plt Count 885 H Sodium 132.3 L Potassium 4.8 Chloride 96 L Carbon Dioxide 26 Anion Gap 10 BUN 10 Creatinine 0.57 Est GFR ( Amer) > 60 Glucose 117 H Calcium 9.5 Magnesium 1.9 03/03/20 09:27 Thoracic Fluid Gram Stain - Final 03/03/20 09:27 Thoracic Fluid Body Fluid Culture - Final NO AEROBIC OR ANAEROBIC ORGANISMS RECOVERED 02/21/20 02/21/20 02/21/20 08:46 08:46 18:31 Creatine Kinase 27 L Troponin I < 0.012 < 0.012 02/22/20 00:35 Creatine Kinase Troponin I < 0.012 Impressions: Abdomen/Pelvis CT 02/21/20 08:01 IMPRESSION: 1. NO SIGNIFICANT OR ACUTE FINDING IN THE ABDOMEN OR PELVIS ON CT SCAN WITH IV CONTRAST. NORMAL APPENDIX. 2. FAINT INDISTINCT AIRSPACE DISEASE IN THE RIGHT LOWER LOBE, NONSPECIFIC, WHICH MAY BE DUE TO INFECTION OR INFLAMMATION. Abdomen Ultrasound 02/21/20 12:07 IMPRESSION: POSSIBLE MINIMAL SLUDGE IN THE GALLBLADDER. OTHERWISE NORMAL RIGHT UPPER QUADRANT ULTRASOUND. Extremity Ultrasound 02/25/20 00:00 IMPRESSION: No abscess. There is thrombus in the saphenous vein to the saphenous femoral junction. PICC Line Insertion 02/26/20 00:00 IMPRESSION: SUCCESSFUL PLACEMENT OF A 5 FR DUAL LUMEN 32 CM PICC IN THE RIGHT BASILIC VEIN. Chest/Abdomen CTA 03/01/20 17:30 IMPRESSION: 1. Interval development of loculated right pleural effusion with compressive atelectasis and consolidation in the right lower lobe. The previous area of consolidation and cavitary nodule are now obscured bike consolidation at the right lung base. 2. Persistent small right segmental pulmonary embolism, probably slightly smaller than on previous examination difficult to compare due to degree of consolidation. No new PE. Thoracentesis Ultrasound 03/03/20 08:00 IMPRESSION: Successful ultrasound-guided right-sided thoracentesis. Chest CT 03/05/20 00:00 IMPRESSION: 1. Persistent and not significantly changed loculated right posterior pleural effusion. There is scattered collections of air now seen within the loculated pleural effusion. 2. Persistent parenchymal opacification in the right perihilar and lower lobe. Improved aeration in the left lung base. 3. Probable hepatomegaly. Splenomegaly is present. Apical Lordotic X-Ray 03/06/20 00:00 IMPRESSION: Loculated small right pleural effusion. Chest Tube Insertion 03/07/20 00:00 IMPRESSION: Successful CT-guided placement of a 10 Chinese chest tube into the fluid-filled right pleural space. Chest X-Ray 03/08/20 06:00 IMPRESSION: No pneumothorax. Assessment and Plan - Diagnosis (1) Streptococcal bacteremia Is this a current diagnosis for this admission?: Yes Plan: Evaluated by infectious diseases who recommends 4 weeks of antibiotics IV in absence of vegetation on RYAN otherwise 6 weeks. Patient underwent RYAN which did not show any evidence of vegetations. As such, patient does not meet [place] criteria for infective endocarditis. We will continue with treatment plan to complete 4 weeks of IV ceftriaxone. End date 03/22/2020 (2) Exudative pleural effusion Is this a current diagnosis for this admission?: Yes Plan: Patient's fluid analysis indicates Complicated parapneumonic right pleural effusion. Patient has high fluid LDH, high protein, low glucose and pH of 7.2. Gram stain/culture negative & fluid was nonpurulent ruling out empyema. CT of the chest 03/05/2020 still showed good amount of loculated effusion. I consulted Speedometer Inspector here as well as CT surgery at [facility] via telephone who reviewed the CT and CXR images who recommend chest tube. CT surgery recommends placement of chest tube only first and states that VATS is not needed at this point. IR placed 10 Chinese chest tube on 03/07/2020 connected to Pleur-evac and currently on suction drained only about 60cc so far. Chest x-ray this morning shows no evidence of pneumothorax. Will monitor output closely over the next 48 hours. Pain control with dilaudid IV as needed. (3) Pulmonary embolism Qualifiers: Pulmonary embolism type: other Chronicity: acute Acute cor pulmonale presence: without acute cor pulmonale Qualified Code(s): I26.99 - Other pulmonary embolism without acute cor pulmonale Is this a current diagnosis for this admission?: Yes Plan: CTA chest revealed small right lower lobe PE. Possible that this is septic embolism in light of current bacteremia but it could very well also be noninfectious especially given the absence of any pulmonary nodularities or cavitations on chest CT. We will resume heparin drip. (4) Pneumonia Qualifiers: Pneumonia type: due to unspecified organism Laterality: right Lung location: lower lobe of lung Qualified Code(s): J18.9 - Pneumonia, unspecified organism Is this a current diagnosis for this admission?: Yes Plan: Strep pyogenes isolated in blood culture. Continue ceftriaxone. (5) IV drug abuse Is this a current diagnosis for this admission?: Yes Plan: Continue Subutex. Supportive care. - Time Time Spent with patient: Less than 15 minutes
[2020-03-08] MEDS ORDERED: LIDOCAINE 5% OINTMENT 35.44 GM TP PRN (15:43)
[2020-03-08] MEDS: MELATONIN 3 MG TABLET PO SCH (21:54)
[2020-03-08] MEDS: DIPHENHYDRAMINE HCL 25 MG CAPSULE PO PRN (21:54)
[2020-03-08] MEDS: PHARMACY COMMUNICATION ORDER MC SCH (21:55)
[2020-03-09] MEDS: HYDROMORPHONE HCL INJ/PF 2 MG/ML AMPULE IV PRN ×6 (00:51→22:05)
[2020-03-09] MEDS: METRONIDAZOLE 500 MG/NS RTU 500 MG/100 ML RTUPB IV SCH ×4 (00:51→17:38)
[2020-03-09 06:31] LABS: MEAN CORPUSCULAR HEMOGLOBIN 22.3 pg (27.0-33.4); MEAN CORPUSCULAR HGB CONC 32.1 g/dL (32.0-36.0); MEAN CORPUSCULAR VOLUME 70 fl (80-97); PLATELET COUNT 796 10^3/uL (150-450); RED BLOOD COUNT 3.17 10^6/uL (3.72-5.28); WHITE BLOOD COUNT 4.7 10^3/uL (4.0-10.5)
[2020-03-09 06:49] LABS: HEMOGLOBIN 7.1 g/dL (12.0-15.5)
[2020-03-09 07:04] LABS: ANION GAP 8 (5-19); BLOOD UREA NITROGEN 10 mg/dL (7-20); CALCIUM 9.1 mg/dL (8.4-10.2); CARBON DIOXIDE 28 mmol/L (22-30); CHLORIDE 99 mmol/L (98-107); GLUCOSE 103 mg/dL (75-110); POTASSIUM 4.9 mmol/L (3.6-5.0)
[2020-03-09] MEDS: BUSPIRONE HCL 10 MG TABLET PO SCH ×2 (09:07→22:03)
[2020-03-09] MEDS: BUPRENORPHINE HCL 2 MG SUBLINGUAL TABLET SL SCH ×3 (09:07→17:38)
[2020-03-09] MEDS: FAMOTIDINE 20 MG TABLET PO SCH ×2 (09:07→22:03)
[2020-03-09] MEDS: DOCUSATE SODIUM 100 MG CAPSULE PO SCH (09:07)
[2020-03-09] MEDS: FERROUS SULFATE 325 MG TABLET PO SCH (09:07)
[2020-03-09] MEDS: CEFTRIAXONE 2 GM/D5W RTU 2 GM/50 ML RTUPB IV SCH (09:08)
[2020-03-09] MEDS: NORMAL SALINE 10 ML SDV (SCHEDULED) IV SCH ×2 (09:08→22:04)
[2020-03-09] MEDS: LIDOCAINE 5% (700 MG) TRANSDERMAL ADH..PATCH TP SCH (09:09)
--- NOTE | 2020-03-09 14:19 | PDOC PROGRESS REPORT ---
Subjective Progress Note for:: 03/09/20 Subjective:: Patient still complaining of a lot of pain around the chest tube site. States that the Dilaudid helps but wears off after about 2 hours. Denies any shortness of breath or fevers. Reason For Visit: SIRS Physical Exam Vital Signs: Temp Pulse Resp BP Pulse Ox 97.9 F 70 16 102/70 98 03/09/20 12:00 03/09/20 12:00 03/09/20 12:00 03/09/20 12:00 03/09/20 12:00 Intake & Output 03/08/20 03/09/20 03/10/20 06:59 06:59 06:59 Intake Total 1040 1650 800 Output Total 43 6 Balance 997 1644 800 Weight 58.7 kg 59.3 kg General appearance: PRESENT: no acute distress, cooperative Neck exam: ABSENT: JVD Respiratory exam: PRESENT: clear to auscultation willie, unlabored. ABSENT: tachypnea, wheezes Cardiovascular exam: PRESENT: RRR, +S1, +S2. ABSENT: tachycardia GI/Abdominal exam: PRESENT: soft. ABSENT: rebound, rigid, tenderness Neurological exam: PRESENT: alert, awake, oriented to person, oriented to place, oriented to time Results Laboratory Results: 03/09/20 05:15 03/09/20 05:15 03/09/20 03/09/20 05:15 05:15 WBC 4.7 RBC 3.17 L Hgb 7.1 L Hct 22.0 L MCV 70 L MCH 22.3 L MCHC 32.1 RDW 17.0 H Plt Count 796 H Sodium 134.8 L Potassium 4.9 Chloride 99 Carbon Dioxide 28 Anion Gap 8 BUN 10 Creatinine 0.54 Est GFR ( Amer) > 60 Glucose 103 Calcium 9.1 Magnesium 2.0 02/21/20 02/21/20 02/21/20 08:46 08:46 18:31 Creatine Kinase 27 L Troponin I < 0.012 < 0.012 02/22/20 00:35 Creatine Kinase Troponin I < 0.012 Impressions: Abdomen/Pelvis CT 02/21/20 08:01 IMPRESSION: 1. NO SIGNIFICANT OR ACUTE FINDING IN THE ABDOMEN OR PELVIS ON CT SCAN WITH IV CONTRAST. NORMAL APPENDIX. 2. FAINT INDISTINCT AIRSPACE DISEASE IN THE RIGHT LOWER LOBE, NONSPECIFIC, WHICH MAY BE DUE TO INFECTION OR INFLAMMATION. Abdomen Ultrasound 02/21/20 12:07 IMPRESSION: POSSIBLE MINIMAL SLUDGE IN THE GALLBLADDER. OTHERWISE NORMAL RIGHT UPPER QUADRANT ULTRASOUND. Extremity Ultrasound 02/25/20 00:00 IMPRESSION: No abscess. There is thrombus in the saphenous vein to the saphenous femoral junction. PICC Line Insertion 02/26/20 00:00 IMPRESSION: SUCCESSFUL PLACEMENT OF A 5 FR DUAL LUMEN 32 CM PICC IN THE RIGHT BASILIC VEIN. Chest/Abdomen CTA 03/01/20 17:30 IMPRESSION: 1. Interval development of loculated right pleural effusion with compressive atelectasis and consolidation in the right lower lobe. The previous area of consolidation and cavitary nodule are now obscured bike consolidation at the right lung base. 2. Persistent small right segmental pulmonary embolism, probably slightly smaller than on previous examination difficult to compare due to degree of c onsolidation. No new PE. Thoracentesis Ultrasound 03/03/20 08:00 IMPRESSION: Successful ultrasound-guided right-sided thoracentesis. Chest CT 03/05/20 00:00 IMPRESSION: 1. Persistent and not significantly changed loculated right posterior pleural effusion. There is scattered collections of air now seen within the loculated pleural effusion. 2. Persistent parenchymal opacification in the right perihilar and lower lobe. Improved aeration in the left lung base. 3. Probable hepatomegaly. Splenomegaly is present. Apical Lordotic X-Ray 03/06/20 00:00 IMPRESSION: Loculated small right pleural effusion. Chest Tube Insertion 03/07/20 00:00 IMPRESSION: Successful CT-guided placement of a 10 Bulgarian chest tube into the fluid-filled right pleural space. Chest X-Ray 03/08/20 06:00 IMPRESSION: No pneumothorax. Assessment and Plan - Diagnosis (1) Streptococcal bacteremia Is this a current diagnosis for this admission?: Yes Plan: Evaluated by infectious diseases who recommends 4 weeks of antibiotics IV in absence of vegetation on RYAN otherwise 6 weeks. Patient underwent RYAN which did not show any evidence of vegetations. As such, patient does not meet [place] criteria for infective endocarditis. We will continue with treatment plan to complete 4 weeks of IV ceftriaxone. End date 03/22/2020 (2) Exudative pleural effusion Is this a current diagnosis for this admission?: Yes Plan: Patient's fluid analysis indicates Complicated parapneumonic right pleural effusion. Patient has high fluid LDH, high protein, low glucose and pH of 7.2. Gram stain/culture negative & fluid was nonpurulent ruling out empyema. CT of the chest 03/05/2020 still showed good amount of loculated effusion. I consulted Crew Foreman here as well as CT surgery at [facility] via telephone who reviewed the CT and CXR images who recommend chest tube. CT surgery recommends placement of chest tube only first and states that VATS is not needed at this point. IR placed 10 Bulgarian chest tube on 03/07/2020 connected to Pleur-evac and currently on suction drained only about 60cc so far. Chest x-ray subsequently showed no evidence of pneumothorax. Unfortunately, patient chest tube has only drained about 50 cc total since placement. Due to failure of treatment of complicated parapneumonic effusion, I will administer alteplase/dornase joel via chest tube into pleural cavity to see if this will improve output from chest tube. I will administer a dose today and another one potentially tomorrow if no results. Monitor for pleural bleed. (3) Pulmonary embolism Qualifiers: Pulmonary embolism type: other Chronicity: acute Acute cor pulmonale presence: without acute cor pulmonale Qualified Code(s): I26.99 - Other pulmonary embolism without acute cor pulmonale Is this a current diagnosis for this admission?: Yes Plan: CTA chest revealed small right lower lobe PE. Possible that this is septic embolism in light of current bacteremia but it could very well also be noninfectious especially given the absence of any pulmonary nodularities or cavitations on chest CT. Continue heparin drip for now as patient may need further procedures/interventions for her other condition. (4) Pneumonia Qualifiers: Pneumonia type: due to unspecified organism Laterality: right Lung location: lower lobe of lung Qualified Code(s): J18.9 - Pneumonia, unspecified organism Is this a current diagnosis for this admission?: Yes (5) IV drug abuse Is this a current diagnosis for this admission?: Yes - Time Time Spent with patient: Less than 15 minutes
[2020-03-09] MEDS ORDERED: ALTEPLASE INJ 2 MG VIAL (CATH CLEARANCE) INJ ONE (15:00)
[2020-03-09] MEDS ORDERED: ALTEPLASE INJ 2 MG VIAL (CATH CLEARANCE) INJ SCH (15:00)
[2020-03-09] MEDS ORDERED: DORNASE ALFA NEB 2.5 MG/2.5 ML AMPUL NEB ONE (17:00)
--- NOTE | 2020-03-09 18:07 | PDOC CONSULTATION ---
Consultation Consult Date: 03/09/20 Attending physician:: NOLBERTO VIEIRA Provider Consulted: CHRIS GARZA Consult reason:: Assist with management of right parapneumonic effusion History of Present Illness Admission Date/PCP: 02/21/20 14:43 History of Present Illness: KINA GOMEZ is a 29 year old female Patient is a 29-year-old white female with history of migraine headache, seizure disorder, IV drug abuse, pain management contract, hospitalized for 2 and half weeks at [facility] for right chest wall and abdominal pain diagnosed with streptococcal septicemia and pneumonia. Patient is been treated with IV antibiotics with generalized clinical improvement in her septic parameters. As her pneumonia evolved over the initial week of her hospit alization, she was found to have a right parapneumonic effusion. On 03/05/2020 she had a 20 Angolan radiologically placed thoracostomy pigtail catheter inserted with drainage of serosanguineous fluid. Cultures from her pleural space, and sputum grew no infecting organisms. In the interim patient developed DVT in her right greater saphenous vein, and a right lower lobe pulmonary artery which she has been receiving heparin drip. Clinically the patient states she is breathing better. Chest tube drainage has been minimal. Primary care team consulted cardiothoracic surgery at [facility] who recommended continue chest tube drainage, and off on VATS therapy for now. Patient's last chest x-ray was 2 days ago and showed no significant change in right lower lobe pneumonia and small pleural effusion. She has had no recent fever. Past Medical History Cardiac Medical History: Reports: None Pulmonary Medical History: Reports: None EENT Medical History: Reports: None Neurological Medical History: Reports: Migraine, Seizures Endocrine Medical History: Reports: None Renal/ Medical History: Reports: None Malignancy Medical History: Reports: None GI Medical History: Reports: None Musculoskeltal Medical History: Reports: None Skin Medical History: Reports: None Psychiatric Medical History: Reports: Substance Abuse, Tobacco Dependency Traumatic Medical History: Reports: None Hematology: Reports: Anemia Infectious Medical History: Reports: None Past Surgical History Past Surgical History: Reports: Section Denies: Hysterectomy Social History Lives with: Family Smoking Status: Current Every Day Smoker Cigarettes Packs Per Day: 0.5 Electronic Cigarette use?: No Frequency of Alcohol Use: None Hx Recreational Drug Use: Yes Drugs: Methadone Hx Prescription Drug Abuse: No - Advance Directive Resuscitation Status: Full Code Family History Family History: None, Hypertension Parental Family History Reviewed: No Children Family History Reviewed: No Sibling(s) Family History Reviewed.: No Medication/Allergy Home Medications: No Home Medications 02/21/20 Allergies/Adverse Reactions: No Known Allergies Allergy (Verified 10/26/19 12:08) Review of Systems Constitutional: PRESENT: as per HPI Eyes: ABSENT: visual disturbances Ears: ABSENT: hearing changes Gastrointestinal: PRESENT: other - Abdominal pain Musculoskeletal: PRESENT: other - Right upper back pain Integumentary: PRESENT: other - Right upper back pain Neurological: PRESENT: other - seizure disorder Psychiatric: PRESENT: other Physical Exam Vital Signs: Temp Pulse Resp BP Pulse Ox 98.3 F 113 H 20 98/65 L 100 03/09/20 15:45 03/09/20 15:45 03/09/20 15:45 03/09/20 15:45 03/09/20 15:45 Intake & Output 03/08/20 03/09/20 03/10/20 06:59 06:59 06:59 Intake Total 1040 1650 900 Output Total 43 6 Balance 997 1644 900 Weight 58.7 kg 59.3 kg General appearance: PRESENT: no acute distress Head exam: PRESENT: normocephalic Eye exam: PRESENT: EOMI Mouth exam: PRESENT: dry mucosa Neck exam: PRESENT: full ROM Respiratory exam: PRESENT: other - Diminished breath sounds on the right side; right 10 Angolan thoracostomy tube pigtail attached to Pleur-evac suction with minimal drainage, no air leak Pulses: PRESENT: normal carotid pulses GI/Abdominal exam: PRESENT: soft Rectal exam: PRESENT: deferred Gentrourinary exam: PRESENT: other - Deferred Extremities exam: PRESENT: full ROM Neurological exam: PRESENT: oriented to person, oriented to place, oriented to time, oriented to situation Results Laboratory Results: 03/09/20 05:15 03/09/20 05:15 03/09/20 03/09/20 05:15 05:15 WBC 4.7 RBC 3.17 L Hgb 7.1 L Hct 22.0 L MCV 70 L MCH 22.3 L MCHC 32.1 RDW 17.0 H Plt Count 796 H Sodium 134.8 L Potassium 4.9 Chloride 99 Carbon Dioxide 28 Anion Gap 8 BUN 10 Creatinine 0.54 Est GFR ( Amer) > 60 Glucose 103 Calcium 9.1 Magnesium 2.0 02/21/20 02/21/20 02/21/20 08:46 08:46 18:31 Creatine Kinase 27 L Troponin I < 0.012 < 0.012 02/22/20 00:35 Creatine Kinase Troponin I < 0.012 Impressions: Abdomen/Pelvis CT 02/21/20 08:01 IMPRESSION: 1. NO SIGNIFICANT OR ACUTE FINDING IN THE ABDOMEN OR PELVIS ON CT SCAN WITH IV CONTRAST. NORMAL APPENDIX. 2. FAINT INDISTINCT AIRSPACE DISEASE IN THE RIGHT LOWER LOBE, NONSPECIFIC, WHICH MAY BE DUE TO INFECTION OR INFLAMMATION. Abdomen Ultrasound 02/21/20 12:07 IMPRESSION: POSSIBLE MINIMAL SLUDGE IN THE GALLBLADDER. OTHERWISE NORMAL RIGHT UPPER QUADRANT ULTRASOUND. Extremity Ultrasound 02/25/20 00:00 IMPRESSION: No abscess. There is thrombus in the saphenous vein to the saphenous femoral junction. PICC Line Insertion 02/26/20 00:00 IMPRESSION: SUCCESSFUL PLACEMENT OF A 5 FR DUAL LUMEN 32 CM PICC IN THE RIGHT BASILIC VEIN. Chest/Abdomen CTA 03/01/20 17:30 IMPRESSION: 1. Interval development of loculated right pleural effusion with compressive atelectasis and consolidation in the right lower lobe. The previous area of consolidation and cavitary nodule are now obscured bike consolidation at the right lung base. 2. Persistent small right segmental pulmonary embolism, probably slightly smaller than on previous examination difficult to compare due to degree of conso lidation. No new PE. Thoracentesis Ultrasound 03/03/20 08:00 IMPRESSION: Successful ultrasound-guided right-sided thoracentesis. Chest CT 03/05/20 00:00 IMPRESSION: 1. Persistent and not significantly changed loculated right posterior pleural effusion. There is scattered collections of air now seen within the loculated pleural effusion. 2. Persistent parenchymal opacification in the right perihilar and lower lobe. Improved aeration in the left lung base. 3. Probable hepatomegaly. Splenomegaly is present. Apical Lordotic X-Ray 03/06/20 00:00 IMPRESSION: Loculated small right pleural effusion. Chest Tube Insertion 03/07/20 00:00 IMPRESSION: Successful CT-guided placement of a 10 Angolan chest tube into the fluid-filled right pleural space. Chest X-Ray 03/08/20 06:00 IMPRESSION: No pneumothorax. Assessment & Plan - Diagnosis (1) Pleural effusion, right Is this a current diagnosis for this admission?: Yes Plan: Impression: Stable small right parapneumonic effusion patient with resolving streptococcal bacteremia complicated by small right pulmonary artery embolus on IV heparin. Patient states she is improved clinically, no evidence of a leukocytosis or fever. Now with 10 Angolan thoracostomy tube draining serosa nguineous fluid, cultures negative for infecting organism. Discussion and recommendations: 1. I reviewed imaging studies to date. The patient's right pleural effusion appears stable with minimal drainage through this a small 10 Angolan tube. The tube has been flushed by Dr. Garza at bedside with sterile saline and appears patent. I do not believe thrombolytic therapy is indicated. 2. I discussed the patient with Dr. Vieira; we agreed to repeat CT scan of the chest tomorrow. If stable or improved, I would suggest moving towards getting the right chest tube out as its utility has been exhausted; conversely if the findings on CT are worse, then the role of a VATS procedure will be discussed. 3. The discussed with nursing staff as well as patient. Did encourage her to cough more, ambulate more, deep breathe and use incentive spirometer more vigorously to get her right lung completely expanded. I believe she will improve without further intervention. (2) Venous thromboembolism Is this a current diagnosis for this admission?: Yes (3) Anemia Qualifiers: Folate deficiency anemia type: dietary Is this a current diagnosis for this admission?: Yes (4) Bacteremia Is this a current diagnosis for this admission?: Yes (5) IV drug abuse Is this a current diagnosis for this admission?: Yes (6) Opioid dependence Qualifiers: Substance use status: uncomplicated Qualified Code(s): F11.20 - Opioid dependence, uncomplicated Is this a current diagnosis for this admission?: Yes - Time Time Spent: 30 to 50 Minutes Smoking Cessation Education: over 10 minutes Medications reviewed and adjusted accordingly: Yes Anticipated discharge: Home
[2020-03-09] MEDS: BUTALB/ACETAMINOPHEN/CAFFEINE 1 TAB EACH PO PRN (22:02)
[2020-03-09] MEDS: MELATONIN 3 MG TABLET PO SCH (22:03)
[2020-03-09] MEDS: PHARMACY COMMUNICATION ORDER MC SCH (22:04)
[2020-03-09] MEDS: DIPHENHYDRAMINE HCL 25 MG CAPSULE PO PRN (22:13)
[2020-03-10] MEDS: METRONIDAZOLE 500 MG/NS RTU 500 MG/100 ML RTUPB IV SCH ×4 (00:30→18:20)
[2020-03-10] MEDS: HYDROMORPHONE HCL INJ/PF 2 MG/ML AMPULE IV PRN ×4 (03:40→22:46)
[2020-03-10 07:04] LABS: HEMATOCRIT 22.3 % (36.0-47.0); MEAN CORPUSCULAR HEMOGLOBIN 22.5 pg (27.0-33.4); MEAN CORPUSCULAR HGB CONC 32.5 g/dL (32.0-36.0); MEAN CORPUSCULAR VOLUME 69 fl (80-97); PLATELET COUNT 726 10^3/uL (150-450); RED BLOOD COUNT 3.21 10^6/uL (3.72-5.28); RED CELL DISTRIBUTION WIDTH 17.5 % (11.5-14.0); WHITE BLOOD COUNT 5.3 10^3/uL (4.0-10.5)
[2020-03-10 07:08] LABS: HEMOGLOBIN 7.2 g/dL (12.0-15.5)
[2020-03-10 09:05] LABS: APPEARANCE,URINE CLEAR; BILIRUBIN,URINE NEGATIVE (NEGATIVE); COLOR,URINE YELLOW; GLUCOSE, URINE NEGATIVE (NEGATIVE); KETONES,URINE NEGATIVE (NEGATIVE); LEUKOCYTE ESTERASE,URINE NEGATIVE (NEGATIVE); NITRITE,URINE NEGATIVE (NEGATIVE); PROTEIN,URINE NEGATIVE (NEGATIVE); URINE SPECIFIC GRAVITY 1.012; UROBILINOGEN,URINE NEGATIVE mg/dL (<2.0)
--- NOTE | 2020-03-10 09:14 | PDOC PROGRESS REPORT ---
Subjective Progress Note for:: 03/10/20 Subjective:: feels well, no sob Reason For Visit: SIRS Physical Exam Vital Signs: Temp Pulse Resp BP Pulse Ox 97.8 F 82 16 99/59 L 97 03/10/20 07:55 03/10/20 07:55 03/10/20 07:55 03/10/20 07:55 03/09/20 23:27 Intake & Output 03/09/20 03/10/20 03/11/20 06:59 06:59 06:59 Intake Total 1650 1924 Output Total 6 Balance 1644 1924 Weight 59.3 kg 60.6 kg General appearance: PRESENT: no acute distress Head exam: PRESENT: normocephalic Eye exam: PRESENT: EOMI Ear exam: PRESENT: normal external ear exam Mouth exam: PRESENT: moist Neck exam: PRESENT: full ROM Respiratory exam: PRESENT: clear to auscultation willie Cardiovascular exam: PRESENT: RRR Pulses: PRESENT: +2 pedal pulses bilateral Vascular exam: PRESENT: normal capillary refill Breast: PRESENT: Normal GI/Abdominal exam: PRESENT: soft Rectal exam: PRESENT: deferred Extremities exam: PRESENT: full ROM Musculoskeletal exam: PRESENT: full ROM Neurological exam: PRESENT: alert, awake, oriented to person, oriented to place Psychiatric exam: PRESENT: anxious, appropriate affect Skin exam: PRESENT: dry Results Laboratory Results: 03/10/20 06:45 03/09/20 05:15 03/10/20 03/10/20 06:45 08:53 WBC 5.3 RBC 3.21 L Hgb 7.2 L Hct 22.3 L MCV 69 L MCH 22.5 L MCHC 32.5 RDW 17.5 H Plt Count 726 H Urine Color YELLOW Urine Appearance CLEAR Urine pH 6.0 Ur Specific [place] 1.012 Urine Protein NEGATIVE Urine Glucose (UA) NEGATIVE Urine Ketones NEGATIVE Urine Blood NEGATIVE Urine Nitrite NEGATIVE Ur Leukocyte Esterase NEGATIVE Urine WBC (Auto) 0 Urine RBC (Auto) 0 02/21/20 02/21/20 02/21/20 08:46 08:46 18:31 Creatine Kinase 27 L Troponin I < 0.012 < 0.012 02/22/20 00:35 Creatine Kinase Troponin I < 0.012 Impressions: Abdomen/Pelvis CT 02/21/20 08:01 IMPRESSION: 1. NO SIGNIFICANT OR ACUTE FINDING IN THE ABDOMEN OR PELVIS ON CT SCAN WITH IV CONTRAST. NORMAL APPENDIX. 2. FAINT INDISTINCT AIRSPACE DISEASE IN THE RIGHT LOWER LOBE, NONSPECIFIC, WHICH MAY BE DUE TO INFECTION OR INFLAMMATION. Abdomen Ultrasound 02/21/20 12:07 IMPRESSION: POSSIBLE MINIMAL SLUDGE IN THE GALLBLADDER. OTHERWISE NORMAL RIGHT UPPER QUADRANT ULTRASOUND. Extremity Ultrasound 02/25/20 00:00 IMPRESSION: No abscess. There is thrombus in the saphenous vein to the saphenous femoral junction. PICC Line Insertion 02/26/20 00:00 IMPRESSION: SUCCESSFUL PLACEMENT OF A 5 FR DUAL LUMEN 32 CM PICC IN THE RIGHT BASILIC VEIN. Chest/Abdomen CTA 03/01/20 17:30 IMPRESSION: 1. Interval development of loculated right pleural effusion with compressive atelectasis and consolidation in the right lower lobe. The previous area of consolidation and cavitary nodule are now obscured bike consolidation at the right lung base. 2. Persistent small right segmental pulmonary embolism, probably slightly smaller than on previous examination difficult to compare due to degree of consolidation. No new PE. Thoracentesis Ultrasound 03/03/20 08:00 IMPRESSION: Successful ultrasound-guided right-sided thoracentesis. Apical Lordotic X-Ray 03/06/20 00:00 IMPRESSION: Loculated small right pleural effusion. Chest Tube Insertion 03/07/20 00:00 IMPRESSION: Successful CT-guided placement of a 10 Kazakh chest tube into the fluid-filled right pleural space. Chest X-Ray 03/08/20 06:00 IMPRESSION: No pneumothorax. Assessment & Plan - Plan Summary Plan Summary: right parapneumonic effusion loculated s/p ir placed drain with min improvemt pt clinically is much improved however ct today show the effusion consider consult thoracic surgery.
--- NOTE | 2020-03-10 09:31 | RADIOLOGY REPORT (SQ) ---
EXAM DESCRIPTION: CT CHEST WITHOUT IMAGES COMPLETED DATE/TIME: 03/10/2020 7:45 am REASON FOR STUDY: parapneumonic effusion f/u post chest tube COMPARISON: CT of the abdomen and pelvis without contrast from 03/05/2020. TECHNIQUE: CT scan performed of the chest without intravenous contrast. Images reviewed with lung, soft tissue and bone windows. Reconstructed coronal and sagittal MPR images reviewed. All images st ored on PACS. All CT scanners at this facility use dose modulation, iterative reconstruction, and/or weight based d osing when appropriate to reduce radiation dose to as low as reasonably achievable (ALARA). [facility]: Dose Right [facility]: CareDose [facility]: Dose Right [facility]: Teradose 4D [facility]: Smart Renovar RADIATION DOSE: CT Rad equipment meets quality standard of care and radiation dose reduction techniq ues were employed. CTDIvol: 3.5 mGy. DLP: 135 mGy-cm. LIMITATIONS: No technical limitations. FINDINGS: LUNGS AND PLEURA: In the interim a 10 Nauruan pleural drainage catheter has been placed int o the fluid-filled right pleural space ; since then the amount of air in the pleural space has increa sed (part of it is iatrogenic) and the amount of fluid has decreased. The area of consolidation with air bronchograms in the dependent portion of the right lower lobe is unchanged. The peripheral retr oocular nodular opacities in the left lower lobe are also unchanged. There is no acute consolidation or ground-glass opacification. HILAR AND MEDIASTINAL STRUCTURES: Evaluation of the [place] for adenopathy is limited due to the absence of intravenous contrast. There are stable nonenlarged mediastinal lymph nodes that measured less th an 10 mm in short axis diameter. There is no mediastinal mass or pneumomediastinum. HEART AND VASCULAR STRUCTURES: No thoracic aortic aneurysm. No cardiomegaly or pericardial effusion. UPPER ABDOMEN: Unchanged borderline splenomegaly. THYROID AND OTHER SOFT TISSUES: Subcutaneous emphysema and intramuscular emphysema in the posterior a spect of the right hemithorax related tube placement of the pleural drainage catheter. BONES: No acute findings. HARDWARE: The tip of the right upper extremity PICC terminates within the SVC. OTHER: No other findings. IMPRESSION: Since placement of the pleural drainage catheter the amount of air in the posterior righ t pleural space has increased (part of it is iatrogenic) and the amount of fluid has decreased. The area of consolidation with air bronchograms in the dependent portion of the right lower lobe is uncha nged. TECHNICAL DOCUMENTATION: JOB ID: [id number] Quality ID # [id number]: Final reports with documentation of one or more dose reduction techniques (e.g., Au tomated exposure control, adjustment of the mA and/or kV according to patient size, use of iterative reconstruction technique) 2010 [employer]- All Rights Reserved Reading location - IP/workstation name: [email or web address]
[2020-03-10] MEDS: CEFTRIAXONE 2 GM/D5W RTU 2 GM/50 ML RTUPB IV SCH (11:28)
[2020-03-10] MEDS: BUPRENORPHINE HCL 2 MG SUBLINGUAL TABLET SL SCH ×3 (11:29→18:36)
[2020-03-10] MEDS: FAMOTIDINE 20 MG TABLET PO SCH ×2 (11:31→22:36)
[2020-03-10] MEDS: BUSPIRONE HCL 10 MG TABLET PO SCH ×2 (11:31→22:35)
[2020-03-10] MEDS: FERROUS SULFATE 325 MG TABLET PO SCH (11:31)
[2020-03-10] MEDS: DOCUSATE SODIUM 100 MG CAPSULE PO SCH (11:33)
[2020-03-10] MEDS: NORMAL SALINE 10 ML SDV (SCHEDULED) IV SCH ×2 (11:43→22:37)
[2020-03-10] MEDS: LIDOCAINE 5% (700 MG) TRANSDERMAL ADH..PATCH TP SCH (11:50)
[2020-03-10] MEDS: METHOCARBAMOL 750 MG TABLET PO PRN (18:21)
--- NOTE | 2020-03-10 18:59 | PDOC TRANSFER SUMMARY ---
General Admission Date/PCP: 02/21/20 14:43 Admission Date: 02/21/20 Accepting Facility: [facility] Accepting Physician: Dr. Cohn. Will have CT surgery consult. Resuscitation Status: Full Code - Transfer Diagnosis (1) Streptococcal bacteremia Is this a current diagnosis for this admission?: Yes (2) Exudative pleural effusion Is this a current diagnosis for this admission?: Yes (3) Pulmonary embolism Is this a current diagnosis for this admission?: Yes (4) Pneumonia Is this a current diagnosis for this admission?: Yes (5) IV drug abuse Is this a current diagnosis for this admission?: Yes - Transfer Medications Home Medications: No Home Medications 02/21/20 Transfer Medications: Current Medications Acetaminophen (Tylenol 325 Mg Tablet) 650 mg PO Q4HP PRN PRN Reason: FOR PAIN OR TEMP Stop: 03/22/20 15:01 Last Admin: 03/07/20 13:56 Dose: 650 mg Documented by: Acetaminophen/Butalbital/Caffeine (Fioricet (50-325-40 Mg) Tablet) 1 tab PO Q4HP PRN PRN Reason: FOR HEADACHE Stop: 03/29/20 18:49 Last Admin: 03/09/20 22:02 Dose: 1 tab Documented by: Al Hydrox/Mg Hydrox/Simethicone (Maalox Plus Susp 30 Udcup) 30 ml PO Q6HP PRN PRN Reason: HEARTBURN Stop: 03/22/20 15:01 Albuterol (Ventolin 0.083% Neb 2.5 Mg/3 Ml Ampul) 2.5 mg NEB RTQ6HP PRN PRN Reason: SHORTNESS OF BREATH Stop: 03/22/20 15:01 Last Admin: 03/06/20 19:51 Dose: 2.5 mg Documented by: Buprenorphine HCl (Subutex 2 Mg Sl Tablet) 8 mg SL TID SYED Stop: 04/01/20 19:59 Last Admin: 03/10/20 18:36 Dose: 8 mg Documented by: Buspirone HCl (Buspar 10 Mg Tablet) 10 mg PO Q12 SYED Stop: 03/27/20 11:59 Last Admin: 03/10/20 11:31 Dose: 10 mg Documented by: Dextrose (Dextrose Inj 50% Syringe (25 Gm/50 Ml)) 12.5 gm IV PRN PRN; Protocol PRN Reason: FOR BG 50-69 IN ALERT PATIENT Stop: 04/04/20 04:54 Dextrose (Dextrose Inj 50% Syringe (25 Gm/50 Ml)) 25 gm IV PRN PRN; Protocol PRN Reason: See Label Comments Stop: 04/04/20 04:54 Diphenhydramine HCl (Benadryl 25 Mg Capsule) 25 mg PO HSP PRN PRN Reason: SLEEP OR INSOMNIA Stop: 03/26/20 10:32 Last Admin: 03/09/20 22:13 Dose: 25 mg Documented by: Docusate Sodium (Colace 100 Mg Capsule) 100 mg PO DAILY [facility] Stop: 03/23/20 09:59 Last Admin: 03/10/20 11:33 Dose: 100 mg Documented by: Famotidine (Pepcid 20 Mg Tablet) 20 mg PO Q12 SYED Stop: 03/22/20 21:59 Last Admin: 03/10/20 11:31 Dose: 20 mg Documented by: Ferrous Sulfate (Feosol 325 Mg Tablet) 325 mg PO DAILY [facility] Stop: 04/06/20 09:59 Last Admin: 03/10/20 11:31 Dose: 325 mg Documented by: Glucagon (Glucagen Inj 1 Mg Vial) 1 mg SUBCUT PRN PRN; Protocol PRN Reason: Evaluate for BG < 70 Stop: 04/04/20 04:54 Glucose (Glutose 40% Gel 15 Gm Tube) 15 gm PO PRN PRN; Protocol PRN Reason: For BG 50-69 in Alert Patient Stop: 04/04/20 04:54 Glucose (Glutose 40% Gel 15 Gm Tube) 30 gm PO PRN PRN; Protocol PRN Reason: FOR BG < 50 IN ALERT PATIENT Stop: 04/04/20 04:54 Heparin Sodium (Porcine) (Heparin Flush 10 Unit/Ml 5 Ml Disp.Syrg) 30 unit IV Q12 SYED Stop: 03/27/20 21:59 Last Admin: 03/10/20 11:33 Dose: 30 unit Documented by: Heparin Sodium (Porcine) (Heparin Flush 10 Unit/Ml 5 Ml Disp.Syrg) 30 unit IV .AFTER EACH USE PRN Stop: 03/27/20 15:29 Last Admin: 03/05/20 12:56 Dose: 30 unit Documented by: Heparin Sodium (Porcine) (Heparin Inj 1,000 Unit/Ml 10 Ml Vial) 0 - 12,000 unit IV .BOLUS PER PROTOCOL PRN; Protocol PRN Reason: RESPOND TO aPTT VALUE Stop: 04/07/20 10:59 Hydromorphone HCl (Dilaudid Inj/Pf 2 Mg/Ml Ampule) 1.5 mg IV Q4HP PRN PRN Reason: FOR PAIN Stop: 03/15/20 09:45 Last Admin: 03/10/20 16:43 Dose: 1.5 mg Documented by: Ceftriaxone Sodium/Dextrose (Rocephin Rtu 2 Gm/D5w 50 Ml Premix Bag) 2 gm in 50 mls @ 100 mls/hr IV DAILY [facility] Stop: 04/02/20 23:59 Last Admin: 03/10/20 11:28 Dose: 100 mls/hr, 100 mls/hr Documented by: Metronidazole (Flagyl Rtu 500 Mg/Ns 100ml Premix) 500 mg in 100 mls @ 100 mls/hr IV Q6 [facility] Stop: 03/12/20 17:59 Last Admin: 03/10/20 18:20 Dose: 100 mls/hr, 100 mls/hr Documented by: Heparin Sodium/Dextrose (Heparin Rtu 25,000 Unit/250 Ml D5w Premix) 25,000 unit in 250 mls @ 0 mls/hr IV CONTINUOUS PRN; Protocol PRN Reason: THIS MED IS NOT "PRN" Stop: 04/07/20 07:59 Lidocaine (Lidoderm 5% (700 Mg) Transdermal Patch) 1 patch TP DAILY [facility] Stop: 03/24/20 09:59 Last Admin: 03/10/20 11:50 Dose: Not Given Documented by: Lidocaine HCl (Xylocaine 5% Ointment 35.44 Gm) 1 applic TP BIDP PRN PRN Reason: SEE LABEL COMMENTS Stop: 04/07/20 15:42 Magnesium Hydroxide (Milk Of Magnesia 30 Ml Udcup) 30 ml PO HSP PRN PRN Reason: FOR CONSTIPATION Stop: 03/22/20 15:01 Melatonin (Melatonin 3 Mg Tablet) 6 mg PO QHS SYED Stop: 03/26/20 21:59 Last Admin: 03/09/20 22:03 Dose: 6 mg Documented by: Methocarbamol (Robaxin 750 Mg Tablet) 1,500 mg PO Q6HP PRN PRN Reason: MUSCLE SPASMS Stop: 03/27/20 11:20 Last Admin: 03/10/20 18:21 Dose: 1,500 mg Documented by: Ondansetron HCl (Zofran Inj/Pf 4 Mg/2 Ml Sdv) 4 mg IV Q6HP PRN PRN Reason: FOR NAUSEA/VOMITING Stop: 03/22/20 15:01 Last Admin: 02/25/20 06:42 Dose: 4 mg Documented by: Pharmacy Profile Note (Medication Communication Order) 1 each MC QHS SYED Stop: 04/05/20 21:59 Last Admin: 03/09/20 22:04 Dose: Not Given Documented by: Promethazine HCl (Phenergan Inj 25 Mg/1 Ml Vial) 6.25 mg IV Q4HP PRN PRN Reason: UNRESOLVED NAUSEA/VOMITING Stop: 03/22/20 15:01 Sodium Chloride (Nacl 0.9% Inj/Pf 10 Ml Sdv) 10 ml IV Q12 SYED Stop: 03/27/20 21:59 Last Admin: 03/10/20 11:43 Dose: 10 ml Documented by: Sodium Chloride (Nacl 0.9% Inj/Pf 10 Ml Sdv) 10 ml IV .AFTER EACH USE PRN Stop: 03/27/20 15:29 Last Admin: 03/05/20 12:56 Dose: 10 ml Documented by: - Allergies Allergies/Adverse Reactions: No Known Allergies Allergy (Verified 10/26/19 12:08) Hospital Course Hospital Course: History of Present Illness on admission: KINA GOMEZ is a 29 year old female with a past medical history of polysubstance IV drug abuse and tobacco abuse with continuous use who presents to the emergency department with a complaint of generalized pain, subjective fever, nausea and vomiting. She reports abdominal discomfort began 2 days ago; primary to the right lower quadrant, and has gradually migrated upwards. She now has right upper quadrant pain "right under my ribs" that is worsened with movements, deep breath, cough. Pain is worsened with palpation; palpation to the right lower quadrant cause referred right upper quadrant discomfort. She does admit to IV amphetamine use 2 days ago. Reports that she abruptly stopped Suboxone 2 weeks ago; does not know what her daily dose was. Evaluation in the emergency department revealedf ever (100.9) tachycardia (HR 125), hypotension (100/56) leukocytosis (WBC is 16.2, 91 segs, 2 bands), baseline anemia (hgb 10.8), hyponatremia( Na 131), mildly elevated alk phos (166), negative troponin, negative lipase, negative serum hCG, negative urinalysis, negative COVID. CRP elevated to 376. CXR unremarkable. RUQ U/s shows galbladder sludge, otherwise nml. ABD/Pelvic CT indistinct airspace disease to right lower lobe, but no acute findings to the abdomen or pelvis. She is provided IV fluid boluses, IV Rocephin, and referred to the [facility] for admission management of the above-stated complaints and findings. Hospital Course Refer to details below. (1) Streptococcal bacteremia Is this a current diagnosis for this admission?: Yes Plan: Culture grew strep pyogenes with first negative culture on 02/22/2020. Afebrile since 03/03/2020. COVID-19 test negative. Evaluated by infectious diseases via remote consultation who recommends 4 weeks of antibiotics IV in absence of vegetation on RYAN otherwise 6 weeks. Patient underwent RYAN which did not show any evidence of vegetations. As such, patient does not meet [place] criteria for infective endocarditis. We will continue with treatment plan to complete 4 weeks of IV ceftriaxone. End date 03/22/2020 (2) Exudative pleural effusion Is this a current diagnosis for this admission?: Yes Plan: Patient's fluid analysis indicates Complicated parapneumonic right pleural effusion. Patient has high fluid LDH 350, high protein 5.9, low glucose 48 and pH of 7.2. Gram stain/culture negative & fluid was nonpurulent ruling out empyema. CT of the chest 03/05/2020 still showed good amount of loculated effusion. IR placed 10 Burkinan chest tube on 03/07/2020 connected to Pleur-evac and currently on suction drained only about 60cc so far. Chest tube flushed by general surgeon with saline which confirmed patency. Repeat CT chest 03/10/2020 still shows loculated effusion though mildly decreased. Due to failure of treatment of complicated parapneumonic effusion, I have consulted with CT surgery at [facility] who agrees that patient should be transferred and will see as consult with plan for administration of TPA via tube and continued monitoring. (3) Pulmonary embolism Qualifiers: Pulmonary embolism type: other Chronicity: acute Acute cor pulmonale presence: without acute cor pulmonale Qualified Code(s): I26.99 - Other pulmonary embolism without acute cor pulmonale Is this a current diagnosis for this admission?: Yes Plan: CTA chest revealed small right lower lobe PE. Possible that this is septic embolism in light of current bacteremia but it could very well also be noninfectious especially given the absence of any pulmonary nodularities or cavitations on chest CT. Continue heparin drip for now as patient may need further procedures/interventions for her other condition. (4) Pneumonia Qualifiers: Pneumonia type: due to unspecified organism Laterality: right Lung location: lower lobe of lung Qualified Code(s): J18.9 - Pneumonia, unspecified organism Is this a current diagnosis for this admission?: Yes Plan: Strep pyogenes isolated in blood culture. Continue ceftriaxone. (5) IV drug abuse Is this a current diagnosis for this admission?: Yes Plan: Continue Subutex. Supportive care. HIV, RPR and PPD negative. Physical Exam Vital Signs: Temp Pulse Resp BP Pulse Ox 98.4 F 84 16 98/61 L 96 03/10/20 15:11 03/10/20 15:11 03/10/20 15:11 03/10/20 15:11 03/10/20 15:11 Intake & Output 03/09/20 03/10/20 03/11/20 06:59 06:59 06:59 Intake Total 1650 2024 1020 Output Total 6 550 Balance 1644 2024 470 Weight 59.3 kg 60.6 kg General appearance: PRESENT: no acute distress, cooperative Neck exam: ABSENT: JVD Respiratory exam: PRESENT: symmetrical, unlabored. ABSENT: tachypnea, wheezes Cardiovascular exam: PRESENT: RRR, +S1, +S2. ABSENT: diastolic murmur, systolic murmur, tachycardia GI/Abdominal exam: PRESENT: soft. ABSENT: rebound, rigid, tenderness Extremities exam: ABSENT: pedal edema Neurological exam: PRESENT: alert, awake, oriented to person, oriented to place, oriented to time, oriented to situation Results Laboratory Results: 03/10/20 06:45 03/09/20 05:15 03/10/20 03/10/20 03/10/20 06:45 06:45 08:53 WBC 5.3 RBC 3.21 L Hgb 7.2 L Hct 22.3 L MCV 69 L MCH 22.5 L MCHC 32.5 RDW 17.5 H Plt Count 726 H Urine Color YELLOW Urine Appearance CLEAR Urine pH 6.0 Ur Specific [place] 1.012 Urine Protein NEGATIVE Urine Glucose (UA) NEGATIVE Urine Ketones NEGATIVE Urine Blood NEGATIVE Urine Nitrite NEGATIVE Ur Leukocyte Esterase NEGATIVE Urine WBC (Auto) 0 Urine RBC (Auto) 0 Blood Type A POSITIVE Antibody Screen NEGATIVE 02/21/20 02/21/20 02/21/20 08:46 08:46 18:31 Creatine Kinase 27 L Troponin I < 0.012 < 0.012 02/22/20 00:35 Creatine Kinase Troponin I < 0.012 Impressions: Abdomen/Pelvis CT 02/21/20 08:01 IMPRESSION: 1. NO SIGNIFICANT OR ACUTE FINDING IN THE ABDOMEN OR PELVIS ON CT SCAN WITH IV CONTRAST. NORMAL APPENDIX. 2. FAINT INDISTINCT AIRSPACE DISEASE IN THE RIGHT LOWER LOBE, NONSPECIFIC, WHICH MAY BE DUE TO INFECTION OR INFLAMMATION. Abdomen Ultrasound 02/21/20 12:07 IMPRESSION: POSSIBLE MINIMAL SLUDGE IN THE GALLBLADDER. OTHERWISE NORMAL RIGHT UPPER QUADRANT ULTRASOUND. Extremity Ultrasound 02/25/20 00:00 IMPRESSION: No abscess. There is thrombus in the saphenous vein to the saphenous femoral junction. PICC Line Insertion 02/26/20 00:00 IMPRESSION: SUCCESSFUL PLACEMENT OF A 5 FR DUAL LUMEN 32 CM PICC IN THE RIGHT BASILIC VEIN. Chest/Abdomen CTA 03/01/20 17:30 IMPRESSION: 1. Interval development of loculated right pleural effusion with compressive atelectasis and consolidation in the right lower lobe. The previous area of consolidation and cavitary nodule are now obscured bike consolidation at the right lung base. 2. Persistent small right segmental pulmonary embolism, probably slightly smalle r than on previous examination difficult to compare due to degree of consolidation. No new PE. Thoracentesis Ultrasound 03/03/20 08:00 IMPRESSION: Successful ultrasound-guided right-sided thoracentesis. Apical Lordotic X-Ray 03/06/20 00:00 IMPRESSION: Loculated small right pleural effusion. Chest Tube Insertion 03/07/20 00:00 IMPRESSION: Successful CT-guided placement of a 10 Burkinan chest tube into the fluid-filled right pleural space. Chest X-Ray 03/08/20 06:00 IMPRESSION: No pneumothorax. Chest CT 03/10/20 06:00 IMPRESSION: Since placement of the pleural drainage catheter the amount of air in the posterior right pleural space has increased (part of it is iatrogenic) and the amount of fluid has decreased. The area of consolidation with air bronchograms in the dependent portion of the right lower lobe is unchanged. Plan Time Spent: Greater than 30 Minutes
[2020-03-10] MEDS: BUTALB/ACETAMINOPHEN/CAFFEINE 1 TAB EACH PO PRN (22:35)
[2020-03-10] MEDS: MELATONIN 3 MG TABLET PO SCH (22:35)
[2020-03-10] MEDS: DIPHENHYDRAMINE HCL 25 MG CAPSULE PO PRN (22:36)
[2020-03-10] MEDS: PHARMACY COMMUNICATION ORDER MC SCH (22:37)
[2020-03-11] MEDS: METHOCARBAMOL 750 MG TABLET PO PRN (04:19)
[2020-03-11] MEDS: HYDROMORPHONE HCL INJ/PF 2 MG/ML AMPULE IV PRN ×4 (04:48→19:47)
[2020-03-11] MEDS: BUSPIRONE HCL 10 MG TABLET PO SCH ×2 (09:06→21:49)
[2020-03-11] MEDS: FERROUS SULFATE 325 MG TABLET PO SCH (09:06)
[2020-03-11] MEDS: DOCUSATE SODIUM 100 MG CAPSULE PO SCH (09:06)
[2020-03-11] MEDS: FAMOTIDINE 20 MG TABLET PO SCH ×2 (09:06→21:49)
[2020-03-11] MEDS: CEFTRIAXONE 2 GM/D5W RTU 2 GM/50 ML RTUPB IV SCH (09:07)
[2020-03-11] MEDS: NORMAL SALINE 10 ML SDV (SCHEDULED) IV SCH (09:07)
[2020-03-11] MEDS: BUPRENORPHINE HCL 2 MG SUBLINGUAL TABLET SL SCH ×3 (09:07→18:35)
[2020-03-11] MEDS: LIDOCAINE 5% (700 MG) TRANSDERMAL ADH..PATCH TP SCH (09:08)
--- NOTE | 2020-03-11 13:44 | PDOC PROGRESS REPORT ---
Subjective Progress Note for:: 03/11/20 Subjective:: Patient is complaining of pain. She feels the 6-hour window is too long. She also asked when the chest tube is coming out. I explained that that will stay where it is until she goes to [facility] and then they will decide. Reason For Visit: SIRS Physical Exam Vital Signs: Temp Pulse Resp BP Pulse Ox 97.5 F 74 16 97/62 L 100 03/11/20 11:52 03/11/20 11:52 03/11/20 11:52 03/11/20 11:52 03/11/20 11:52 Intake & Output 03/10/20 03/11/20 03/12/20 06:59 06:59 06:59 Intake Total 2023 1070 200 Output Total 555 Balance 2023 515 200 Weight 60.6 kg 60.6 kg General appearance: PRESENT: cooperative, mild distress, well-developed Head exam: PRESENT: atraumatic, normocephalic Eye exam: PRESENT: conjunctiva pink. ABSENT: scleral icterus Ear exam: PRESENT: normal external ear exam. ABSENT: bleeding, drainage Mouth exam: PRESENT: moist, tongue midline Respiratory exam: PRESENT: decreased breath sounds - On the right, symmetrical, unlabored. ABSENT: prolonged expiratory phas, rales, rhonchi, tachypnea, wheezes Cardiovascular exam: PRESENT: RRR, +S1, +S2. ABSENT: diastolic murmur, irregular rhythm, systolic murmur GI/Abdominal exam: PRESENT: normal bowel sounds, soft. ABSENT: distended, guarding, tenderness Rectal exam: PRESENT: deferred Gentrourinary exam: ABSENT: indwelling catheter Extremities exam: ABSENT: joint swelling, pedal edema Musculoskeletal exam: PRESENT: ambulatory, full ROM, normal inspection. ABSENT: deformity Neurological exam: PRESENT: alert, awake, oriented to person, oriented to place, oriented to situation Psychiatric exam: ABSENT: agitated, anxious Focused psych exam: ABSENT: delusional, paranoid, restlessness Skin exam: PRESENT: dry, normal color, warm. ABSENT: rash Results Laboratory Results: 03/10/20 06:45 03/09/20 05:15 02/21/20 02/21/20 02/21/20 08:46 08:46 18:31 Creatine Kinase 27 L Troponin I < 0.012 < 0.012 02/22/20 00:35 Creatine Kinase Troponin I < 0.012 Impressions: Abdomen/Pelvis CT 02/21/20 08:01 IMPRESSION: 1. NO SIGNIFICANT OR ACUTE FINDING IN THE ABDOMEN OR PELVIS ON CT SCAN WITH IV CONTRAST. NORMAL APPENDIX. 2. FAINT INDISTINCT AIRSPACE DISEASE IN THE RIGHT LOWER LOBE, NONSPECIFIC, WHICH MAY BE DUE TO INFECTION OR INFLAMMATION. Abdomen Ultrasound 02/21/20 12:07 IMPRESSION: POSSIBLE MINIMAL SLUDGE IN THE GALLBLADDER. OTHERWISE NORMAL RIGHT UPPER QUADRANT ULTRASOUND. Extremity Ultrasound 02/25/20 00:00 IMPRESSION: No abscess. There is thrombus in the saphenous vein to the saphenous femoral junction. PICC Line Insertion 02/26/20 00:00 IMPRESSION: SUCCESSFUL PLACEMENT OF A 5 FR DUAL LUMEN 32 CM PICC IN THE RIGHT BASILIC VEIN. Chest/Abdomen CTA 03/01/20 17:30 IMPRESSION: 1. Interval development of loculated right pleural effusion with compressive atelectasis and consolidation in the right lower lobe. The previous area of consolidation and cavitary nodule are now obscured bike consolidation at the right lung base. 2. Persistent small right segmental pulmonary embolism, probably slightly smaller than on previous examination difficult to compare due to degree of consolidation. No new PE. Thoracentesis Ultrasound 03/03/20 08:00 IMPRESSION: Successful ultrasound-guided right-sided thoracentesis. Apical Lordotic X-Ray 03/06/20 00:00 IMPRESSION: Loculated small right pleural effusion. Chest Tube Insertion 03/07/20 00:00 IMPRESSION: Successful CT-guided placement of a 10 Croatian chest tube into the fluid-filled right pleural space. Chest X-Ray 03/08/20 06:00 IMPRESSION: No pneumothorax. Chest CT 03/10/20 06:00 IMPRESSION: Since placement of the pleural drainage catheter the amount of air in the posterior right pleural space has increased (part of it is iatrogenic) and the amount of fluid has decreased. The area of consolidation with air bronchograms in the dependent portion of the right lower lobe is unchanged. Assessment and Plan - Diagnosis (1) Streptococcal bacteremia Is this a current diagnosis for this admission?: Yes Plan: Evaluated by infectious diseases who recommends 4 weeks of antibiotics IV in absence of vegetation on RYAN otherwise 6 weeks. Patient underwent RYAN which did not show any evidence of vegetations. As such, patient does not meet [place] criteria for infective endocarditis. We will continue with treatment plan to complete 4 weeks of IV ceftriaxone. End date 03/22/2020 03/11/2020 Continue IV Rocephin (2) Exudative pleural effusion Is this a current diagnosis for this admission?: Yes Plan: Patient's fluid analysis indicates Complicated parapneumonic right pleural effusion. Patient has high fluid LDH, high protein, low glucose and pH of 7.2. Gram stain/ culture negative & fluid was nonpurulent ruling out empyema. CT of the chest 03/05/2020 still showed good amount of loculated effusion. I consulted Cask Maker here as well as CT surgery at [facility] via telephone who reviewed the CT and CXR images who recommend chest tube. CT surgery recommends placement of chest tube only first and states that VATS is not needed at this point. IR placed 10 Croatian chest tube on 03/07/2020 connected to Pleur-evac and currently on suction drained only about 60cc so far. Chest x-ray subsequently showed no evidence of pneumothorax. Unfortunately, patient chest tube has only drained about 50 cc total since placement. Due to failure of treatment of complicated parapneumonic effusion, I will administer alteplase/dornase joel via chest tube into pleural cavity to see if this will improve output from chest tube. I will administer a dose today and another one potentially tomorrow if no results. Monitor for pleural bleed. 03/11/2020 Transferred to [facility] has been arranged for more aggressive treatment. (3) Pulmonary embolism Qualifiers: Pulmonary embolism type: other Chronicity: acute Acute cor pulmonale presence: without acute cor pulmonale Qualified Code(s): I26.99 - Other pulmonary embolism without acute cor pulmonale Is this a current diagnosis for this admission?: Yes Plan: CTA chest revealed small right lower lobe PE. Possible that this is septic embolism in light of current bacteremia but it could very well also be noninfectious especially given the absence of any pulmonary nodularities or cavitations on chest CT. Continue heparin drip for now as patient may need further procedures/interventions for her other condition. 03/11/2020 Continue heparin infusion (4) Pneumonia Qualifiers: Pneumonia type: due to unspecified organism Laterality: right Lung location: lower lobe of lung Qualified Code(s): J18.9 - Pneumonia, unspecified organism Is this a current diagnosis for this admission?: Yes Plan: Strep pyogenes isolated in blood culture. Continue ceftriaxone. 03/11/2020 Most likely strep pyogenes. Continue Rocephin (5) IV drug abuse Is this a current diagnosis for this admission?: Yes Plan: Continue Subutex. Supportive care. - Plan Summary Summary: 03/11/2020 Spoke to the patient's mother and informed her of her status as well as pending transfer to [facility]. She was very appreciative. - Time Time Spent with patient: 25-34 minutes Medications reviewed and adjusted accordingly: Yes Anticipated discharge: [facility] Within: within 24 hours
[2020-03-11] MEDS: DIPHENHYDRAMINE HCL 25 MG CAPSULE PO PRN (21:49)
[2020-03-11] MEDS: MELATONIN 3 MG TABLET PO SCH (21:51)
[2020-03-12] MEDS: HYDROMORPHONE HCL INJ/PF 2 MG/ML AMPULE IV PRN ×6 (00:21→21:25)
[2020-03-12] MEDS: PHARMACY COMMUNICATION ORDER MC SCH (00:27)
[2020-03-12] MEDS: NORMAL SALINE 10 ML SDV (SCHEDULED) IV SCH ×3 (00:28→21:29)
[2020-03-12] MEDS: BUPRENORPHINE HCL 2 MG SUBLINGUAL TABLET SL SCH ×3 (09:05→17:10)
[2020-03-12] MEDS: FERROUS SULFATE 325 MG TABLET PO SCH (09:05)
[2020-03-12] MEDS: BUSPIRONE HCL 10 MG TABLET PO SCH ×2 (09:05→21:29)
[2020-03-12] MEDS: DOCUSATE SODIUM 100 MG CAPSULE PO SCH (09:05)
[2020-03-12] MEDS: CEFTRIAXONE 2 GM/D5W RTU 2 GM/50 ML RTUPB IV SCH (09:05)
[2020-03-12] MEDS: FAMOTIDINE 20 MG TABLET PO SCH ×2 (09:05→21:29)
[2020-03-12 09:39] LABS: HEMATOCRIT 24.4 % (36.0-47.0); MEAN CORPUSCULAR HEMOGLOBIN 22.7 pg (27.0-33.4); MEAN CORPUSCULAR HGB CONC 32.8 g/dL (32.0-36.0); MEAN CORPUSCULAR VOLUME 69 fl (80-97); PLATELET COUNT 720 10^3/uL (150-450); RED BLOOD COUNT 3.52 10^6/uL (3.72-5.28); WHITE BLOOD COUNT 5.2 10^3/uL (4.0-10.5)
[2020-03-12 09:49] LABS: INTERNATIONAL RATION (INR) 1.11; PROTHROMBIN TIME 14.4 SEC (11.4-15.4)
[2020-03-12 09:50] LABS: PARTIAL THROMBOPLASTIN TIME 35.9 SEC (23.5-35.8)
[2020-03-12] MEDS: HEPARIN SODIUM,PORCINE/D5W 25,000 UNIT/250 ML RTUINJ IV PRN (10:04)
[2020-03-12] MEDS: HEPARIN SOD (PORCINE) 1,000 UNIT/ML 10 ML VIAL IV PRN ×2 (10:04→16:52)
[2020-03-12] MEDS: LIDOCAINE 5% (700 MG) TRANSDERMAL ADH..PATCH TP SCH (10:10)
--- NOTE | 2020-03-12 13:16 | PDOC PROGRESS REPORT ---
Subjective Progress Note for:: 03/12/20 Subjective:: Heparin was inadvertently not restarted after her chest tube several days ago. It is resumed at this point. Still waiting for a bed at [facility]. The patient's main complaint is the chest tube that she wants out. Reason For Visit: SIRS Physical Exam Vital Signs: Temp Pulse Resp BP Pulse Ox 97.4 F 85 16 94/64 L 100 03/12/20 11:42 03/12/20 11:42 03/12/20 11:42 03/12/20 11:42 03/12/20 11:42 Intake & Output 03/11/20 03/12/20 03/13/20 06:59 06:59 06:59 Intake Total 1070 680 50 Output Total 555 1345 Balance 515 -665 50 Weight 60.6 kg 60.6 kg 58.6 kg General appearance: PRESENT: cooperative, mild distress, well-developed Ear exam: PRESENT: normal external ear exam. ABSENT: bleeding, drainage Respiratory exam: PRESENT: clear to auscultation willie - Clear on the left, decreased breath sounds - At the right base, symmetrical, unlabored. ABSENT: rales, rhonchi, tachypnea, wheezes Cardiovascular exam: PRESENT: RRR, +S1, +S2 GI/Abdominal exam: PRESENT: normal bowel sounds, soft. ABSENT: distended, guar ding, tenderness Rectal exam: PRESENT: deferred Neurological exam: PRESENT: alert, awake, oriented to person, oriented to place, oriented to time, oriented to situation, CN II-XII grossly intact. ABSENT: altered, motor sensory deficit Psychiatric exam: PRESENT: appropriate affect. ABSENT: agitated, anxious Focused psych exam: ABSENT: delusional Skin exam: PRESENT: dry, normal color, warm, other - Multiple track garcia on both arms. ABSENT: rash Results Laboratory Results: 03/12/20 09:15 03/09/20 05:15 03/12/20 09:15 WBC 5.2 RBC 3.52 L Hgb 8.0 L Hct 24.4 L MCV 69 L MCH 22.7 L MCHC 32.8 RDW 17.0 H Plt Count 720 H 02/21/20 02/21/20 02/21/20 08:46 08:46 18:31 Creatine Kinase 27 L Troponin I < 0.012 < 0.012 02/22/20 00:35 Creatine Kinase Troponin I < 0.012 Impressions: Abdomen/Pelvis CT 02/21/20 08:01 IMPRESSION: 1. NO SIGNIFICANT OR ACUTE FINDING IN THE ABDOMEN OR PELVIS ON CT SCAN WITH IV CONTRAST. NORMAL APPENDIX. 2. FAINT INDISTINCT AIRSPACE DISEASE IN THE RIGHT LOWER LOBE, NONSPECIFIC, WHICH MAY BE DUE TO INFECTION OR INFLAMMATION. Abdomen Ultrasound 02/21/20 12:07 IMPRESSION: POSSIBLE MINIMAL SLUDGE IN THE GALLBLADDER. OTHERWISE NORMAL RIGHT UPPER QUADRANT ULTRASOUND. Extremity Ultrasound 02/25/20 00:00 IMPRESSION: No abscess. There is thrombus in the saphenous vein to the saphenous femoral junction. PICC Line Insertion 02/26/20 00:00 IMPRESSION: SUCCESSFUL PLACEMENT OF A 5 FR DUAL LUMEN 32 CM PICC IN THE RIGHT BASILIC VEIN. Chest/Abdomen CTA 03/01/20 17:30 IMPRESSION: 1. Interval development of loculated right pleural effusion with compressive atelectasis and consolidation in the right lower lobe. The previous area of consolidation and cavitary nodule are now obscured bike consolidation at the right lung base. 2. Persistent small right segmental pulmonary embolism, probably slightly smaller than on previous examination difficult to compare due to degree of consolidation. No new PE. Thoracentesis Ultrasound 03/03/20 08:00 IMPRESSION: Successful ultrasound-guided right-sided thoracentesis. Apical Lordotic X-Ray 03/06/20 00:00 IMPRESSION: Loculated small right pleural effusion. Chest Tube Insertion 03/07/20 00:00 IMPRESSION: Successful CT-guided placement of a 10 Cameroonian chest tube into the fluid-filled right pleural space. Chest X-Ray 03/08/20 06:00 IMPRESSION: No pneumothorax. Chest CT 03/10/20 06:00 IMPRESSION: Since placement of the pleural drainage catheter the amount of air in the posterior right pleural space has increased (part of it is iatrogenic) and the amount of fluid has decreased. The area of consolidation with air bronchograms in the dependent portion of the right lower lobe is unchanged. Assessment and Plan - Diagnosis (1) Streptococcal bacteremia Is this a current diagnosis for this admission?: Yes Plan: Evaluated by infectious diseases who recommends 4 weeks of antibiotics IV in absence of vegetation on RYAN otherwise 6 weeks. Patient underwent RYAN which did not show any evidence of vegetations. As such, patient does not meet [place] criteria for infective endocarditis. We will continue with treatment plan to complete 4 weeks of IV ceftriaxone. End date 03/22/2020 03/11/2020 Continue IV Rocephin 03/12/2020 Continue Rocephin (2) Exudative pleural effusion Is this a current diagnosis for this admission?: Yes Plan: Patient's fluid analysis indicates Complicated parapneumonic right pleural effusion. Patient has high fluid LDH, high protein, low glucose and pH of 7.2. Gram stain/culture negative & fluid was nonpurulent ruling out empyema. CT of the chest 03/05/2020 still showed good amount of loculated effusion. I consulted Hop Farm Worker here as well as CT surgery at [facility] via telephone who reviewed the CT and CXR images who recommend chest tube. CT surgery recommends placement of chest tube only first and states that VATS is not needed at this point. IR placed 10 Cameroonian chest tube on 03/07/2020 connected to Pleur-evac and currently on suction drained only about 60cc so far. Chest x-ray subsequently showed no evidence of pneumothorax. Unfortunately, patient chest tube has only drained about 50 cc total since placement. Due to failure of treatment of complicated parapneumonic effusion, I will administer alteplase/dornase joel via chest tube into pleural cavity to see if this will improve output from chest tube. I will administer a dose today and another one potentially tomorrow if no results. Monitor for pleural bleed. 03/11/2020 Transfer to [facility] has been arranged for more aggressive treatment. 03/12/2020 No bed available today. We will continue to check with [facility] (3) Pulmonary embolism Qualifiers: Pulmonary embolism type: other Chronicity: acute Acute cor pulmonale presence: without acute cor pulmonale Qualified Code(s): I26.99 - Other pulmonary embolism without acute cor pulmonale Is this a current diagnosis for this admission?: Yes Plan: CTA chest revealed small right lower lobe PE. Possible that this is septic embolism in light of current bacteremia but it could very well also be noninfectious especially given the absence of any pulmonary nodularities or cavitations on chest CT. Continue heparin drip for now as patient may need further procedures/interventions for her other condition. 03/11/2020 Continue heparin infusion 03/12/2020 Unfortunately the heparin drip was not resumed after the chest tube placement. The nurse noticed this today and it was immediately restarted. We are using heparin infusion so that it can be turned off for any invasive procedure when she is at [facility] so that there is no unnecessary delay (4) Pneumonia Qualifiers: Pneumonia type: due to unspecified organism Laterality: right Lung loca tion: lower lobe of lung Qualified Code(s): J18.9 - Pneumonia, unspecified organism Is this a current diagnosis for this admission?: Yes Plan: Strep pyogenes isolated in blood culture. Continue ceftriaxone. 03/11/2020 Most likely strep pyogenes. Continue Rocephin 03/12/2020 Continue Rocephin (5) IV drug abuse Is this a current diagnosis for this admission?: Yes Plan: Continue Subutex. Supportive care. 03/12/2020 As above. She does have IV analgesia for the chest tube and loculated effusion - Plan Summary Summary: 03/11/2020 Spoke to the patient's mother and informed her of her status as well as pending transfer to [facility]. She was very appreciative. - Time Time Spent with patient: Less than 15 minutes Medications reviewed and adjusted accordingly: Yes Anticipated discharge: [facility] Within: when bed available
[2020-03-12] MEDS: MELATONIN 3 MG TABLET PO SCH (21:29)
[2020-03-12] MEDS: DIPHENHYDRAMINE HCL 25 MG CAPSULE PO PRN (21:29)
[2020-03-13] MEDS: PHARMACY COMMUNICATION ORDER MC SCH (01:30)
[2020-03-13] MEDS: HYDROMORPHONE HCL INJ/PF 2 MG/ML AMPULE IV PRN ×5 (03:31→20:57)
[2020-03-13 05:43] LABS: APPEARANCE,URINE CLEAR; BILIRUBIN,URINE NEGATIVE (NEGATIVE); COLOR,URINE YELLOW; GLUCOSE, URINE NEGATIVE (NEGATIVE); KETONES,URINE NEGATIVE (NEGATIVE); LEUKOCYTE ESTERASE,URINE NEGATIVE (NEGATIVE); NITRITE,URINE NEGATIVE (NEGATIVE); PROTEIN,URINE NEGATIVE (NEGATIVE); URINE SPECIFIC GRAVITY 1.009; UROBILINOGEN,URINE NEGATIVE mg/dL (<2.0)
[2020-03-13] MEDS: HEPARIN SODIUM,PORCINE/D5W 25,000 UNIT/250 ML RTUINJ IV PRN (06:17)
[2020-03-13] MEDS: HEPARIN SOD (PORCINE) 1,000 UNIT/ML 10 ML VIAL IV PRN (06:57)
[2020-03-13] MEDS: DOCUSATE SODIUM 100 MG CAPSULE PO SCH (10:19)
[2020-03-13] MEDS: BUPRENORPHINE HCL 2 MG SUBLINGUAL TABLET SL SCH ×3 (10:19→19:04)
[2020-03-13] MEDS: FAMOTIDINE 20 MG TABLET PO SCH ×2 (10:19→21:11)
[2020-03-13] MEDS: BUSPIRONE HCL 10 MG TABLET PO SCH ×2 (10:19→21:01)
[2020-03-13] MEDS: FERROUS SULFATE 325 MG TABLET PO SCH (10:19)
[2020-03-13] MEDS: CEFTRIAXONE 2 GM/D5W RTU 2 GM/50 ML RTUPB IV SCH (10:20)
[2020-03-13] MEDS: NORMAL SALINE 10 ML SDV (SCHEDULED) IV SCH ×2 (10:22→21:02)
[2020-03-13] MEDS: LIDOCAINE 5% (700 MG) TRANSDERMAL ADH..PATCH TP SCH (10:23)
[2020-03-13] MEDS: NORMAL SALINE 10 ML SDV (AFTER EACH USE) IV PRN (10:26)
--- NOTE | 2020-03-13 13:41 | PDOC PROGRESS REPORT ---
Subjective Progress Note for:: 03/13/20 Subjective:: The patient is resting comfortably in bed. Heparin infusion is back on. She is awaiting bed availability at [facility]. The chest tube is still painful. Reason For Visit: SIRS Physical Exam Vital Signs: Temp Pulse Resp BP Pulse Ox 97.7 F 84 16 107/70 100 03/13/20 11:37 03/13/20 11:37 03/13/20 11:37 03/13/20 11:37 03/13/20 11:37 Intake & Output 03/12/20 03/13/20 03/14/20 06:59 06:59 06:59 Intake Total 680 2326 370 Output Total 1345 Balance -665 2326 370 Weight 60.6 kg 58.6 kg General appearance: PRESENT: cooperative, mild distress, well-developed Respiratory exam: PRESENT: clear to auscultation willie - Clear on the left, decreased breath sounds - Right base, symmetrical, unlabored. ABSENT: rales, rhonchi, tachypnea, wheezes Cardiovascular exam: PRESENT: RRR, +S1, +S2 GI/Abdominal exam: PRESENT: soft. ABSENT: distended, guarding, tenderness Musculoskeletal exam: PRESENT: ambulatory, normal inspection Neurological exam: PRESENT: alert, awake, oriented to person, oriented to place, oriented to time, oriented to situation, CN II-XII grossly intact Psychiatric exam: PRESENT: appropriate affect. ABSENT: agitated, anxious Results Laboratory Results: 03/12/20 09:15 03/09/20 05:15 03/13/20 04:00 Urine Color YELLOW Urine Appearance CLEAR Urine pH 7.0 Ur Specific [place] 1.009 Urine Protein NEGATIVE Urine Glucose (UA) NEGATIVE Urine Ketones NEGATIVE Urine Blood NEGATIVE Urine Nitrite NEGATIVE Ur Leukocyte Esterase NEGATIVE Urine WBC (Auto) 1 Urine RBC (Auto) 1 02/21/20 02/21/20 02/21/20 08:46 08:46 18:31 Creatine Kinase 27 L Troponin I < 0.012 < 0.012 02/22/20 00:35 Creatine Kinase Troponin I < 0.012 Impressions: Abdomen/Pelvis CT 02/21/20 08:01 IMPRESSION: 1. NO SIGNIFICANT OR ACUTE FINDING IN THE ABDOMEN OR PELVIS ON CT SCAN WITH IV CONTRAST. NORMAL APPENDIX. 2. FAINT INDISTINCT AIRSPACE DISEASE IN THE RIGHT LOWER LOBE, NONSPECIFIC, WHICH MAY BE DUE TO INFECTION OR INFLAMMATION. Abdomen Ultrasound 02/21/20 12:07 IMPRESSION: POSSIBLE MINIMAL SLUDGE IN THE GALLBLADDER. OTHERWISE NORMAL RIGHT UPPER QUADRANT ULTRASOUND. Extremity Ultrasound 02/25/20 00:00 IMPRESSION: No abscess. There is thrombus in the saphenous vein to the saphenous femoral junction. PICC Line Insertion 02/26/20 00:00 IMPRESSION: SUCCESSFUL PLACEMENT OF A 5 FR DUAL LUMEN 32 CM PICC IN THE RIGHT BASILIC VEIN. Chest/Abdomen CTA 03/01/20 17:30 IMPRESSION: 1. Interval development of loculated right pleural effusion with compressive atelectasis and consolidation in the right lower lobe. The previous area of consolidation and cavitary nodule are now obscured bike consolidation at the right lung base. 2. Persistent small right segmental pulmonary embolism, probably slightly smaller than on previous examination difficult to compare due to degree of consolidation. No new PE. Thoracentesis Ultrasound 03/03/20 08:00 IMPRESSION: Successful ultrasound-guided right-sided thoracentesis. Apical Lordotic X-Ray 03/06/20 00:00 IMPRESSION: Loculated small right pleural effusion. Chest Tube Insertion 03/07/20 00:00 IMPRESSION: Successful CT-guided placement of a 10 Upper Sorbian chest tube into the fluid-filled right pleural space. Chest X-Ray 03/08/20 06:00 IMPRESSION: No pneumothorax. Chest CT 03/10/20 06:00 IMPRESSION: Since placement of the pleural drainage catheter the amount of air in the posterior right pleural space has increased (part of it is iatrogenic) and the amount of fluid has decreased. The area of consolidation with air bronchograms in the dependent portion of the right lower lobe is unchanged. Assessment and Plan - Diagnosis (1) Streptococcal bacteremia Is this a current diagnosis for this admission?: Yes Plan: Evaluated by infectious diseases who recommends 4 weeks of antibiotics IV in absence of vegetation on RYAN otherwise 6 weeks. Patient underwent RYAN which did not show any evidence of vegetations. As such, patient does not meet [place] criteria for infective endocarditis. We will continue with treatment plan to complete 4 weeks of IV ceftriaxone. End date 03/22/2020 03/11/2020 Continue IV Rocephin 03/12/2020 Continue Rocephin 03/13/2020 9 more days of Rocephin (2) Exudative pleural effusion Is this a current diagnosis for this admission?: Yes Plan: Patient's fluid analysis indicates Complicated parapneumonic right pleural effusion. Patient has high fluid LDH, high protein, low glucose and pH of 7.2. Gram stain/culture negative & fluid was nonpurulent ruling out empyema. CT of the chest 03/05/2020 still showed good amount of loculated effusion. I consulted Tool Crib Supervisor here as well as CT surgery at [facility] via telephone who reviewed the CT and CXR images who recommend chest tube. CT surgery recommends placement of chest tube only first and states that VATS is not needed at this point. IR placed 10 Upper Sorbian chest tube on 03/07/2020 connected to Pleur-evac and currently on suction drained only about 60cc so far. Chest x-ray subsequently showed no evidence of pneumothorax. Unfortunately, patient chest tube has only drained about 50 cc total since placement. Due to failure of treatment of complicated parapneumonic effusion, I will administer alteplase/dornase joel via chest tube into pleural cavity to see if this will improve output from chest tube. I will administer a dose today and another one potentially tomorrow if no results. Monitor for pleural bleed. 03/11/2020 Transfer to [facility] has been arranged for more aggressive treatment. 03/12/2020 No bed available today. We will continue to check with [facility] 03/13/2020 Still not better by me. Staff is checking daily with [facility]. Will discuss with surgery regarding removal of the chest tube if there is no further output. (3) Pulmonary embolism Qualifiers: Pulmonary embolism type: other Chronicity: acute Acute cor pulmonale presence: without acute cor pulmonale Qualified Code(s): I26.99 - Other pulmonary embolism without acute cor pulmonale Is this a current diagnosis for this admission?: Yes Plan: CTA chest revealed small right lower lobe PE. Possible that this is septic embolism in light of current bacteremia but it could very well also be noninfectious especially given the absence of any pulmonary nodularities or cavitations on chest CT. Continue heparin drip for now as patient may need further procedures/interventions for her other condition. 03/11/2020 Continue heparin infusion 03/12/2020 Unfortunately the heparin drip was not resumed after the chest tube placement. The nurse noticed this today and it was immediately restarted. We are using heparin infusion so that it can be turned off for any invasive procedure when she is at [facility] so that there is no unnecessary delay 03/13/2020 Heparin infusion has reached therapeutic PTT. Continue. (4) Pneumonia Qualifiers: Pneumonia type: due to unspecified organism Laterality: right Lung location: lower lobe of lung Qualified Code(s): J18.9 - Pneumonia, unspecified organism Is this a current diagnosis for this admission?: Yes Plan: Strep pyogenes isolated in blood culture. Continue ceftriaxone. 03/11/2020 Most likely strep pyogenes. Continue Rocephin 03/12/2020 Continue Rocephin 03/13/2020 Rocephin through March 22 (5) IV drug abuse Is this a current diagnosis for this admission?: Yes Plan: Continue Subutex. Supportive care. 03/12/2020 As above. She does have IV analgesia for the chest tube and loculated effusion - Plan Summary Summary: 03/11/2020 Spoke to the patient's mother and informed her of her status as well as pending transfer to [facility]. She was very appreciative. - Time Time Spent with patient: Less than 15 minutes Medications reviewed and adjusted accordingly: Yes Anticipated discharge: [facility] Within: when bed available
[2020-03-13] MEDS: DIPHENHYDRAMINE HCL 25 MG CAPSULE PO PRN (21:06)
[2020-03-13] MEDS: MELATONIN 3 MG TABLET PO SCH (21:06)
[2020-03-14] MEDS: HYDROMORPHONE HCL INJ/PF 2 MG/ML AMPULE IV PRN ×5 (02:27→18:29)
[2020-03-14] MEDS: HEPARIN SODIUM,PORCINE/D5W 25,000 UNIT/250 ML RTUINJ IV PRN ×2 (02:33→18:30)
[2020-03-14] MEDS: PHARMACY COMMUNICATION ORDER MC SCH (04:57)
[2020-03-14 06:13] LABS: HEMATOCRIT 24.9 % (36.0-47.0); MEAN CORPUSCULAR HEMOGLOBIN 22.3 pg (27.0-33.4); MEAN CORPUSCULAR HGB CONC 32.3 g/dL (32.0-36.0); MEAN CORPUSCULAR VOLUME 69 fl (80-97); PLATELET COUNT 593 10^3/uL (150-450); RED CELL DISTRIBUTION WIDTH 17.3 % (11.5-14.0); WHITE BLOOD COUNT 4.5 10^3/uL (4.0-10.5)
--- NOTE | 2020-03-14 10:30 | PDOC PROGRESS REPORT ---
Subjective Progress Note for:: 03/14/20 Subjective:: Patient is resting comfortably. The chest tube is putting out small amounts of bloody drainage. Several injections of alteplase have not helped to break up loculations. Hopefully the exudative fluid is not fibrosing. Reason For Visit: SIRS Physical Exam Vital Signs: Temp Pulse Resp BP Pulse Ox 98.6 F 71 18 101/61 98 03/14/20 07:09 03/14/20 07:09 03/14/20 07:09 03/14/20 07:09 03/14/20 07:09 Intake & Output 03/13/20 03/14/20 03/15/20 06:59 06:59 06:59 Intake Total 2326 780 Output Total 9 Balance 2326 771 Weight 58.6 kg 59 kg General appearance: PRESENT: no acute distress, cooperative, well-developed Eye exam: PRESENT: conjunctiva pink. ABSENT: scleral icterus Respiratory exam: PRESENT: clear to auscultation willie - Clear on the left, decrea sed breath sounds - Decreased breath sounds in the right base, other - Chest tube on the right. ABSENT: rales, rhonchi, tachypnea, wheezes Cardiovascular exam: PRESENT: RRR, +S1, +S2 GI/Abdominal exam: PRESENT: normal bowel sounds, soft. ABSENT: distended, guarding, tenderness Neurological exam: PRESENT: alert, awake, oriented to person, oriented to place, oriented to time, oriented to situation. ABSENT: altered Results Laboratory Results: 03/14/20 05:00 03/09/20 05:15 03/14/20 05:00 WBC 4.5 RBC 3.60 L Hgb 8.0 L Hct 24.9 L MCV 69 L MCH 22.3 L MCHC 32.3 RDW 17.3 H Plt Count 593 H 02/21/20 02/21/20 02/21/20 08:46 08:46 18:31 Creatine Kinase 27 L Troponin I < 0.012 < 0.012 02/22/20 00:35 Creatine Kinase Troponin I < 0.012 Impressions: Abdomen/Pelvis CT 02/21/20 08:01 IMPRESSION: 1. NO SIGNIFICANT OR ACUTE FINDING IN THE ABDOMEN OR PELVIS ON CT SCAN WITH IV CONTRAST. NORMAL APPENDIX. 2. FAINT INDISTINCT AIRSPACE DISEASE IN THE RIGHT LOWER LOBE, NONSPECIFIC, WHICH MAY BE DUE TO INFECTION OR INFLAMMATION. Abdomen Ultrasound 02/21/20 12:07 IMPRESSION: POSSIBLE MINIMAL SLUDGE IN THE GALLBLADDER. OTHERWISE NORMAL RIGHT UPPER QUADRANT ULTRASOUND. Extremity Ultrasound 02/25/20 00:00 IMPRESSION: No abscess. There is thrombus in the saphenous vein to the saphenous femoral junction. PICC Line Insertion 02/26/20 00:00 IMPRESSION: SUCCESSFUL PLACEMENT OF A 5 FR DUAL LUMEN 32 CM PICC IN THE RIGHT BASILIC VEIN. Chest/Abdomen CTA 03/01/20 17:30 IMPRESSION: 1. Interval development of loculated right pleural effusion with compressive atelectasis and consolidation in the right lower lobe. The previous area of consolidation and cavitary nodule are now obscured bike consolidation at the right lung base. 2. Persistent small right segmental pulmonary embolism, probably slightly smaller than on previous examination difficult to compare due to degree of consolidation. No new PE. Thoracentesis Ultrasound 03/03/20 08:00 IMPRESSION: Successful ultrasound-guided right-sided thoracentesis. Apical Lordotic X-Ray 03/06/20 00:00 IMPRESSION: Loculated small right pleural effusion. Chest Tube Insertion 03/07/20 00:00 IMPRESSION: Successful CT-guided placement of a 10 Bolivian chest tube into the fluid-filled right pleural space. Chest X-Ray 03/08/20 06:00 IMPRESSION: No pneumothorax. Chest CT 03/10/20 06:00 IMPRESSION: Since placement of the pleural drainage catheter the amount of air in the posterior right pleural space has increased (part of it is iatrogenic) and the amount of fluid has decreased. The area of consolidation with air bronchograms in the dependent portion of the right lower lobe is unchanged. Assessment and Plan - Diagnosis (1) Streptococcal bacteremia Is this a current diagnosis for this admission?: Yes Plan: Evaluated by infectious diseases who recommends 4 weeks of antibiotics IV in absence of vegetation on RYAN otherwise 6 weeks. Patient underwent RYAN which did not show any evidence of vegetations. As such, patient does not meet [place] criteria for infective endocarditis. We will continue with treatment plan to complete 4 weeks of IV ceftriaxone. End date 03/22/2020 03/11/2020 Continue IV Rocephin 03/12/2020 Continue Rocephin 03/13/2020 9 more days of Rocephin 03/14/2020 Complete Rocephin as ordered (2) Exudative pleural effusion Is this a current diagnosis for this admission?: Yes Plan: Patient's fluid analysis indicates Complicated parapneumonic right pleural effusion. Patient has high fluid LDH, high protein, low glucose and pH of 7.2. Gram stain/culture negative & fluid was nonpurulent ruling out empyema. CT of the chest 03/05/2020 still showed good amount of loculated effusion. I consulted Crusher Tender here as well as CT surgery at [facility] via telephone who reviewed the CT and CXR images who recommend chest tube. CT surgery recommends placement of chest tube only first and states that VATS is not needed at this point. IR placed 10 Bolivian chest tube on 03/07/2020 connected to Pleur-evac and currently on suction drained only about 60cc so far. Chest x-ray subsequently showed no evidence of pneumothorax. Unfortunately, patient chest tube has only drained about 50 cc total since placement. Due to failure of treatment of complicated parapneumonic effusion, I will administer alteplase/dornase joel via chest tube into pleural cavity to see if this will improve output from chest tube. I will administer a dose today and another one potentially tomorrow if no results. Monitor for pleural bleed. 03/11/2020 Transfer to [facility] has been arranged for more aggressive treatment. 03/12/2020 No bed available today. We will continue to check with [facility] transfer [place] 03/13/2020 Still not better by me. Staff is checking daily with [facility], [place], operated by [facility]. Will discuss with surgery regarding removal of the chest tube if there is no further output. 03/14/2020 Patient with loculated exudative effusion. I will check with the [facility] [place], operated by [facility] as it has been several days. She will need a VATS procedure. (3) Pulmonary embolism Qualifiers: Pulmonary embolism type: other Chronicity: acute Acute cor pulmonale presence: without acute cor pulmonale Qualified Code(s): I26.99 - Other pulm onary embolism without acute cor pulmonale Is this a current diagnosis for this admission?: Yes Plan: CTA chest revealed small right lower lobe PE. Possible that this is septic embolism in light of current bacteremia but it could very well also be noninfectious especially given the absence of any pulmonary nodularities or cavitations on chest CT. Continue heparin drip for now as patient may need further procedures/interventions for her other condition. 03/11/2020 Continue heparin infusion 03/12/2020 Unfortunately the heparin drip was not resumed after the chest tube placement. The nurse noticed this today and it was immediately restarted. We are using heparin infusion so that it can be turned off for any invasive procedure when she is at [facility] so that there is no unnecessary delay 03/13/2020 Heparin infusion has reached therapeutic PTT. Continue. 03/14/2020 Continue heparin infusion. This will allow the infusion to be discontinued for procedure and then she will likely be on long-term anticoagulation for 3 to 6 months. (4) Pneumonia Qualifiers: Pneumonia type: due to unspecified organism Laterality: right Lung location: lower lobe of lung Qualified Code(s): J18.9 - Pneumonia, unspecified organism Is this a current diagnosis for this admission?: Yes Plan: Strep pyogenes isolated in blood culture. Continue ceftriaxone. 03/11/2020 Most likely strep pyogenes. Continue Rocephin 03/12/2020 Continue Rocephin 03/13/2020 Rocephin through March 22 03/14/2020 left lung is Clear. Right lung has diminished sounds due to the effusion. Patent he is breathing comfortably on room air. (5) IV drug abuse Is this a current diagnosis for this admission?: Yes - Plan Summary Summary: 03/11/2020 Spoke to the patient's mother and informed her of her status as well as pending transfer to [facility]. She was very appreciative. - Time Time Spent with patient: Less than 15 minutes Medications reviewed and adjusted accordingly: Yes
[2020-03-14] MEDS: BUPRENORPHINE HCL 2 MG SUBLINGUAL TABLET SL SCH ×3 (10:37→17:36)
[2020-03-14] MEDS: DOCUSATE SODIUM 100 MG CAPSULE PO SCH (10:38)
[2020-03-14] MEDS: FAMOTIDINE 20 MG TABLET PO SCH (10:38)
[2020-03-14] MEDS: BUSPIRONE HCL 10 MG TABLET PO SCH (10:38)
[2020-03-14] MEDS: FERROUS SULFATE 325 MG TABLET PO SCH (10:38)
[2020-03-14] MEDS: CEFTRIAXONE 2 GM/D5W RTU 2 GM/50 ML RTUPB IV SCH (10:47)
[2020-03-14] MEDS: NORMAL SALINE 10 ML SDV (SCHEDULED) IV SCH (10:48)
[2020-03-14] MEDS: LIDOCAINE 5% (700 MG) TRANSDERMAL ADH..PATCH TP SCH (10:50)
[2020-03-14 11:49] LABS: APPEARANCE,URINE CLEAR; BILIRUBIN,URINE NEGATIVE (NEGATIVE); COLOR,URINE YELLOW; GLUCOSE, URINE NEGATIVE (NEGATIVE); KETONES,URINE NEGATIVE (NEGATIVE); LEUKOCYTE ESTERASE,URINE NEGATIVE (NEGATIVE); NITRITE,URINE NEGATIVE (NEGATIVE); PROTEIN,URINE NEGATIVE (NEGATIVE); UROBILINOGEN,URINE NEGATIVE mg/dL (<2.0)
[2020-03-14 16:20] VITALS: BP 102/69
[2020-03-14] MEDS: ACETAMINOPHEN 325 MG TABLET PO PRN (17:37)
== END 2020-03-14 19:29 | disposition short-term general hospital (02) | DRG 288 ==
LOC: ER 06:43 → EH 14:43 → 4N 16:49
PROVIDERS: ADMIT Family Medicine; ATTEND Hospitalist
PROC: 02HV33Z Insertion of Infusion Device into Superior Vena Cava, Percutaneous Approach (ICD-10-PCS; 2020-02-26)
PROC: 0W9930Z Drainage of Right Pleural Cavity with Drainage Device, Percutaneous Approach (ICD-10-PCS; principal; 2020-03-03)
PROC: B246ZZ4 Ultrasonography of Right and Left Heart, Transesophageal (ICD-10-PCS; 2020-03-03)
PROC: 0W993ZX Drainage of Right Pleural Cavity, Percutaneous Approach, Diagnostic (ICD-10-PCS; 2020-03-07)
DX: I33.0 Acute and subacute infective endocarditis (principal); I26.90 Septic pulmonary embolism without acute cor pulmonale; J18.9 Pneumonia, unspecified organism; R78.81 Bacteremia; E87.1 Hypo-osmolality and hyponatremia; J91.8 Pleural effusion in other conditions classified elsewhere; B95.0 Streptococcus, group A, as the cause of diseases classified elsewhere; F15.10 Other stimulant abuse, uncomplicated; Z20.828 Contact with and (suspected) exposure to other viral communicable diseases; I95.9 Hypotension, unspecified; D64.9 Anemia, unspecified; G40.909 Epilepsy, unspecified, not intractable, without status epilepticus; D52.0 Dietary folate deficiency anemia; I80.01 Phlebitis and thrombophlebitis of superficial vessels of right lower extremity; F17.210 Nicotine dependence, cigarettes, uncomplicated; Z79.899 Other long term (current) drug therapy; B96.20 Unspecified Escherichia coli [E. coli] as the cause of diseases classified elsewhere
CPT/HCPCS: 01922; 32555; 32557; 36415; 36573; 71045; 71046; 71047; 71250; 71275; 74177; 76705; 76882; 80048; 80053; 80307; 81001; 82550; 82607; 82728; 82746; 82803; 82945; 83540; 83550; 83605; 83615; 83690; 83735; 83986; 84157; 84466; 84484; 84703; 85025; 85027; 85045; 85379; 85610; 85652; 85730; 86140; 86592; 86701; 86850; 86900; 86901; 87040; 87070; 87075; 87077; 87086; 87088; 87150; 87186; 87205; 87210; 87491; 87591; 87635; 88305; 89050; 93005; 93010; 93306; 93312; 93325; 94640; 94799; 96361; 96365; 96366; 96375; 96376; 99285; C1729; C1769; C1892; C1894; G0378; J0571; J0696; J1170; J1642; J1644; J1885; J2250; J2270; J2405; J2543; J2704; J3010; J3370; J3490; J7030; J7050; J7060; J7121

== ENCOUNTER 2020-04-30 12:43 | Emergency (ER) | payer MEDICAID ==
[2020-04-30 12:49] VITALS: BP 113/62
--- NOTE | 2020-04-30 13:18 | ER Document Report ---
ED Medical Screen (RME) - General Chief Complaint: Vag Bleeding, +preg <12wks Stated Complaint: VAGINAL BLEEDING,CRAMPING Time Seen by Provider: 04/30/20 13:08 TRAVEL OUTSIDE OF THE [place] IN LAST 30 DAYS: No - HPI Notes: 04/30/20 13:16 29-year-old female 4 para 2 with history of epilepsy who thinks she is about 8 weeks , last menstrual cycle 03/04/2020 presents emergency room with vaginal bleeding that started yesterday morning with lower abdominal pain. Reports she had dark blood this morning when she urinated. Is only had 1 pad that she is used today. Patient reports that she did have a grand mal seizure yesterday, she is on medication. Reports she has 2-3 grand mal seizures every 6 months. Does not currently have a neurologist or primary care doctor, she is taking prenatals. Denies any chest pain, shortness of breath, nausea vomiting or diarrhea. Denies any fevers or chills. I have greeted and performed a rapid initial assessment of this patient. A comprehensive ED assessment and evaluation of the patient, analysis of test results and completion of the medical decision making process will be conducted by additional ED providers. PHYSICAL EXAMINATION: GENERAL: Well-appearing, well-nourished and in no acute distress. HEAD: Atraumatic, normocephalic. CV: s1, s2 regular LUNGS: No respiratory distress abd: lower abd pain to palpation - Related Data Allergies/Adverse Reactions: No Known Allergies Allergy (Verified 10/26/19 12:08) Past Medical History Neurological Medical History: Reports: Hx Migraine, Hx Seizures Renal/ Medical History: Denies: Hx Peritoneal Dialysis Skin Medical History: Reports Hx Cellulitis Past Surgical History: Reports: Hx Section. Denies: Hx Hysterectomy - Immunizations Hx Diphtheria, Pertussis, Tetanus Vaccination: No - contraindicated-seizures Physical Exam - Vital signs Vitals: Temp Pulse Resp BP Pulse Ox 98.3 F 89 18 113/62 100 04/30/20 12:48 04/30/20 12:48 04/30/20 12:48 04/30/20 12:48 04/30/20 12:48 Course - Vital Signs Vital signs: Temp Pulse Resp BP Pulse Ox 98.3 F 89 18 113/62 100 04/30/20 12:48 04/30/20 12:48 04/30/20 12:48 04/30/20 12:48 04/30/20 12:48
[2020-04-30 14:02] LABS: ABSOLUTE LYMPHOCYTES (AUTO) 1.1 10^3/uL (0.5-4.7); ABSOLUTE MONOCYTES (AUTO) 0.4 10^3/uL (0.1-1.4); ABSOLUTE NEUT (AUTO) 3.9 10^3/uL (1.7-8.2); BASOPHILS % (AUTO) 0.5 % (0-2); EOSINOPHILS % (AUTO) 0.6 % (0-6); HEMATOCRIT 24.8 % (36.0-47.0); LYMPHOCYTES % (AUTO) 19.6 % (13-45); MEAN CORPUSCULAR HGB CONC 31.5 g/dL (32.0-36.0); MEAN CORPUSCULAR VOLUME 70 fl (80-97); MONOCYTES % (AUTO) 6.7 % (3-13); PLATELET COUNT 310 10^3/uL (150-450); RED BLOOD COUNT 3.56 10^6/uL (3.72-5.28); RED CELL DISTRIBUTION WIDTH 17.8 % (11.5-14.0); SEGMENTED NEUTROPHILS % (AUTO) 72.6 % (42-78); TOTAL CELLS COUNTED % (AUTO) 100 %; WHITE BLOOD COUNT 5.4 10^3/uL (4.0-10.5)
[2020-04-30 14:06] LABS: APPEARANCE,URINE SLIGHTLY-CLOUDY; BILIRUBIN,URINE SMALL (NEGATIVE); GLUCOSE, URINE NEGATIVE (NEGATIVE); KETONES,URINE NEGATIVE (NEGATIVE); LEUKOCYTE ESTERASE,URINE TRACE (NEGATIVE); NITRITE,URINE NEGATIVE (NEGATIVE); PROTEIN,URINE 30 mg/dL (NEGATIVE); URINE SPECIFIC GRAVITY 1.023; UROBILINOGEN,URINE NEGATIVE mg/dL (<2.0)
[2020-04-30 14:10] LABS: HEMOGLOBIN 7.8 g/dL (12.0-15.5)
[2020-04-30 14:14] LABS: COLOR,URINE YELLOW
[2020-04-30 14:25] LABS: ALBUMIN 4.2 g/dL (3.5-5.0); ALKALINE PHOSPHATASE 160 U/L (38-126); ANION GAP 8 (5-19); ASPARTATE AMINO TRANSFERASE 49 U/L (14-36); BILIRUBIN,TOTAL 0.3 mg/dL (0.2-1.3); BLOOD UREA NITROGEN 9 mg/dL (7-20); CARBON DIOXIDE 26 mmol/L (22-30); CHLORIDE 101 mmol/L (98-107); GLUCOSE 122 mg/dL (75-110); POTASSIUM 4.6 mmol/L (3.6-5.0); TOTAL PROTEIN 7.8 g/dL (6.3-8.2)
--- NOTE | 2020-04-30 15:27 | RADIOLOGY REPORT (SQ) ---
EXAM DESCRIPTION: U/S OB TRANSVAG W/DOPPLER IMAGES COMPLETED DATE/TIME: 04/30/2020 3:05 pm REASON FOR STUDY: 8wks preg, +vag bleeding x2d w/ pain COMPARISON: None. TECHNIQUE: Transvaginal static and realtime grayscale images acquired of the pelvis. Additional destinee cted spectral and color Doppler images recorded. All images stored on PACs. C,630 CLINICAL DATES: LMP 03/03/2020 8 weeks 2 days LIMITATIONS: None. FINDINGS: No intrauterine gestation is seen at this time. There is a heterogeneous area in the endo metrium UTERUS: No masses. No anomalies. CERVICAL LENGTH: 2.7 cm Closed. RIGHT ADNEXA: Normal ovary with normal vascular flow. 2.5 x 2.2 x 2 cm. No adnexal free fluid. No adnexal masses. LEFT ADNEXA: Normal ovary with normal vascular flow. 2.9 x 2 x 1.4 cm. No adnexal free fluid. No adnexal masses. FREE FLUID: None. OTHER: No other significant finding. IMPRESSION: There is no intrauterine gestation at this time. There is some heterogeneous material i n the endometrial canal. Likely miscarriage in progress. Follow-up as clinically indicated. TECHNICAL DOCUMENTATION: JOB ID: [id number] 2010 [employer]- All Rights Reserved Reading location - IP/workstation name: [email or web address]
--- NOTE | 2020-04-30 16:12 | ER Document Report ---
Entered by ROBERTA BRUNSON SCRIBE 04/30/20 1543 Acting as scribe for:EFREN CAIN MD ED GI/ - General Chief Complaint: Vag Bleeding, +preg <12wks Stated Complaint: VAGINAL BLEEDING,CRAMPING Time Seen by Provider: 04/30/20 13:08 Primary Care Provider: [facility] [Provider Group] - 05/05/20 Mode of Arrival: Ambulatory Information source: Patient Notes: This 29 year old female patient with extensive IV methamphetamine abuse presents to the emergency department today with complaints of lower abdominal pain. Patient's last menstrual period was 03/14 and she is currently . Patient states she has had vaginal bleeding as well, stating it was initially light in color but it is now dark red. Patient has had associated abdominal cramping. TRAVEL OUTSIDE OF THE [place] IN LAST 30 DAYS: No - Related Data Allergies/Adverse Reactions: No Known Allergies Allergy (Verified 04/30/20 13:17) Past Medical History - General Information source: Patient, [facility] Records - Social History Smoking Status: Current Every Day Smoker Cigarette use (# per day): Yes Chew tobacco use (# tins/day): No Smoking Education Provided: No Frequency of alcohol use: None Drug Abuse: Methamphetamine Lives with: Family Family History: Reviewed & Not Pertinent, Hypertension - Medical History Medical History: Other - Chronic IV drug abuse. Opiate dependent. Neurological Medical History: Reports: Hx Migraine, Hx Seizures Skin Medical History: Reports Hx Cellulitis Past Surgical History: Reports: Hx Section, Other - VATS in March 2020 at [facility]. - Immunizations Hx Diphtheria, Pertussis, Tetanus Vaccination: No - contraindicated-seizures Review of Systems - Review of Systems Constitutional: No symptoms reported EENT: No symptoms reported Cardiovascular: No symptoms reported Respiratory: No symptoms reported Gastrointestinal: See HPI, Abdominal pain - lower abdominal cramping Genitourinary: No symptoms reported Female Genitourinary: See HPI, Last menstrual period - 03/04, , Vaginal bleeding Musculoskeletal: No symptoms reported Skin: No symptoms reported Hematologic/Lymphatic: No symptoms reported Neurological/Psychological: No symptoms reported -: Yes All other systems reviewed and negative Physical Exam - Vital signs Vitals: Temp Pulse Resp BP Pulse Ox 98.3 F 89 18 113/62 100 04/30/20 12:48 04/30/20 12:48 04/30/20 12:48 04/30/20 12:48 04/30/20 12:48 - Notes Notes: Physical Exam: General: Alert, appears well. HEENT: Normocephalic. Atraumatic. PERRL. Extraocular movements intact. Oropharynx clear. Neck: Supple. Non-tender. Respiratory: No respiratory distress. Clear and equal breath sounds bilaterally. Cardiovascular: Regular rate and rhythm. Abdominal: Suprapubic tenderness with palpation. No distension. Normal Bowel Sounds. Back: No gross abnormalities. Extremities: Moves all four extremities. Upper extremities: Normal inspection. Normal ROM. Lower extremities: Wearing tracking device on right ankle Neurological: Normal cognition. AAOx4. Normal speech. Psychological: Normal affect. Normal Mood. Skin: Warm. Dry. Normal color. Course - Vital Signs Vital signs: Temp Pulse Resp BP Pulse Ox 98.3 F 89 18 113/62 100 04/30/20 12:48 04/30/20 12:48 04/30/20 12:48 04/30/20 12:48 04/30/20 12:48 - Laboratory Result Diagrams: 04/30/20 13:47 04/30/20 13:47 Laboratory results interpreted by me: 04/30/20 04/30/20 04/30/20 13:47 13:47 13:47 RBC 3.56 L Hgb 7.8 L Hct 24.8 L MCV 70 L MCH 22.0 L MCHC 31.5 L RDW 17.8 H Sodium 134.6 L Glucose 122 H AST 49 H Alkaline Phosphatase 160 H Beta HCG, Quant 9630.00 H Urine Protein 30 H Urine Blood MODERATE H Urine Bilirubin SMALL H Ur Leukocyte Esterase TRACE H Discharge - Discharge Clinical Impression: Threatened miscarriage in early Anemia Qualifiers: Anemia type: iron deficiency Iron deficiency anemia type: unspecified iron deficiency Qualified Code(s): D50.9 - Iron deficiency anemia, unspecified Condition: Stable Disposition: HOME, SELF-CARE Additional Instructions: Threatened Miscarriage: You have been evaluated for a possible miscarriage. At this time, there is no intrauterine seen. You will need a repeat hormone level done in the next few days to confirm if you are miscarrying. A miscarriage occurs when the fetus is abnormal. There is no medicine or treatment for it. You should rest in bed until the symptoms have resolved. Do not douche or have sex for at least a week, or until OK'd by the doctor. Call the doctor or return for re-examination if there is an increase in bleeding or cramping, or passage of tissue. Be sure you are taking your vitamins and your iron tablets. Rest, and drink plenty of fluids. Follow-up with [facility] on Tuesday for recheck. RETURN TO THE EMERGENCY ROOM IF ANY NEW OR WORSENING SYMPTOMS. Referrals: [facility] [Provider Group] - 05/05/20 I personally performed the services described in the documentation, reviewed and edited the documentation which was dictated to the scribe in my presence, and it accurately records my words and actions.
== END 2020-04-30 16:10 | disposition home or self-care (01) ==
LOC: ER 12:43
DX: O20.9 Hemorrhage in early pregnancy, unspecified (principal); O99.011 Anemia complicating pregnancy, first trimester; D50.9 Iron deficiency anemia, unspecified; O99.321 Drug use complicating pregnancy, first trimester; F15.10 Other stimulant abuse, uncomplicated; O26.891 Other specified pregnancy related conditions, first trimester; R10.30 Lower abdominal pain, unspecified; O99.331 Smoking (tobacco) complicating pregnancy, first trimester; F17.210 Nicotine dependence, cigarettes, uncomplicated; Z3A.01 Less than 8 weeks gestation of pregnancy
CPT/HCPCS: 36415; 76817; 80053; 81001; 83690; 84702; 85025; 86900; 86901; 93976; 99284

== ENCOUNTER 2020-08-06 03:26 | Emergency (ER) | payer MEDICAID ==
[2020-08-06] MEDS ORDERED: LIDOCAINE 1%/EPINEPHRINE INJ 20 ML VIAL INJ ONE (05:44)
--- NOTE | 2020-08-06 05:47 | ER Document Report ---
ED Medical Screen (RME) - General Chief Complaint: Abscess Stated Complaint: ABSCESS ON NECK Notes: 30 female history of IVDU presents with 2 days of growing rash and abscess on her anterior neck. Patient denies any known precipitating factors. Patient denies any fever, vomiting, shortness of breath. TRAVEL OUTSIDE OF THE [place] IN LAST 30 DAYS: No - Related Data Allergies/Adverse Reactions: No Known Allergies Allergy (Verified 04/30/20 13:17) Home Medications: subutex, eliquis Past Medical History - General Information source: Patient, [facility] Records Neurological Medical History: Reports: Hx Migraine, Hx Seizures Renal/ Medical History: Denies: Hx Peritoneal Dialysis Skin Medical History: Reports Hx Cellulitis Past Surgical History: Reports: Hx Section, Other - VATS in March 2020 at [facility].. Denies: Hx Hysterectomy - Immunizations Hx Diphtheria, Pertussis, Tetanus Vaccination: No - contraindicated-seizures Review of Systems - Review of Systems Notes: No fever, no chills Physical Exam - Vital signs Vitals: Temp Pulse Resp BP Pulse Ox 97.5 F 86 17 117/74 99 08/06/20 03:38 08/06/20 03:38 08/06/20 03:38 08/06/20 03:38 08/06/20 03:38 - Notes Notes: Anterior neck cellulitis with central area approximately 2 x 2 cm of fluctuance, normal respiratory rate and effort Course - Re-evaluation Re-evalutation: 08/06/20 05:46 I have greeted and performed a rapid initial assessment of this patient. A comprehensive ED assessment and evaluation of the patient, analysis of test re sults and completion of medical decision making process will be conducted by additional ED providers. - Vital Signs Vital signs: Temp Pulse Resp BP Pulse Ox 97.5 F 86 17 117/74 99 08/06/20 03:38 08/06/20 03:38 08/06/20 03:38 08/06/20 03:38 08/06/20 03:38
--- NOTE | 2020-08-06 06:21 | ER Document Report ---
ED General - General Chief Complaint: Abscess Stated Complaint: ABSCESS ON NECK Time Seen by Provider: 08/06/20 06:03 Primary Care Provider: [facility] [Provider Group] - Follow up in 3-5 days TRAVEL OUTSIDE OF THE [place] IN LAST 30 DAYS: No - HPI Notes: Patient is a 30 y/o female with a hx of IVDA and epilepsy who presents with an abscess to her right anterior neck that began 3 days ago. Patient states it started as a pimple and worsened. She denies fever, shortness of breath, nausea, vomiting. She is currently on Eliquis for cardiac emboli that occurred about 6 months ago. Patient states she quit using IV drugs at that point. She is an everyday smoker and smokes about half a pack a day. - Related Data Allergies/Adverse Reactions: No Known Allergies Allergy (Verified 08/06/20 07:12) Home Medications: subutex, eliquis Past Medical History - General Information source: Patient, [facility] Records - Social History Smoking Status: Current Every Day Smoker Frequency of alcohol use: None Family History: Reviewed & Not Pertinent, Hypertension Neurological Medical History: Reports: Hx Migraine, Hx Seizures Renal/ Medical History: Denies: Hx Peritoneal Dialysis Skin Medical History: Reports Hx Cellulitis Past Surgical History: Reports: Hx Section, Other - [facility] in March 2020 at [facility] Denies: Hx Hysterectomy - Immunizations Hx Diphtheria, Pertussis, Tetanus Vaccination: No - contraindicated-seizures Review of Systems - Review of Systems Constitutional: No symptoms reported EENT: No symptoms reported Cardiovascular: No symptoms reported Respiratory: No symptoms reported Gastrointestinal: No symptoms reported Genitourinary: No symptoms reported Female Genitourinary: No symptoms reported Musculoskeletal: No symptoms reported Skin: See HPI Hematologic/Lymphatic: No symptoms reported Neurological/Psychological: No symptoms reported Physical Exam - Vital signs Vitals: Temp Pulse Resp BP Pulse Ox 97.5 F 86 17 117/74 99 08/06/20 03:38 08/06/20 03:38 08/06/20 03:38 08/06/20 03:38 08/06/20 03:38 - Notes Notes: PHYSICAL EXAMINATION: GENERAL: Well-appearing, well-nourished and in no acute distress. HEAD: Atraumatic, normocephalic. EYES: sclera anicteric, conjunctiva are normal. ENT: Moist mucous membranes. NECK: Area of fluctuance to the anterior neck with surrounding erythema, warmth and induration. Normal range of motion. LUNGS: Normal work of breathing. Lungs clear to auscultation bilaterally. HEART: 2+ radial pulses bilaterally EXTREMITIES: no pitting or edema. No cyanosis. NEUROLOGICAL: No focal neurological deficits. Moves all extremities spontaneously and on command. PSYCH: Normal mood, normal affect. SKIN: Warm, Dry, normal turgor, no rashes or lesions noted. Course - Re-evaluation Re-evalutation: Patient is a 30 y/o with a hx of IVDA and epilepsy who presents with an abscess to the anterior neck. Vital signs are within normal limits. Area of fluctuance to the anterior neck with surrounding erythema, warmth and induration. Incision and drainage attempted but was unsuccessful. Dr. Mesa came in to evaluate the patient. Ultrasound was used which verified a abscess but it appears to be deeper than anticipated. We will proceed with antibiotic treatment. Discussion had with patient about the importance of following up in 3 to 5 days with a dermatology or surgical clinic to have her abscess reevaluated and possibly drained. Patient's only ride arrived and patient could not wait for the results of her urine test. Patient will be discharged home with a prescription for keflex instead of clindamycin as it is safe in . Return precautions and follow-up instructions given. Patient understands and is agreement with plan - Vital Signs Vital signs: Temp Pulse Resp BP Pulse Ox 97.5 F 86 17 117/74 99 08/06/20 03:38 08/06/20 03:38 08/06/20 03:38 08/06/20 03:38 08/06/20 03:38 Procedures - Incision and Drainage Anterior Neck Type: Complex Anesthetic type: 1% Lidocaine w/epi Blade size: 11 I&D procedure: Shurclens applied Incision Method: Incision made by scalpel Amount/type of drainage: No drainage Notes: Incision and drainage attempted but unsuccessful with no drainage. Dr. Mesa came and evaluated the patient and we utilized US to evaluate the abscess further. Abscess is deeper than anticipated. Will not proceed further with incision and drainage. Discharge - Discharge Clinical Impression: Abscess, neck Condition: Stable Disposition: HOME, SELF-CARE Instructions: Abscess ([facility]) Additional Instructions: Take antibiotics as prescribed for 7 days, Follow up with surgical clinic in 3-5 days to have the abscess re-evaluated and possibly drained. Return if symptoms worsen, you develop fever, or become short of breath. Prescriptions: Cephalexin Monohydrate [Keflex 500 mg Capsule] 500 mg PO QID 7 Days #28 capsule Referrals: [facility] [Provider Group] - Follow up in 3-5 days
[2020-08-06 11:49] VITALS: BP 116/73
== END 2020-08-06 07:15 | disposition home or self-care (01) ==
LOC: ER 03:26
DX: L02.11 Cutaneous abscess of neck (principal); F17.200 Nicotine dependence, unspecified, uncomplicated; I10 Essential (primary) hypertension; Z79.891 Long term (current) use of opiate analgesic; Z79.01 Long term (current) use of anticoagulants
CPT/HCPCS: 10060; 99284; 81025; J3490